=== PATIENT | female | born 1950 | race Caucasian/White ===

== ENCOUNTER 2018-11-27 09:02 | Outpatient (CLI) | payer MEDICARE, MEDICAID, SELFPAY ==
[2018-11-27 11:49] LABS: ALT 22 U/L (12-78); AST 21 U/L (15-37); Albumin 3.6 g/dL (3.4-5.0); Alkaline Phosphatase 80 U/L (46-116); Anion Gap 2.7 mmol/L (3-11); BUN 22 mg/dL (7-18); Bilirubin, Total 0.3 mg/dL (0.2-1.0); CO2 33.3 mmol/L (21.0-32.0); CREATININE 0.65 mg/dL (0.55-1.02); Calcium 8.8 mg/dL (8.5-10.1); Chloride 104 mmol/L (98-107); Cholesterol 211 mg/dL (50-200); Glucose 80 mg/dL (70-100); HDL Cholesterol 56 mg/dL (40-60); LDL CHOLESTEROL 129 mg/dL (<100); Potassium 4.4 mmol/L (3.5-5.1); Sodium 140 mmol/L (136-145); TROPONIN-I 5.3 ug/mL (4.0-12.0); Total Protein 6.9 g/dL (6.4-8.2); Triglyceride 115 mg/dL (30-150)
== END 2018-11-27 09:22 ==
DX: E66.3 Overweight (principal); I10 Essential (primary) hypertension; R56.9 Unspecified convulsions; F32.9 Major depressive disorder, single episode, unspecified; M25.511 Pain in right shoulder; M79.7 Fibromyalgia; Z51.81 Encounter for therapeutic drug level monitoring
CPT/HCPCS: 36415; 80053; 80061; 83721; 80156

== ENCOUNTER 2018-11-30 19:50 | Outpatient (REF) | payer MEDICARE, MEDICAID, SELFPAY ==
[2018-11-30 20:13] LABS: Bilirubin Negative (Negative); Blood Negative (Negative); Clarity Clear; Glucose Negative (Negative); Ketones Negative (Negative); Leukocyte Esterase Negative (Negative); Nitrite Negative (Negative); Specific Gravity 1.015 (1.005-1.025); Urobilinogen 0.2 EU/dL (Up TO 0.2); pH 7.5 (5-8)
== END 2018-11-30 20:10 ==
LOC: LBN 19:50
DX: R31.9 Hematuria, unspecified (principal)
CPT/HCPCS: 81003

== ENCOUNTER 2019-03-31 14:25 | Outpatient (CLI) | payer MEDICARE, MEDICAID, SELFPAY ==
[2019-03-31 15:44] LABS: Iron 93 ug/dL (50-175); Total Iron Binding Capacity 270 ug/dL (250-450); Transferrin Sat 34 % (15-50)
[2019-03-31 15:57] LABS: Ferritin 38 ng/mL (8-388)
== END 2019-03-31 14:45 ==
DX: D64.9 Anemia, unspecified (principal)
CPT/HCPCS: 82728; 83540; 83550

== ENCOUNTER → 2019-05-19 13:47 | Outpatient (BNVA) | payer MEDICARE, SELFPAY | PROVIDERS: Visit Provider Orthopaedic Surgery | DX: M25.512 Pain in left shoulder (principal); I10 Essential (primary) hypertension | CPT/HCPCS: 20610; 99211; 99213; J1040 ==

== ENCOUNTER 2019-07-27 14:19 | Outpatient (CLI) | payer MEDICARE, MEDICAID, SELFPAY ==
[2019-07-27 15:55] LABS: TSH (W/Ref FT4) 2.14 uIU/mL (0.36-3.74)
== END 2019-07-27 14:39 ==
DX: F32.9 Major depressive disorder, single episode, unspecified (principal); G47.00 Insomnia, unspecified; I10 Essential (primary) hypertension; M79.7 Fibromyalgia; R60.9 Edema, unspecified
CPT/HCPCS: 36415; 84443

== ENCOUNTER 2019-09-01 13:54 | Outpatient (CLI) | payer MEDICARE, SELFPAY ==
--- NOTE | 2019-09-01 12:30 | DI.RAD_ITS ---
EXAM: XR SHOULDER LT COMPLETE 2+V INDICATION: shoulder pain, left - decreased ROM, M25.512. COMPARISON: RIGHT SHOULDER COMPLETE from 10/23/2016 RIGHT SHOULDER COMPLETE from 02/02/2018 LEFT SHOULDER COMPLETE from 02/02/2018 TECHNIQUE: 2D digital imaging was performed. FINDINGS: There is mild spurring at the AC joint and tip of the acromion. There is an old healed fracture of the proximal humerus. There is spurring at the glenoid. There is prominent spurring at the anterior aspect of the humeral head. IMPRESSION: Old healed humeral head fracture and degenerative changes.
== END 2019-09-01 14:14 ==
DX: M25.512 Pain in left shoulder (principal); M19.012 Primary osteoarthritis, left shoulder; Z87.81 Personal history of (healed) traumatic fracture
CPT/HCPCS: 73030

== ENCOUNTER 2019-10-25 11:37 | Outpatient (CLI) | payer MEDICARE, SELFPAY ==
[2019-10-25 13:08] LABS: CREATININE 0.54 mg/dL (0.55-1.02); Potassium 4.1 mmol/L (3.5-5.1)
== END 2019-10-25 11:57 ==
PROVIDERS: PCP Nurse Practitioner; Visit Provider Nurse Practitioner
DX: I10 Essential (primary) hypertension (principal)
CPT/HCPCS: 36415; 82565; 84132

== ENCOUNTER 2020-03-08 12:51 | Emergency (ER) | payer MEDICARE, SELFPAY | END 2020-03-08 13:00 | disposition other institution (70) | LOC: ER 12:58 | PROVIDERS: PCP Nurse Practitioner | DX: Z53.21 Procedure and treatment not carried out due to patient leaving prior to being seen by health care provider (principal) ==

== ENCOUNTER 2020-05-21 07:43 | Outpatient (CLI) | payer MEDICARE, SELFPAY ==
--- NOTE | 2020-05-21 09:15 | DI.MAMMO_ITS ---
EXAM: MG MAMMO SCREENING CLINICAL HISTORY: screening, Z12.39 TECHNIQUE: Bilateral full field digital CC and MLO mammographic images were obtained with 3D tomosyn thesis and utilizing computer aided detection (CAD). COMPARISON: None. FINDINGS: Masses/Architectural Distortion: None seen. Microcalcifications: No suspicious pleomorphic-type are seen. Skin Thickening/Nipple Retraction: None. IMPRESSION: 1. No significant interval change with no specific features of malignancy noted. 2. Unless there is more urgent need, screening mammography is recommended, as per [employer] [place] [employer] guidelines. BI-RADS Category 1 - Negative Breast Density - Category B - Scattered areas of fibroglandular density A negative radiographic report should not delay biopsy if a dominant or clinically suspicious mass is present. Up to ten percent of cancers are not identified on mammography. A negative report may reinforce clinical impression. Adenosis and dense breasts may obscure an underlying neoplasm. False positive reports average 6 to 10%. Patient will receive a letter notifying them of these results.
== END 2020-05-21 08:03 ==
PROVIDERS: PCP Nurse Practitioner; Visit Provider Nurse Practitioner
DX: Z12.31 Encounter for screening mammogram for malignant neoplasm of breast (principal)
CPT/HCPCS: 77063; 77067

== ENCOUNTER 2021-05-02 10:43 | Outpatient (CLI) | payer MEDICARE, SELFPAY ==
--- NOTE | 2021-05-02 09:30 | DI.RAD_ITS ---
Exam(s) XR KNEE LT 3V AP,LAT,LEANDRO EXAM: XR KNEE LT 3V AP,LAT,LEANDRO CLINICAL HISTORY: LEFT KNEE PAIN. TECHNIQUE: 2D digital imaging was performed. COMPARISON: CR RIGHT KNEE 3 VIEWS from 01/16/2012 MR MRI R LOWER JOINT WO CONT from 06/27/2014 MR MRI R LOWER JOINT WO CONT from 06/27/2014 CR RIGHT KNEE LIMITED 1 OR 2 VIEW from 11/21/2015 CR RIGHT KNEE LIMITED 1 OR 2 VIEW from 11/21/2015 CR RIGHT KNEE 3 VIEWS from 02/02/2018 CR RIGHT KNEE 3 VIEWS from 02/02/2018 FINDINGS: There is no evidence of left knee fracture. Slight increased amount of joint fluid noted. Mild dege nerative changes. Chondrocalcinosis noted in the lateral compartment. Small marginal osteophytes of f the medial compartment. Incidentally noted is a sclerotic bone lesion measuring 1.9 by 1.1 cm located posteriorly-laterally i n the diaphysis-metaphysis junction of the femur. Possibly an enchondroma. IMPRESSION: Mild degenerative changes as described above. Sclerotic intramedullary bone lesion in the distal femur as described above. Comparison to any prior outside images would be helpful, if they exist. All the other knee images in our are of the opposit e-right knee. If clinically indicated can perform MRI DATA REPOSITORY: RADIATION DOSE DELIVERED:
== END 2021-05-02 10:44 | disposition home or self-care (01) ==
LOC: DIORS 10:43
PROVIDERS: PCP Nurse Practitioner; Referring Provider Nurse Practitioner; Visit Provider Student in an Organized Health Care Education/Training Program
DX: M25.562 Pain in left knee (principal); M17.12 Unilateral primary osteoarthritis, left knee; M89.9 Disorder of bone, unspecified
CPT/HCPCS: 20610; 73562; J1040

== ENCOUNTER → 2021-05-20 01:54 | Outpatient (CLI) | payer MEDICARE, SELFPAY ==
--- NOTE | 2021-05-20 15:00 | DI.MRI_ITS ---
Exam(s) MR LOWER JOINT LT WO EXAM: MR LOWER JOINT LT WO CLINICAL HISTORY: LT KNEE PAIN, M25.562 TECHNIQUE: Multiplanar multisequence MRI of the knee was performed. COMPARISON: MR MRI R LOWER JOINT WO CONT from 06/27/2014 Knee x-ray 05/02/2021 was reviewed FINDINGS: EFFUSION: There is a small amount of increased joint fluid. There is a Valdez's cyst in the medial po pliteal fossa which measures 4 cm craniocaudal length by 0.7 cm AP by 0.6 cm wide. MARROW:There is no evidence of fracture. There is some bone edema evident in medial tibial plateau a nd subarticular outer aspect of the medial femoral condyle. In addition, there is an eccentric intramedullary bone lesion in the distal posterior lateral aspect of the femoral diaphysis which is associated with some endosteal scalloping. Thin hyperintense rim k nows prominent surrounding bone edema. Probably an enchondroma. PATELLOFEMORAL COMPARTMENT: The quadriceps tendon is intact. The patellar ligament is intact. There is significant thinning of the retropatellar cartilage over the medial facet above the equator. Also focal cartilage thinning over the lateral facet. No intraosseous signal to suggest recent pat ellar dislocation. There is no evidence of patellar retinacular tear. CRUCIATE LIGAMENTS: Some increased signal is seen the ACL but no high-grade tear this structure.The p osterior cruciate ligament is intact. MEDIAL COMPARTMENT/MEDIAL MENISCUS: There is an undersurface tear in the posterior horn of the medial meniscus. The meniscal root is intact. No obvious tears of the anterior horn.. There is significant thinning of the hyaline cartilage over the medial femoral condyle. There is mild subarticular edema. No osteochondral defects. Subjacent medial tibial plateau exhibits some subartic ular edema posteriorly. MEDIAL COLLATERAL LIGAMENT: Intact LATERAL COMPARTMENT/LATERAL MENISCUS: Posterior horn of the lateral meniscus is intact. Myxoid degene ration signal noted in the anterior horn.Mild degenerative changes in the cartilage over the condyle. No osteochondral defects. There are tiny marginal osteophytes. ILIOTIBIAL BAND: Intact LATERAL COLLATERAL LIGAMENT COMPLEX: The fibular collateral ligament is intact. The biceps femoris t endon is intact.Popliteus muscle and tendon are intact. Numerous varicose veins are noted lateral aspect of knee. IMPRESSION: 1. There is a joint effusion there is Valdez cyst as described above 2. Under surface tear noted in the posterior horn of the medial meniscus. 3. Mild increased signal in the anterior cruciate ligament but no high-grade tear of this structure e vident. The PCL is intact. No tears of the MCL nor of the LCL complex 4. There is an eccentric well-defined bone lesion in the distal lateral diaphysis of the femur which measures approximately 1.5 by 1.0 cm associated with some endosteal scalloping. There is minimal if a ny surrounding marrow edema. First consideration is for an enchondroma. Recommend follow-up MRI in 6 months. DATA REPOSITORY:
== END ==
PROVIDERS: PCP Nurse Practitioner; Visit Provider Student in an Organized Health Care Education/Training Program
DX: M71.22 Synovial cyst of popliteal space [Baker], left knee (principal); S83.242A Other tear of medial meniscus, current injury, left knee, initial encounter; M89.9 Disorder of bone, unspecified; X58.XXXA Exposure to other specified factors, initial encounter
CPT/HCPCS: 73721

== ENCOUNTER 2021-05-29 02:42 | Outpatient (CLI) | payer MEDICARE, SELFPAY ==
--- NOTE | 2021-05-29 11:14 | DI.MAMMO_ITS ---
Exam(s) MAMMO SCREENING EXAM: MAMMO SCREENING CLINICAL HISTORY: screening,Z12.39. TECHNIQUE: Bilateral full field digital CC and MLO mammographic images were obtained with 3D tomosyn thesis and utilizing computer aided detection (CAD). COMPARISON: Prior mammogram performed May 2020. There are no other mammograms for comparison.. FINDINGS: There are no new spiculated masses nor malignant appearing microcalcification groups. There is no significant architectural distortion nor skin thickening-retraction. IMPRESSION: No radiographic evidence of malignancy. BI-RADS Category 1 - Negative Breast Density - Category B - Scattered areas of fibroglandular density Breast density Category C or D implies that the patient has dense breast tissue. Dense breast tissue can make it harder to find cancer on a mammogram. Dense breast tissue is also associated with an incr eased risk of breast cancer. This information about the result of the mammogram report was provided to the patient to raise their awareness. Use this report when you speak with the patient about their risks for breast cancer, which includes their family history. At that time, you may recommend additional screening tests (Ultrasoun d or MRI) as these tests may add significant information. A negative radiographic report should not delay biopsy if a dominant or clinically suspicious mass is present. Up to ten percent of cancers are not identified on mammography. A negative report may reinforce clinical impression. Adenosis and dense breasts may obscure an underlying neoplasm. False positive reports average 6 to 10%. Patient will receive a letter notifying them of these results.
== END 2021-05-29 03:02 ==
PROVIDERS: PCP Nurse Practitioner; Visit Provider Nurse Practitioner
DX: Z12.31 Encounter for screening mammogram for malignant neoplasm of breast; I10 Essential (primary) hypertension; R92.8 Other abnormal and inconclusive findings on diagnostic imaging of breast
CPT/HCPCS: 77063; 77067

== ENCOUNTER 2021-06-21 10:42 | Outpatient (CLI) | payer MEDICARE, SELFPAY ==
--- NOTE | 2021-06-21 10:15 | DI.RAD_ITS ---
Exam(s) XR KNEE RT 4V AP,LAT,LEANDRO,PAT EXAM: XR KNEE RT 4V AP,LAT,LEANDRO,PAT CLINICAL HISTORY: right knee pain after fall. TECHNIQUE: 2D digital imaging was performed. COMPARISON: CR RIGHT KNEE 3 VIEWS from 02/02/2018 FINDINGS: BONES: No acute fracture is present. No bony destructive lesion is seen. JOINTS: There are stable postsurgical changes of a right total knee replacement. No joint effusion i s seen. SOFT TISSUE: Normal. IMPRESSION: No acute abnormality. DATA REPOSITORY: RADIATION DOSE DELIVERED:
== END 2021-06-21 10:43 | disposition home or self-care (01) ==
LOC: DIORS 10:42
PROVIDERS: PCP Nurse Practitioner; Referring Provider Nurse Practitioner; Visit Provider Student in an Organized Health Care Education/Training Program
DX: M25.561 Pain in right knee (principal); M70.51 Other bursitis of knee, right knee; W19.XXXA Unspecified fall, initial encounter; Z96.651 Presence of right artificial knee joint
CPT/HCPCS: 99213; 73564

== ENCOUNTER 2021-06-28 16:52 | Outpatient (REF) | payer MEDICARE, SELFPAY ==
[2021-06-30 12:54] LABS: COVID-19 RT-PCR UVMMC Result Negative (Negative)
== END 2021-06-28 16:53 | disposition home or self-care (01) ==
LOC: LBN 16:52
PROVIDERS: PCP Nurse Practitioner; Visit Provider Nurse Practitioner
DX: Z20.822 Contact with and (suspected) exposure to COVID-19 (principal); J06.9 Acute upper respiratory infection, unspecified
CPT/HCPCS: U0003

== ENCOUNTER → 2021-07-23 00:20 | Outpatient (CLI) | payer MEDICARE, SELFPAY ==
--- NOTE | 2021-07-23 10:50 | DI.MRI_ITS ---
Exam(s) MR BRAIN WO EXAM: MR BRAIN WO CLINICAL HISTORY: r/o CVA/ TIA,slurring, walking toward 1 side,G45.9 TECHNIQUE: Multiplanar multisequence MRI of the brain was performed. COMPARISON: No exams were available for comparison FINDINGS: The examination is limited due to patient motion artifact. VENTRICLES AND EXTRA AXIAL SPACES: Normal in size and morphology for the patient's age. MIDLINE SHIFT: None. CEREBRAL PARENCHYMA: No focus of restricted diffusion to suggest acute infarct. No space-occupying le willow identified. There are areas of hyperintense signal in the white matter on the FLAIR and T2 weigh glenis images most consistent with chronic microvascular ischemic change. HEMORRHAGE: None. BRAINSTEM/CEREBELLUM: Normal. CALVARIUM: Normal. VISUALIZED PARANASAL SINUSES/MASTOIDS:Clear. [place] OF [place]: Normal flow void. PITUITARY GLAND: Unremarkable. OTHER FINDINGS: None. IMPRESSION: 1. No evidence of an acute infarct. 2. Cerebral atrophy and small vessel ischemic disease consistent with the patient's age. DATA REPOSITORY:
== END ==
PROVIDERS: PCP Nurse Practitioner; Visit Provider Nurse Practitioner
DX: G45.9 Transient cerebral ischemic attack, unspecified (principal); G31.9 Degenerative disease of nervous system, unspecified
CPT/HCPCS: 70551

== ENCOUNTER 2021-10-21 14:22 | Outpatient (REF) | payer MEDICARE, SELFPAY ==
[2021-10-23 11:38] LABS: COVID-19 RT-PCR UVMMC Result Negative (Negative)
== END 2021-10-21 14:23 | disposition home or self-care (01) ==
LOC: LBN 14:22
PROVIDERS: PCP Nurse Practitioner; Visit Provider Family Medicine
DX: Z20.822 Contact with and (suspected) exposure to COVID-19 (principal); J06.9 Acute upper respiratory infection, unspecified
CPT/HCPCS: U0003; U0005

== ENCOUNTER 2021-10-29 15:41 | Outpatient (REF) | payer MEDICARE, SELFPAY ==
[2021-10-31 10:34] LABS: COVID-19 RT-PCR UVMMC Result Negative (Negative)
== END 2021-10-29 15:42 | disposition home or self-care (01) ==
LOC: LBN 15:41
PROVIDERS: PCP Nurse Practitioner; Visit Provider Nurse Practitioner
DX: Z20.822 Contact with and (suspected) exposure to COVID-19 (principal); J06.9 Acute upper respiratory infection, unspecified
CPT/HCPCS: U0003; U0005

== ENCOUNTER 2021-11-21 11:53 | Outpatient (CLI) | payer MEDICARE, SELFPAY ==
--- NOTE | 2021-11-21 11:30 | DI.RAD_ITS ---
Exam(s) XR KNEE LT 2V AP,LAT EXAM: XR KNEE LT 2V AP,LAT CLINICAL HISTORY: f/u L distal femur enchondroma. TECHNIQUE: 2D digital imaging was performed. COMPARISON: CR RIGHT KNEE 3 VIEWS from 01/16/2012 MR MRI R LOWER JOINT WO CONT from 06/27/2014 CR RIGHT KNEE LIMITED 1 OR 2 VIEW from 11/21/2015 MR MR LOWER JOINT LT WO from 05/20/2021 CR XR KNEE RT 4V AP,LAT,LEANDRO,PAT from 06/21/2021 FINDINGS: No evidence of fracture but there does appear to be a joint effusion, seen on the lateral. Moderate degenerative changes noted in the medial compartment. Mild joint space narrowing seen at this level on the standing view. There is no narrowing of the lateral compartment but there is chondrocalcinosi s evident in the lateral compartment. There is an eccentric intramedullary sclerotic bone lesion seen in the distal femur which corresponds to the finding seen on MRI examination of 05/20/2021. Exhibits some endosteal scalloping, as previo usly present on the MRI. This is probably an enchondroma. IMPRESSION: Degenerative changes. Probable enchondroma in the distal femur diaphysis evident, as seen on the MRI scan of 05/20/2021 DATA REPOSITORY: RADIATION DOSE DELIVERED:
== END 2021-11-21 11:54 | disposition home or self-care (01) ==
LOC: DIORS 11:53
PROVIDERS: PCP Nurse Practitioner; Referring Provider Nurse Practitioner; Visit Provider Student in an Organized Health Care Education/Training Program
DX: D16.22 Benign neoplasm of long bones of left lower limb (principal); I83.892 Varicose veins of left lower extremity with other complications
CPT/HCPCS: 99213; 73560

== ENCOUNTER 2022-01-06 04:33 | Outpatient (CLI) | payer MEDICARE, SELFPAY ==
[2022-01-06 14:28] LABS: Abs Immature Grans 0.01 10^3/uL (0.0-0.06); Absolute Basophil Count 0.05 10^3/uL (0.0-0.2); Absolute Lymphocyte Count 1.44 10^3/uL (1.2-3.4); Absolute Monocyte Count 0.33 10^3/uL (0.1-0.8); Absolute Neutrophil Count 2.72 10^3/uL (1.2-6.7); Eosinophils % 6.2; HCT 31.1 % (36.0-46.0); HGB 10.2 g/dL (11.2-15.7); Immature Grans % 0.2; Lymphocytes % 29.7; MCHC 32.8 % (32.0-36.0); MCV 94.5 fL (80-95); Monocytes % 6.8; Neutrophils % 56.1; Nucleated RBC 0 %; RBC 3.29 10^6/uL (3.93-5.22); RDW 12.7 % (11.7-14.6); RDW-SD 44.2 fL; WBC 4.85 10^3/uL (4.4-10.8)
[2022-01-06 15:51] LABS: ALT 13 U/L (14-59); AST 17 U/L (15-37); Albumin 3.8 g/dL (3.4-5.0); Alkaline Phosphatase 86 U/L (46-116); Anion Gap 8.6 mmol/L (3-11); BUN 15 mg/dL (7-18); Bilirubin, Total 0.2 mg/dL (0.2-1.0); CO2 30.4 mmol/L (21.0-32.0); Calcium 9.1 mg/dL (8.5-10.1); Chloride 100 mmol/L (98-107); Glucose 89 mg/dL (74-106); Potassium 3.8 mmol/L (3.5-5.1); Sodium 139 mmol/L (136-145); Total Protein 7.4 g/dL (6.4-8.2)
[2022-01-06 19:25] LABS: TSH (W/Ref FT4) 3.05 uIU/mL (0.36-3.74)
== END 2022-01-06 04:34 | disposition home or self-care (01) ==
LOC: LBO 04:33
PROVIDERS: PCP Nurse Practitioner; Visit Provider Dermatology
DX: I10 Essential (primary) hypertension (principal); N18.9 Chronic kidney disease, unspecified
CPT/HCPCS: 36415; 80053; 84443; 85025

== ENCOUNTER 2022-03-25 12:06 | Emergency (ER) | payer MEDICARE, SELFPAY ==
[2022-03-25 12:08] VITALS: BP 129/58; PULSE 74; RESP 16; TEMP 37.3; O2SAT 98
--- NOTE | 2022-03-25 12:15 | RT.EKG_ITS ---
APPROVED REPORT Exam: Resting ECG Reason for Exam: near syncope Patient Location: E HR:66 bpm ECG Measurements Heart Rate 66 AXIS IA 72 P 0 QRSd 93 QRS 33 QT 400 T 13 QTc 420 Conclusion Sinus rhythm...normal P axis, V-rate 60- 99
--- NOTE | 2022-03-25 12:18 | W.ED.GENAD ---
Discharge Plan Disposition Patient Disposition: HOME Condition: Stable Discharge Details Clinical Impression: Near syncope, Effusion of knee joint right, Acute hypokalemia Primary Care Provider: Rachel Horne ED Provider: Daisy Knowles Home Meds and New Rx's Prescriptions: New potassium chloride 20 mEq tablet extended release 20 meq PO BID Qty: 7 0RF Continued docusate sodium 100 mg tablet 100 - 200 mg PO DAILY PRN (Reason: constipation) Qty: 60 12RF loratadine 10 mg tablet 10 mg PO daily prn Qty: 90 4RF calcium carbonate-vitamin D3 [Os-Miguel 500 + D3] 500mg (1,250mg) -600 unit tablet 1 tab PO BID Qty: 200 2RF Rx Instructions: 1 tab at 0800 and 1 tab at HS lisinopril 10 mg tablet 10 mg PO DAILY Qty: 90 4RF benzonatate 100 mg capsule 100 mg PO TID PRN (Reason: cough) Qty: 20 1RF duloxetine [Cymbalta] 20 mg capsule,delayed release(DR/EC) 20 mg PO DAILY Qty: 90 4RF Rx Instructions: Take 1 tab at 0800 fluticasone propionate 50 mcg/actuation spray,suspension 1 spray NS BID Qty: 1 11RF gabapentin 300 mg capsule 300 mg PO TID Qty: 450 3RF hydrochlorothiazide 25 mg tablet 25 mg PO DAILY Qty: 90 3RF olopatadine 0.7 % drops 1 drp OP DAILY Qty: 2.5 1RF oxybutynin chloride 5 mg tablet 10 mg PO DAILY Qty: 180 4RF Rx Instructions: 2 tab daily at 0800 albuterol sulfate 90 mcg/actuation HFA aerosol inhaler 2 puff inhalation Q6H PRN (Reason: shortness of breath or wheezing) Qty: 8.5 0RF erythromycin 5 mg/gram (0.5 %) ointment 0.5 inch ophthalmic (eye) QID Qty: 3.5 0RF Lac-Hydrin Five 5 % lotion 1 applic topical DAILY Qty: 226 4RF fluoxetine 20 mg capsule 20 mg PO DAILY Qty: 30 0RF iqgqktrgcsy-dtkoyihbs-iev C-Mn [Glucosamine 1500 Complex] 1 EACH capsule 1 ea PO DAILY Multiple Vitamin, Womens 1 EACH tablet 1 ea PO DAILY ibuprofen 400 mg tablet 400 mg PO TID PRN (Reason: pain) Qty: 90 4RF carbamazepine [Tegretol] 200 mg tablet 200 mg PO TID Qty: 270 4RF Rx Instructions: 1 TAB 0800, PM, and HS, NAME BRAND MEDICALLY NECESSARY Discharge Instructions Instructions: Hypokalemia (ED), Near Syncope (ED) Additional Instructions: For potassium as instructed Follow-up with your PCP for Holter monitor Have regular meals and fluids Do not drive for the rest of the evening Follow-up with orthopedics regarding your effusion and return earlier should you have new or worsening complaints Use your walker with ambulation Use your knee brace Referrals: Odilon Velazquez MD [ [facility] STAFF PHYSICIAN] - Discharge Data Discharge Date/Time-TO BE ENTERED AT DEPARTURE: 03/25/22 16:50 Medical Decision Making <QUIQUE Lopez - Last Filed: 03/25/22 15:38> 71-year-old female reports sitting in the hot sun at a bank waiting for her turn, felt thirsty, upon getting up she felt near syncopal. Fell to the ground but denies LOC. Her only complaint now is that of right knee and ankle pain. She denies headache, chest pain, shortness of breath visual changes, abdominal pain, nausea, vomiting, numbness, tingling, weakness. Clinically she appears well, nontoxic. There is diffuse skin lesions secondary to skin picking and constant scratching. Given her near syncopal episode, while it sounds as though this is secondary to sitting in the hot sun, getting up from her chair quickly, will initiate a cardiac work-up and will obtain x-ray of her right knee and ankle. No indication that patient had a seizure today. Initial laboratory values are unremarkable for any obvious emergent process. No leukocytosis. Anemia appears to be near baseline. She denies any black tarry stools or bright red blood in her stools. Coags unremarkable. Potassium 3.3 electrolytes otherwise unremarkable, creatinine 0.8 with a GFR greater than 60. Glucose 99, magnesium 1.9, LFTs unremarkable, troponin less than 50, TSH 2.84. Urinalysis trace blood, small leuk esterase, 0-2 red cells 3-5 white cells, rare bacteria, culture is indicated. Flu, COVID, RSV negative X-ray of chest unremarkable. X-ray of ankle unremarkable. X-ray of the right knee reveals a large joint effusion, fat fluid level noted, cannot rule out occult intra-articular fracture X-ray of the knee was discussed with Dr. Velazquez, orthopedics. He reports the patient can be weightbearing as tolerated, recommends a walker, plus or minus brace, and trial ambulation. He will be happy to follow the patient as an outpatient Patient tolerated p.o. intake without difficulty Ceasar wrap applied, patient was able to ambulate slowly, took 2 steps, then reported the pain was too great and began to vomit. Patient given 4 mg IV Zofran. Awaiting a delta troponin. With Dr. Velazquez called back, recommends knee immobilizer, and he will see the patient in the office in 1-2 weeks. The patient would like to trial ambulate again. She states that she would like to go home and does not want to be admitted or go to a rehab facility. She is currently being p.o. trialed, will plan ambulate once again, and awaiting delta troponin Medical Records Medical records reviewed: Yes I reviewed the patient's medical records. Imaging Data Radiologic Study: Attestation: I personally reviewed and interpreted this imaging study as follows: Imaging: X-Ray Radiologist's impression: Exam(s) XR CHEST 2V PA LATERAL EXAM: XR CHEST 2V PA LATERAL CLINICAL HISTORY: near syncope TECHNIQUE: 2D digital imaging was performed. COMPARISON: CR RIGHT SHOULDER COMPLETE from 02/02/2018 FINDINGS: The heart is not enlarged. The lungs are clear and well expanded. No pleural effusion seen. Mediastinal contours appear intact. Right-sided reverse shoulder prosthesis noted. IMPRESSION: No evidence of acute process. Radiologic Study #2: Attestation: I personally reviewed and interpreted this imaging study as follows: Imaging: X-Ray Radiologist's impression: Exam(s) XR ANKLE RT COMPLETE EXAM: XR ANKLE RT COMPLETE CLINICAL HISTORY: fall TECHNIQUE: COMPARISON: CR LEFT ANKLE COMPLETE from 01/16/2012 FINDINGS: Three views were obtained. There is a fixation screw in the medial malleolus. The ankle mortise appears well maintained. There is no evidence of acute fracture or dislocation. ECG Data Attestation: I personally reviewed and interpreted this ECG (s) as follows: Interpretation: Please see official report by Dr. Bethea. Sinus rhythm, ventricular rate of 66, no STEMI. <Daisy Benson, PA - Last Filed: 03/25/22 19:31> 71-year-old female reports sitting in the hot sun at a bank waiting for her turn, felt thirsty, upon getting up she felt near syncopal. Fell to the ground but denies LOC. Her only complaint now is that of right knee and ankle pain. She denies headache, chest pain, shortness of breath visual changes, abdominal pain, nausea, vomiting, numbness, tingling, weakness. Clinically she appears well, nontoxic. There is diffuse skin lesions secondary to skin picking and constant scratching. Given her near syncopal episode, while it sounds as though this is secondary to sitting in the hot sun, getting up from her chair quickly, will initiate a cardiac work-up and will obtain x-ray of her right knee and ankle. No indication that patient had a seizure today. Initial laboratory values are unremarkable for any obvious emergent process. No leukocytosis. Anemia appears to be near baseline. She denies any black tarry stools or bright red blood in her stools. Coags unremarkable. Potassium 3.3 electrolytes otherwise unremarkable, creatinine 0.8 with a GFR greater than 60. Glucose 99, magnesium 1.9, LFTs unremarkable, troponin less than 50, TSH 2.84. Urinalysis trace blood, small leuk esterase, 0-2 red cells 3-5 white cells, rare bacteria, culture is indicated. Flu, COVID, RSV negative X-ray of chest unremarkable. X-ray of ankle unremarkable. X-ray of the right knee reveals a large joint effusion, fat fluid level noted, cannot rule out occult intra-articular fracture X-ray of the knee was discussed with Dr. Velazquez, orthopedics. He reports the patient can be weightbearing as tolerated, recommends a walker, plus or minus brace, and trial ambulation. He will be happy to follow the patient as an outpatient Patient tolerated p.o. intake without difficulty Ceasar wrap applied, patient was able to ambulate slowly, took 2 steps, then reported the pain was too great and began to vomit. Patient given 4 mg IV Zofran. Awaiting a delta troponin. With Dr. Velazquez called back, recommends knee immobilizer, and he will see the patient in the office in 1-2 weeks. The patient would like to trial ambulate again. She states that she would like to go home and does not want to be admitted or go to a rehab facility. She is currently being p.o. trialed, will plan ambulate once again, and awaiting delta troponin LB: Care is accepted in transition from Tr Walker physician enrichment assistant pending delta troponin and ambulatory trial Patient was placed in a hinged knee brace for her knee effusion and was able to ambulate well and request discharge home Her troponin is negative x2 and she is feeling symptomatically improved, and she is not experiencing any orthostatic signs She is referred for outpatient Holter monitor Return precautions discussed and patient expressed understanding, at time of discharge home she has stable vitals and assessment Mildly hypokalemic, 3.3, placed on potassium for home Instructed to follow-up with PCP HPI <QUIQUE Lopez - Last Filed: 03/25/22 15:38> General Mode of arrival: EMS. Date/Time Provider Initiated Documentation: 03/25/22 12:16. Limitations to Documentation: no limitations. Information obtained by: patient and EMS. HPI Narrative: This is a 71-year-old female, past medical history of bilateral lower leg edema, seizures, hypertension, fibromyalgia, depression, presenting to the ER via EMS for evaluation of near syncope. Patient states that she felt well throughout the morning, went to the bank and was sitting in the hot sun, was feeling thirsty and wanted a glass of water. Got up from the hot sun and she was called to the next data coordinator and upon standing felt as though she could pass out, everything went fuzzy, and she attempted to lower herself to the ground falling injuring her right knee and ankle. She denies LOC or striking her head. She denies headache, visual change, neck pain, chest pain, shortness of breath, abdominal pain, nausea, vomiting. Patient reports mild right ankle and knee pain. Patient states this is not like typical seizure feels like. She actually states that she feels well now. Triage note reported that she felt dizzy but patient denies a dizzy feeling to me, reports that she felt like she was going to fall, lightheaded. Related Data Home Medications Medication Instructions Recorded Confirmed mhhgviczwdy-[id number] C-Mn 500 1 ea PO DAILY 03/26/13 03/18/22 mg-400 mg capsule (Glucosamine 1) houmqktimhkn-Dd-vqoj-minerals 1 ea PO DAILY 04/13/14 03/18/22 (Multiple Vitamin, Womens tablet) duloxetine 20 mg capsule,delayed 20 mg PO DAILY Blister Pack #90 03/08/21 03/18/22 release (Cymbalta) caps fluticasone propionate 50 1 spray NS BID ##1 03/08/21 03/18/22 mcg/actuation nasal spray,suspension gabapentin 300 mg capsule 300 mg PO TID Blister Pack #450 03/08/21 03/18/22 caps hydrochlorothiazide 25 mg tablet 25 mg PO DAILY #90 tabs 03/08/21 03/18/22 olopatadine 0.7 % eye drops 1 drp ophthalmic (eye) DAILY #2.5 03/08/21 03/18/22 mL oxybutynin chloride 5 mg tablet 10 mg PO DAILY blister pack #180 03/08/21 03/18/22 tabs albuterol sulfate 90 mcg/actuation 2 puff inhalation Q6H PRN 06/28/21 03/18/22 aerosol inhaler shortness of breath or wheezing #8.5 grams calcium carbonate 500 mg-vitamin 1 tab PO BID Blister Pack #200 07/11/21 03/18/22 D3 15 mcg (600 unit) tablet tab-caps (Os-Miguel 500 + D3) docusate sodium 100 mg tablet 100 - 200 mg PO DAILY PRN 07/11/21 03/18/22 constipation #60 tabs loratadine 10 mg tablet 10 mg PO daily prn #90 tab-caps 07/11/21 03/18/22 lisinopril 10 mg tablet 10 mg PO DAILY #90 tabs 08/09/21 03/18/22 benzonatate 100 mg capsule 100 mg PO TID PRN cough #20 caps 10/21/21 03/18/22 ibuprofen 400 mg tablet 400 mg PO TID PRN pain #90 tabs 12/12/21 03/18/22 Tegretol 200 mg tablet 200 mg PO TID Blister Pack #270 01/02/22 03/18/22 (carbamazepine) tab-caps ammonium lactate 5 % lotion 1 applic topical DAILY #226 grams 03/06/22 03/18/22 (Lac-Hydrin Five) erythromycin 5 mg/gram (0.5 %) eye 0.5 inch ophthalmic (eye) QID #3.5 03/06/22 03/18/22 ointment grams fluoxetine 20 mg capsule 20 mg PO DAILY #30 caps 03/18/22 03/18/22 potassium chloride 20 mEq 20 meq PO BID #7 tabs 03/25/22 tablet,extended release Previous Rx's Medication Instructions Recorded duloxetine 20 mg capsule,delayed 20 mg PO DAILY Blister Pack #90 03/08/21 release (Cymbalta) caps fluticasone propionate 50 1 spray NS BID ##1 03/08/21 mcg/actuation nasal spray,suspension gabapentin 300 mg capsule 300 mg PO TID Blister Pack #450 03/08/21 caps hydrochlorothiazide 25 mg tablet 25 mg PO DAILY #90 tabs 03/08/21 olopatadine 0.7 % eye drops 1 drp ophthalmic (eye) DAILY #2.5 03/08/21 mL oxybutynin chloride 5 mg tablet 10 mg PO DAILY blister pack #180 03/08/21 tabs albuterol sulfate 90 mcg/actuation 2 puff inhalation Q6H PRN 06/28/21 aerosol inhaler shortness of breath or wheezing #8.5 grams calcium carbonate 500 mg-vitamin 1 tab PO BID Blister Pack #200 07/11/21 D3 15 mcg (600 unit) tablet tab-caps (Os-Miguel 500 + D3) docusate sodium 100 mg tablet 100 - 200 mg PO DAILY PRN 07/11/21 constipation #60 tabs loratadine 10 mg tablet 10 mg PO daily prn #90 tab-caps 07/11/21 lisinopril 10 mg tablet 10 mg PO DAILY #90 tabs 08/09/21 benzonatate 100 mg capsule 100 mg PO TID PRN cough #20 caps 10/21/21 ibuprofen 400 mg tablet 400 mg PO TID PRN pain #90 tabs 12/12/21 Tegretol 200 mg tablet 200 mg PO TID Blister Pack #270 01/02/22 (carbamazepine) tab-caps ammonium lactate 5 % lotion 1 applic topical DAILY #226 grams 03/06/22 (Lac-Hydrin Five) erythromycin 5 mg/gram (0.5 %) eye 0.5 inch ophthalmic (eye) QID #3.5 03/06/22 ointment grams fluoxetine 20 mg capsule 20 mg PO DAILY #30 caps 03/18/22 potassium chloride 20 mEq 20 meq PO BID #7 tabs 03/25/22 tablet,extended release Allergies Allergy/AdvReac Type Severity Reaction Status Date / Time ciprofloxacin [From Cipro] Allergy Verified 03/25/22 12:16 codeine Allergy Verified 03/25/22 12:16 levetiracetam [From Keppra] Allergy Verified 03/25/22 12:16 Sulfa (Sulfonamide Allergy Verified 03/25/22 12:16 Antibiotics) amoxicillin [From Augmentin] AdvReac Severe Nausea, Verified 03/25/22 12:16 vomiting and diarrhea clavulanic acid AdvReac Severe Nausea, Verified 03/25/22 12:16 [From Augmentin] vomiting and diarrhea simvastatin AdvReac Unknown FEEL ILL Verified 03/25/22 12:16 meperidine AdvReac DOESNT Verified 03/25/22 12:16 WANT TO EVER TAKE IT, FAMILY HISTORY General Stated Complaint: Dizzy/Sync HOSSEIN: 3 Review of Systems <QUIQUE Lopez - Last Filed: 03/25/22 15:38> Constitutional Constitutional: Denies fatigue, Denies fever(s), Denies headache(s) and Denies weakness Eyes Eyes: Denies change in vision ENT Ears, Nose, Mouth, and Throat: Denies headache(s) and Denies neck pain Cardiovascular Cardiovascular: Denies chest pain and Denies dyspnea Respiratory Respiratory: Denies cough and Denies dyspnea Gastrointestinal Gastrointestinal: Denies abdominal pain, Denies nausea and Denies vomiting Genitourinary Genitourinary: Denies dysuria Musculoskeletal Musculoskeletal: Denies back pain, Denies neck pain, Denies numbness, Reports stiffness and Denies tingling Integumentary/Breasts Skin/Breast: Denies rash Neurologic Neurologic: Denies headache(s), Denies numbness, Denies tingling and Denies weakness Endocrine Endocrine: Denies fatigue Hematologic/Lymphatic Hematologic/Lymphatic: Denies easy bleeding and Denies easy bruising PFSH <QUIQUE Lopez - Last Filed: 03/25/22 15:38> All Active Problems (Updated 03/25/22 @ 16:44 by QUIQUE Gonzalez) Near syncope (Acute) Effusion of knee joint right (Acute) Acute hypokalemia (Acute) Edema (Acute) Varicose veins of left leg with edema (Acute) Enchondroma of left femur (Acute) Dry skin dermatitis (Acute) Urinary incontinence, urge (Acute) Seizure (Acute) followed at [facility] Overweight (Chronic 05/22/15) Osteoarthritis of knee (Chronic 02/21/14) left- has received injections right knee replaced Fibromyalgia (Chronic) Essential hypertension (Chronic 01/16/14) Depressive disorder (Chronic) anxiety Medical History Carpal tunnel syndrome [place] right [place]02/15/16[place] [facility] [place] Dermatosis of perineum Herpes zoster History of reduction of closed fracture Low back pain radiating to right leg (05/22/15) 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 Pes anserinus bursitis of right knee Recurrent UTI (11/24/17) Shoulder pain, left Thrombophlebitis of superficial veins of lower extremity varicose veins TIA (transient ischemic attack) 07/2021- MRI with no acute infarct Surgical History Fracture, Closed Treatment ANKLE,FOOT,THUMB History of cataract removal with insertion of prosthetic lens History of section 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 MURRY Family History Mother , 89 Essential hypertension Depression Neoplasm FACE/SKIN Stroke Dementia Diabetes Father , 61 Essential hypertension Heart disease Hyperlipidemia Sister Essential hypertension Dementia Neoplasm FACE/SKIN Brother No problems noted. Brother Diabetes Essential hypertension TBI (traumatic brain injury) Depression Myocardial infarction Stroke Brother Essential hypertension Depression Hyperlipidemia Maternal Grandfather , 60 Lung cancer Maternal Grandmother , 94 Diabetes Neoplasm SKIN Paternal Grandmother Diabetes Depression Seizures Stroke Son Dementia Depression Daughter Dementia Depression Essential hypertension Brother TBI (traumatic brain injury) Depression Essential hypertension Alcohol abuse Previous Brother Depression Brother No problems noted. 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 Pets and animals: No Sexually active: No Do you think of yourself as: straight/heterosexual Current gender identity: female What is your relationship status?: How often do you talk on the phone with friends or family?: three or more times per week How often do you get together with friends or relatives?: three or more times per week How often do you attend evangelical or lutheran services?: 1-3 times per year Do you belong to any clubs or organized social groups?: no Panel score (0-1 are the most socially isolated patients): 1 What type of physical activity do you participate in: walking Duration: 30-45 minutes/day Frequency: 3-4 times per week Jacquie/Anabaptist: Baptist Special jacquie needs: No Seatbelt use: always Helmet use: No Drive intox or ride w/intox pile driver engineer: No Do you feel safe at home: Yes Do you feel safe in your relationship?: Yes Exam <QUIQUE Lopez - Last Filed: 03/25/22 15:38> Const General: cooperative, healthy appearing, comfortable and no acute distress Orientation: alert, awake and oriented x3 HENMT Head: normal to inspection, normocephalic and atraumatic Face and sinus: normal facial exam Mouth: moist mucous membranes Eyes General: appearance normal, both eyes and all related structures Conjunctivae: conjunctivae normal Neck Neck: normal visual inspection, full ROM, trachea midline, supple and nontender Resp Effort & Inspection: normal respiratory effort and able to speak in complete sentences Auscultation: clear to auscultation bilaterally Cardio Rate: regular rate Rhythm: regular rhythm GI Inspection: normal to inspection Palpation: not firm, no guarding, no pulsatile masses and nontender Auscultation: normal bowel sounds Back/Spine/Pelvis Back: No back tenderness Skin Other: Diffuse scabbing lesions throughout, patient reports to skin picking and always itchy Neuro General: patient alert, patient awake, patient oriented x3, moves all extremities and no focal motor deficits Cognition: normal cognition Speech: speech normal Motor: muscle tone normal throughout and strength 5/5 throughout Sensory Exam: no sensory deficits noted Extrem General: full ROM and capillary refill normal Other: Right knee and ankle full range of motion, neuro, vascular, tendon intact. There is diffuse anterior knee swelling and tenderness as well as mild right ankle lateral discomfort as Psych Appearance: grossly normal Mental Status: mental status grossly normal Course <QUIQUE Lopez - Last Filed: 03/25/22 15:38> Vital Signs Vital signs: Vital Signs Temperature 37.3 C 03/25/22 12:08 Pulse 74 03/25/22 12:08 Respiratory Rate 16 03/25/22 12:08 Blood Pressure 129/58 L 03/25/22 12:08 Pulse Oximetry 98 03/25/22 12:08 Temperature 37.3 C 03/25/22 12:08 Pulse 74 03/25/22 12:08 Respiratory Rate 16 03/25/22 12:08 Blood Pressure 129/58 L 03/25/22 12:08 Pulse Oximetry 98 03/25/22 12:08 Sign Out <QUIQUE Lopez - Last Filed: 03/25/22 15:38> Sign Out Data: Sign Out Comment: Near syncope, negative cardiac work-up thus far. Awaiting delta troponin. Patient with a right knee effusion, knee immobilizer, walker, will need to trial ambulate. Dr. Velazquez will follow in the office in 1-2 weeks. Last updated by Tr Walker PA at 03/25/22 15:39
[2022-03-25 12:37] LABS: Abs Immature Grans 0.01 10^3/uL (0.0-0.06); Absolute Basophil Count 0.04 10^3/uL (0.0-0.2); Absolute Eosinophil Count 0.42 10^3/uL (0.0-0.7); Absolute Lymphocyte Count 1.16 10^3/uL (1.2-3.4); Absolute Monocyte Count 0.48 10^3/uL (0.1-0.8); Absolute Neutrophil Count 3.49 10^3/uL (1.2-6.7); Basophils % 0.7; Eosinophils % 7.5; HCT 27.7 % (36.0-46.0); HGB 9.2 g/dL (11.2-15.7); Immature Grans % 0.2; Lymphocytes % 20.7; MCH 30.4 pg (27.0-33.0); MCHC 33.2 % (32.0-36.0); MCV 91 fL (80-95); MPV 9.4 fL (8.0-11.0); Monocytes % 8.6; Neutrophils % 62.3; Platelet Count 218 10^3/uL (130-400); RBC 3.03 10^6/uL (3.93-5.22); RDW 12.1 % (11.7-14.6); RDW-SD 40.7 fL
[2022-03-25 12:57] LABS: PTT Activated 22.3 sec (21.0-27.5); Prothrombin Time 10.3 sec (9.3-11.0)
[2022-03-25 12:59] LABS: ALT 18 U/L (14-59); AST 19 U/L (15-37); Albumin 3.4 g/dL (3.4-5.0); Alkaline Phosphatase 93 U/L (46-116); Anion Gap 6.3 mmol/L (3-11); BUN 13 mg/dL (7-18); Bilirubin, Total 0.2 mg/dL (0.2-1.0); CO2 31.7 mmol/L (21.0-32.0); CREATININE 0.8 mg/dL (0.55-1.02); Calcium 8.7 mg/dL (8.5-10.1); Chloride 101 mmol/L (98-107); Glucose 99 mg/dL (74-106); Magnesium 1.9 mg/dL (1.8-2.4); Potassium 3.3 mmol/L (3.5-5.1); Sodium 139 mmol/L (136-145); TSH 2.84 uIU/mL (0.36-3.74); Total Protein 7.2 g/dL (6.4-8.2); Troponin I < 50 ng/L (<or=60)
[2022-03-25 13:39] LABS: COVID-19 PCR Negative (Negative); Influenza A PCR Negative (Negative); Influenza B PCR Negative (Negative); RSV PCR Negative (Negative)
[2022-03-25 13:45] LABS: Source Nasopharynx
--- NOTE | 2022-03-25 14:29 | DI.RAD_ITS ---
Exam(s) XR ANKLE RT COMPLETE EXAM: XR ANKLE RT COMPLETE CLINICAL HISTORY: fall TECHNIQUE: COMPARISON: CR LEFT ANKLE COMPLETE from 01/16/2012 FINDINGS: Three views were obtained. There is a fixation screw in the medial malleolus. The ankle mortise enid ears well maintained. There is no evidence of acute fracture or dislocation. IMPRESSION: RADIATION DOSE DELIVERED: Total DLP
--- NOTE | 2022-03-25 14:29 | DI.RAD_ITS ---
Exam(s) XR KNEE RT 4V+ EXAM: XR KNEE RT 4V+ CLINICAL HISTORY: fall TECHNIQUE: COMPARISON: CR XR KNEE LT 2V AP,LAT from 11/21/2021 FINDINGS: Four views were obtained. There is a total knee joint replacement in position. The components appea r well seated. There is a large joint effusion. There is fat fluid level noted within the joint on the Merchant view raising the possibility of occult intra-articular fracture. However no fracture is identified on the images obtained. IMPRESSION: RADIATION DOSE DELIVERED: Total DLP
--- NOTE | 2022-03-25 14:29 | DI.RAD_ITS ---
Exam(s) XR CHEST 2V PA LATERAL EXAM: XR CHEST 2V PA LATERAL CLINICAL HISTORY: near syncope TECHNIQUE: 2D digital imaging was performed. COMPARISON: CR RIGHT SHOULDER COMPLETE from 02/02/2018 FINDINGS: The heart is not enlarged. The lungs are clear and well expanded. No pleural effusion seen. Mediastin al contours appear intact. Right-sided reverse shoulder prosthesis noted. IMPRESSION: No evidence of acute process. RADIATION DOSE DELIVERED: Total DLP
[2022-03-25 14:33] LABS: Bilirubin Negative (Negative); Blood Trace-intact (Negative); Clarity Sl Cloudy (Clear); Glucose Negative (Negative); Ketones Negative (Negative); Leukocyte Esterase Small (Negative); Nitrite Negative (Negative); Urobilinogen 0.2 EU/dL (Up TO 0.2); pH 7.5 (5-8)
[2022-03-25 14:44] LABS: RBC 0-2 HPF (0-2)
[2022-03-25 14:45] LABS: Bacteria Rare HPF (Negative); C & S Indicated? Yes; Casts Negative LPF (Negative); Crystals Negative HPF (Negative); Epithelial Cells Few HPF (Negative); Mucus Negative (Negative)
[2022-03-25] MEDS: Ondansetron 4 MG/2 ML VIAL IVP (15:23)
--- NOTE | 2022-03-25 15:23 | NUR.NOTE ---
pt was unable to ambulate with walker, took two steps thengot nauseas and began to throw up. pt states she didnt eat enough today. pt was given zofran and will try to eat and drink in 20 minutes then try ambulating with walker again.
[2022-03-25 15:56] LABS: Troponin I < 50 ng/L (<or=60)
--- NOTE | 2022-03-25 16:11 | NUR.NOTE ---
pt ambulated with minimal difficulty, no complaints of pain. nausea has subsided JM
[2022-03-25 16:12] VITALS: BP 126/62; PULSE 77; RESP 16; O2SAT 98
[2022-03-25 16:50] VITALS: PULSE 72; RESP 16; O2SAT 97
--- NOTE | 2022-03-26 12:23 | NUR.NOTE ---
Nursing Note: Patient had friend Joanne Salvador call us to say that she could not find her pocketbook. I looked in the dept. and did not find it. I called the patient back and told her that we did not have it. Laney Olmedo
== END 2022-03-25 16:50 | disposition home or self-care (01) ==
PROVIDERS: Physician Assistant; Emergency Provider Physician Assistant; PCP Nurse Practitioner
DX: R55 Syncope and collapse (principal); M25.461 Effusion, right knee; E87.6 Hypokalemia
CPT/HCPCS: 29505; 36415; 80053; 87637; 93005; 96374; 99284; 71046; 73564; 73610; 81003; 81015; 83735; 84443; 84484; 85025; 85610; 85730; 87086; 93010; J2405

== ENCOUNTER 2022-04-14 09:22 | Outpatient (CLI) | payer MEDICARE, SELFPAY ==
--- NOTE | 2022-04-14 09:15 | DI.RAD_ITS ---
Exam(s) XR KNEE RT 2V AP,LAT EXAM: XR KNEE RT 2V AP,LAT INDICATION: falls. COMPARISON: CR XR KNEE RT 4V+ from 03/25/2022 TECHNIQUE: 2D digital imaging was performed. Two views. FINDINGS: There has been no change in the total knee prosthesis or appearance of the surrounding bone. DATA REPOSITORY: RADIATION DOSE DELIVERED:
== END 2022-04-14 09:23 | disposition home or self-care (01) ==
LOC: DIORS 09:22
PROVIDERS: PCP Nurse Practitioner; Referring Provider Nurse Practitioner; Visit Provider Physician Assistant Surgical
DX: S89.91XA Unspecified injury of right lower leg, initial encounter (principal); R29.6 Repeated falls; W19.XXXA Unspecified fall, initial encounter; Z96.651 Presence of right artificial knee joint
CPT/HCPCS: 99214; 73560

== ENCOUNTER 2022-04-15 02:38 | Outpatient (CLI) | payer MEDICARE, MEDICAID, SELFPAY ==
[2022-04-15 15:30] LABS: HCT 29.3 % (36.0-46.0); HGB 9.9 g/dL (11.2-15.7); MCH 30.4 pg (27.0-33.0); MCHC 33.8 % (32.0-36.0); MCV 90 fL (80-95); MPV 9.2 fL (8.0-11.0); Platelet Count 300 10^3/uL (130-400); RBC 3.26 10^6/uL (3.93-5.22); RDW 12.2 % (11.7-14.6); RDW-SD 39.9 fL; WBC 5.77 10^3/uL (4.4-10.8)
[2022-04-15 16:19] LABS: Albumin 3.6 g/dL (3.4-5.0); BUN 24 mg/dL (7-18); Calcium 8.9 mg/dL (8.5-10.1); Glucose 105 mg/dL (74-106)
[2022-04-15 16:27] LABS: ALT 10 U/L (14-59); AST 9 U/L (15-37); Alkaline Phosphatase 112 U/L (46-116); Anion Gap 6.8 mmol/L (3-11); Bilirubin, Total 0.2 mg/dL (0.2-1.0); CO2 29.2 mmol/L (21.0-32.0); CREATININE 0.9 mg/dL (0.55-1.02); Chloride 92 mmol/L (98-107); Potassium 4.1 mmol/L (3.5-5.1); Sodium 128 mmol/L (136-145); Total Protein 7.9 g/dL (6.4-8.2)
[2022-04-15 17:26] LABS: TROPONIN-I 9.6 ug/mL (4.0-12.0)
== END 2022-04-15 02:39 | disposition home or self-care (01) ==
LOC: LBO 02:38
PROVIDERS: PCP Nurse Practitioner; Visit Provider Nurse Practitioner
DX: R56.9 Unspecified convulsions (principal); I10 Essential (primary) hypertension; M79.7 Fibromyalgia; Z51.81 Encounter for therapeutic drug level monitoring
CPT/HCPCS: 36415; 80053; 85027; 80156

== ENCOUNTER → 2022-05-08 12:50 | Outpatient (BNVA) | payer MEDICARE, SELFPAY | PROVIDERS: PCP Nurse Practitioner; Referring Provider Nurse Practitioner; Visit Provider Psychiatry & Neurology Neurology | DX: G40.909 Epilepsy, unspecified, not intractable, without status epilepticus (principal); I95.1 Orthostatic hypotension; R41.3 Other amnesia; F41.9 Anxiety disorder, unspecified | CPT/HCPCS: 99215 ==

== ENCOUNTER 2022-05-16 02:05 | Outpatient (CLI) | payer MEDICARE, MEDICAID, SELFPAY ==
--- OUTSIDE RECORDS SUMMARY | 2022-05-16 02:13 | XMS_ITS | Encounter Summary ---
:1950 Author Organization [facility] Address One [facility] [place] [address] Care Team Providers Name Role Phone eMg Fischer APRN Primary Care Provider Encounter Details Date Type Department Care Team Description 09/30/2018 Hospital Encounter XRay at [facility] Audrey Mayo, Status post total [address] [facility] [address] GILBERT replacement of right [place], [place] [facility] [phone] [place] [phone] [place] [address] Social History Tobacco Use Types Packs/Day Years Used Date Never Smoker Smokeless Tobacco: Never Used Alcohol Use Standard Drinks/Week Comments No 0 (1 standard drink = 0.6 oz pure alcoho l) Sex Assigned at Date Recorded Not on file documented as of this encounter Medications at Time of Discharge Medication Sig Dispensed Refills Start Date End Date oxybutynin (DITROPAN) 5 mg 2 times daily. 0 02/16 Tablet gabapentin (NEURONTIN) 300 Take 600 mg by 1 04/18 mg Capsule mouth 3 times daily. 1 in the morning, 2 afternoon, 2 in the evening DULoxetine (CYMBALTA) 20 mg Take 1 capsule by 0 0 03/23/2018 Capsule, Delayed mouth daily. Release(E.C.) DOC-Q-LACE 100 mg Capsule daily. 1 04/29/2018 citalopram (CELEXA) 20 mg Take 20 mg by 0 Tablet mouth daily. seasonal calcium-vitamin D 500 mg-5 Take 1 tablet by 0 mcg (200 unit) Tablet mouth 2 times daily (with meals). MULTI-VITAMIN ORAL Take by mouth. 0 fluticasone (FLONASE) 50 1 [place](s), Nasal, 0 mcg/Actuation nasal spray Once daily PRN prochlorperazine Take 1 tablet by 15 tablet 0 07/01/2018 (COMPAZINE) 10 mg Tablet mouth every 6 hours as needed for Nausea. acetaminophen (TYLENOL) 500 Take 2 tablets by 0 0 06/30/2018 03/11/2022 mg Tablet mouth every 8 hours. Continue the Tylenol around the clock for 10 days after surgery, (07/09/2018). Then may take if needed per package insert. Do not take more than 3,000 mg of Tylenol in 24 hours. FLAXSEED ORAL by Misc.(Non-Drug; 0 08/2022 Combo Route) route. documented as of this encounter Plan of Treatment Not on filedocumented as of this encounter Procedures Procedure Name Priority Date/Time Associated Diagnosis Comme nts XR SHOULDER RIGHT Routine 09/30/2018 2:10 PM Status post total Results for this EST replacement of right procedu re are in shoulder the results section. 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 The needle hardware is in position with no c omplications. No acute fracture, no dislocation. Soft tissue structures are unremarkable. Visualized aspects of the right thorax a re unremarkable. Narrative 09/30/2018 3:28 PM EST EXAMINATION: XR SHOULDER RIGHT (GENERIC) CLINICAL HISTORY: s/p right reverse TSA, checking implant alignment TECHNIQUE: AP internal and external rotational and transscapular Y and axillary radiographs of the right shoulder. COMPARISON: 08/19/2018 Procedure Note Marcie Cohn MD - 09/30/2018 EXAMINATION: XR SHOULDER RIGHT (GENERIC) CLINICAL HISTORY: s/p right reverse TSA, checking implant alignment TECHNIQUE: AP internal and external rotational and transscapular Y and axillary radiographs of the right shoulder. 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 The needle hardware is in position with no c omplications. No acute fracture, no dislocation. Soft tissue structures are unremarkable. Visualized aspects of the right thorax a re unremarkable. Audrey Mayo MD IMG DX ORDERABLES documented in this encounter Visit Diagnoses Diagnosis Status post total replacement of right s anna documented in this encounter Care Teams Induction Brazer Relationship Specialty Start Date End Date Meg Fischer, MINE PROMOTOR PCP - General Family Medicine 06/17/18 02/20/[address] [place] [address] documented as of this encounter
--- OUTSIDE RECORDS SUMMARY | 2022-05-16 02:13 | XMS_ITS | Encounter Summary ---
:1950 Author Organization [facility] [place] [address] Care Team Providers Name Role Phone Meg Fischer APRN Primary Care Provider Encounter Details Date Type Department Care Team Description 01/11/2019 Telephone Orthopaedics at [facility] Pedro Artis, [place] [address] Social History Tobacco Use Types Packs/Day Years Used Date Never Smoker Smokeless Tobacco: Never Used Alcohol Use Standard Drinks/Week Comments No 0 (1 standard drink = 0.6 oz pure alcoho l) Sex Assigned at Date Recorded Not on file documented as of this encounter Miscellaneous Notes Telephone Encounter - Pedor Artis RN - 01/11/2019 11:59 AM EDT Images from the original note were not included. Telephone call from patient. She is at her dentist and needs to know if she requires any antibioticsfor her dental cleaning. Reveiwed AAOS guidelines with patient on phone. At this time patient does not require any antibiotics prior to dental procedures and she is over 6 months out from her surgery so she is ok to proceed with dental work. She was made aware that she should call with any health changes or new medical diagnoses to determine if the recommendations have changed for her. She agrees. documented in this encounter Plan of Treatment Not on filedocumented as of this encounter Visit Diagnoses Not on filedocumented in this encounter Care Teams General Farmer Relationship Specialty Start Date End Date Meg Fischer APRN PCP - General Family Medicine 8/16/18 4/21/[address] [place] [address] documented as of this encounter
--- OUTSIDE RECORDS SUMMARY | 2022-05-16 02:13 | XMS_ITS | Encounter Summary ---
:1950 Author Organization [facility] [place] [address] Care Team Providers Name Role Phone Meg Fischer APRN Primary Care Provider Encounter Details Date Type Department Care Team Description 08/05/2018 Telephone Orthopaedics at [facility] Pedro Artis, [place] [address] Social History Tobacco Use Types Packs/Day Years Used Date Never Smoker Smokeless Tobacco: Never Used Alcohol Use Standard Drinks/Week Comments No 0 (1 standard drink = 0.6 oz pure alcoho l) Sex Assigned at Date Recorded Not on file documented as of this encounter Miscellaneous Notes Telephone Encounter - Pedro Artis RN - 08/05/2018 2:36 PM EDT Subjective: Telephone call from Patricia occupational therapist at [facility]. She calls toreport patient is doing well and is independent with her exercises. She has met all goals.. They will be discharging [facility] from [facility] and patient will follow up with us as scheduled and for furtherphysical therapy treatment. Plan: Patient should call with any concerns between now and her appointment. Patient/Responsible democrat voices an understanding of advice? Yes Patient/Responsible democrat intends to comply with action/disposition: Yes documented in this encounter Plan of Treatment Not on filedocumented as of this encounter Visit Diagnoses Not on filedocumented in this encounter Care Teams Mellowing Machine Operator Relationship Specialty Start Date End Date Meg Fischer APRN PCP - General Family Medicine 8/16/18 4/21/[address] [place] [address] documented as of this encounter
--- OUTSIDE RECORDS SUMMARY | 2022-05-16 02:13 | XMS_ITS | Encounter Summary ---
:1950 Author Organization [facility] [place] [address] Care Team Providers Name Role Phone Meg Fischer APRN Primary Care Provider Encounter Details Date Type Department Care Team Description 07/22/2019 Hospital Encounter XRay at [facility] MayoJohnik, Status post reverse [address] [facility] [address] GILBERT total shoulder [place], [place] [facility] replacement, [facility] [phone] [place] [phone] [place] [address] Social History Tobacco Use Types Packs/Day Years Used Date Never Smoker Smokeless Tobacco: Never Used Alcohol Use Standard Drinks/Week Comments No 0 (1 standard drink = 0.6 oz pure alcoho l) Sex Assigned at Date Recorded Not on file documented as of this encounter Medications at Time of Discharge Medication Sig Dispensed Refills Start Date End Date carBAMazepine (TEGRETOL) Take 200 mg by mouth 0 200 mg Tablet 3 times daily. oxybutynin (DITROPAN) 5 2 times daily. 0 02/17/20 18 mg Tablet gabapentin (NEURONTIN) Take 600 mg by mouth 1 300 mg Capsule 3 times daily. 1 in the morning, 2 afternoon, 2 in the evening DULoxetine (CYMBALTA) 20 Take 1 capsule by 0 03/03 mg Capsule, Delayed mouth daily. Release(E.C.) DOC-Q-LACE 100 mg Capsule daily. 1 04/29/2018 citalopram (CELEXA) 20 mg Take 20 mg by mouth 0 Tablet daily. seasonal calcium-vitamin D 500 Take 1 tablet by 0 mg-5 mcg (200 unit) mouth 2 times daily Tablet (with meals). MULTI-VITAMIN ORAL Take by mouth. 0 fluticasone (FLONASE) 50 1 [place](s), Nasal, 0 mcg/Actuation nasal spray Once daily PRN acetaminophen (TYLENOL) Take 2 tablets by 0 06/3003/11/2022 500 mg Tablet mouth every 8 hours. Continue [...] Diagnosis Comme nts XR SHOULDER RIGHT Routine 07/22/2019 12:56 PM Status post reve rse Results for this EDT total shoulder procedure are in replacement, right the resul ts section. documented in this encounter Results XR Shoulder Right (Generic) (07/22/2019 12:56 PM EDT) Anatomical Region Laterality Modality Shoulder Right Digital Radiography Specimen (Source) Anatomical Location Collection Method / Collectio n Time Received Time / Laterality Volume Narrative 07/22/2019 2:28 PM EDT EXAMINATION: XR SHOULDER RIGHT (GENERIC) CLINICAL HISTORY: right reverse total sh oulder revision TECHNIQUE: 4 views RIGHT shoulder COMPARISON: Multiple examinations, 2017 FINDINGS: A reverse right shoulder arthroplasty is present. Alignment: The prosthesis is unchanged i n alignment. Complication: There is no loosening or f racture. Soft tissues: Unchanged. Impression Unchanged and Uncomplicated reverse righ t shoulder arthroplasty Thank you for letting us participate in the care of this patient. For questions regarding this report, please contact e number below. ? Electronically signed by: Maggie Farrell, [facility] ([phone]), at 07/22/2019 2:28 PM Procedure Note Maggie Farrell MD - 07/22/2019Formatt ing of this note might be different from the original. EXAMINATION: XR SHOULDER RIGHT (GENERIC) CLINICAL HISTORY: right reverse total sh oulder revision TECHNIQUE: 4 views RIGHT shoulder COMPARISON: Multiple examinations, 2018 FINDINGS: A reverse right shoulder arthroplasty is present. Alignment: The prosthesis is unchanged i n alignment. Complication: There is no loosening or f racture. Soft tissues: Unchanged. Impression Unchanged and Uncomplicated reverse righ t shoulder arthroplasty Thank you for letting us participate in the care of this patient. For questions regarding this report, please contact e number below. Audrey Mayo MD IMG DX ORDERABLES documented in this encounter Visit Diagnoses Diagnosis Status post reverse total shoulder repla cement, right documented in this encounter Care Teams Laundry Helper Relationship Specialty Start Date End Date Meg Fischer APRN PCP - General Family Medicine 06/17/18 02/20/[address] [place] [address] documented as of this encounter
--- OUTSIDE RECORDS SUMMARY | 2022-05-16 02:13 | XMS_ITS | Encounter Summary ---
:1950 Author Organization [facility] [place] [address] Care Team Providers Name Role Phone Meg Fischer APRN Primary Care Provider Encounter Details Date Type Department Care Team Description 11/26/2021 Office Visit Dermatology at [facility], Self-ex coriation Gabbi GILBERT disorder [address] Frederic B DERMATOLOGY [place], [place] [id number] [phone] Social History Tobacco Use Types Packs/Day Years Used Date Never Smoker Smokeless Tobacco: Never Used Alcohol Use Standard Drinks/Week Comments No 0 (1 standard drink = 0.6 oz pure alcoho l) Sex Assigned at Date Recorded Not on file documented as of this encounter Progress Notes Jean Mcqueen MD - 11/26/2021 1:45 PM EST Problems: 1. Generalized pruritus 2. Family history of skin cancer in mother and sister Holly follows up and is now 72. For about the last year she is having problem with itching of her skin. She digs and scratches mostly at night she states on her legs anteriorly on the thighs and shins but also in the upper back and on her arms. He denies being under any significant stress at home. Shewas at home with her son [id number] and their 21-year-old son. She enjoys knitting during the day. She denies any as change in her medications. She states that her health has been fairly stable. They have a dog at home which is not itching or scratching. No one at home has any itching or rash. The rash has gotten worse into the winter months now. Physical examination reveals a pleasant 71-year-old woman who has self excoriation disorder with numerous excoriations present on the upper back on the anterior thighs and shins and patchy areas on thearms laterally as well. There is no evidence of any scabietic lesions. She has no areas of active dermatitis. She has no primary dermatologic findings. Assessment and plan: Self excoriation disorder 1. Recommend that the patient use CeraVe cream on a twice daily basis to emollient her skin. 2. Use Dove soap and bar form rather than in the liquid and do not scrub with washcloth or sponge. 3. Recommend that the patient walks with her hands and shower only every other day not on a daily basis. 4. Use fragrance free detergent and dryer sheet continue the arm and Hammer that she is currently using. 5. Keep Fingernails cut short. There is a bit longer. If she gets cracks and fissuring at the distalfingertips you superglue as a liquid bandage for these wintertime distal finger fissures. 6. Begin Benadryl 25 mg take 1-2 p.o. at bedtime. Do not take during the day. Warned about somnolence. Obtain [id number] 7. Return to clinic in another month for repeat check of her progress. CC: Rachel Horne APRN documented in this encounter Plan of Treatment Not on filedocumented as of this encounter Visit Diagnoses Diagnosis Self-excoriation disorder documented in this encounter Care Teams Resident Physician Relationship Specialty Start Date End Date Meg Fischer APRN PCP - General Family Medicine 06/17/18 02/20/[address] [place] [address] documented as of this encounter
--- OUTSIDE RECORDS SUMMARY | 2022-05-16 02:13 | XMS_ITS | Encounter Summary ---
:1950 Author Organization [facility] Address [address] [place] [address] Care Team Providers Name Role Phone Meg Fischer APRN Primary Care Provider Encounter Details Date Type Department Care Team Description 08/19/2018 Hospital Encounter XRay at [facility] Audrey Mayo, Status post total [address] GILBERT replacement of right [place], [place] [facility] [place] [phone] [place] [phone] [place] [address] Social History Tobacco Use Types Packs/Day Years [...] by mouth. 0 fluticasone (FLONASE) 50 1 [place](s), Nasal, 0 mcg/Actuation nasal spray Once daily [...] Diagnosis Comme nts XR SHOULDER RIGHT Routine 08/19/2018 2:06 PM Status post total Results for this EDT replacement of right procedu re are in shoulder the results section. documented in this encounter Results XR Shoulder Right (Generic) (08/19/2018 2:06 PM EDT) Anatomical Region Laterality Modality Shoulder Right Digital Radiography Specimen (Source) Anatomical Location Collection Method / Collectio n Time Received Time / Laterality Volume Narrative 08/19/2018 3:41 PM EDT EXAMINATION: XR SHOULDER RIGHT (GENERIC) CLINICAL HISTORY: s/p right reverse TSA, checking implant alignment TECHNIQUE: 4 views COMPARISON: June 2018 FINDINGS: A reversed shoulder arthroplasty is pres ent. Alignment: The prosthesis is unchanged i n alignment. Complication: There is no loosening or f racture. Soft tissues: Unchanged. Impression Unchanged and Uncomplicated right revers e shoulder arthroplasty Procedure Note Maggie Farrell MD - 08/19/2018Formatt ing of this note might be different from the original. EXAMINATION: XR SHOULDER RIGHT (GENERIC) CLINICAL HISTORY: s/p right reverse TSA, checking implant alignment TECHNIQUE: 4 views COMPARISON: June 2018 FINDINGS: A reversed shoulder arthroplasty is pres ent. Alignment: The prosthesis is unchanged i n alignment. Complication: There is no loosening or f racture. Soft tissues: Unchanged. Impression Unchanged and Uncomplicated right revers e shoulder arthroplasty Audrey Mayo MD IMG DX ORDERABLES documented in this encounter Visit Diagnoses Diagnosis Status post total replacement of right s anna documented in this encounter Care Teams Career Center Advisor Relationship Specialty Start Date End Date Meg Fischer, SPLITTING MACHINE OPERATOR HELPER PCP - General Family Medicine 06/17/18 02/20/[address] [place] [address] documented as of this encounter
--- OUTSIDE RECORDS SUMMARY | 2022-05-16 02:13 | XMS_ITS | Encounter Summary ---
:1950 Author Organization [facility] [place] [place] [address] Care Team Providers Name Role Phone Meg Fischer APRN Primary Care Provider Encounter Details Date Type Department Care Team Description 08/19/2018 Office [place] [facility] Audrey Mayo, Status post total [facility] MD replacement of right [place] [address] [place] [address] ORTHOPAEDIC SURGERY [place], [place] [address] Social History Tobacco Use Types Packs/Day Years Used Date Never Smoker Smokeless Tobacco: Never Used Alcohol Use Standard Drinks/Week Comments No 0 (1 standard drink = 0.6 oz pure alcoho l) Sex Assigned at Date Recorded Not on file documented as of this encounter Last Filed Vital Signs Vital Sign Reading Time Taken Comments Blood Pressure - - Pulse - - Temperature - - Respiratory Rate - - Oxygen Saturation - - Inhaled Oxygen Concentration - - Weight 74.8 kg (165 lb) 08/19/2018 3:17 PM EDT staed Height 153.7 cm (5' 0.5) 08/19/2018 3:17 PM EDT stated Body Mass Index 31.69 08/19/2018 3:17 PM EDT documented in this encounter Progress Notes Chanel Kapadia PA - 08/19/2018 3:25 PM EDT PATIENT NAME: Holly Sanders AGE: 68 y.o. MR#: [id number] DATE OF VISIT: 08/19/2018 DATE OF SURGERY: 06/29/2018 ?? SURGERY DESCRIPTION: REVISION TOTAL SHOULDER ARTHROPLASTY, HUMERAL AND GLENOID COMPONENT (WRVU 27.21) (Right) MODIFIER KAILEE TM REVERSE (N/A) MODIFIER BEACH CHAIR MARISSAN (N/A) ?? SURGEON: Dr. Mayo CHIEF COMPLAINT: 7 weeks S/P above procedure HISTORY OF PRESENT ILLNESS: Ms. Sanders is a 68 y.o. female who presents 7 weeks s/p the above procedures for office follow up. She has been doing well since her last visit. She is not having much painin her shoulder. She has been using her sling as recommended. Ms. Sanders denies any fever/chills orother constitutional signs of infection. PHYSICAL EXAMINATION: Ms. Sanders is a 68 y.o. female who is alert and oriented. She is in no acute discomfort and is resting comfortably in the exam room. Inspection: Well-healed surgical incision. No evidence of infection. ROM/Strength: Her passive forward flexion is to about 90 degrees and passive external rotation is 10degrees shy of neutral. She can perform active forward flexion to about 170 degrees on exam today. Elbow, wrist, and finger range of motion remain grossly intact. Neurovascular: Intact motor function of the radial, median, ulnar, axillary and musculocutaneous nerves. Intact sensation along radial, median, ulnar, axillary, and lateral antebrachial cutaneous nervedistributions. Good hand perfusion. DIAGNOSTIC STUDIES: X-rays of the right shoulder were personally reviewed. There is no evidence of complication following her reverse shoulder replacement. SURVEY RESPONSES: [facility] Surgical Postop Visit 06/16/2018 PROMIS-10 General Health Good PROMIS-10 Quality of Life Good PROMIS-10 Physical Health Fair PROMIS-10 Mental Health Fair PROMIS-10 Social Activity Good PROMIS-10 Everyday Activities Moderately PROMIS-10 Pain 8 PROMIS-10 Fatigue Moderate PROMIS-10 Social Roles Good PROMIS-10 Anxious or Depressed Often PROMIS PHYSICAL HEALTH SCORE 34.9 PROMIS MENTAL HEALTH SCORE 38.8 Orthopeadics [facility] Response 06/16/2018 ASES VAS-RIGHT 8 ASES VAS-LEFT - ASES ADL-RIGHT ARM 5 ASES ADL-LEFT ARM - ASES RIGHT ARM 18.33 ASES LEFT ARM - ASSESSMENT: 7 weeks s/p above procedure PLAN: Dr. Mayo also evaluated and spoke with the patient at today's visit. She is doing very well atthis point. She can discontinue her sling. She was shown how to perform supine active assisted forward flexion exercises. She should start with a home exercise program, but if she is having any difficulty regaining her range of motion she could consider formal therapy. Once she feels comfortable performing her exercises in a supine position she can then advance to performing her exercises seated. Shestill needs to avoid full weightbearing with her right arm and should avoid forceful stretches and internal and external rotation. The patient understands to contact us if she has any other questions or concerns. The patient will follow up in 6 weeks with x-rays. The above documentation was completed using [employer] ( [employer] ) voice recognition software. documented in this encounter Plan of Treatment Not on filedocumented as of this encounter Results XR Shoulder Right (Generic) [...] Status post total replacement of right s houlder Status post total replacement of right s houlder documented in this encounter Care Teams Passenger Locomotive Engineer Relationship Specialty Start Date End Date Meg Fischer APRN PCP - General Family Medicine 06/17/18 02/20/[address] [place] [address] documented as of this encounter
--- OUTSIDE RECORDS SUMMARY | 2022-05-16 02:13 | XMS_ITS | Encounter Summary ---
:1950 Author Organization [place] [address] Care Team Providers Name Role Phone Meg Fischer APRN Primary Care Provider Reason for Visit Reason Comments Follow-up Encounter Details Date Type Department Care Team Description 01/01/2022 Office Visit Dermatology at Jean Mcqueen, Self-ex coriation disorder; Gabbi GILBERT Eczema, unspecified type [address] [facility] Frederic B DERMATOLOGY [place], [place] [id number] [phone] Social History Tobacco Use Types Packs/Day Years Used Date Never Smoker Smokeless Tobacco: Never Used Alcohol Use Standard Drinks/Week Comments No 0 (1 standard drink = 0.6 oz pure alcoho l) Sex Assigned at Date Recorded Not on file documented as of this encounter Progress Notes Jean Mcqueen MD - 01/01/2022 10:30 AM EST Problem: 1. Follow-up generalized pruritus 2. Family history of skin cancer in mother and sister Holly follows up and chose not to take Benadryl. She did fill my other directions but did not find any improvement. In addition to her numerous excoriated area she also has some eczematous patches present widely on the arms and legs. Physical examination reveals excoriations and areas of patchy nummular dermatitis present on the arms and legs and torso. Where she can reach her skin she has excoriated lesions on the upper back dorsal arms forearms and on her anterior legs. Assessment plan: Self excoriation disorder, with eczematous changes as well 1. We will check today complete metabolic profile CBC and TSH to rule out underlying disorders 2. If lab testing is negative, I would then recommend a trial of Dupixent. Patient would be willing to do self home injections. We will show her here first to administer these. 3. Continue use of CeraVe cream twice a day to emollient skin and use fragrance free Dove soap. Continue avoiding fragranced products. CC: Rachel Novoa APRN documented in this encounter Plan of Treatment Not on filedocumented as of this encounter Visit Diagnoses Diagnosis Self-excoriation disorder Eczema, unspecified type documented in this encounter Care Teams Billet Checker Relationship Specialty Start Date End Date Meg Fischer APRN PCP - General Family Medicine 06/17/18 02/20/[address] [place] [address] documented as of this encounter
--- OUTSIDE RECORDS SUMMARY | 2022-05-16 02:13 | XMS_ITS | Clinical Summary ---
:1950 Author Organization [facility] [place] [address] Care Team Providers Name Role Phone Rachel Horne APRN Primary Care Provider [phone] Allergies Active Allergy Reactions Severity Noted Date Comments Amoxicillin Diarrhea, Nausea Only High 03/11/2022 Other reaction(s): Vomiting Ciprofloxacin 06/19/2016 Clavulanic Acid Diarrhea, Nausea Only High 03/11/2022 Oth er reaction(s): Vomiting Codeine 10/07/2012 Meperidine 10/07/2012 Levetiracetam Anaphylaxis High 06/19/2016 Meperidine Hcl CIS - Nausea/Vomiting Simvastatin Nausea Only 06/19/2016 Sulfa (Sulfonamide Antibiotics) Medications Medication Sig Dispensed Refills Start Date End Date Status fluticasone (FLONASE) 50 1 Jolley(s), 0 11/26/2006 Active mcg/Actuation nasal spray Nasal, Once daily PRN calcium-vitamin D 500 mg-5 Take 1 tablet 0 Active mcg (200 unit) Tablet by mouth 2 times daily (with meals). MULTI-VITAMIN ORAL Take by mouth. 0 Active citalopram (CELEXA) 20 mg Take 20 mg by 0 Active Tablet mouth daily. seasonal oxybutynin (DITROPAN) 5 mg 2 times daily. 0 02/17/20 18 Active Tablet gabapentin (NEURONTIN) 300 Take 600 mg by 1 04/18/20 18 Active mg Capsule mouth 3 times daily. 1 in the morning, 2 afternoon, 2 in the evening DULoxetine (CYMBALTA) 20 Take 1 capsule 0 03/23/2018 Active mg Capsule, Delayed by mouth Release(E.C.) daily. DOC-Q-LACE 100 mg Capsule daily. 1 04/29/2018 Active carBAMazepine (TEGRETOL) Take 200 mg by 0 Active 200 mg Tablet mouth 3 times daily. albuterol sulfate (Proair Every 4 hours. 0 Active Digihaler) 90 mcg/actuation aero powdr breath act w/sensor benzonatate (Tessalon) 100 Take 100 mg by 0 10/25/20 21 Active mg Capsule mouth 3 times daily as needed. furosemide (Lasix) 20 mg Take 20 mg by 0 02/27/2022 Active Tablet mouth daily. hydroCHLOROthiazide Take 25 mg by 0 01/20/2022 Active (Hydrodiuril) 25 mg Tablet mouth daily. ibuprofen (Motrin) 400 mg 0 03/06/2022 Active Tablet lisinopriL (Zestril) 10 mg Take 10 mg by 0 2 Active Tablet mouth daily. loratadine (Claritin) 10 0 01/23/2022 Active mg Tablet Active Problems Problem Noted Date Postoperative anemia due to acute blood loss 8 Overview: Hemoglobin drop associated with anemia f rom a combination of acute blood loss from surgery and hemodilution as expected. S/P right revision shoulder arthroplasty to reverse Dr. Mayo 06/08/2018 Actinic keratosis 10/07/2012 Seborrheic keratosis 10/07/2012 Encounters Date Type Specialty Care Team Description 04/24/2022 Telephone Dermatology Anel Gruber LPN 03/13/2022 Specialty Pharmacy Pharmacy Rowan Sevilla Prior Authorization M (Dupixent 300mg /2ml sosy) 03/11/2022 Office Visit Dermatology Jean Mcqueen Self-excoria tion disorder; MD Jerry Eczema, unspeci fied type 02/21/2022 Tech Visit Vascular Surgery Jesenia, Venous insu fficiency Rosa Maria L of left lower extremity from Last 3 Months Immunizations Name Administration Dates Next Due Influenza Vaccine, Whole 08/29/2005 Pneumococcal Polyvalent 23 02/27/2006 Td, adult 12/31/1997 Zoster Vaccine, Live 02/26/2016 Family History Medical History Relation Comments Cancer Maternal Grandfather Diabetes Maternal Grandmother Relation Status Comments Maternal Grandfather Maternal Grandmother Social History Tobacco Use Types Packs/Day Years Used Date Never Smoker Smokeless Tobacco: Never Used Alcohol Use Standard Drinks/Week Comments No 0 (1 standard drink = 0.6 oz pure alcoho l) Sex Assigned at Date Recorded Not on file Last Filed Vital Signs Vital Sign Reading Time Taken Comments Blood Pressure 151/77 07/22/2019 1:41 PM EDT Pulse 82 07/22/2019 1:41 PM EDT Temperature 37 ??C (98.6 ??F) 06/30/2018 11:47 AM EDT Respiratory Rate 14 06/30/2018 11:47 AM EDT Oxygen Saturation 96% 06/30/2018 11:47 AM EDT Inhaled Oxygen Concentration - - Weight 79.9 kg (176 lb 3.2 oz) 07/22/2019 1:41 PM EDT Height 153.7 cm (5' 0.51) 07/22/2019 1:41 PM EDT Body Mass Index 33.83 07/22/2019 1:41 PM EDT Plan of Treatment Health Maintenance Due Date Last Done Comments Covid-19 Vaccine (#1) 1954 Hepatitis C Screening 1967 Lipid Screening 1967 Tdap adult 1968 Breast Cancer Share Decision Needed 1989 Colonoscopy 1994 Breast Cancer screening 1999 Advance Directive 2004 Tetanus vaccine 01/01/2008 12/31/1997 Bone Density Scan 2014 Pneumoccocal Vaccine: 65+ (1 - PCV) 2014 02/27/2006 Zoster vaccine (2 of 3) 04/22/2016 02/26/2016 Influenza (Flu) vaccine (1 of 1 - Influenza standard 07/03/2022 08/29/2005 series) Medical Devices Implanted Type Area Medical Sales Representative Device Shelf Model / Identifier Expiration Serial / Date Lot Liner,Tm,Rev,Poly,7d,+3,36mm ([id number]) (Autoreq) - [id number] PLANTS Right: KAILEE BIOMET - 06/01/2026 [id number] / Implanted: Qty: 1 on 06/29/2018 by Aud[facility] MD at [facility] Shoulder KAILEE BIO / [id number] Procedures Procedure Name Priority Date/Time Associated Diagnosis Comme nts UNLATERAL VALVULAR Routine 02/21/2022 1:43 PM Venous insuffici ency Results for this INCOMP EDT of left lower procedure are in extremity the results section. from Last 3 Months Results LE Unilateral Valvular Incomp Study (02/21/2022 1:43 PM EDT) Component Value Ref Test Analysis Performed At [facility] Range Method Time Signature VB Text Department: Vascular Surgery Lab VASCUBASE Report Patient: [id number] (HOLLY SANDERS) CPT: 96468 Referring Physician: JAAML RAMOS ?? Phone: Indications: venous insuffic iency, left lateral thigh varicose veins, ? reflux, ? valvular incompetence Patient Positioning: ??Reverse Trendelenburg Findings: Left ? Reflux?Diameter (mm) ??De pth (mm) ?? Common Femoral Vein ??Competent ? Femoral Vein ? Competent ? Popliteal ?Competent ? GSV, Near SFJ ?Reflux ? 9.5 ?10.0 ?? GSV, Proximal Thigh ??Competent ?3.4 ?17.8 ?? GSV, Mid Thigh ? Competent ?1.8 ?21.4 ?? GSV, Distal Thigh ?Competent ?2.4 ?20.3 ?? GSV, ??Knee ? Competent ? 2.1 ?21.4 ?? GSV Prox Calf ?Competent ?1.4 ? 4.1 ?? GSV, Mid Calf ?Reflux ? 2.2 ? 6.8 ?? GSV, Distal Calf ? Competent ?2.5 ?11.1 ?? SSV ?Competent ?2.1 ? 2.6 ?? Prox ASV ? Reflux ? 5.9 ? 5.0 ?? Mid ASV ?Reflux ? 6.6 ? 3.0 ?? Interpretation: LEFT: There is reflux in the great saphenous vein at the sap henofemoral junction and the mid calf (reflux time 0.9- 2.5 seconds) con sistent with superficial venous valvular incompetence. There are patent great saphenous vein varicosities with reflux in the proximal and distal calf (reflux time 1.4 -4.2 seconds). Patent mid calf pe rforator vein, 4 mm diameter, with reflux identified (reflux time 0.8 seconds). Tortuous anterior accessory great saphenous vein with reflux noted in the proximal and mid thigh (reflux time 1.0 -2.0 seconds). The re is an anterior accessory great saphenous vein varicosity coursing along t he anterior, mid/ distal thigh to the lateral aspect of the knee and proxima l calf. Reflux is identified throughout this varicosity (r eflux time 0.7 -2.2 seconds). There is acute, occlusive thrombus in the varicosity at the lateral a spect of the proximal calf. No significant reflux noted in the common femoral vein, fe moral vein in the thigh, popliteal or the small saphenous vein. No evide nce of common femoral, femoral, or popliteal DVT. Comparison: No previous study in our vascular lab database for compariso n. Electronically Signed by: WARREN CONTRERAS III, MD on 07:11:34 PM VB Text End of Report VASCUBASE Report Specimen (Source) Anatomical Collection Method Collection Time Re ceived Time Location / / Volume Laterality 02/21/2022 1:43 PM EDT Jamal Ramos DO VASCULAR ORDERABLES Performing Organization Address City/State/ZIP Code Phon e Number VASCUBASE from Last 3 Months Insurance Payer Benefit Plan / Subscriber ID Effective Dates Phone Addre ss Type Group MEDICARE MEDICARE PART A [id number] 2014-Present [phone] [employer] [place] [id number] ([place]) [place] [address] Advance Directives Latest Code Status on File Code Status Date Activated Date Inactivated Comments Full Code 06/29/2018 3:40 PM 06/30/2018 5:52 PM Does patient have capacity to make decision: Yes Care Teams Communications Station Manager Relationship Specialty Start Date End Date Rachel Horne APRN PCP - General Family Medicine 02/21/[address] [place], [place] [address]
--- OUTSIDE RECORDS SUMMARY | 2022-05-16 02:13 | XMS_ITS | Encounter Summary ---
:1950 Author Organization [facility] [place] [address] Care Team Providers Name Role Phone Meg Fischer APRN Primary Care Provider Reason for Visit Reason Onset Date Comments Physical Therapy 07/06/2018 Encounter Details Date Type Department Care Team Description 07/06/2018 Telephone Orthopaedics at [facility] Audrey Mayo MD Physical Therapy [facility] [place] [address] ORTHOPAEDIC SURGERY [phone] [place], [place] [address] (Wo rk) Social History Tobacco Use Types Packs/Day Years Used Date Never Smoker Smokeless Tobacco: Never Used Alcohol Use Standard Drinks/Week Comments No 0 (1 standard drink = 0.6 oz pure alcoho l) Sex Assigned at Date Recorded Not on file documented as of this encounter Miscellaneous Notes Telephone Encounter - Satya Mcgee - 07/06/2018 4:18 PM EDT Zahida called and left a message stating that they will be discharging patient from home physical therapy today. She will continue with the occupational therapy. Any questions can be directed to her at [phone]. documented in this encounter Plan of Treatment Not on filedocumented as of this encounter Visit Diagnoses Not on filedocumented in this encounter Care Teams Stockholder Relationship Specialty Start Date End Date Meg Fischer APRN PCP - General Family Medicine 06/17/18 02/20/[address] [place] [address] documented as of this encounter
--- OUTSIDE RECORDS SUMMARY | 2022-05-16 02:13 | XMS_ITS | Encounter Summary ---
:1950 Author Organization [place] [address] Care Team Providers Name Role Phone Rachel Horne APRN Primary Care Provider [phone] Reason for Visit Reason Comments Skin Check Encounter Details Date Type Department Care Team Description 03/11/2022 Office Visit Dermatology at Jean Mcqueen, Self-ex coriation disorder; Gabbi GILBERT Eczema, unspecified type [address] [facility] Frederic B DERMATOLOGY [place], [place] [id number] [phone] Social History Tobacco Use Types Packs/Day Years Used Date Never Smoker Smokeless Tobacco: Never Used Alcohol Use Standard Drinks/Week Comments No 0 (1 standard drink = 0.6 oz pure alcoho l) Sex Assigned at Date Recorded Not on file documented as of this encounter Progress Notes Jean Mcqueen MD - 03/11/2022 11:30 AM EDT Problem: 1. Follow-up generalized pruritus 2. Family history of skin cancer in mother and sister Holly follows up after last being seen in December. She is here today with her son Khris. Labs from December showed hemoglobin hematocrit of 10.2 and 31.1 which is approximately where she has been in the recent past. TSH was 3.05. Her complete metabolic profile was unremarkable. She returns today to discussother treatment options. Physical examination again reveals numerous excoriations present widely on her arms her legs now also on the dorsum of her feet and on her lower back and on the upper shoulders. This has been a problemshe has been dealing with for at least 10 years. Most of these have been freshly excoriated. Assessment and plan: Prurigo nodularis, self excoriation disorder 1. Laboratory testing unremarkable 2. In the past patient has utilized antihistamines such as Benadryl emollient such as CeraVe cream, Sarna lotion and corticosteroid creams as well but his triamcinolone cream, all without benefit. 3. Would recommend that we begin Dupixent 600 mg prefilled syringe syringe inject x1 then 300 mg every 2 weeks thereafter. We will obtain prior authorization. Patient has [employer] insurance for prescriptions from [facility] and she will call us back with her prescription authorization number. We discussed the probable need to fill out patient assistance program paperwork to assist her with the expense of this medication. 4. Patient knows to contact us if she has not heard anything back within 1 week. CC: Rachel Novoa APRN documented in this encounter Plan of Treatment Not on filedocumented as of this encounter Visit Diagnoses Diagnosis Self-excoriation disorder Eczema, unspecified type documented in this encounter Care Teams Roofing Layer Relationship Specialty Start Date End Date Rachel Horne APRN PCP - General Family Medicine 02/21/[address] [place] [address] [address] [facility] [address] [place] [address] documented as of this encounter
--- OUTSIDE RECORDS SUMMARY | 2022-05-16 02:13 | XMS_ITS | Encounter Summary ---
:1950 Author Organization [facility] [place] [address] Care Team Providers Name Role Phone Rachel Horne APRN Primary Care Provider [phone] Reason for Visit Reason Comments Prior Authorization Dupixent 300mg/2ml sosy Encounter Details Date Type Department Care Team Description 03/13/2022 Specialty Pharmacy Pharmacy at [facility] Rowan Sevilla Prior Authorization [facility] (Dupixent 300mg/2ml Drive sosy) [place] [id number] Social History Tobacco Use Types Packs/Day Years Used Date Never Smoker Smokeless Tobacco: Never Used Alcohol Use Standard Drinks/Week Comments No 0 (1 standard drink = 0.6 oz pure alcoho l) Sex Assigned at Date Recorded Not on file documented as of this encounter Progress Notes Rowan Sevilla M - 03/13/2022 10:35 AM EDT [facility], Medication Prior Authorization Submission Patient: Holly Sanders Patient : 1950 Patient Address: [address] [place] [phone] (home) Medication Name: DUPIXENT 300 MG/2 ML SUBCUTANEOUS SYRINGE Medication ID: Subscriber Insurance: [id number] (MEDDADV) Subscriber Insurance Comment: Phone: Fax: Physician: ASHLEY GARCIA Physician Comment: Sent Via: [facility] Mcdonald: [id number] Ref/Case/PA#: Medication Strength Frequency Requested: INJECT THE CONTENTS OF TWO SYRINGES (600MG) SUBCUTANEOUSLY ON DAY 0. THEN INJECT THE CONTENTS OF ONE SYRINGE (300MG) SUBCUTANEOUSLY EVERY TWO WEEKS Qty/Day Supply: 02/13 New Start: New to Therapy Diagnosis & ICD-10 Code: Eczema, unspecified type L30.9 Patient Notified: Left Voicemessage Submission Notes: None Rowan Sevilla 03/13/22 10:38 AM Rowan Sevilla - 03/13/2022 10:35 AM EDT [facility], Prior Authorization Approval Medication Name: DUPIXENT 300 MG/2 ML SUBCUTANEOUS SYRINGE Medication ID: Approval Dates: 11/02/2021 to 03/13/2023 Insurance requirements/notes: None Other Notes: None Case/Reference #: Approval notification Received via: Fax Copay: $[phone] Copay assistance: Copay Notes: Patient can apply for Roll Contour Grinder's Assistance. Insurance mandated Pharmacy: [facility] Fillable at [facility]: Yes Pharmacy staff will be reaching out to the patient to inform them of their medication's approval by their insurance. If applicable, a pharmacist will speak with the patient to offer our specialty pharmacy services and to arrange delivery of their medication. Rowan Sevilla 03/13/22 3:20 PM documented in this encounter Plan of Treatment Not on filedocumented as of this encounter Visit Diagnoses Not on filedocumented in this encounter Care Teams Cream Dumper Relationship Specialty Start Date End Date Rachel Horne APRN PCP - General Family Medicine 02/21/[address] [place] [address] [address] [place] [address] documented as of this encounter
--- OUTSIDE RECORDS SUMMARY | 2022-05-16 02:13 | XMS_ITS | Encounter Summary ---
:1950 Author Organization [facility] [place] [address] Care Team Providers Name Role Phone Rachel Horne APRN Primary Care Provider [phone] Reason for Visit Diagnostic Test (Routine) - Closed Specialty Diagnoses / Procedures Referred By Contact Refer red To Contact Diagnoses Venous insufficiency of left lower extremity Satinder Ramos, [facility] Vascular Lab 3v Procedures LE Unilateral Valvular Incomp Study [address] [phone] [place] [address] Referral ID Status Reason Start Date Expiration Date Visits V isits Requested Authorized [id number] Closed Specialty 02/10/2022 02/10/2023 1 1 Service Requested Encounter Details Date Type Department Care Team Description 02/21/2022 Tech Visit Vascular Lab at [facility] V enous insufficiency of [facility] [place] [phone] Social History Tobacco Use Types Packs/Day Years Used Date Never Smoker Smokeless Tobacco: Never Used Alcohol Use Standard Drinks/Week Comments No 0 (1 standard drink = 0.6 oz pure alcoho l) Sex Assigned at Date Recorded Not on file documented as of this encounter Plan of Treatment Not on filedocumented as of this encounter Procedures Procedure Name Priority Date/Time Associated Diagnosis Comme nts UNLATERAL VALVULAR Routine 02/21/2022 1:43 PM Venous insuffici ency Results for this INCOMP EDT of left lower procedure are in extremity the results section. documented in this encounter Results LE Unilateral Valvular Incomp Study (02/21/2022 1:43 PM EDT) Component Value Ref Test Analysis Performed At [facility] Range Method Time Signature VB Text Department: Vascular Surgery Lab VASCUBASE Report Patient: [id number] (HOLLY SANDERS) CPT: 95830 Referring Physician: SATINDER RAMOS ?? Phone: Indications: venous insuffic iency, [...] / Volume Laterality 02/21/2022 1:43 PM EDT Satinder Ramos DO VASCULAR ORDERABLES Performing Organization Address City/State/ZIP Code Phon e Number VASCUBASE documented in this encounter Visit Diagnoses Diagnosis Venous insufficiency of left lower extre mity documented in this encounter Care Teams Medicaid Analyst Relationship Specialty Start Date End Date Rachel Horne APRN PCP - General Family Medicine 02/21/[address] [place] [address] documented as of this encounter
--- OUTSIDE RECORDS SUMMARY | 2022-05-16 02:13 | XMS_ITS | Encounter Summary ---
:1950 Author Organization [facility] [address] Care Team Providers Name Role Phone Meg Fischer APRN Primary Care Provider Encounter Details Date Type Department Care Team Description 07/01/2018 Telephone Orthopaedics at [facility] Pedro Artis, [place] [address] Social History Tobacco Use Types Packs/Day Years Used Date Never Smoker Smokeless Tobacco: Never Used Alcohol Use Standard Drinks/Week Comments No 0 (1 standard drink = 0.6 oz pure alcoho l) Sex Assigned at Date Recorded Not on file documented as of this encounter Miscellaneous Notes Telephone Encounter - Pedro Artis RN - 07/08/2018 11:13 AM EDT Due to interactions between Zofran and patients Citalopram prescription changed to Compazine. Clarified with Pharmacist that there are no interactions between Compazine and Citalopram. Dr. Mayo aware and agrees with plan. Telephone Encounter - Pedro Artis RN - 07/01/2018 12:39 PM EDT Subjective: Telephone call from Alisa MISHRA from [facility]. She is with patient today. She reports that Holly had 4 episodes of vomiting last night and one this am. She denies any fever, increased pain, increased swelling, redness, warmth or drainage from or around her incision. Alisa MISHRA has checked patients vital signs and they are normal. Patient denies any dizziness. Patient reportsshe is urinating in normal amounts. Plan: Reviewed with Wojciech Barnard nurse who advised Zofran per Dr. Barnard protocol in one note. Zofran will be sent in to patients pharmacy. Patient aware and advised to call if she is not any better or with any new or worsening symptoms. Patient verbalized understanding and agrees with plan. Patient/Responsible democrat voices an understanding of advice? Yes Patient/Responsible democrat intends to comply with action/disposition: documented in this encounter Plan of Treatment Not on filedocumented as of this encounter Visit Diagnoses Not on filedocumented in this encounter Care Teams Litigation Docket Manager Relationship Specialty Start Date End Date Meg Fischer, EDUARDA PCP - General Family Medicine 06/17/18 02/20/[address] [place] [address] documented as of this encounter
--- OUTSIDE RECORDS SUMMARY | 2022-05-16 02:13 | XMS_ITS | Encounter Summary ---
:1950 Author Organization [facility] [place] [address] Care Team Providers Name Role Phone Meg Fischer APRN Primary Care Provider Reason for Referral Diagnostic Test (Routine) - Closed Specialty Diagnoses / Procedures Referred By Contact Refer red To Contact Diagnoses Venous insufficiency of left lower extremity Satinder Ramos, [facility] Vascular Lab 3v Procedures LE Unilateral Valvular Incomp Study DO [facility] [address] [place] [address] [place] [address] Referral ID Status Reason Start Date Expiration Date Visits V isits Requested Authorized [id number] Closed Specialty 02/10/2022 02/10/2023 1 1 Service Requested Encounter Details Date Type Department Care Team Description 02/10/2022 Transcribe Orders Vascular Surgery Christa Venous insufficiency at [facility] Satinder Moulton DO of left lower [facility] [address] [facility] [place] [phone] Social History Tobacco Use Types Packs/Day Years Used Date Never Smoker Smokeless Tobacco: Never Used Alcohol Use Standard Drinks/Week Comments No 0 (1 standard drink = 0.6 oz pure alcoho l) Sex Assigned at Date Recorded Not on file documented as of this encounter Plan of Treatment Not on filedocumented as of this encounter Results LE Unilateral Valvular Incomp Study (02/21/2022 1:43 PM EDT) Component Value Ref Test Analysis Performed At [facility] Range Method Time Signature VB Text Department: Vascular Surgery Lab VASCUBASE Report Patient: [id number] (HOLLY SANDERS) CPT: 68998 Referring Physician: SATINDER RAMOS ?? Phone: Indications: [...] mity documented in this encounter Care Teams General Accounting Clerk Relationship Specialty Start Date End Date Meg Fischer APRN PCP - General Family Medicine 06/17/18 02/20/[address] [place] [address] documented as of this encounter
--- OUTSIDE RECORDS SUMMARY | 2022-05-16 02:13 | XMS_ITS | Encounter Summary ---
:1950 Author Organization [facility] Address [address] [facility] [address] [address] [place] [address] Care Team Providers Name Role Phone Meg Fischer APRN Primary Care Provider Reason for Visit Reason Comments Follow Up Surgery R TSAREVision dos 06/29/18 Encounter Details Date Type Department Care Team Description 09/30/2018 Office Visit [place]ed[place] [facility] [place]rey Mayo, Status post total One [facility] shoulder replacement, [place] [address] sevilla [phone] ORTHOPAEDIC SURGERY [place], [place] [address] Social History Tobacco Use Types [...] - - Weight 74.8 kg (165 lb) 09/30/2018 3:21 PM EST staed Height 154.9 cm (5' 1) 09/30/2018 3:21 PM EST staed Body Mass Index 31.18 09/30/2018 3:21 PM EST documented in this encounter Progress Notes Jeffry Blake PA - 09/30/2018 3:25 PM EST PATIENT NAME: Holly Sanders AGE: 68 y.o. MR#: [id number] DATE OF VISIT: 09/30/2018 DATE OF SURGERY: 06/29/2018 SURGERY DESCRIPTION: REVISION TOTAL SHOULDER ARTHROPLASTY, HUMERAL AND GLENOID COMPONENT (WRVU 27.21) (Right) MODIFIER KAILEE TM REVERSE (N/A) MODIFIER [facility] MADDY (N/A) SURGEON: Dr. Mayo CHIEF COMPLAINT: 3 months S/P above procedure HISTORY OF PRESENT ILLNESS: Ms. Sanders is a 68 y.o. female who presents 3 months s/p the above procedures for office follow up. She states to have pain with reaching to the side of her body and overhead. This is controlled with Tylenol to 500 mg tablets both once in the morning and at night. She states that this is not necessarily just for her shoulder as she has other arthritis aches and pains. Overall she feels much better following his procedure as this is a revision surgery from a hemiarthroplasty to reverse total shoulder arthroplasty. Ms. Sanders denies numbness and tingling as well as fevers, chills, or other signs of infection. PHYSICAL EXAM: Ms. Sanders is a 68 y.o. female who is alert, appears stated age and cooperative. Inspection: Surgical incision is well-healed without evidence of infection ROM/Strength: Forward flexion-150 Abduction-110 Internal rotation-PSIS External rotation-70 Strength: Forward flexion-5/5 Abduction-4/5 Internal rotation-5/5 External rotation-4/5 Neurovascular: Sensation and motor function are intact along the axillary, muscular cutaneous, ulnar, median, and radial nerve roots. Her hand is well- perfused, distal radial pulse 2+. DIAGNOSTIC STUDIES: X-rays from today were personally reviewed the patient and demonstrate proper anatomic alignment of the reverse prosthetic without evidence of loosening or fracture. ASSESSMENT: Ms. Sanders presents 3 months out from a revision surgery from a hemiarthroplasty to reverse TSA. She reports minimal pain with reaching behind her back and overhead movements which is wellcontrolled with Tylenol. She is not having any numbness or tingling and demonstrates good range of motion on exam. PLAN: The patient understands to contact us if she has any other questions or concerns. The patient will follow up in 9 months with repeat x-rays of the right shoulder for reevaluation. I saw Ms. Sanders of Dr. Mayo who agrees with this plan. The above documentation was completed using [employer] voice recognition software. Attending addendum: The preceeding portion of this note was written by Jeffry Blake PA-C. I personally saw and evaluated the patient as well and I agree with the assessment and plan documented above. Audrey Mayo M.D., M.S. Distribution Sales Representative of Orthopaedic Surgery Shoulder, Elbow, and Sports Medicine Department of Orthopaedic Surgery [place], [place] [address] documented in this encounter Plan of Treatment Not on filedocumented as of this encounter Visit Diagnoses Diagnosis Status post total shoulder replacement, unspecified laterality documented in this encounter Care Teams Rubber Ball Finisher Relationship Specialty Start Date End Date Meg Fischer, EDUARDA PCP - General Family Medicine 06/17/18 02/20/[address] [place] [address] documented as of this encounter
--- OUTSIDE RECORDS SUMMARY | 2022-05-16 02:13 | XMS_ITS | Encounter Summary ---
:1950 Author Organization [facility] Address [address] [place] [address] Care Team Providers Name Role Phone Meg Fischer APRN Primary Care Provider Reason for Visit Reason Comments Aftercare Of [employer] TSA REVISION DOS 06/29/2018 Encounter Details Date Type Department Care Team Description 07/14/2018 Office Visit Orth[place]edics [place] [facility] Chanel Kapadia Status post total One [facility] QUIQUE Bowles replacement of right [place] [address] [address] [phone] ORTHOPAEDIC SURGERY [place], [place] [address] Social History Tobacco Use Types Packs/Day Years Used Date Never Smoker Smokeless Tobacco: Never Used Alcohol Use Standard Drinks/Week Comments No 0 (1 standard drink = 0.6 oz pure alcoho l) Sex Assigned at Date Recorded Not on file documented as of this encounter Last Filed Vital Signs Vital Sign Reading Time Taken Comments Blood Pressure 128/67 07/14/2018 1:07 PM EDT Pulse 87 07/14/2018 1:07 PM EDT Temperature - - Respiratory Rate - - Oxygen Saturation - - Inhaled Oxygen Concentration - - Weight 74.8 kg (165 lb) 07/14/2018 1:07 PM EDT STATED Height 153 cm (5' 0.25) 07/14/2018 1:07 PM EDT STATED Body Mass Index 31.96 07/14/2018 1:07 PM EDT documented in this encounter Progress Notes Chanel Kapadia PA - 07/14/2018 1:00 PM EDT PATIENT NAME: Holly Sanders AGE: 68 y.o. MR#: [id number] DATE OF VISIT: 07/14/2018 DATE OF SURGERY: 06/29/2018 SURGERY DESCRIPTION: REVISION TOTAL SHOULDER ARTHROPLASTY, HUMERAL AND GLENOID COMPONENT (WRVU 27.21) (Right) MODIFIER KAILEE TM REVERSE (N/A) MODIFIER [facility] MADDY (N/A) SURGEON: Dr. Mayo CHIEF COMPLAINT: 2 weeks S/P above procedure HISTORY OF PRESENT ILLNESS: Ms. Sanders is a 68 y.o. female who presents 2 weeks s/p the above procedures for office follow up. She has been doing well since surgery. She is not having much pain at this point. She has been taking Tylenol on a regular basis and is only using her oxycodone for more severe pain. She is using her sling as recommended, but she would like to have this adjusted if possible.She has been working on elbow, wrist, and finger range of motion. Ms. Sanders denies any fever/chills or other constitutional signs of infection. PHYSICAL EXAMINATION: Ms. Sanders is a 68 y.o. female who is alert and oriented. She is in no acute discomfort and is resting comfortably in the exam room. Inspection: Healing surgical incisions with no evidence of infection. ROM/Strength: Shoulder ROM and strength was not assessed. Wrist and finger ROM remains intact. Neurovascular: Intact motor function of the radial, median, ulnar, axillary and musculocutaneous nerves. Intact sensation along radial, median, ulnar, axillary, and lateral antebrachial cutaneous nervedistributions. Good hand perfusion. DIAGNOSTIC STUDIES: No new studies SURVEY RESPONSES: [facility] Surgical Postop Visit 06/16/2018 PROMIS-10 General Health Good PROMIS-10 Quality of Life Good PROMIS-10 Physical Health Fair PROMIS-10 Mental Health Fair PROMIS-10 Social Activity Good PROMIS-10 Everyday Activities Moderately PROMIS-10 Pain 8 PROMIS-10 Fatigue Moderate PROMIS-10 Social Roles Good PROMIS-10 Anxious or Depressed Often PROMIS PHYSICAL HEALTH SCORE 34.9 PROMIS MENTAL HEALTH SCORE 38.8 [facility] [place] Response 06/16/2018 ASES VAS-RIGHT 8 ASES VAS-LEFT - ASES ADL-RIGHT ARM 5 ASES ADL-LEFT ARM - ASES RIGHT ARM 18.33 ASES LEFT ARM - ASSESSMENT: 2 weeks s/p above procedure PLAN: Her suture tails were trimmed today. She can get her incision wet in the shower. She will continue with sling immobilization until she is 6 weeks postop. Her sling was adjusted today. Her abduction pillow was removed and she states that her sling felt much more comfortable afterwards. She can continue with elbow, wrist, and finger range of motion, but should not perform any formal shoulder physical therapy. We will show her her therapy exercises for her shoulder at her next visit. The patient understands to contact us if she has any other questions or concerns. The patient will follow up in 4weeks with x-rays. The above documentation was completed using [employer] voice recognition software. documented in this encounter [...] houlder documented in this encounter Care Teams Linen Worker Relationship Specialty Start Date End Date Meg Fischer APRN PCP - General Family Medicine 06/17/18 02/20/[address] [place] [address] documented as of this encounter
--- OUTSIDE RECORDS SUMMARY | 2022-05-16 02:13 | XMS_ITS | Encounter Summary ---
:1950 Author Organization [facility] [place] [address] Care Team Providers Name Role Phone Rachel Horne APRN Primary Care Provider [phone] Encounter Details Date Type Department Care Team Description 04/24/2022 Telephone Dermatology at [facility] Anel Gruber LPN [address] [place] [address] Social History Tobacco Use Types Packs/Day Years Used Date Never Smoker Smokeless Tobacco: Never Used Alcohol Use Standard Drinks/Week Comments No 0 (1 standard drink = 0.6 oz pure alcoho l) Sex Assigned at Date Recorded Not on file documented as of this encounter Miscellaneous Notes Telephone Encounter - Anel Gruber LPN - 04/24/2022 12:54 PM EDT Khris called inquiring about the approval for [employer] for the patient. [employer] labor service representative called our office today requesting a different diagnosis code for the patient. Paperwork has been faxed to labor service representative with new diagnosis code. Currently waiting to hear from labor service representative. He states Holly arms have no change since the f/u appointment on 03/11/22. Her right ankle has new blisters. Pt has been itching. Applying moisture therapy lotion. She had a PCP office visit today. Anemia has got worse. Started iron pills. Updated Khris and Holly on statis of application for Dupixent. Advised them [employer] labor service representative will be contacting them as soon as they make a final decision for approval. Encouraged her not to scratch the blisters. Dr. Mcqueen will be updated. Nurse will call [employer] labor service representative tomorrow to get update. Both Khris and Holly voiced understanding. documented in this encounter Plan of Treatment Not on filedocumented as of this encounter Visit Diagnoses Not on filedocumented in this encounter Care Teams Apartment Rental Clerk Relationship Specialty Start Date End Date Rachel Horne APRN PCP - General Family Medicine 02/21/[address] [place] [address] [address] [place] [address] documented as of this encounter
--- OUTSIDE RECORDS SUMMARY | 2022-05-16 02:14 | XMS_ITS | Encounter Summary ---
:1950 Author Organization [facility] [place] [address] Care Team Providers Name Role Phone Meg Fischer APRN Primary Care Provider Encounter Details Date Type Department Care Team Description 06/17/2018 Notes Only Care Management Alexa, [facility] [place] [address] Social History Tobacco Use Types Packs/Day Years Used Date Never Smoker Smokeless Tobacco: Never Used Alcohol Use Standard Drinks/Week Comments No 0 (1 standard drink = 0.6 oz pure alcoho l) Sex Assigned at Date Recorded Not on file documented as of this encounter Progress Notes Jodie Liu - 06/17/2018 3:14 PM EDT Office of Care Management Initial Assessment Jodie Liu reviewed record and discussed patient with Care Team. Source of Information: Holly Sanders Introduced self/reviewed role; services accepted. Reason for Hospitalization: Failed right TSA. Right TSA revision on 06/29/[address] Audrey Mayo. No past medical history on file. Hospitalizations Within the Past 30 Days: Anticipated Length Of Stay (If known): 1 Current Decision-Making Capacity: She is capable of making her own medical decisions. Advance Care Planning: We discussed what an ADV DIR is and its purpose thereof. She has the paperwork and intends on completing one prior to surgery. Current Coping/Education/Information Needs: She states she understands the hospital course and discharge plans for a TSA revision at [facility] as outlined by the outpatient ortho clinic team. She had the original right shoulder replaced in 2015 in [place], [place]. Current Functional Ability: Functional Status Prior to Admission: At her pre-op baseline, she ambulates independently without anassistive device. Able to do her ADL without assistance. Able to do her household tasks without assistance. Able to drive but prefers for someone to drive her because it bothers her shoulder. Retired. Home Environment: Lives in a house with 3 levels. Ramp into the house. Everything is on 1 level. Has a walk-in shower. Has a shower chair. Has a shower wand. Has grab bar in the shower. Grab bars by the toilet. Does not have a recliner. Has a love seat that is perfect for her post-op. Social & Family Supports/Community Resources: She takes care of her 46 y/o daughter who is special needs. Her brother, who has a TBI, is staying with her for a period of time after surgery. She hasindividuals that rent the downstairs that will help her. Behavioral Health History: None Substance Use/Abuse: Smoking: Never Smoker Smokeless Tobacco: Never Used Alcohol: No Other Pertinent/Service Specific Information: I discussed with the patient the potential avenues of discharge postoperatively. We discussed qualifications to go to a correction facility. We discussed potential out of pocket costs associated with non-emergent wheelchair van and ambulance transportation.We discussed the purpose and services provided by [facility]. If patient opts to go to outpatient physical therapy post-op, they are responsible for scheduling their initial and subsequent appointments. I communicated that we will not know until after surgery what will be the best course of discharge for the patient based on medical necessity and that this is why we plan for different courses of dischar ge. I informed the patient that they will be working with a medicare nurse after surgery to facilitatethe discharge plan. I encouraged the patient to call with any questions or concerns prior to the surgery as well as when they discharge home. Health/Prescription Coverage: Primary Insurance: MEDICARE Secondary Insurance: MEDICAID [place] Prescription Coverage: Yes Preferred Pharmacy: [facility]-[phone] [place], [place] - [address] [facility] ? [address] [facility] [phone] ? Not a 24 hour pharmacy; exact hours not known Other: None Primary Care Provider: West Ayala MD [phone] Patient/Caregiver Goals of Treatment: She wants to drive and work in her garden. Potential Needs for Transition of Care: Rehab/SNF: No selection Home Health: No preference OP PT: James Friend in [facility] DME: None needed Dialysis: No Community Resources: None Transportation: We discussed that since we cannot determine the exact day or time of discharge, transportation must be readily available at time of discharge. Transportation will be provided by Flor Brandon, her neighbor downstairs. Other: None Anticipated Barriers to Discharge/Special Considerations: Assessment: Plan: She prefers to d/c home without services. A member of the Care Management team will continue to monitor progress, follow for continuity of care and assist with transition of care planning. Jodie Liu Pager: [phone] documented in this encounter Plan of Treatment Not on filedocumented as of this encounter Visit Diagnoses Not on filedocumented in this encounter Care Teams Product Mgmt Dev Manager Relationship Specialty Start Date End Date Meg Fischer APRN PCP - General Family Medicine 06/17/18 02/20/[address] [place] [address] documented as of this encounter
--- OUTSIDE RECORDS SUMMARY | 2022-05-16 02:14 | XMS_ITS | Encounter Summary ---
:1950 Author Organization [facility] [place] [address] Care Team Providers Name Role Phone Vicenta Wild APRN Primary Care Provider Reason for Visit Reason Onset Date Comments Medication Refill 07/22/2016 Encounter Details Date Type Department Care Team Description 07/22/2016 Refill Rheumatology at [facility] Ira Hampton RN Chronic right shoulder [facility] [place] [address] Social History Tobacco Use Types Packs/Day Years Used Date Never Smoker Smokeless Tobacco: Never Used Sex Assigned at Date Recorded Not on file documented as of this encounter Miscellaneous Notes Telephone Encounter - Ira Hampton RN - 07/22/2016 11:14 AM EDT Holly calls to request a new Medrol Rx to complete recommended taper below . Hi Holly, The tests are not normal. Perhaps the Medrol will work better. Either way I need a biopsy of your inflamed tissue in your shoulder. Please make an appointment with your orthopedics surgeon to plan for a biopsy. I sent them my notes. In 2 weeks time, you can start tapering your medrol by 4 mg [address] Franks Last read by Holly Sanders at 4:50 PM on 07/16/2016 documented in this encounter Plan of Treatment Not on filedocumented as of this encounter Visit Diagnoses Diagnosis Chronic right shoulder pain Pain in joint, shoulder region documented in this encounter Care Teams Pressure Steamer Tender Relationship Specialty Start Date End Date Vicenta Wild APRN PCP - General Family Medicine 06/19/16 03/21/18 documented as of this encounter
--- OUTSIDE RECORDS SUMMARY | 2022-05-16 02:14 | XMS_ITS | Encounter Summary ---
:1950 Author Organization [place] [id number] Care Team Providers Name Role Phone Meg Fischer APRN Primary Care Provider Reason for Visit Auth/Cert Specialty Diagnoses / Procedures Referred By Contact Refer red To Contact Diagnoses Status post total shoulder arthroplasty FAILED SHOULDER ARTHROPLASTY UNK Procedures PRO REVISE SHOULDER ARTHROPLASTY HUMERAL AND GLENOID COMPONENT @REVISION TOTAL SHOULDER ARTHROPLASTY, HUMERAL AND GLENOID COMPONENT (WRVU 27.21) Referral ID Status Reason Start Date Expiration Date Visits Requ ested Visits Authorized [id number] 1 1 Encounter Details Date Type Department Care Team Description 06/29/2018 Surgery Main Operating Room Laura Mayo MD @REVISION TOTAL [facility] SHOULDER ARTHROPLASTY, [facility] HUMERAL AND GLEJANAE [facility] ORTHOPAEDIC S URGERY COMPONENT (WRVU 27.21) [place] [address] [place] [address] [phone] Social History Tobacco Use Types Packs/Day Years Used Date Never Smoker Smokeless Tobacco: Never Used Alcohol Use Standard Drinks/Week Comments No 0 (1 standard drink = 0.6 oz pure alcoho l) Sex Assigned at Date Recorded Not on file documented as of this encounter Last Filed Vital Signs Vital Sign Reading Time Taken Comments Blood Pressure 124/73 06/29/2018 4:15 PM EDT Pulse 81 06/29/2018 4:15 PM EDT Temperature 36.9 ??C (98.4 ??F) 06/29/2018 4:03 PM EDT Respiratory Rate 13 06/29/2018 4:15 PM EDT Oxygen Saturation 95% 06/29/2018 4:15 PM EDT Inhaled Oxygen Concentration - - Weight - - Height - - Body Mass Index - - documented in this encounter Discharge Summaries Laney Griffith, VIOLIN RESTORER - 06/30/2018 3:14 PM EDT Discharge Summary Patient Name: Holly Sanders Patient Age: 68 y.o. Language: Montenegrin Race: White Ethnicity: Not nor Admit date: 06/29/2018 Discharge date and time: 06/30/2018 Attending Physician: Pao Mayo MD Discharge Physician: Pao Mayo MD Follow-up Recommendations for Providers: See discharge instructions for additional details. Future Appointments Date Time Provider Department Center 07/14/2018 1:00 PM Chanel Kapadia PA [address] Inpatient Provider Contact Information: Pao Mayo MD Orthopedics: [phone] After hours and weekends, call [facility] Retirement Officer, , and have the Orthopedic resident paged. Discharge Diagnoses (Hospital Problems) and Secondary Diagnoses (Chronic Problems): Active Hospital Problems Diagnosis ??? 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 Mayo ??? Postoperative anemia due to acute blood loss Resolved Hospital Problems Diagnosis Date Resolved No resolved problems to display. Active Non-Hospital Problems Diagnosis ??? Actinic keratosis ??? Seborrheic keratosis Operations/Major Procedures: 06/29/2018 Surgeon(s) and Role: * Pao Mayo MD - Primary * Frannie Giordano MD - Resident-Surgeon Chief * Deangelo Russ MD - Resident-Surgeon [place] Procedure(s): RIGHT REVISION TOTAL SHOULDER ARTHROPLASTY, HUMERAL AND GLENOID COMPONENT MODIFIER KAILEE TM REVERSE MODIFIER BUENA PARK CHAIR CASTAÑEDA History of Presentation: Holly Sanders is a 68 y.o. 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 Preoperative workup revealed no evidence of infection by the torn rotator cuff. Afterdiscussion of options, she elected to proceed with revision reverse total shoulder replacement. She understood the risks of surgery. She signed her informed consent. Hospital Course: The patient was admitted through the same day surgery program for reverse total shoulder arthroplasty. The operative course was uneventful. Holly Sanders was admitted for pain control, physical therapy and observation. On the morning of POD#1, she was transitioned to oral pain medications with goodeffect. She was seen by Physical and Occupational therapy for exercises and mobilization. Drain was removed POD#1. She was voiding spontaneously in good amounts without difficulty. Ms. Sanders did not have a bowel movement prior to discharge but was passing flatus and taking po without difficulty. On POD#1 the patient was deemed stable for discharge to home. Of Note: The patient was discharged with a prescription for Augmentin bid for 14 days. Vital Signs at Discharge: Weight: Wt Readings from Last 1 Encounters: //18 75.3 kg (166 lb) Height: Ht Readings from Last 1 Encounters: 06/17/18 154.3 cm (5' 0.75) HC: HC Readings from Last 1 Encounters: No data found for HC BMI: There is no height or weight on file to calculate BMI. Last value Range last 24 hrs Temperature Temp: 37 ??C (98.6 ??F) Temp: [36.4 ??C (97.5 ??F)-37 ??C (98.6 ??F)] Heart Rate Heart Rate: 91 Heart Rate: [71-91] Blood Pressure BP: 103/62 BP: (90-135)/(46-74) Respiratory Rate Resp: 14 Resp: [12-21] SpO2 SpO2: 96 % SpO2: [91 %-99 %] Art BP BP (Arterial Line): -- Functional and Cognitive Status: Patient mobilizing with right arm in an immobilizer sling, cognitively intact at baseline mental status at time of discharge. Important Lab Data: Last 3 wbc, hgb, hct plt Recent Labs 06/30/18 0321 05/13/18 1424 WBC 5.3 4.3 HGB 9.6* 11.4* HCT 30.2* 33.9* PLATELET 152 208 Last 3 Lytes Recent Labs 06/30/18 0321 NA 141 K 4.3 CL 105 CO2 25 BUN 13 CREATININE 0.67* Studies: Xray Shoulder Right (generic) Result Date: 06/29/2018 EXAMINATION: XR SHOULDER RIGHT (GENERIC) CLINICAL HISTORY: Status post conversion of right humeral head resurfacing hemiarthroplasty to a reverse total shoulder arthroplasty. TECHNIQUE: Internally rotated, externally rotated, transscapular Y-view, and axillary radiographs of the right shoulder were obt ained. COMPARISON: Right shoulder imaging studies ranging from 01/17/2014 through 05/20/2018 FINDINGS:There has been interval conversion of the patient's right humeral head resurfacing hemiarthroplasty to a reverse total shoulder arthroplasty. A surgical drain is seen with its tip projecting at the right shoulder. No periprosthetic fracture. No dislocation. No evidence of immediate complication. Expected postop appearance after interval conversion of the patient's right humeral head resurfacinghemiarthroplasty to a reverse total shoulder arthroplasty. Pending Studies and Lab Data at Discharge: None Transfusions: No Discharge Conditions/Prognosis: Stable, awake, and alert. Mobilizing as noted above, pain controlledon oral medications. Discharge to: Home with VNA. Updated Allergies/ADRs: Allergies Allergen Reactions ??? Keppra [Levetiracetam] Anaphylaxis ??? Ciprofloxacin ??? Codeine ??? Demerol [Meperidine] ??? Meperidine Hcl CIS - Nausea/Vomiting ??? Simvastatin Nausea Only ??? Sulfa (Sulfonamide Antibiotics) Immunizations Given this Hospitalization: Immunization History Administered Date(s) Administered ??? Influenza Vaccine, Whole 08/29/2005 ??? Pneumococcal Polyvalent 23 02/27/2006 ??? Td, adult 12/31/1997 ??? Zoster Vaccine, Live 02/26/2016 Discharge Medications: Your Medications New Medications Dose Details acetaminophen 500 mg Tab Commonly known as: TYLENOL Take 2 tablets by mouth every 8 hours. Continue the Tylenol around the clock for 10 days after surgery, (07/09/2018). Then may take if needed per package insert. Do not take more than 3,000 mg of Tylenolin 24 hours. 1000 mg Refills: 0 amoxicillin-clavulanate 875-125 mg Tab Commonly known as: AUGMENTIN Take 1 tablet by mouth 2 times daily for 14 days. 1 tablet Quantity: 28 tablet Refills: 0 aspirin 81 mg Tbec Take 1 tablet by mouth 2 times daily. Take with food for 30 days after surgery. Last day = 07/29/2018. 81 mg Refills: 0 lactobacillus with pectin 75 million cell -100 mg Cap Take 1 capsule by mouth daily. Take while taking Augmentin. 1 capsule Quantity: 14 capsule Refills: 0 oxyCODONE 5 mg Tab Commonly known as: ROXICODONE Take 1-3 tablets by mouth every 4 hours as needed for Pain. 5-15 mg Quantity: 50 tablet Refills: 0 polyethylene glycol 17 gram Pwpk Commonly known as: MIRALAX Take 17 g by mouth 2 times daily. 17 g Refills: 0 senna-docusate 8.6-50 mg Tab Commonly known as: PERICOLACE Take 2 tablets by mouth 2 times daily. 2 tablet Refills: 0 Continued medications with new dosing Dose Details TEGretol 200 mg Tab 200MG, PO, Twice daily Generic drug: carBAMazepine What changed: See the new instructions. Refills: 0 Continued medications, unchanged Dose Details calcium-vitamin D 500 mg(1,250mg) -200 unit Tab Take 1 tablet by mouth 2 times daily (with meals). Generic drug: calcium-vitamin D 1 tablet Refills: 0 citalopram 20 mg Tab Commonly known as: CeleXA Take 20 mg by mouth daily. seasonal 20 mg Refills: 0 DOC-Q-LACE 100 mg Cap daily. Generic drug: docusate sodium Refills: 1 DULoxetine 20 mg Cpdr Commonly known as: CYMBALTA Take 1 capsule by mouth daily. 1 capsule Refills: 0 FLAXSEED ORAL by Misc.(Non-Drug; Combo Route) route. Refills: 0 FLONASE 50 mcg/actuation Spsn 1 [place](s), Nasal, Once daily PRN Generic drug: fluticasone Refills: 0 folic acid 1 mg Tab Commonly known as: FOLVITE Refills: 1 gabapentin 300 mg Cap Commonly known as: NEURONTIN Take 1 capsule by mouth 3 times daily. 1 in the morning, 2 afternoon, 2 in the evening 1 capsule Refills: 1 loratadine 10 mg Tab Commonly known as: CLARITIN Take 10 mg by mouth daily. 10 mg Refills: 0 MAGNESIUM ORAL Take 250 mg by mouth daily. 250 mg Refills: 0 miconazole 2 % Crea Commonly known as: MICOTIN Apply topically 2 times daily. Refills: 0 MULTI-VITAMIN ORAL Take by mouth. Refills: 0 oxybutynin 5 mg Tab Commonly known as: DITROPAN 2 times daily. Refills: 0 tiZANidine 4 mg Tab Commonly known as: ZANAFLEX Take 4 mg by mouth every 8 hours as needed. 4 mg Refills: 0 triamcinolone 0.1 % Crea Commonly known as: KENALOG 1 Appl(s), Top, Twice daily PRN Refills: 0 STOPPED Medications GLUCOSAM PAULA [id number] ORAL ibuprofen 800 mg Tab Commonly known as: ADVIL;MOTRIN mupirocin 2 % Oint Commonly known as: BACTROBAN nystatin 100,000 unit/mL Susp Commonly known as: MYCOSTATIN Smoking Status at Discharge: History Smoking Status ??? Never Smoker Smokeless Tobacco ??? Never Used Instructions Given to Patient at Discharge: Patient Instructions Activity: 1. Wear your sling at all times for 6 weeks after surgery. 2. You may move your elbow and wrist in front of your body to maintain range of motion. 3. Non-weight bearing RIGHT upper extremity. 4. No formal shoulder therapy, range of motion, or activity should be done for the first 6 weeks. Anticoagulation: You have been discharged on Enteric-coated Aspirin 81 mg twice a day for 30 days. This medication will help decrease your chance of developing a blood clot. Take this medication with food to help protect your stomach. After your dose on 07/29/2018 stop the Aspirin. Diet: Resume your usual home diet but increase your intake of fluids and fiber while you are on narcotic pain medications to prevent constipation Driving: No, not until you are cleared to do so by your Orthopedic clinic. You should not drive while you are on narcotic pain medications as these can affect judgment and reaction time. Call your Surgeon with any questions. Medications: 1. The pain medication you are on can cause constipation so increase your intake of fluids and fiberwhile you are on them. You can also take an vlya-clc-hfjroay stool softener, Colace or senna, to facilitate a bowel movement. 2. If you need a renewal on your narcotic pain medication, you need to give the Orthopedic clinic enough time to process your request. This can take up to three days, so plan accordingly. 3. Continue the Tylenol around the clock for the next 10 days, (07/09/2018). This can be effective in controlling pain along with your other medications. Do not take more than 3,000 mg of Tylenol in 24 hours. 4. You have been discharged on a short acting narcotic, oxycodone. You will be on this medication for a limited period of time only. Take only enough pain medication to control your pain. As your pain lessens, taper down and off this medication as tolerated. 5. Do not take any non-steroidal anti-inflammatory medication such as ibuprofen, Advil, Aleve (NSAIDS). This medication may interfere with bone healing. Shower: Sponge bathe only. DO NOT submerge the dressing/incision. DO NOT get the area wet. Wound (Mepilex): 1. You do NOT have any external johnny or sutures in place. Your sutures are internal and will be absorbed over time. 2. You have a Mepilex dressing in place. Do not lift the edge of the Mepilex dressing to inspect theincision, it will not re-adhere. Remove your operative dressing 7 days after your surgery (07/06/2018). When it is removed you can leave the incision open to air or cover it with a light dressing. 3. If you have lots of drainage when you get home (and it is before 07/06/2018), remove the operative dressing and replace it with dry sterile gauze. Continue with daily dressing changes (and as needed) until the drainage stops, then remove the dressing and leave the incision open to air or lightly covered. Call your doctor at [phone] if: 1. You have a fever > 101.5 or experience chills ??? Increased discharge from the incision ??? Any redness or swelling around the incision ??? Increased pain or change in the pain that is not controlled by your pain medications Misc: Remember that ICE and elevation are very important to decrease swelling and control pain. You should use the ICE for 20-30 minutes at a time. FOLLOW UP APPOINTMENTS: 1. You will have follow up appointments at [facility] as indicated in Future Appointments and Orders. Future Appointments Date Time Provider Department Center 07/14/2018 1:00 PM Chanel Kapadia PA [facility] [place] [facility] For questions/concerns weekdays, 8 am - 5 pm, call Dr. Mayo's office: [phone]. For evenings, weekends, holidays, call [phone] and request to speak with the Orthopaedic Resident personnel associate. General Instructions None Future Appointments and Orders Future Appointments Provider Department Dept Phone 07/14/2018 1:00 PM Chanel Kapadia PA [facility] [place] [phone] Future Orders Complete By Expires Referral to Home Health - at DISCHARGE [[id number] CPT(R)] As directed Process Instructions: Scheduling Instructions: Comments: DOCUMENTATION FOR VNA SERVICES (INCLUDING THOSE PATIENTS WITH MEDICARE COVERAGE REQUIRING HOME VNA SERVICES AND/OR HOSPICE SERVICES) PATIENT'S LOCATION: Holly Sanders [address] [place] [phone] (home) Cell: Telephone Information: Director Of User Experience's Name: herself with family assist In discussion with the attending physician, it is certified that this patient is under their care and that they, or a Nurse Practitioner,Clinical Nurse specialist or Physician Ecommerce Analyst who is working directly with them, had a face to face encounter that meets the physician face to face encounter requirements with this patient on 06/30/18 The encounter with the patient was in whole, or in part, for the following medical condition, which is the primary reason for home health care services: R Reverse TSA In discussion with the provider, it is certified that, based on their findings, the following services are medically necessary for home health services. To provide the following care/treatments with the clinical findings supporting the need for servicesas follows: HOME CARE ORDERS: for PT/OT/RAG CUTTING MACHINE FEEDER (RN if needed) PT for ORDERS:Assess wound or incision, pain control,vital signs, cardiopulmonary status, nutrition,hydration, elimination, meds effectiveness and management; reinforce education re health issues PT ORDERS: Continue rehab for endurance, gait stability and strength with mobility and transfers. Home safety evaluation.DALE protocol for Revision DALE's OT: assess and continue rehab for managing ADL's. RAG CUTTING MACHINE FEEDER for personal care Per Dr. Mayo OP NOTE: Post-op plan will be for sling immobilization of the shoulder for the next 6 weeks, coming out only for gentle elbow, wrist, and hand range of motion. No formal shoulder therapy,range of motion, or activity should be done for the first 6 weeks. HOME HEALTH CARE AGENCY: [facility] PHONE: [phone] FAX: [phone] Start of care: 07/01/18 FOR MEDICARE ONLY: (please delete this section if not Medicare) In discussion with the attending physician, it is certified that the clinical findings support that this patient is homebound because absences from home require considerable and taxing effort due to: decreased strength and mobility R UE requiring sling and swath and homebound status. Please note that any additional orders needs or changes will need to be obtained from this patient'sPCP: Meg Fischer APRN [address] / [facility] [address] All A agencies which cover the area of patient's residence have been reviewed, either verbally or in writing, and patient/family have chosen the home health care agency noted Questions: Agency name and contact information: [facility] Patient location post discharge: home What services are requested: Physical Therapy Occupational Therapy Home Health Aide Start date: 07/01/2018 Responsible MD post discharge contact info: Primary Care Provider: Meg Fischer APRN [phone] Discharge References/Attachments None documented in this encounter Discharge Instructions Patient InstructionsLaney Griffith APRN - 06/30/2018 3:11 PM EDT Activity: 1. Wear your sling at all times for 6 weeks after surgery. 2. You may move your elbow and wrist in front of your body to maintain range of motion. 3. Non-weight bearing RIGHT upper extremity. 4. No formal shoulder therapy, range of motion, or activity should be done for the first 6 weeks. Anticoagulation: You have been discharged on Enteric-coated Aspirin 81 mg twice a day for 30 days. This medication will help decrease your chance of developing a blood clot. Take this medication with food to help protect your stomach. After your dose on 07/29/2018 stop the Aspirin. Diet: Resume your usual home diet but increase your intake of fluids and fiber while you are on narcotic pain medications to prevent constipation Driving: No, not until you are cleared to do so by your Orthopedic clinic. You should not drive while you are on narcotic pain medications as these can affect judgment and reaction time. Call your Surgeon with any questions. Medications: 1. The pain medication you are on can cause constipation so increase your intake of fluids and fiberwhile you are on them. You can also take an qggh-xrq-vslbnnf stool softener, Colace or senna, to facilitate a bowel movement. 2. If you need a renewal on your narcotic pain medication, you need to give the Orthopedic clinic enough time to process your request. This can take up to three days, so plan accordingly. 3. Continue the Tylenol around the clock for the next 10 days, (07/09/2018). This can be effective in controlling pain along with your other medications. Do not take more than 3,000 mg of Tylenol in 24 hours. 4. You have been discharged on a short acting narcotic, oxycodone. You will be on this medication for a limited period of time only. Take only enough pain medication to control your pain. As your pain lessens, taper down and off this medication as tolerated. 5. Do not take any non-steroidal anti-inflammatory medication such as ibuprofen, Advil, Aleve (NSAIDS). This medication may interfere with bone healing. Shower: Sponge bathe only. DO NOT submerge the dressing/incision. DO NOT get the area wet. Wound (Mepilex): 1. You do NOT have any external johnny or sutures in place. Your sutures are internal and will be absorbed over time. 2. You have a Mepilex dressing in place. Do not lift the edge of the Mepilex dressing to inspect theincision, it will not re-adhere. Remove your operative dressing 7 days after your surgery (07/06/2018). When it is removed you can leave the incision open to air or cover it with a light dressing. 3. If you have lots of drainage when you get home (and it is before 07/06/2018), remove the operative dressing and replace it with dry sterile gauze. Continue with daily dressing changes (and as needed) until the drainage stops, then remove the dressing and leave the incision open to air or lightly covered. Call your doctor at [phone] if: 1. You have a fever > 101.5 or experience chills ??? Increased discharge from the incision ??? Any redness or swelling around the incision ??? Increased pain or change in the pain that is not controlled by your pain medications Misc: Remember that ICE and elevation are very important to decrease swelling and control pain. You should use the ICE for 20-30 minutes at a time. FOLLOW UP APPOINTMENTS: 1. You will have follow up appointments at [facility] as indicated in Future Appointments and Orders. Future Appointments Date Time Provider Department Center 07/14/2018 1:00 PM Chanel Kapadia PA [facility] [address] [place] [address] CLIN For questions/concerns weekdays, 8 am - 5 pm, call Dr. Mayo's office: [phone]. For evenings, weekends, holidays, call [phone] and request to speak with the Orthopaedic Resident personnel associate. documented in this encounter Medications at Time of Discharge Medication Sig Dispensed Refills Start Date End Date oxybutynin (DITROPAN) 5 2 times daily. 0 02/17/20 18 mg Tablet gabapentin (NEURONTIN) Take 600 mg by mouth 1 300 mg Capsule 3 times daily. 1 in the morning, 2 afternoon, 2 in the evening DULoxetine (CYMBALTA) Take 1 capsule by 0 018 20 mg Capsule, Delayed mouth daily. Release(E.C.) DOC-Q-LACE 100 mg daily. 1 04/29/2018 Capsule citalopram (CELEXA) 20 Take 20 mg by mouth 0 mg Tablet daily. seasonal calcium-vitamin D 500 Take 1 tablet by 0 mg-5 mcg (200 unit) mouth 2 times daily Tablet (with meals). MULTI-VITAMIN ORAL Take by mouth. 0 fluticasone (FLONASE) 1 [place](s), Nasal, 0 01/25/ 2007 50 mcg/Actuation nasal Once daily PRN spray NYSTOP Powder APPLY TOPICALLY UNDER 0 06/23/2018 08/19/2018 THE BREASTS TWICE A DAY BETWEEN APPLICATION OF CREAM amoxicillin-clavulanate Take 1 tablet by 28 tablet 0 201707/14/2018 (AUGMENTIN) 875-125 mg mouth 2 times daily Tablet for 14 days. oxyCODONE (ROXICODONE) Take 1-3 tablets by 50 tablet 0 06/0308/19/2018 5 mg Tablet mouth every 4 hours as needed for Pain. acetaminophen (TYLENOL) Take 2 tablets by 0 06/3003/11/2022 500 mg Tablet mouth every 8 hours. Continue the Tylenol around the clock for 10 days after surgery, (07/09/2018). Then may take if needed per package insert. Do not take more than 3,000 mg of Tylenol in 24 hours. aspirin 81 mg Tablet, Take 1 tablet by 0 06/30/20 18 08/19/2018 Delayed Release (E.C.) mouth 2 times daily. Take with food for 30 days after surgery. Last day = 07/29/2018. polyethylene glycol Take 17 g by mouth 2 0 201708/19/2018 (MIRALAX) 17 gram times daily. Powder in Packet senna-docusate Take 2 tablets by 0 06/30/201810/2018 (PERICOLACE) 8.6-50 mg mouth 2 times daily. Tablet lactobacillus with Take 1 capsule by 14 capsule 0 06/30/2018 07/14/2018 pectin 75 million cell mouth daily. Take -100 mg Capsule while taking Augmentin. miconazole (MICOTIN) 2 Apply topically 2 0 07/14/2018 % Cream times daily. folic acid (FOLVITE) 1 1 02/24/2018 mg Tablet loratadine (CLARITIN) Take 10 mg by mouth 0 07/14/2018 10 mg Tablet daily. tiZANidine (ZANAFLEX) 4 Take 4 mg by mouth 0 07/14/2018 mg Tablet every 8 hours as needed. MAGNESIUM ORAL Take 250 mg by mouth 0 07/14/2018 daily. FLAXSEED ORAL by Misc.(Non-Drug; 0 08/2022 Combo Route) route. carBAMazepine 200MG, PO, Twice 0 11/26/200608/19 (TEGRETOL) 200 mg daily tablet triamcinolone (KENALOG) 1 Appl(s), Top, Twice 0 0 11/26/2006 07/14/2018 0.1 % cream daily PRN documented as of this encounter Progress Notes Ana Alicea RN - 06/30/2018 3:43 PM EDT Patient discharged to home with VNA services. IV removed, site benign. My assessment remains unchanged from my previous assessment. Patient denies chest pain and shortness of breath. Discussed pain management with patient, pain tolerable. Patient medicated prior to discharge. Patient has all belongings. Patient received discharge summary. All questions answered. Patient encouraged to call with questions or concerns. Patient discharged to home with family. Discharge Summary was faxed to [facility]. Laney Griffith APRN - 06/30/2018 3:42 PM EDT 06/30/2018 1500 Davol drain right shoulder removed. Ten holes present at end of the tubing. Small amount of serous in bulb. Band-aid applied. Tolerated well. Laney Griffith APRN Inpatient Orthopedics Pager [phone] Ben Partida MD - 06/30/2018 11:46 AM EDT [facility] Progress Note Date of Encounter: 06/30/2018 Responsible Attending: Helga Cornejo Staff / Associate Provider: Ben Partida MD ID: Patient is POD# 1 s/p shoulder arthroplasty for which the patient received a right interscalene nerve block for post-operative pain control. Subjective: Today the patient has excellent pain control and at present states pain is 1 out of 10. Patient has been able to tolerate PO analgesics and an oral diet without nausea or vomiting. Patient is without any complaints this morning. Objective: Temp: [36.4 ??C (97.5 ??F)-37 ??C (98.6 ??F)] Heart Rate: [91] Resp: [14-16] BP: (90-112)/(46-63) SpO2: [91 %-96 %] Heart Rate from SPO2: [75 bpm-99 bpm] Gen: Patient resting comfortably. Sitting in chair. NAD. No bruising, erythema, swelling or discharge at insertion site. Sensory: Sensation is diminished to cold over thumb. Motor: Patient is able to flex and extend all fingers No evidence of local anesthetic toxicity Coags: No results found for: INR, PT, PTT Meds: Medication list reviewed Assessment: Peripheral nerve block for post-operative pain control, currently with excellent pain control. Block appears to be appropriately still working with use of liposomal bupivacaine. Plan: ?? Continue current management per primary service. ?? Patient was instructed to contact Regional Anesthesia Team ([id number]) for any unresolved sensory or motor deficits. ?? Thank you for the opportunity to have participated in the care of this patient. Ben Partida MD Regional Team pager [phone] Pao Mayo MD - 06/30/2018 5:57 AM EDT ORTHOPAEDIC SURGERY INPATIENT PROGRESS NOTE Patient Name: Holly Sanders Age: 68 y.o. Surgery/Issue: revision shoulder arthroplasty to reverse shoulder arthoplasty Attending: Dr. Mayo Date of surgery: 06/29/2018 SUBJECTIVE / INTERVAL HISTORY: No issues overnight. Patient offers no complaints. Pain well controlled, denies N/V. Had chicken noodle soup last night and was up to the bathroom. Drain output 170cc. FOCUSED REVIEW OF SYSTEMS: as above. Active Hospital Problems Diagnosis ??? 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 Mayo Resolved Hospital Problems Diagnosis Date Resolved No resolved problems to display. Active Non-Hospital Problems Diagnosis ??? Actinic keratosis ??? Seborrheic keratosis MEDICATIONS: ??? carBAMazepine (TEGretol Brand Name) tablet 200 mg ??? DULoxetine (CYMBALTA) capsule 20 mg ??? fluticasone (FLONASE) 50 mcg/actuation nasal spray 1 spray ??? gabapentin (NEURONTIN) capsule 300 mg ??? bacitracin injection ??? sodium chloride 0.9 % flush 5 mL ??? sodium chloride 0.9 % flush 5-20 mL ??? lidocaine (XYLOCAINE) 10 mg/mL (1 %) injection 3 mg ??? polyethylene glycol (MIRALAX) packet 17 g ??? senna-docusate (PERICOLACE) 8.6-50 mg per tablet 2 tablet ??? sodium chloride 0.9% infusion ??? ceFAZolin (ANCEF) 1g in dextrose 5% 50mL ??? oxyCODONE (ROXICODONE) immediate release tablet 5 mg OR oxyCODONE (ROXICODONE) immediate release tablet 10 mg OR oxyCODONE (ROXICODONE) immediate release tablet 15 mg ??? acetaminophen (TYLENOL) tablet 1,000 mg ??? aspirin EC tablet 81 mg ??? ondansetron (ZOFRAN) injection 4 mg ??? prochlorperazine (COMPAZINE) injection 10 mg ??? metoclopramide (REGLAN) injection 10 mg ??? amoxicillin-clavulanate (AUGMENTIN) 875-125 mg per tablet 1 tablet ??? sodium chloride 0.9% 1,000 mL (06/29/18 181) OBJECTIVE: Temp: [36.4 ??C (97.5 ??F)-37.3 ??C (99.1 ??F)] Heart Rate: [71-91] Resp: [12-21] BP: (100-157)/(60-96) Intake/Output Summary (Last 24 hours) at 06/30/18 0557 Last data filed at 06/30/18 0500 Gross per 24 hour Intake 2330 ml Output 1470 ml Net 860 ml There is no height or weight on file to calculate BMI. PE: General: awake/alert, responds to questions CV: RRR assessed peripherally Resp: Breathing comfortably on RA RUE: Sling in place. Dressing c/d/i Sensation intact to light touch in ax/r/m/u distributions Motor intact to wrist flexion/extension, digit flexion/extension Brisk capillary refill distally, fingers warm/well-perfused. Lab Results Component Value Date NA 141 06/30/2018 K 4.3 06/30/2018 CL 105 06/30/2018 CO2 25 06/30/2018 BUN 13 06/30/2018 CREATININE 0.67 (L) 06/30/2018 GLUCOSE 125 06/30/2018 CALCIUM 8.4 (L) 06/30/2018 Lab Results Component Value Date WBC 5.3 06/30/2018 HGB 9.6 (L) 06/30/2018 HCT 30.2 (L) 06/30/2018 MCV 98.4 (H) 06/30/2018 PLATELET 152 06/30/2018 IMAGING: Post-op XR demonstrate no evidence of fracture or dislocation. ASSESSMENT / PLAN: Holly Sanders is a 68 y.o. female 1 Day Post-Op s/p right revision shoulder arthroplasty to reverse shoulder arthoplasty. Drain output 170cc overnight. Hemoglobin 11.4 from 9.6 consistent with acute blood loss anemia. Anticipate discharge today. Activity: NWB RUE, no ROM, OK for ROM of elbow, wrist, fingers Closure: Resorbable sutures Dressing: Mepilex x7 days Drain: D/c when output <30cc per shift Anticoagulation: ASA 81mg BID for 30 days Antibiotics: Ancef x24 hours nyasia-op Consults: N/A Dispo: Home when clears PT FRANNIE GIORDANO MD 06/30/2018 Future Appointments Date Time Provider Department Center 07/14/2018 1:00 PM Chanel Kapadia PA [facility] Attending addendum: The preceeding portion of this note was written by Dr. Giordano. I personally saw and evaluated the patient at the bedside and I agree with the assessment and plan documented above. Pao Mayo M.D., M.S. Group Managing Director of Orthopaedic Surgery Shoulder, Elbow, and Sports Medicine Department of Orthopaedic Surgery [place] [phone] Divine Presley RN - 06/29/2018 9:00 PM EDT Pt. Received into Room 310B from PACU. Alert and oriented. See flowsheet for assessment. Call maria esther in reach. Bed alarm on. Yandel Yip MD - 06/29/2018 6:59 PM EDT ORTHOPAEDIC SURGERY INPATIENT PROGRESS NOTE Patient Name: Holly Sanders Age: 68 y.o. Surgery/Issue: Right reverse total shoulder arthoplasty Attending: PAO MAYO Date of surgery: 06/29/2018 SUBJECTIVE / INTERVAL HISTORY: Denies chest pain, shortness of breath, nausea, numbness/weakness. Pain well-controlled. FOCUSED REVIEW OF SYSTEMS: as above. Active Hospital Problems Diagnosis ??? 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 Mayo Resolved Hospital Problems Diagnosis Date Resolved No resolved problems to display. Active Non-Hospital Problems Diagnosis ??? Actinic keratosis ??? Seborrheic keratosis MEDICATIONS: ??? sodium chloride 0.9 % flush 5-20 mL ??? lidocaine (XYLOCAINE) 10 mg/mL (1 %) injection 3 mg ??? lactated Ringers infusion 1,000 mL ??? gabapentin (NEURONTIN) capsule 300 mg ??? HYDROmorphone (DILAUDID) injection 0.2-0.4 mg ??? nalOXone (NARCAN) injection 0.04 mg ??? ondansetron (ZOFRAN) injection 4 mg ??? bacitracin injection ??? sodium chloride 0.9% infusion ??? ceFAZolin (ANCEF) 1g in dextrose 5% 50mL ??? oxyCODONE (ROXICODONE) immediate release tablet 5 mg OR oxyCODONE (ROXICODONE) immediate release tablet 10 mg OR oxyCODONE (ROXICODONE) immediate release tablet 15 mg ??? acetaminophen (TYLENOL) tablet 1,000 mg ??? prochlorperazine (COMPAZINE) injection 10 mg ??? lactated Ringers Stopped (06/29/18 5137) ??? sodium chloride 0.9% 1,000 mL (06/29/181815) OBJECTIVE: Temp: [36.9 ??C (98.4 ??F)-37.3 ??C (99.1 ??F)] Heart Rate: [71-91] Resp: [12-21] BP: (100-157)/(60-96) Intake/Output Summary (Last 24 hours) at 06/29/18 1859 Last data filed at 06/29/18 1800 Gross per 24 hour Intake 950 ml Output 50 ml Net 900 ml There is no height or weight on file to calculate BMI. PE: General: NAD, alert, arousable, responsive to questions. CV: RRR assessed peripherally Resp: breathing comfortably on RA Right Upper Extremity: In shoulder sling. Dressing c/d/i. SASHA drain with serosanguinous output. Sensation intact in ax/m/r/u distributions. Motor intact to wrist/finger flexion and extension. Brisk capillary refill distally and fingertips warm/well-perfused. 2+ Radial pulse Lab Results Component Value Date WBC 4.3 05/13/2018 HGB 11.4 (L) 05/13/2018 HCT 33.9 (L) 05/13/2018 MCV 95.8 (H) 05/13/2018 PLATELET 208 05/13/2018 IMAGING: XR right shoulder (06/29/2018) No evidence of intra-op fractures. The humerus is reduced. ASSESSMENT / PLAN: 68 y.o. female Day of Surgery s/p right reverse total shoulder arthoplasty. Stable. Vitals within normal limits. Activity: NWB RUE, no ROM, OK for ROM of elbow, wrist, fingers Closure: Resorbable sutures Dressing: Mepilex x7 days Drain: D/c when output <30cc per shift Anticoagulation: ASA 81mg BID for 30 days Antibiotics: Ancef x24 hours nyasia-op; discharge on augmentin Consults: N/A Dispo: Home when clears PT Follow-up: 07/14 1PM ANANT Kapadia MD 06/29/2018 Future Appointments Date Time Provider Department Center 07/14/2018 1:00 PM Chanel Kapadia PA [facility] [address] [place] [address] CLIN Carmencita Gross RN - 06/29/2018 4:50 PM EDT Pt to PACU via bed from OR; monitors applied, alarms set and audible. 1630: xrays done. Medicated for discomfort back of neck, warm wrap also applied. documented in this encounter H&P Notes Frannie Giordano MD - 06/29/2018 12:30 PM EDT 24-Hour Pre-Operative H&P Update Holly Sanders 1950 [id number] Patient seen in pre-op holding area today. There are no clinically significant changes to the patient's alyssa since the original H&P. Patient denies any recent fevers or chills. The patient is ready to proceed with the planned surgical procedure today. Surgical consent form reviewed. Operative extremity marked. All questions sought and answered. FRANNIE GIORDANO MD Orthopaedic Surgery documented in this encounter Miscellaneous Notes Care Management - Sahil Diaz RN - 06/30/2018 1:12 PM EDT Images from the original note were not included. Progress Notes Encounter Date: 06/17/2018 Jodie Liu []Hide copied text Office of Care Management Initial Assessment ?? Jodie Liu reviewed record and discussed patient with Care Team. ?? Source of Information: Holly Sanders Introduced self/reviewed role; services accepted. ?? Reason for Hospitalization: Failed right TSA. Right TSA revision on 06/29/[address] Pao Mayo. ?? No past medical history on file. ?? Hospitalizations Within the Past 30 Days: ? Anticipated Length Of Stay (If known): 1 ?? Current Decision-Making Capacity: She is capable of making her own medical decisions. ?? Advance Care Planning: We discussed what an ADV DIR is and its purpose thereof. She has the paperwork and intends on completing one prior to surgery. ?? Current Coping/Education/Information Needs: She states she understands the hospital course and discharge plans for a TSA revision at [facility] as outlined by the outpatient ortho clinic team. She had the original right shoulder replaced in 2016 in [place], [place]. ?? Current Functional Ability: ?? Functional Status Prior to Admission: At her pre-op baseline, she ambulates independently without anassistive device. Able to do her ADL without assistance. Able to do her household tasks without assistance. Able to drive but prefers for someone to drive her because it bothers her shoulder. Retired. ?? Home Environment: Lives in a house with 3 levels. Ramp into the house. Everything is on 1 level. Has a walk-in shower. Has a shower chair. Has a shower wand. Has grab bar in the shower. Grab bars by the toilet. Does not have a recliner. Has a love seat that is perfect for her post-op. ?? Social & Family Supports/Community Resources: She takes care of her 46 y/o daughter who is special needs. Her brother, who has a TBI, is staying with her for a period of time after surgery. She hasindividuals that rent the downstairs that will help her. ?? Behavioral Health History: None ?? Substance Use/Abuse: Smoking: Never Smoker Smokeless Tobacco: Never Used Alcohol: No ? Other Pertinent/Service Specific Information: I discussed with the patient the potential avenues of discharge postoperatively. We discussed qualifications to go to a fdc facility. We discussed potential out of pocket costs associated with non-emergent wheelchair van and ambulance transportation.We discussed the purpose and services provided by [facility]. If patient opts to [...] that they will be working with a resident care aid after surgery to facilitatethe discharge plan. I encouraged the patient to call with any questions or concerns prior to the surgery as well as when they discharge home. ?? Health/Prescription Coverage: Primary Insurance: MEDICARE Secondary Insurance: MEDICAID [place] Prescription Coverage: Yes Preferred Pharmacy: [id number], [place] - [address] ? [address] [facility] [place] [address] ? Not a 24 hour pharmacy; exact hours not known ? Other: None ?? Primary Care Provider: West Ayala MD [phone] ?? Patient/Caregiver Goals of Treatment: She wants to drive and work in her garden. ?? Potential Needs for Transition of Care: Rehab/SNF: No selection Home Health: No preference OP PT: James Friend in [facility] DME: None needed Dialysis: No Community Resources: None Transportation: We discussed that since we cannot determine the exact day or time of discharge, transportation must be readily available at time of discharge. Transportation will be provided by Flor Brandon, her neighbor downstairs. Other: None ?? Anticipated Barriers to Discharge/Special Considerations: ?? Assessment: ?? Plan: She prefers to d/c home without services. ? A member of the Care Management team will continue to monitor progress, follow for continuity of care and assist with transition of care planning. ?? Jodie Liu Pager: [phone] ?3:15 PM Chart reviewed and met with pt who is sitting up in cardiac chair in [facility] with R UE in sling and swath. Pt had R Reverse TSA by Dr Mayo yesterday and plans on going home today. Pt is and lives with her dtr who has CP. 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 Plan of Care - Chan Boyer OT - 06/30/2018 10:50 AM EDT Occupational Therapy Evaluation Pertinent History of Current Problem: Pt is a 68 y/o female s/p R revision shoulder Precautions/Restrictions: weight bearing Precautions Comments: NWB RUE; no sh ROM; ok for elbow/wrist/hand Assessment: Pt has been seen for occupational therapy evaluation, please refer to associated flowsheet data listed below for details. Holly Sanders presents with the following performance skill deficits and client factors: pain, NWB/No ROM of R shoulder in orthosis, standing balance, and functional activity tolerance. These performance deficits have led to activity limitations and participation restrictions in the following areas of occupation: dressing, bathing, grooming, toileting, self-feeding,mobility, transferring, rest/sleep, home management, roles/routines, leisure, driving, community mobility, and social participation. However, despite the deficits listed above pt demonstrates the ability to perform LB/UB dressing (w/ Kylee, daughter v neighbor will provide), sit<>stand, and functional mobility. Pt educated on LB/UB dressing, bathing, and safety. Anticipate that pt will return home with assistance from her daughter and neighbors once medically ready. Do not anticipate further OT needs while hospitalized. Staff Recommendations: ?? Stand by assist ?? Encourage OOB activity and participation in all self care tasks Anticipated Discharge Disposition: home with assist, home with home health Pager: [phone] Chan Boyer OT 06/30/2018 Occupational Therapy Rehabilitation Department 2017 OT Evaluation Code Rationale: ?? Diagnosis & Pertinent Co-Morbidities affecting Plan of Care: see PMHx ?? Occupational Profile & Client History: Brief Expanded Extensive x ?? Assessment of Occupational Performance: 1-3 performance deficits 3-5 performance deficits x 5 + performance deficits ?? Clinical Decision Making: Low Moderate High x Clinical decision making of moderate complexity using standardized patient assessment instrument andmeasurable assessment of functional outcome. G-Code: Self-Care Status Modifier CURRENT CJ - At least 20 percent but less than 40 percent impaired, limited or restricted PROJECTED CJ - At least 20 percent but less than 40 percent impaired, limited or restricted DISCHARGE CJ - At least 20 percent but less than 40 percent impaired, limited or restricted G Code Rationale: This G-Code and these disability modifiers were selected as the primary therapy goal based upon the patient's evaluation including the following functional test(s) AM-PAC - Activity Measure for Post-Acute Care. Current ability measures, co-morbidities and clinical judgement were alsoused to select the disability modifier. This Patient's current G-Code functional level is 38.32% impaired based upon functional assessment within the hospital setting and clinical judgment. 06/30/18 1050 Rehab Evaluation Document Type evaluation Total Evaluation Minutes, Occupational Therapy 44 (eval + sc) Patient Effort excellent Symptoms Noted During/After Treatment fatigue;increased pain General Information Patient Profile Review yes Patient/Family/Caregiver Comments/Observations My daughter can help with somethings, my neighbor downstairs will help with the sling (adjustment). General Observations of Patient Pt sitting in chair, orthosis in good position w/ pillows providing additional support. Pertinent History of Current Problem Pt is a 68 y/o female s/p R revision shoulder Hearing Precautions/Limitations WFL Precautions/Restrictions weight bearing Precautions Comments NWB RUE; no sh ROM; ok for elbow/wrist/hand Treatment Number OT 1 Right Upper Extremity (Weight Bearing Status) nonweight bearing Living Environment Patient population Adult Living Environment Living Environment Comment Pt lives in [facility] with her daughter (special needs). The house has a ramp to enter. No stairs in the house. She will sleep in a recliner. Has someone who rents from her who can assist as well as a friend. There are grab bars on either side of the toilet. Functional Level Prior Prior Functional Level Comment Previously independent but having difficulty with R arm Self-Care Dominant Hand left Vision Assessment/Intervention Additional Documentation (WFL w/ glasses) Cognitive Assessment/Intervention Additional Documentation Cognitive Assessment Interventions (Group) Cognitive Assessment Interventions Behavior/Mood Observations (Cognitive) alert;cooperative Orientation Status (Cognitive) oriented x 4 Attention (Cognitive) WNL/WFL Follows Commands/Answers Questions (Cognitive) 100% of the time Pain Scale/Rating Pain Assessment Scale Word (verbal rating pain scale) Pain Level (tolerable) Pain Assessment Numbers/Faces/Word Pain Body Location - Side Right Pain Body Location shoulder ROM (Range of Motion) Additional Documentation (LUE WFL for ADL, R elbow, wrist, fingers WFL) Weight-Bearing Status Extremity Weight Bearing Status right upper extremity Transfer Assessment/Treatment [place] (Sit-Stand Transfers) independent [place] (Stand-Sit Transfers) independent Comment (Transfers) Pt performed multiple sit<>stand safely no overt LOB. Gait Assessment/Treatment [place] (Gait) independent Distance in Feet (Gait) 300 Comment (Gait) No overt LOB, slow and steady. AM-PAC Daily Activity AM-PAC Activity Completed? Yes How much help from another person does the patient currently need putting on and taking off regular lower body clothing? 3 - A Little How much help from another person does the patient currently need with bathing (including washing, rinsing, drying)? 3 - A Little How much help from another person does the patient currently need with toileting, which includes using toilet, bedpan or urinal? 3 - A Little How much help from another person does the patient currently need putting on and taking off regular upper body clothing? 3 - A Little How much help from another person does the patient currently need taking care of personal grooming such as brushing teeth? 4 - None How much help from another person does the patient currently need eathing meals? 4 - None AM-PAC Daily Activity Raw Score 20 Daily Activity T-Scale Score 42.03 Daily Activity CMS 0-100% Score 38.32 AM-PAC Daily Activity CMS Modifier CJ ADL Assessment/Intervention Additional Documentation Lower Body Dressing Assessment/Training (Group);Upper Body Dressing Assessment/Training (Group);Toileting Assessment/Training (Group);Bathing Assessment/Training (Group) Upper Body Dressing Assessment/Training Position (UB Dressing) sitting;standing [place] Level (UB Dressing) minimum assist (75% patient effort) Impairments (UB Dressing) ROM (range of motion) decreased;pain Comment (UB Dressing) Pt educated on UB dressing options and technique. Pt assisted donning shirt, pt verbalized understanding and performed majority of donning. Pt plans to have daugther/neighbor assist as needed for strap adjustment. Lower Body Dressing Assessment/Training Assistive Devices (LB Dressing) aviation manager;sock-aid Position (LB Dressing) sitting;standing [place] Level (LB Dressing) minimum assist (75% patient effort);verbal cues required Impairments (LB Dressing) ROM (range of motion) decreased;balance impaired Comment (LB Dressing) Pt issued and educated on use of sock aid/aviation manager. Pt donned underpantspants w/ use of reahcer, Kylee to zip up pants and pull up posterior R side. Pt educated on use of sock aid and demonstrated ability to don sock w/ use. Pt doffed socks and donned slip on shoes independently. Orthotics/Prosthetics Additional Documentation Orthosis Location/Type (Group) Orthosis Location/Type Location/Type (Orthosis) upper extremity Upper Extremity (Orthosis) Right:;shoulder orthosis Orthosis Management/Training Indications (Orthosis) immobilize, protect/position healing structures;rest, reduce inflammation;rest, reduce pain;restrict motion Skills Training (Orthosis) activity limitations;doffing orthosis;donning orthosis;orthosis cleaning;clothing management related to orthosis;purpose/goals of orthosis;recognizing skin issues related to o rthosis;restrictions/precautions;sleeping with orthosis Wear Schedule (Orthosis) wear time study technologist Adjustment (Orthosis) orthosis adjustment needed Adjustment Comment (Orthosis) pt adjusted orthosis w/ assist for neck strap. Anterio/medial adjustment Plan of Care Review Plan Of Care Reviewed With patient Clinical Impression Criteria for Skilled Therapeutic Interventions Met treatment indicated Rehab Potential good, to achieve stated therapy goals Therapy Frequency evaluation only Anticipated Equipment Needs at Discharge (Pt has equipment needed) Anticipated Discharge Disposition home with assist;home with home health Plan of Care - Evert Segura PT - 06/30/2018 10:17 AM EDT Physical Therapy Evaluation Pertinent History of Current Problem: Pt is a 68 y/o female s/p R revision shoulder Precautions/Restrictions: weight bearing, fall, shoulder Precautions Comments: NWB RUE; no sh ROM; ok for elbow/wrist/hand Weight-Bearing Status Extremity Weight Bearing Status: right upper extremity Right Upper Extremity (Weight Bearing Status): nonweight bearing Assessment: Patient seen for initial evaluation. Presents with increased pain, impaired skin integrity, decreased UE strength/ROM, impaired endurance which leads to functional deficits in gait and functional mobility. Pt educated on importance of cryocuff, exercise and sling usage. Extensive time spent re- positioning sling for optimum comfort. Patient has met all inpatient therapy goals and would benefit from continued services at home upon discharg. Please see associated flow sheet data below for objective information regarding today's session Staff Mobility Recommendations: Standby assist; no device needed Anticipated Discharge Disposition: home with assist, home with home health Evert Segura PT Pager: [phone] Inpatient Physical Therapy 2017 PT Evaluation Code Rationale: ?? Diagnosis & Pertinent Co-Morbidities, personal factors, and present illness affecting Plan ofCare: Patient Active Problem List Diagnosis Code ??? Actinic keratosis L57.0 ??? Seborrheic keratosis L82.1 ??? 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 Mayo Z96.619 ??? Postoperative anemia due to acute blood loss D62 Additional personal factors or co-morbidities that impact plan: ?? Total # of Factors: 0 1-2 3+ x ?? Examination of body system impairments, functional limitations and behaviors, and/or participation restrictions. Addressing 1-2 elements Addressing 3 + elements Addressing 4 + elements x ?? Clinical presentation: See assessment above. Stable/Uncomplicated Evolving/Fluctuating Symptoms Unstable/Unpredictable x ?? Clinical decision making of moderate complexity based on pt's functional performance as outlined in this evaluation. 06/30/18 1017 Rehab Evaluation Document Type evaluation Total Evaluation Minutes, Physical Therapy 43 (eval, SUE, OP) Patient Effort good Symptoms Noted During/After Treatment increased pain;dizziness;fatigue General Information Patient Profile Review yes Onset of Illness/Injury or Date of Surgery 06/29/18 Referring Physician Maria Esther Patient/Family/Caregiver Comments/Observations that feels so much better: re adjustment of sling Pertinent History of Current Problem Pt is a 68 y/o female s/p R revision shoulder Precautions/Restrictions weight bearing;fall;shoulder Precautions Comments NWB RUE; no sh ROM; ok for elbow/wrist/hand Treatment Number PT 1 Right Upper Extremity (Weight Bearing Status) nonweight bearing Living Environment Patient population Adult Living Environment Living Environment Comment Pt lives in [facility] with her daughter (special needs). The house has a ramp to enter. No stairs in the house. She will sleep in a recliner. Has someone who rents from her who can assist as well as a friend Functional Level Prior Prior Functional Level Comment Previously independent but having difficulty with R arm Vital Signs Heart Rate 91 Heart Rate Source Monitor BP 106/63 BP Method Automatic SpO2 94 % O2 Flow Rate (L/min) 0 L/min O2 Device RA Pain Scale/Rating Pain Assessment Scale Word (verbal rating pain scale) Pain Level (tolerable during session) ROM (Range of Motion) Additional Documentation General Assessment (Group) General Range of Motion Detail LE WFL MMT (Manual Muscle Testing) Additional Documentation General Assessment (Group) General Manual Muscle Testing Assessment Detail LE WFL Mobility Assessment/Training Additional Documentation Bed Mobility Assessment/Treatment (Group);Transfer Assessment/Treatment (Group);Gait Assessment/Treatment (Group);Weight-Bearing Status (Group) Weight-Bearing Status Extremity Weight Bearing Status right upper extremity Bed Mobility Assessment/Treatment Scoot/Bridge [place] (Bed Mobility) independent Eaorhm-hs-Ynw [place] (Bed Mobility) independent Dbn-kg-[id number] [place] (Bed Mobility) independent Comment (Bed Mobility) HOB elevated; will sleep in recliner at home Transfer Assessment/Treatment Bed-Chair [place] (Transfers) supervision required Chair-Bed [place] (Transfers) supervision required [place] (Sit-Stand Transfers) supervision required [place] (Stand-Sit Transfers) supervision required Comment (Transfers) Supervision for safety and IV pole Gait Assessment/Treatment [place] (Gait) supervision required Distance in Feet (Gait) 150' Gait Pattern Analysis swing-through gait Comment (Gait) Supervision for IV pole AM-PAC Basic Mobility AM-PAC Mobility Completed? Yes How much difficulty does the patient currently have turning over in bed (including adjusting bedclothes, sheets and blankets)? 4 - None How much difficulty does the patient currently have sitting down on and standing up from a chair without arms (e.g. wheelchair, bedside commode etc. )? 4 - None How much difficulty does the patient currently have moving from lying to back to sitting on the sideof the bed? 3 - A Little How much help from another person does the patient currently need moving to and from a bed to a chair (including a wheelchair)? 4 - None How much help from another person does the patient currently need to walk in the hospital room? 4 - None How much help from another person does the patient currently need clmibing 3-5 steps with a railing?4 - None AM-PAC Basic Mobility Raw Score 23 Basic Mobility Standardized T-Scale Score 56.93 Basic Mobility CMS 0-100% 11.2 AM-PAC Basic Mobility CMS Modifier CI Motor Skills/Interventions Additional Documentation Therapeutic Exercise (Group) Therapeutic Exercise Upper Extremity (Therapeutic Exercise) bicep curl, right;tricep extension, right Upper Extremity Range of Motion (Therapeutic Exercise) elbow flexion/extension, right;forearm supination/pronation, right;wrist flexion/extension, right Hand (Therapeutic Exercise) hand trim operator, right;finger flexion/extension, right;thumb finger opposition, right Exercise Type (Therapeutic Exercise) AAROM (active assistive range of motion) Position (Therapeutic Exercise) supine Sets/Reps (Therapeutic Exercise) x12 Comment (Therapeutic Exercise) given exercise program Orthotics/Prosthetics Additional Documentation Orthosis Management/Training (Group) Orthosis Location/Type Location/Type (Orthosis) upper extremity Upper Extremity (Orthosis) Right:;shoulder orthosis Orthosis Management/Training Indications (Orthosis) immobilize, protect/position healing structures;rest, reduce pain;rest, reduce inflammation;restrict motion Skills Training (Orthosis) activity limitations;clothing management related to orthosis;doffing orthosis;donning orthosis;orthosis cleaning;orthosis maintenance;purpose/goals of orthosis;recognizing skin issues related to orthosis;restrictions/precautions Wear Schedule (Orthosis) wear time study technologist Adjustment (Orthosis) orthosis adjustment needed Adjustment Comment (Orthosis) extensive time spent adjusting orthosis for optimum comfort Plan of Care Review Plan Of Care Reviewed With patient Clinical Impression Therapy Frequency evaluation only Anticipated Discharge Disposition home with assist;home with home health G-Code: Mobility Status Modifier CURRENT CI - At least 1 percent but less than 20 percent impaired, limited or restricted PROJECTED CI - At least 1 percent but less than 20 percent impaired, limited or restricted DISCHARGE CI - At least 1 percent but less than 20 percent impaired, limited or restricted G Code Rationale: This G-Code and these disability modifiers were selected as the primary therapy goal based upon the patient's evaluation including the following functional test(s) AM-PAC - Activity Measure for Post-Acute Care. Current ability measures, co-morbidities and clinical judgement were alsoused to select the disability modifier. Ms. Sanders's current G-Code functional level is 11.2% impaired based upon functional assessment. Plan of Care - Divine Presley RN - 06/30/2018 6:56 AM EDT Problem: Patient Care Overview Goal: Plan of Care Review Outcome: Ongoing (Interventions Implemented as Appropriate) OUTCOME EVALUATION NOTE: OUTCOME SUMMARY: Pt. Post-op shoulder surgery, doing well. Receiving multimodal pain regimen with adequate results. Ambulating to bathroom, voiding well. Dressing to right shoulder d/i. SASHA drain intact. Gunslinger on. +CSM, +pulses. No distress noted. PLAN MOVING FORWARD:D/C planning, PT/OT INDIVIDUALIZED FALL PREVENTION INTERVENTIONS: Patient-specific fall risk factors per assessment: [current deficits]: Recent surgery, Narcotics Assistance [level of assistance required for transfers and ambulation]: 1-person assist Supervision [direct monitoring required during toileting and ADLs]: Hands on Surveillance [continuous indirect monitoring]: Yin Ayoub Patient-specific fall prevention interventions for sensory deficits provided, if applicable: [X] N/A CPG GOAL OUTCOME EVALUATION: Goal: Fall Prevention-Safe Patient Handling Outcome: Ongoing (Interventions Implemented as Appropriate) 06/29/18 1900 06/29/18 2201 Webber Fall Risk History of Falling -- 0 Secondary Diagnosis -- 15 Ambulatory Aids -- 0 Intravenous Therapy/Heparin/Saline Lock -- 20 Gait/Transferring -- 10 Mental Status -- 0 Score -- 45 OTHER Webber Fall Risk -- High Positioning Body Position supine, head elevated -- Op Note - Pao Mayo MD - 06/29/2018 3:46 PM EDT [facility] [place] Patient Name: Holly Sanders : [id number] MR#: [id number] Case Date: 06/29/2018 Surgeon: Surgeon(s) and Role: * Pao Mayo MD - Primary * Frannie Giordano MD - Resident-Surgeon Chief * Deangelo Russ MD - Resident-Surgeon [place] Preoperative diagnosis: FAILED SHOULDER ARTHROPLASTY Postoperative diagnosis: FAILED SHOULDER ARTHROPLASTY Procedure(s) (LRB): @REVISION TOTAL SHOULDER ARTHROPLASTY, HUMERAL AND GLENOID COMPONENT (WRVU 27.21) (Right) MODIFIER KAILEE TM REVERSE (N/A) MODIFIER [facility] SCHVELN (N/A) Anesthesia: General Estimated Blood Loss: * No values recorded between 06/29/2018 2:16 PM and 06/29/2018 3:46 PM * Specimens removed during surgery: * No orders in the log * Drains: Surgical Closure: Primary Closure - skin incision is completely closed without any wires, natalia, drains or other devices Disposition: awakened from anesthesia, extubated and taken to the recovery room in a stable condition, having suffered no apparent untoward event. Condition: doing well without problems (Please see the Surgical Encounter Summary for any Implant and Specimen details pertinent to this patient.) HPI/Surgical Indications: 68-year-old female. 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 Preoperative workup revealed no evidence of infection by the torn rotator cuff. After discussion of options, she elected to proceed with revision reverse total shoulder replacem ent. She understood the risks of surgery. She signed her informed consent. Procedure Description: Anesthesia: Gen. and regional Complications: None apparent Implants Used: Kailee TM Reverse Stem: 49b026 mm, press-fit Poly: 36+3 mm Glenosphere: 36 mm Standard baseplate Variable angle locking screws: 36 superior, 42 inferior Pre-operative Evaluation: The patient was identified in the preoperative holding area. After confirming that the right shoulder was the correct site of surgery with both the patient and the informed consent, a green cantwell was placed on the operative shoulder. The plan was reviewed with the patient and all questions were answered. The patient was then taken to the operating room. After anesthesia was induced, the patient was placed in the beach chair position taking care to pad all pressure points and support the head and neck in a neutral and comfortable position. A time-out was called and all present agreed on the correctpatient, correct site of surgery, and correct procedure. Antibiotics were administered prior to incis ion. Examination under anesthesia: The shoulder was examined under anesthesia. Range of motion was 80?? passive forward elevation, 0?? passive external rotation at the side. Instability examination revealed fixed anterior subluxation, irreducible, humeral head directly palpated underneath the coracoid. Description of Operation: The entire procedure was done with ventilated sterile helmets to decrease the risk of infection. The shoulder was prepped and draped in a standard sterile fashion, utilizing copious chlorhexidine scrub, alcohol, and Chloraprep. The shoulder was then prepped and draped in a standard sterile fashion, including sealing off of the skin and axilla with Ioban drapes. Previous incision was utilized in its entirety, extending down along the deltopectoral interval. Itwas carried sharply through skin and needle-tip electrocautery was used to dissect through the subcutaneous fat. Full thicknesss skin flaps were raised anteriorly and posteriorly just over the deltopectoral fascia. We were unable to identify a patent cephalic vein, but were able to identify the interval between the deltoid and the pectoralis major. The triangular expansion of the deltopectoral interval was dissect proximally all the way to the clavicle. The pectoralis major tendon was then identified distally at its insertion into the humerus. The clavipectoral fascia was incised just lateral to the conjoint tendon and the conjoint tendon was retracted medially, taking care not to stretch the musculocutaneous nerve. The musculocutaneous nerve was palpated to avoid excessive retraction on it. The subacromial and subdeltoid bursal spaces were entered and bluntly developed, taking care to avoid damage to the overlying deltoid or the underlying rotator cuff. The deltoid was retracted laterally with a Link self-retaining retractor. The subscapularis was incompetent, although there was still some capsular tissue present. The long head of the biceps was absent. At this point, it was readily apparent that the humeral head was not reduced against the glenoid, but rather was severely subluxated and nearly dislocated anteriorly. It was in a fixed position and could not be reduced. It was almost stuck underneath the coracoid. Inferior capsular fibers were released off the neck of the humerus and the shoulder was brought anteriorly by externallyrotating in adduction and extension with a Darrach around the surgical neck. The rotator cuff was inspected. Supraspinatus was deficient, infraspinous and teres minor were intact. The hemiarthroplasty was removed by using a microsagittal saw to cut it off of the ingrown bone and it was disimpacted with a bone tamp. This was sent to the lab for analysis. Multiple cultures weretaken of periprosthetic tissue and joint fluid, but there was no outward appearance of infection. The canal was identified through a starting point just posterior to the bicipital groove. This was entered and sequentially reamed. We reamed easily up to 10 mm before meeting resistance. The head was cutoff using a cutting block just at the level of the rotator cuff insertion in 20 degrees of retroversion. The metaphyseal reamer was also utilized in an identical amount of retroversion. Following canalpreparation, the trial equal to the last reamer size was impacted. This was found to fit appropriately, snugly and was fully seated. The humerus was then retracted posteriorly with a Fukuda leaving the trial stem in place. This allowed exposure of the glenoid. An anterior inferior capsulectomy was performed. The axillary nerve was protected throughout the case. The glenoid was completely covered by fibrous tissue since the humeralhead had not been in contact with it for some time. This also required excision. The center of the glenoid was identified and the natural version was identified by palpating the anterior neck. The glenoid base plate drill guide was placed such that the inferior aspect of the baseplate was flush with the inferior aspect of the glenoid and care was taken to ensure there was no inferior angulation of the center guide wire. The long head of the triceps was reflected off of the scapular pillar in order to facilitate visualization of the inferior glenoid and exposure. Once the guidewire was placed centrally and inferiorly, it was reamed and overdrilled. The guidewire was then removed and the baseplate was impacted into position and oriented such that the superior and inferior locking screw holes were oriented towards the coracoid base and scapular pillar respectively. It was found to have excellent press-fit purchase. Drill holes were then created and measured and the screws were inserted with appropriate purchase. The 36 mm glenosphere was then secured to the baseplate and confirmed to be appropriately positioned by palpation. The Fukuda was carefully removed and the humerus was again externally rotated, taking care not to damage the glenosphere. Trial polyethylene sizes were then utilized to confirm the appropriateness of the humeral head cut for stability. The trial stem was removed and the implant was then impacted into position and confirmed to have good press-fit. Various polyethylene sizes were trialed, and we settled on a polyethylene of size 36+3. This was found to be stable through a full range of motion and could only be dislocatedwith significant traction and manual leverage of the humeral head. I found this to be ideal. The polyethylene implant was then impacted into position. The anterior capsular tissue was then repaired directly to the implant and humerus using #2 Fiberwire. The wounds were thoroughly irrigated. A medium Hemovac drain was placed under the deltopectoral layer, exiting posteriorly and superiorly. The deltopectoral interval was closed with 0 Ethibond nonabsorbable green suture and the subcutaneous tissue with 2-0 Vicryl and the skin with 3-0 Monocryl suture. Sterile dressing was applied, followed by a Cryocuff and a sling in neutral rotation. Postoperative Plan: Post-op plan will be for sling immobilization of the shoulder for the next 6 weeks, coming out onlyfor gentle elbow, wrist, and hand range of motion. No formal shoulder therapy, range of motion, or activity should be done for the first 6 weeks. Infection Bundle used? N/A Attestation: Case Date: 06/29/2018 I was present and I participated during the entire procedure (does not need to include opening and closing). PAO MAYO MD 06/29/2018 documented in this encounter Plan of Treatment Not on filedocumented as of this encounter Procedures Procedure Name Priority Date/Time Associated Diagnosis Comme nts IMPLANTABLE DEVICES 07/01/2018 12:00 Resu lts for this SCAN AM EDT procedure are i n the results section. EMBEDDED ENGINEER SCAN 07/01/2018 12:00 Res ults for this AM EDT procedure are i n the results section. HEMOGRAM Routine 06/30/2018 3:21 AM Results f or this EDT procedure are i n the results section. DIFFERENTIAL, Routine 06/30/2018 3:21 AM Results for this AUTOMATED EDT procedure are i n the results section. CBC (WITH DIFF) Routine 06/30/2018 3:21 AM EDT BASIC METABOLIC Routine 06/30/2018 3:21 AM Result s for this PANEL (NON-FASTING) EDT procedur e are in the results section. XR SHOULDER RIGHT STAT 06/29/2018 4:37 PM Resu lts for this EDT procedure are i n the results section. ANAEROBIC CULTURE Routine 06/29/2018 3:04 PM Resu lts for this EDT procedure are i n the results section. BONE CULTURE, Routine 06/29/2018 3:04 PM AEROBIC & ANAEROBIC EDT BONE CULTURE Routine 06/29/2018 3:04 PM Results f or this EDT procedure are i n the results section. ANAEROBIC CULTURE Routine 06/29/2018 3:03 PM Resu lts for this EDT procedure are i n the results section. ANAEROBIC CULTURE Routine 06/29/2018 3:03 PM Resu lts for this EDT procedure are i n the results section. BONE CULTURE, Routine 06/29/2018 3:03 PM AEROBIC & ANAEROBIC EDT BODY FLUID CULTURE, Routine 06/29/2018 3:03 PM AEROBIC & ANAEROBIC EDT BONE CULTURE Routine 06/29/2018 3:03 PM Results f or this EDT procedure are i n the results section. BODY FLUID CULTURE, Routine 06/29/2018 3:03 PM Re sults for this AEROBIC EDT procedure are i n the results section. MODIFIER BEACH CHAIR 06/29/2018 1:45 PM FAILED SHOULDE R SCHLEIN EDT ARTHROPLASTY MODIFIER KAILEE TM 06/29/2018 1:45 PM FAILED SHOULDER REVERSE EDT ARTHROPLASTY @REVISION TOTAL 06/29/2018 1:45 PM FAILED SHOULDER SHOULDER EDT ARTHROPLASTY ARTHROPLASTY, HUMERAL AND GLENOID COMPONENT (WRVU 27.21) @REVISION TOTAL Routine 06/29/2018 8:35 AM SHOULDER EDT ARTHROPLASTY, HUMERAL AND GLENOID COMPONENT documented in this encounter Results SCAN DOC: EMBEDDED ENGINEER (07/01/2018 12:00 AM EDT) Narrative 07/01/2018 12:00 AM EDT This result has an attachment that is no t available. Ordered by an unspecified provider. Scanning Provider MEDIA MGR SCAN EXT ORDR/RSLT SCAN DOC: IMPLANTABLE DEVICES (07/01/2018 12:00 AM EDT) Narrative 07/01/2018 12:00 AM EDT This result has an attachment that is no t available. Ordered by an unspecified provider. Scanning Provider MEDIA MGR SCAN EXT ORDR/RSLT (ABNORMAL) Differential, Automated (06/30/2018 3:21 AM EDT) [facility] Method Time Signature Neutrophils % 74.7 % [facility] Neutr Abs (ANC) 3.99 1.70 - [facility] 6.10 [facility] x10(3)/[facility] LABORATORY Lymphocytes % 15.9 % [facility] Lymphocytes Abs 0.8 (L) 0.9 - 3.2 [facility] x10(3)/[facility] LABORATORY Monocytes % 8.2 % [facility] Monocyte Abs 0.4 0.3 - 0.9 [facility] x10(3)/[facility] LABORATORY Eosinophils % 0.6 % [facility] Eosinophils Abs 0.0 0.0 - 0.4 [facility] x10(3)/[facility] LABORATORY Basophils % 0.4 % [facility] Basophils Abs 0.0 0.0 - 0.1 [facility] x10(3)/[facility] LABORATORY Immature Gran % 0.20 % [facility] Comment: Immature granulocytes(IG's)percentage an d absolute count will include metamyelocytes, myelocytes, and promyelo cytes. Blood smears from CBCs yielding IG's will be scanned manually for concor dance. If this scan disagrees with the automated IG or if promyelocytes are not ed, a manual differential will be performed. Cammy Gran Abs 0.01 0.00 - 0.04 x10(3)/[facility] MAR Y [facility] Specimen Anatomical Collection Method Collection Time Receive d Time (Source) Location / / Volume Laterality Blood specimen 06/30/2018 3:21 AM 018 3:26 (specimen) EDT AM EDT Resulting Agency Comment Spec In Lab Frannie Giordano MD HEMATOLOGY ORDERABLES Performing Organization Address City/State/[place] [address] (ABNORMAL) Hemogram (06/30/2018 3:21 AM EDT) Analysis Performed At Patho logist Time Signature WBC 5.3 4.0 - 9.5 [facility] x10(3)/[facility] LABORATORY RBC 3.07 (L) 4.00 - [facility] JASPER 5.21 [facility] x10(6)/[facility] LABORATORY Hemoglobin 9.6 (L) 11.7 - [facility] 15.5 gm/dL [facility] Hematocrit 30.2 (L) 35.7 - [facility] JASPER 45.8 % [facility] MCV 98.4 (H) 82.6 - [facility] 94.4 fL [facility] MCH 31.3 27.1 - [facility] 32.0 pg [facility] MCHC 31.8 31.7 - [facility] 35.0 gm/dL [facility] Platelets 152 145 - [facility] LABORATORY RDWSD 43.2 37.0 - [facility] 46.0 [facility] LABORATORY RDWCV 11.9 11.5 - [facility] 14.1 % [facility] MPV 9.3 7.6 - 12.9 [facility] LABORATORY nRBC % Auto 0.0 % [facility] nRBC Abs Auto 0.000 0.000 - [facility] 0.000 [facility] x10(3)/[facility] LABORATORY Specimen Anatomical Collection Method Collection Time Receive d Time (Source) Location / / Volume Laterality Blood specimen 06/30/2018 3:21 AM 018 3:26 (specimen) EDT AM EDT Resulting Agency Comment Spec In Lab Frannie Giordano MD HEMATOLOGY ORDERABLES Performing Organization Address City/State/[place] [address] (ABNORMAL) Basic Metabolic Panel (non-fasting) (06/30/2018 3:21 AM EDT) P athologist Signature Glucose Lvl 125 65 - 199 [facility] mg/dL [facility] Comment: Diabetes: >=200 mg/dL plus symp toms BUN 13 8 - 18 mg/dL [facility] Creatinine 0.67 (L) 0.70 - 1.20 mg/dL [facility] Sodium 141 135 - 145 mmol/L [facility] Potassium 4.3 3.5 - 5.0 mmol/L [facility] Comment: Please note: ??Patients with WBC >100,00 0 may have falsely elevated Potassium levels. ??For accurate Potassium quantif ication in these patients send serum separator tube (gold top) for subsequent determinations. ??Contact the Clinical Chemistry Laboratory if there are any qu estions. Chloride 105 98 - 107 mmol/L [facility] CO2 25 22 - 31 mmol/L [facility] Anion Gap 11 5 - 15 mmol/L [facility] Calcium 8.4 (L) 8.5 - 10.5 mg/dL [facility] Estimated GFR 90 >=60 mL/min/1.73 m?? [facility] Comment: The eGFR was calculated using the CKD-EP I equation. As with all creatinine based estimates of kidney function, eGFR values calculated with the CKD-EPI equation are not accurate in patients wi th acute kidney failure, extremes of body mass or the acutely ill. [email or web address] eGFR 104 >=60 mL/min/1.73 m?? [facility] Comment: The eGFR was calculated using the CKD-EP I equation. As with all creatinine based estimates of kidney function, eGFR values calculated with the CKD-EPI equation are not accurate in patients wi th acute kidney failure, extremes of body mass or the acutely ill. [email or web address] Specimen Anatomical Collection Method Collection Time Receive d Time (Source) Location / / Volume Laterality Blood specimen 06/30/2018 3:21 AM 018 3:26 (specimen) EDT AM EDT Resulting Agency Comment Spec In Lab Pao Mayo MD CHEMISTRY ORDERABLES Performing Organization Address City/State/[place] [address] XR Shoulder Right (Generic) (06/29/2018 4:37 PM EDT) Anatomical Region Laterality Modality Shoulder Right Digital Radiography Specimen (Source) Anatomical Location Collection Method / Collectio n Time Received Time / Laterality Volume Impressions 06/29/2018 4:42 PM EDT Expected postop appearance after interval conversion of the patient's right humeral head resurfacing hemiarthroplast y to a reverse total shoulder arthroplasty. 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 TECHNIQUE: Internally rotated, externally rotated, transscapular Y-view, and axillary radiographs of the right shoulder were o btained. COMPARISON: Right shoulder imaging studies ranging f rom 01/17/2014 through 05/20/2018 FINDINGS: There has been interval conversion of th e patient's right humeral head resurfacing hemiarthroplasty to a revers e total shoulder arthroplasty. A surgical drain is seen with its tip proj ecting at the right shoulder. No periprosthetic fracture. No dislocation. No evidence of immediate complication. Procedure Note Eva Tran MD - 06/29/2018Formatting o f this note might be different from the original. 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 TECHNIQUE: Internally rotated, externally rotated, transscapular Y-view, and axillary radiographs of the right shoulder were o btained. COMPARISON: Right shoulder imaging studies ranging f rom 01/17/2014 through 05/20/2018 FINDINGS: There has been interval conversion of th e patient's right humeral head resurfacing hemiarthroplasty to a revers e total shoulder arthroplasty. A surgical drain is seen with its tip proj ecting at the right shoulder. No periprosthetic fracture. No dislocation. No evidence of immediate complication. IMPRESSION Expected postop appearance after interva l conversion of the patient's right humeral head resurfacing hemiarthroplast y to a reverse total shoulder arthroplasty. Pao Mayo MD IMG DX ORDERABLES Anaerobic Culture (06/29/2018 3:04 PM EDT) [facility] Discovery Method Time Signature Anaerobic No anaerobic [facility] Culture organisms [facility] Specimen Anatomical Collection Method Collection Time Receive d Time (Source) Location / / Volume Laterality Specimen from SHOULDER REGION 06/29/2018 3:04 PM 06/29 3:21 bone (specimen) STRUCTURE / EDT PM EDT Unknown Comment: PERIPROSTHETIC #2, RIGHT SHOULD ER. PLEASE PERFORM 14 DAY EXTENDED ORTHO CULTURE. Resulting Agency Comment Spec In Lab Pao Mayo MD MICROBIOLOGY - GENERAL ORDER MALATHI Performing Organization Address City/State/[place] [address] Bone Culture (06/29/2018 3:04 PM EDT) Component Value Ref Test Analysis Performed At [facility] Range Method Time Signature Bone Culture No growth [facility] Gram Stain Few Neutrophils seen [facility] No microorganisms seen. [facility] Specimen Anatomical Collection Method Collection Time Receive d Time (Source) Location / / Volume Laterality Specimen from SHOULDER REGION 06/29/2018 3:04 PM 06/29 3:21 bone (specimen) STRUCTURE / EDT PM EDT Unknown Comment: PERIPROSTHETIC #2, RIGHT SHOULD ER. PLEASE PERFORM 14 DAY EXTENDED ORTHO CULTURE. Resulting Agency Comment Spec In Lab Pao Mayo MD MICROBIOLOGY - GENERAL ORDER MALATHI Performing Organization Address City/State/ZIP Code Phon e Number [address] Anaerobic Culture (06/29/2018 3:03 PM EDT) Patholo gist Method Time Signature Anaerobic No anaerobic [facility] organisms [facility] Specimen Anatomical Collection Method Collection Time Receive d Time (Source) Location / / Volume Laterality Specimen from SHOULDER REGION 06/29/2018 3:03 PM 06/29 3:22 bone (specimen) STRUCTURE / EDT PM EDT Unknown Comment: PERIPROSTHETIC #1, RIGHT SHOULD ER. PLEASE PERFORM 14 DAY EXTENDED ORTHO CULTURE. Resulting Agency Comment Spec In Lab Pao Mayo MD MICROBIOLOGY - GENERAL ORDER MALATHI Performing Organization Address City/[facility]/[place] [address] Bone Culture (06/29/2018 3:03 PM EDT) Component Value Ref Test Analysis Performed At Patholo gist Range Method Time Signature Bone Culture No growth [facility] Gram Stain Few Neutrophils seen [facility] No microorganisms seen. [facility] Specimen Anatomical Collection Method Collection Time Receive d Time (Source) Location / / Volume Laterality Specimen from SHOULDER REGION 06/29/2018 3:03 PM 06/29 3:22 bone (specimen) STRUCTURE / EDT PM EDT Unknown Comment: PERIPROSTHETIC #1, RIGHT SHOULD ER. PLEASE PERFORM 14 DAY EXTENDED ORTHO CULTURE. Resulting Agency Comment Spec In Lab Pao Mayo MD MICROBIOLOGY - GENERAL ORDER MALATHI Performing Organization Address City/[facility]/ZIP [place] [address] Anaerobic Culture (06/29/2018 3:03 PM EDT) Patholo gist Method Time Signature Anaerobic No anaerobic [facility] Culture organisms [facility] Specimen Anatomical Collection Method Collection Time Receive d Time (Source) Location / / Volume Laterality Shoulder joint 06/29/2018 3:03 PM 018 3:20 synovial fluid EDT PM EDT (specimen) Comment: RIGHT SHOULDER JOINT FLUID. PLE ASE PERFORM ORTHO 14 DAY EXTENDED CULTURE. THANKS. Resulting Agency Comment Spec In Lab Pao Mayo MD MICROBIOLOGY - GENERAL ORDER MALATHI Performing Organization Address City/[facility]/ZIP Code Phon e Number [address] Body Fluid Culture, Aerobic (06/29/2018 3:03 PM EDT) Component Value Ref Test Analysis Performed At [facility] Range Method Time Signature Body Fluid No growth [facility] Culture [facility] Gram Stain Cytocentrifuge Gram Stain performed [facility] Neutrophils seen [place] No microorganisms seen. [facility] Specimen Anatomical Collection Method Collection Time Receive d Time (Source) Location / / Volume Laterality Shoulder joint 06/29/2018 3:03 PM 018 3:20 synovial fluid EDT PM EDT (specimen) Comment: RIGHT SHOULDER JOINT FLUID. PLE ASE PERFORM ORTHO 14 DAY EXTENDED CULTURE. THANKS. Resulting Agency Comment Spec In Lab Pao Mayo MD MICROBIOLOGY - GENERAL ORDER MALATHI Performing Organization Address City/[facility]/ZIP Code Phon e Number [address] documented in this encounter Visit Diagnoses Not on filedocumented in this encounter Admitting Diagnoses Diagnosis Status post total shoulder arthroplasty documented in this encounter Administered Medications Inactive Administered Medications - up to 3 most recent administrations Medication Order MAR Action Action Date Dose Rate Site acetaminophen (TYLENOL) tablet Given 06/30/2018 1:16 PM EDT 1,00 0 mg 1,000 mg 1,000 mg, Oral, EVERY 8 HOURS SCHEDULED, First dose on Thu06/29/18 at 1615, Until Discontinued, Maximum dose of acetaminophen is 4000 mg from all sources in 24 hours., Routine Given 06/30/2018 5:51 AM EDT 1,000 mg Given 06/29/2018 10:01 PM EDT 1,000 mg aspirin EC tablet 81 mg Given 06/30/2018 8:40 AM EDT 81 mg 81 mg, Oral, 2 TIMES DAILY, First dose on Thu06/30/18 at 0900, Until Discontinued, Routine bacitracin injection Given 06/29/2018 2:27 PM 50,000 Units 19- Surgi veronika Site ONCE PRN, Starting on Thu EDT 06/29/18 at 1427, Until Thu06/30/18 at 1746, Intra-Operative (Intra-Procedure), Routine carBAMazepine (TEGretol Brand Name) tablet Given 06/30/2018 2:40 PM EDT 200 mg 200 mg 200 mg, Oral, 3 TIMES DAILY, First dose (after last reorder) on Thu06/30/18 at 0900, Until Discontinued, Routine Given 06/30/2018 8:41 AM EDT 200 mg DULoxetine (CYMBALTA) capsule 20 mg Given 06/30/2018 8:40 AM EDT 20 mg 20 mg, Oral, DAILY, First dose on Thu06/30/18 at 0900, Until Discontinued, Routine gabapentin (NEURONTIN) capsule 300 mg Given 06/30/2018 2:40 PM EDT 300 mg 300 mg, Oral, 3 TIMES DAILY, First dose on Thu06/29/18 at 1615, Until Discontinued, Routine Given 06/30/2018 8:40 AM EDT 300 mg Given 06/29/2018 10:01 PM EDT 300 mg lactobacillus with pectin 1 capsule 1 capsule, Oral, DAILY, First dose on Thu06/30/18 at 1 530, Until Discontinued, Routine ondansetron (ZOFRAN) injection 4 mg Given 06/29/2018 11:13 PM EDT 4 mg 4 mg, Intravenous, EVERY 8 HOURS PRN, Starting on Thu06/29/18 at 2100, Until Thu06/30/18 at 1746, Nausea, Vomiting, May repeat 4 mg IV once in 30 minutes for unrelieved nausea or vomiting. If multiple antiemetics are ordered, use ondansetron first, prochlorperazine second, metaclopromide third., Routine oxyCODONE (ROXICODONE) immediate release Given 06/30/2018 1:16 P M EDT 10 mg tablet 10 mg 10 mg, Oral, EVERY 4 HOURS PRN, Starting on Thu06/29/18 at 1549, Until Thu06/30/18 at 1746, Pain, moderate pain (4-6), For moderate pain (4-6). Do not exceed 15 mg in 4 hours. If pain not relieved, call provider., Routine Given 06/30/2018 8:40 AM EDT 10 mg Given 06/30/2018 3:26 AM EDT 10 mg oxyCODONE (ROXICODONE) immediate release tablet 15 mg 15 mg, Oral, EVERY 4 HOURS PRN, Starting on Thu06/29/18 at 1549, Until Thu06/30/18 at 1746, Pain, severe pain (7-10), For s evere pain (7-10). Do not exceed 15 mg in 4 hours. If pain not relieved, call provider., Routine oxyCODONE (ROXICODONE) immediate release tablet 5 mg 5 mg, Oral, EVERY 4 HOURS PRN, Starting on Thu06/29/18 at 1549, Until Thu06/30/18 at 1746, Pain, mild pain (1-3), For mild pain (1-3). D o not exceed 15 mg in 4 hours. If pain not relieved, call provider, Routine senna-docusate (PERICOLACE) 8.6-50 mg per Given 2017 8:40 AM EDT 2 tablets tablet 2 tablet 2 tablet, Oral, 2 TIMES DAILY, First dose on Thu06/29/18 at 2130, Until Discontinued, Routine sodium chloride 0.9 % flush 5 mL Given 06/30/2018 8:40 AM EDT 5 mLs 5 mL, Intravenous, 2 TIMES DAILY, First dose on Thu06/29/18 at 2130, Until Discontinued, Recovery (Recovery-Hospital Unit), Routine Given 06/29/2018 10:02 PM EDT 5 mLs sodium chloride 0.9% infusion New Bag 06/29/2018 6:16 PM EDT 1,000 mLs 100 mL/hr 1,000 mL, at 100 mL/hr, Intravenous, CONTINUOUS, Starting on Thu06/29/18 at 1615, Until Thu06/30/18 at 1746, Recovery (Recovery-Hospital Unit) documented in this encounter Active and Recently Administered Medications Times are shown in EDT. Scheduled Medication Order 06/28/2018 06/29/2018 06/30/2018 acetaminophen (TYLENOL) tablet 1,000 mg 1634 (Given - Provider: Carmencita Gross RN)2201 (Given - Provider: Divine Presley RN) 0551 (Given - Provider: Divine Presley RN)1316 (Given - Provider: Ana Alicea RN) 1,000 mg, Oral, EVERY 8 HOURS SCHEDULED, First dose on Thu06/29/18 at 1615, Until Discontinued, Maximum dose of acetaminophen is 4000 mg from all sources in 24 hours., Routine amoxicillin-clavulanate (AUGMENTIN) 875-125 mg per tablet 1 tabl et 1 tablet, Oral, 2 TIMES DAILY, First dos e on Thu06/30/18 at 1700, Until Discontinued, Routine aspirin EC tablet 81 mg 0840 (Gi jayant - Provider: Ana Alicea RN) 81 mg, Oral, 2 TIMES DAILY, First dose o n Thu06/30/18 at 0900, Until Discontinued, Routine carBAMazepine (TEGretol Brand Name) tablet 200 mg 0841 (Given - Provider: Ana Alicea RN)1440 (Given - Provider: Ana Alicea RN) 200 mg, Oral, 3 TIMES DAILY, First dose on Thu06/30/18 at 0900, Until Discontinued, Routine carBAMazepine (TEGretol) tablet 200 mg (CANCELED) 2230 (Given - Provider: Divine Presley RN) 200 mg, Oral, 3 TIMES DAILY, First dose on Thu06/29/18 at 2230, Until Discontinued, Routine ceFAZolin (ANCEF) 1g in dextrose 5% 50mL (COMPLETED) 1908 (New Bag - Provider: Carmencita Gross, TAURUS)2100 (Stopped - Provider: Divine Presley RN) 0015 (Not Given - Provider: Divine Presley RN - Reason: See comment - Comment: Not due now)0330 (New Bag - Provider: Divine Presley RN)0400 (Stopped - Provider: Divine Presley RN)0840 (New Bag - Provider: Ana Alicea RN) 1 g, Intravenous, EVERY 8 HOURS, 3 doses , First dose on Thu06/29/18 at 1615, Last dose on Thu06/30/18 at 0815, Administer over 30 Minutes, Adjust to 4 hours from intraoperative dose. * Beta-lactam based 909 (Stopped - Provider: Ana Alicea RN) antibiotics (eg. Ampicillin, Cefazolin, Aztreonam) should be administered within 4 hours of the preceding intraoperative dose. * Vancomycin, Flouroquinolones, Clindamycin, Gentamicin, and Metronidazole should be administered within 8 hours o f the preceding intraoperative dose., Recovery (Recovery-Hospital Unit), Indication for (Active or Suspected): Prophylaxis ceFAZolin (ANCEF) 3g in dextrose 5% 100 mL (COMPLETED) 1400 (Given - Provider: Ethan Hannon CRNA) 3 g, Intravenous, EVERY 3 HOURS, 1 dose, First dose on Thu06/29/18 at 1215, Administer over 30 Minutes, Redose after 3 hours., Intra-Operative (Intra- Procedure), Indication for (Active or Suspected): Prophylaxis DULoxetine (CYMBALTA) capsule 20 mg 0840 (Given - Provider: Ana Alicea RN) 20 mg, Oral, DAILY, First dose on Thu at 0900, Until Discontinued, Routine gabapentin (NEURONTIN) capsule 300 mg 16 34 (Given - Provider: Carmencita Gross RN)2201 (Given - Provider: Divine Presley RN) 0840 (Given - Provider: Ana Alicea RN)1440 (Given - Provider: Ana Alicea RN) 300 mg, Oral, 3 TIMES DAILY, First dose on Thu06/29/18 at 1615, Until Discontinued, Routine lactobacillus with pectin 1 capsule 1529 (Due) 1 capsule, Oral, DAILY, First dose on 06/30/18 at 1530, Until Discontinued, Routine polyethylene glycol (MIRALAX) packet 17 g 2129 (Not Given - Provider: Divine Presley RN - Reason: Patient/family refused - Comment: Will start in AM) 0900 (Not Given - Provider: Ana Alicea RN - Reason: Patient/family refused) 17 g, Oral, 2 TIMES DAILY, First dose on Thu06/29/18 at 2130, Until Discontinued, Routine senna-docusate (PERICOLACE) 8.6-50 mg per tablet 2 tablet 2129 (Not Given - Provider: Divine Presley RN - Reason: See comment - Comment: Will start in AM) 0840 (Given - Provider: Ana Alicea, TAURUS) 2 tablet, Oral, 2 TIMES DAILY, First dos e on Thu06/29/18 at 2130, Until Discontinued, Routine sodium chloride 0.9 % flush 5 mL 2202 (Given - P rovider: Divine Presley RN) 0840 (Given - Provider: Ana Alicea, TAURUS) 5 mL, Intravenous, 2 TIMES DAILY, First dose on Thu06/29/18 at 2130, Until Discontinued, Recovery (Recovery-Hospital Unit), Routine Continuous Medication Order 06/28/2018 06/29/2018 06/30/2018 lactated Ringers infusion 1,000 mL (CANCELED) 1215 (New Bag - Provider: Tammy Stover RN)1609 (Stopped - Provider: Ethan Hannon CRNA) 1,000 mL, at 100 mL/hr, Intravenous, CON TINUOUS, Starting Thu06/29/18 at 1215, Until Thu06/29/18 at 1933, Day of Surgery (Day of Procedure) sodium chloride 0.9% infusion 1816 (New Bag - Pr ovider: Carmencita Gross RN) 1,000 mL, at 100 mL/hr, Intravenous, CON TINUOUS, Starting Thu06/29/18 at 1615, Until Thu06/30/18 at 1746, Recovery (Recovery-Hospital Unit) PRN Medication Order 06/28/2018 06/29/2018 06/30/2018 bacitracin injection (CANCELED) 1427 (Gi jayant - Provider: Pao Mayo MD - Comment: Mixed into 3L normal saline irrigation.) ONCE PRN, Starting Thu06/29/18 at 1427, Until Thu06/30/18 at 1746, Intra- Operative (Intra-Procedure), Routine fentaNYL (PF) 50mcg/mL injection (CANCELED) 1241 (Given - Provider: Tammy Stover RN) 50 mcg, Intravenous, EVERY 5 MIN PRN, St arting Thu06/29/18 at 1150, Until Thu06/29/18 at 1305, Pain, or prior to injection of local anesthetic., Hold for respiratory rate less than 8 breaths per minute. (maximum dose 200 mcg), Day of Surgery (Day of Procedure), Rout ine fluticasone (FLONASE) 50 mcg/actuation nasal spray 1 spray 1 spray, Each Nare, DAILY PRN, Starting Thu06/29/18 at 2100, Until Thu06/30/18 at 1746, Allergies, Routine HYDROmorphone (DILAUDID) injection 0.2-0.4 mg (CANCELED) 172 (Given - Provider: Carmencita Gross RN)1806 (Given - Provider: Carmencita Gross RN) 0.2-0.4 mg, Intravenous, EVERY 5 MIN PRN , Starting Thu06/29/18 at 1548, Until Thu06/29/18 at 1933, Pain, Give 0.2 mg every 5 minutes PRN for mild to moderate pain (1-5) Give 0.4 mg every 5 minutes PRN f or moderate to severe pain (6-10). Hold for respiratory rate less than 10 per minute. Maximum dose 4 mg over one hour. If multiple pain medications are ordered, start with hydromorphone or morphine and use fentanyl for breakthrough pain., PACU Recovery, Routine lidocaine (XYLOCAINE) 10 mg/mL (1 %) injection 3 mg 3 mg (0.3 mL), Subcutaneous, ONCE PRN, 1 dose, Starting Thu06/29/18 at 2100, Until Thu06/30/18 at 1746, for discomfort with PIV insertion, Recovery (Recovery-Hospital Unit), Routine metoclopramide (REGLAN) injection 10 mg 10 mg, Intravenous, EVERY 8 HOURS PRN, S tarting Thu06/29/18 at 2100, Until Thu06/30/18 at 1746, Nausea, Vomiting, If multiple antiemetics are ordered, use ondansetron first, prochlorperazine second, metaclopromide third., Routine midazolam (PF) (VERSED) 1 mg/mL injection 1 mg (CANCELED) 1241 (Given - Provider: Tammy Stover RN) 1 mg, Intravenous, EVERY 5 MIN PRN, Star ting Thu06/29/18 at 1150, Until Thu06/29/18 at 1305, Sleep, or prior to injection of local anesthetic, Hold for delirium/agitation. (Maximum dose 5 mg)., Day of Surgery (Day of Procedure), Routine ondansetron (ZOFRAN) injection 4 mg 2313 (Given - Provider: Divine Presley RN) 4 mg, Intravenous, EVERY 8 HOURS PRN, St arting Thu06/29/18 at 2100, Until Thu06/30/18 at 1746, Nausea, Vomiting, May repeat 4 mg IV once in 30 minutes for unrelieved nausea or vomiting. If multiple a ntiemetics are ordered, use ondansetron first, prochlorperazine second, metaclopromide third., Routine oxyCODONE (ROXICODONE) immediate release tablet 10 mg(Linked Group 1) 163 (Given - Provider: Carmencita Gross RN)2200 (Given - Provider: Divine Presley RN) 0326 (Given - Provider: Mariama Pizarro)0840 (Given - Provider: Ana Alicea RN)1316 (Given - Provider: Ana Alicea RN) 10 mg, Oral, EVERY 4 HOURS PRN, Starting Thu06/29/18 at 1549, Until Thu06/30/18 at 1746, Pain, moderate pain (4-6), For moderate pain (4-6). Do not exceed 15 mg in 4 hours. If pain not relieved, call provider., Routine oxyCODONE (ROXICODONE) immediate release tablet 15 mg(Linked Group 1) 163 (See Alternative - Provider: Carmencita Gross RN)2200 (See Alternative - Provider: Divine Presley RN) 032 (See Alternative - Provider: Divine Presley RN)0840 (See Alternative - Provider: Ana Alicea RN)1316 (See Alternative - Provider: Ana Alicea RN) 15 mg, Oral, EVERY 4 HOURS PRN, Starting Thu06/29/18 at 1549, Until Thu06/30/18 at 1746, Pain, severe pain (7-10), For severe pain (7-10). Do not exceed 15 mg in 4 hours. If pain not relieved, call provider., Routine oxyCODONE (ROXICODONE) immediate release tablet 5 mg(Linked Group 1) 1639 (See Alternative - Provider: Carmencita Gross, RN)2201 (See Alternative - Provider: Divine Presley, RN) 0326 (See Alternative - Provider: Divine Presley RN)0840 (See Alternative - Provider: Ana Alicea, RN)1316 (See Alternative - Provider: Ana Alicea, TAURUS) 5 mg, Oral, EVERY 4 HOURS PRN, Starting Thu06/29/18 at 1549, Until Thu06/30/18 at 1746, Pain, mild pain (1-3), For mild pain (1-3). Do not exceed 15 mg in 4 hours. If pain not relieved, call provider, Routine prochlorperazine (COMPAZINE) injection 10 mg 10 mg, Intravenous, EVERY 6 HOURS PRN, S tarting Thu06/29/18 at 1549, Until Thu06/30/18 at 1746, Nausea, If multiple antiemetics are ordered, use ondansetron first, prochlorperazine second, metaclopromide third., Routine sodium chloride 0.9 % flush 5-20 mL 5-20 mL, Intravenous, EVERY 1 MIN PRN, S tarting Thu06/29/18 at 2100, Until Thu06/30/18 at 1746, flush, Flush pertains to all indwelling lines. Flush per protocol found in the job aid using the link prov ided on this medication record., Recovery (Recovery-Hospital Uni t), Routine Linked Groups Order Group 1: oxyCODONE (ROXICODONE) immediate release tablet 5 mgJump to med 5 mg, Oral, EVERY 4 HOURS PRN, Starting Thu06/29/18 at 1549, Until Thu06/30/18 at 1746, Pain, mild pain (1-3)
For mild pain (1-3). Do not exceed 15 mg in 4 hours. If pain not relieved, call provider
Routine Or oxyCODONE (ROXICODONE) immediate release tablet 10 mgJump to med 10 mg, Oral, EVERY 4 HOURS PRN, Starting Thu06/29/18 at 1549, Until Thu06/30/18 at 1746, Pain, moderate pain (4-6)
For moderate pain (4-6). Do not exceed 15 mg in 4 hours. If pain not relieved, call provider.
Routine Or oxyCODONE (ROXICODONE) immediate release tablet 15 mgJump to med 15 mg, Oral, EVERY 4 HOURS PRN, Starting Thu06/29/18 at 1549, Until Thu06/30/18 at 1746, Pain, severe pain (7-10)
For severe pain (7-10). Do not exceed 15 mg in 4 hours. If pain not relieved, call provider.
Routine documented in this encounter Care Teams Aut[employer] Technician Relationship Specialty Start Date End Date Meg Fischer, VIOLIN RESTORER PCP - General Family Medicine 06/17/18 02/20/[address] [place] [address] [address] [place] [address] documented as of this encounter
--- OUTSIDE RECORDS SUMMARY | 2022-05-16 02:14 | XMS_ITS | Encounter Summary ---
:1950 Author Organization [facility] [place] [address] Care Team Providers Name Role Phone Vicenta Wild APRN Primary Care Provider Encounter Details Date Type Department Care Team Description 02/02/2018 Hospital Encounter Radiology Library at [facility] [place] [address] [place] [address] [phone] (Wo rk) Social History Tobacco Use Types Packs/Day Years Used Date Never Smoker Smokeless Tobacco: Never Used Sex Assigned at Date Recorded Not on file documented as of this encounter Medications at Time of Discharge Medication Sig Dispensed Refills Start Date End Date citalopram (CELEXA) 20 mg Take 20 mg by 0 Tablet mouth daily. seasonal calcium-vitamin D 500 mg-5 Take 1 tablet by 0 mcg (200 unit) Tablet mouth 2 times daily (with meals). MULTI-VITAMIN ORAL Take by mouth. 0 fluticasone (FLONASE) 50 1 [place](s), 0 11/26/2006 mcg/Actuation nasal spray Nasal, Once daily PRN methylPREDNISolone (MEDROL) Take 4 tablets 140 tablet 0 07/0405/13/2018 4 mg TabletIndications: by mouth daily Chronic right shoulder pain for 2 weeks then decrease by 1 tablet every 2 weeks loratadine (CLARITIN) 10 mg Take 10 mg by 0 07/14/2018 Tablet mouth daily. tolterodine (DETROL) 2 mg Take 2 mg by 0 05/13/2018 Tablet mouth 2 times daily. tiZANidine (ZANAFLEX) 4 mg Take 4 mg by 0 07/14/2018 Tablet mouth every 8 hours as needed. MAGNESIUM ORAL Take 250 mg by 0 2017 mouth daily. amitriptyline (ELAVIL) 10 mg Take 10 mg by 0 05/13/2018 tablet mouth nightly. FLAXSEED ORAL by 0 03/11/2022 Misc.(Non-Drug; Combo Route) route. GLUC PAULA DIPO CH/TOM Take by mouth. 0 06/30/2018 PAULA/C/DEMETRA (GLUCOSAM PAULA [id number] ORAL) CIS Free Text Med - 25MG, [place], Q12H, 0 11/26/2006 06/17/2018 Compazine PRN carBAMazepine (TEGRETOL) 200 200MG, PO, Twice 0 0 11/26/2006 08/19/2018 mg tablet daily ibuprofen (ADVIL;MOTRIN) 800 800mg, PO, PRN 0 06/30/2018 mg tablet hydrochlorothiazide 25mg, PO, Once 0 11/26/2006 0 05/13/2018 (HYDRODIURIL) 25 mg tablet daily triamcinolone (KENALOG) 0.1 1 Appl(s), Top, 0 07/14/2018 % cream Twice daily PRN documented as of this encounter Plan of Treatment Not on filedocumented as of this encounter Procedures Procedure Name Priority Date/Time Associated Diagnosis Comme nts FILM LIBRARY Routine 02/02/2018 12:00 AM Results for this STORAGE ONLY DX EDT procedure ar e in SHOULDER the results section. documented in this encounter Results Film Library- Storage Only DX Shoulder (02/02/2018 12:00 AM EDT) Specimen (Source) Anatomical Location Collection Method / Collectio n Time Received Time / Laterality Volume Narrative ANAYELI - 03/17/2018 12:38 PM EDT This exam is for storage only and is aut o-finalizing. Audrey Mayo MD [facility] FILM LIBRARY ORDERABLES Performing Organization Address City/State/ZIP Code Phon e Number ANAYELI ANAYELI [place], [place] documented in this encounter Visit Diagnoses Not on filedocumented in this encounter Care Teams Extractor And Wringer Operator Relationship Specialty Start Date End Date Vicenta Wild, HOTEL VALET ATTENDANT PCP - General Family Medicine 06/19/16 03/21/18 documented as of this encounter
--- OUTSIDE RECORDS SUMMARY | 2022-05-16 02:14 | XMS_ITS | Encounter Summary ---
:1950 Author Organization [facility] [place] [address] Care Team Providers Name Role Phone West Ayala MD Primary Care Provider Encounter Details Date Type Department Care Team Description 05/20/2018 Hospital Encounter XRay at [facility] Audrey Mayo, Acute pain of right [address] [facility] [address] [place] shoulder [facility] [address] [place] [phone] [place] [address] Social History Tobacco Use Types Packs/Day Years [...] by mouth. 0 fluticasone (FLONASE) 50 1 [place](s), Nasal, 0 mcg/Actuation nasal spray Once daily PRN mupirocin (BACTROBAN) 2 % 2 times daily. 0 201706/30/2018 Ointment folic acid (FOLVITE) 1 mg 1 02/24/2018 07/14/2018 Tablet loratadine (CLARITIN) 10 Take 10 mg by mouth 0 07/14/2018 mg Tablet daily. tiZANidine (ZANAFLEX) 4 Take 4 mg by mouth 0 07/14/2018 mg Tablet every 8 hours as needed. MAGNESIUM ORAL Take 250 mg by mouth 0 07/14/2018 daily. FLAXSEED ORAL by Misc.(Non-Drug; 0 08/2022 Combo Route) route. GLUC PAULA DIPO CH/TOM Take by mouth. 0 06/30/2018 PAULA/C/DEMETRA (GLUCOSAM PAULA [id number] ORAL) CIS Free Text Med - 25MG, [place], Q12H, PRN 0 007 06/17/2018 Compazine carBAMazepine (TEGRETOL) 200MG, PO, Twice 0 11/2608/19/2018 200 mg tablet daily ibuprofen (ADVIL;MOTRIN) 800mg, PO, PRN 0 007 06/30/2018 800 mg tablet triamcinolone (KENALOG) 1 Appl(s), Top, 0 007 07/14/2018 0.1 % cream Twice daily PRN documented as of this encounter Plan of Treatment Not on filedocumented as of this encounter Procedures Procedure Name Priority Date/Time Associated Comments Diagnosis XR JOINT ASPIRATION Routine 05/20/2018 2:10 PM Acute pain of r ight Results for this - LARGE JOINT RIGHT EDT shoulder procedur e are in the results section. XR FLUORO ARTHROGRAM Routine 05/20/2018 2:10 PM Acute pain of right Results for this INJECTION SHOULDER EDT shoulder procedure are in RIGHT the results section. PROSTHETIC JOINT Routine 05/20/2018 1:40 PM Acute pain of righ t CULTURE, EXTENDED EDT shoulder HOLD, AEROBIC & ANAEROBIC JOINT CULTURE Routine 05/20/2018 1:40 PM Acute pain of right R esults for this EDT shoulder procedure are i n the results section. ANAEROBIC CULTURE Routine 05/20/2018 1:40 PM Acute pain of rig ht Results for this EDT shoulder procedure are i n the results section. CELL COUNT BODY Routine 05/20/2018 1:40 PM Acute pain of right Results for this FLUID EDT shoulder procedure are i n the results section. documented in this encounter Results XR Fluoro Guided Joint Aspiration Large Right (05/20/2018 2:10 PM EDT) Anatomical Region Laterality Modality Right Radio Fluoroscopy Specimen (Source) Anatomical Location Collection Method / Collectio n Time Received Time / Laterality Volume Impressions 05/20/2018 2:57 PM EDT Uneventful right glenohumeral joint aspiration, followed by uneventful right glenohumeral joint arth rogram for CT. Resident/Fellow: None Attending: Eva Reyes I performed this procedure. 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 A pre-procedural time-out was performed as per [facility] protocol. The patient's [facility] medical record including allergies was reviewed prior to the proc edure. The patient was placed supine on the flu oroscopic table. ??The skin overlying the anterior aspect of the right shoulder wa s prepped and draped in the usual aseptic manner. 1% Lidocaine was used to achieve local anesthesia. Under fluoroscopic guidance, an 18-gauge 3.5 spinal needle was advanced into the joint space. A small amount of air was i njected to document intraarticular needle placement. This injected air coul d be seen tracking into the subacromial bursa. Initially, only a few drops of bl oody fluid returned, and therefore a second 18-gauge 3.5 needle was advanced in tandem into the joint space, and again a small amount of air was injected to document intra-articular needle placement. This time less than 1 mL of b loody fluid returned. Next, one of the two needles was removed, and then a tota l of 8 mL of Omnipaque 300 was injected into the glenohumeral joint via the brittaney ining needle. All needles were removed at the end of the procedure. FINDINGS: 1. ??After aspiration, a small amount of injected air in the right glenohumeral joint space, extending into the subacrom ial bursa. After arthrogram, contrast in the right glenohumeral joint, extending into the subacromial bursa. 2. ??Less than 1 ml of bloody fluid aspi rated and sent for culture, sensitivity, gram stain, and cell count. 3. Additional postcontrast injection eliud ges were obtained in internally rotated, externally rotated, transscapular Y view projections. MEDICATIONS: Lidocaine 1% - <5 ml, for subcutaneous a nesthesia Omnipaque-300 8 ml, injected into the ri ght glenohumeral joint Fluoroscopy time: 0.32 minutes COMPLICATIONS: None immediate. POST-PROCEDURE CARE: Instructions on mon itoring for infection and management of postprocedure pain were reviewed with fabio calvin. Procedure Note Eva Tran MD - 05/20/2018Formatting o f this note might be different from the original. HISTORY: Painful right total shoulder ar throplasty with clinical concern for infection RIGHT GLENOHUMERAL JOINT ASPIRATION UNDE R FLUOROSCOPY, FOLLOWED BY RIGHT GLENOHUMERAL JOINT ARTHROGRAM FOR INJECT ION OF CONTRAST FOR CT TECHNIQUE: After an extensive conversation with the patient regarding risks and benefits, oral and written consent were obtained. A pre-procedural time-out was performed as per [facility] protocol. [facility] allergies was reviewed prior to the proc edure. The patient was placed supine on the flu oroscopic table. The skin overlying the anterior aspect of the right shoulder wa s prepped and draped in the usual aseptic manner. 1% Lidocaine was used to achieve local anesthesia. Under fluoroscopic guidance, an 18-gauge 3.5 spinal needle was advanced into the joint space. A small amount of air was i njected to document intraarticular needle placement. This injected air coul d be seen tracking into the subacromial bursa. Initially, only a few drops of bl oody fluid returned, and therefore a second 18-gauge 3.5 needle was advanced in tandem into the joint space, and again a small amount of air was injected to document intra-articular needle placement. This time less than 1 mL of b loody fluid returned. Next, one of the two needles was removed, and then a tota l of 8 mL of Omnipaque 300 was injected into the glenohumeral joint via the brittaney ining needle. All needles were removed at the end of the procedure. FINDINGS: 1. After aspiration, a small amount of i njected air in the right glenohumeral joint space, extending into the subacrom ial bursa. After arthrogram, contrast in the right glenohumeral joint, extending into the subacromial bursa. 2. Less than 1 ml of bloody fluid aspira glenis and sent for culture, sensitivity, gram stain, and cell count. 3. Additional postcontrast injection eliud ges were obtained in internally rotated, externally rotated, transscapular Y view projections. MEDICATIONS: Lidocaine 1% - <5 ml, for subcutaneous a nesthesia Omnipaque-300 8 ml, injected into the ri ght glenohumeral joint Fluoroscopy time: 0.32 minutes COMPLICATIONS: None immediate. POST-PROCEDURE CARE: Instructions on mon itoring for infection and management of postprocedure pain were reviewed with fabio calvin. IMPRESSION Uneventful right glenohumeral joint aspi ration, followed by uneventful right glenohumeral joint arth rogram for CT. Resident/Fellow: None Attending: Eva Reyes I performed this procedure. Audrey Mayo MD IMG FLUORO ORDERABLES XR Fluoro Arthrogram Injection Shoulder Right (05/20/2018 2:10 PM EDT) Anatomical Region Laterality Modality Shoulder Right Radio Fluoroscopy Specimen (Source) Anatomical Location Collection Method / Collectio n Time Received Time / Laterality Volume Impressions 05/20/2018 2:57 PM EDT Uneventful right glenohumeral joint aspiration, followed by uneventful right glenohumeral joint arth rogram for CT. Resident/Fellow: None Attending: Eva Reyes I performed this procedure. 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 A pre-procedural time-out was performed as per [facility] protocol. The patient's [facility] medical record including allergies was reviewed prior to the proc edure. The patient was placed supine on the flu oroscopic table. ??The skin overlying the anterior aspect of the right shoulder wa s prepped and draped in the usual aseptic manner. 1% Lidocaine was used to achieve local anesthesia. Under fluoroscopic guidance, an 18-gauge 3.5 spinal needle was advanced into the joint space. A small amount of air was i njected to document intraarticular needle placement. This injected air coul d be seen tracking into the subacromial bursa. Initially, only a few drops of bl oody fluid returned, and therefore a second 18-gauge 3.5 needle was advanced in tandem into the joint space, and again a small amount of air was injected to document intra-articular needle placement. This time less than 1 mL of b loody fluid returned. Next, one of the two needles was removed, and then a tota l of 8 mL of Omnipaque 300 was injected into the glenohumeral joint via the brittaney ining needle. All needles were removed at the end of the procedure. FINDINGS: 1. ??After aspiration, a small amount of injected air in the right glenohumeral joint space, extending into the subacrom ial bursa. After arthrogram, contrast in the right glenohumeral joint, extending into the subacromial bursa. 2. ??Less than 1 ml of bloody fluid aspi rated and sent for culture, sensitivity, gram stain, and cell count. 3. Additional postcontrast injection eliud ges were obtained in internally rotated, externally rotated, transscapular Y view projections. MEDICATIONS: Lidocaine 1% - <5 ml, for subcutaneous a nesthesia Omnipaque-300 8 ml, injected into the ri t glenohumeral joint Fluoroscopy time: 0.32 minutes COMPLICATIONS: None immediate. POST-PROCEDURE CARE: Instructions on mon itoring for infection and management of postprocedure pain were reviewed with fabio calvin. Procedure Note Le Eva N, MD - 05/20/2018Formatting o f this note might be different from the original. HISTORY: Painful right total shoulder ar throplasty with clinical concern for infection RIGHT GLENOHUMERAL JOINT ASPIRATION UNDE R FLUOROSCOPY, FOLLOWED BY RIGHT GLENOHUMERAL JOINT ARTHROGRAM FOR INJECT ION OF CONTRAST FOR CT TECHNIQUE: After an extensive conversation with the patient regarding risks and benefits, oral and written consent were obtained. A pre-procedural time-out was performed as per [facility] protocol. The patient's [facility] medical record including allergies was reviewed prior to the proc edure. The patient was placed supine on the flu oroscopic table. The skin overlying the anterior aspect of the right shoulder wa s prepped and draped in the usual aseptic manner. 1% Lidocaine was used to achieve local anesthesia. Under fluoroscopic guidance, an 18-gauge 3.5 spinal needle was advanced into the joint space. A small amount of air was i njected to document intraarticular needle placement. This injected air coul d be seen tracking into the subacromial bursa. Initially, only a few drops of bl oody fluid returned, and therefore a second 18-gauge 3.5 needle was advanced in tandem into the joint space, and again a small amount of air was injected to document intra-articular needle placement. This time less than 1 mL of b loody fluid returned. Next, one of the two needles was removed, and then a tota l of 8 mL of Omnipaque 300 was injected into the glenohumeral joint via the brittaney ining needle. All needles were removed at the end of the procedure. FINDINGS: 1. After aspiration, a small amount of i njected air in the right glenohumeral joint space, extending into the subacrom ial bursa. After arthrogram, contrast in the right glenohumeral joint, extending into the subacromial bursa. 2. Less than 1 ml of bloody fluid aspira glenis and sent for culture, sensitivity, gram stain, and cell count. 3. Additional postcontrast injection eliud ges were obtained in internally rotated, externally rotated, transscapular Y view projections. MEDICATIONS: Lidocaine 1% - <5 ml, for subcutaneous a nesthesia Omnipaque-300 8 ml, injected into the ri ght glenohumeral joint Fluoroscopy time: 0.32 minutes COMPLICATIONS: None immediate. POST-PROCEDURE CARE: Instructions on mon itoring for infection and management of postprocedure pain were reviewed with fabio calvin. IMPRESSION Uneventful right glenohumeral joint aspi ration, followed by uneventful right glenohumeral joint arth rogram for CT. Resident/Fellow: None Attending: Eva Reyes I performed this procedure. Audrey Mayo MD IMG FLUORO ORDERABLES Anaerobic Culture (05/20/2018 1:40 PM EDT) [facility] Signature Anaerobic No anaerobic [facility] Culture organisms [facility] LABORATORY Specimen Anatomical Collection Method Collection Time Receive d Time (Source) Location / / Volume Laterality Joint fluid SHOULDER REGION 05/20/2018 1:40 PM 2017 2:42 specimen STRUCTURE / EDT PM EDT (specimen) Unknown Comment: PLEASE DO GRAM STAIN AND CULTUR E. HOLD SPECIMEN FOR 14 DAYS. Resulting Agency Comment Spec In Lab Audrey Mayo MD MICROBIOLOGY - GENERAL ORDER MALATHI Performing Organization Address City/[facility]/[place] [address] Joint Culture (05/20/2018 1:40 PM EDT) Component Value Ref Test Analysis Performed At [facility] [employer] Range Method Time Signature Joint Culture No growth at 14 JULIET days. [facility] LABORATORY Gram Stain Cytocentrifuge Gram Stain performed JULIET White Blood Cells seen [facility] No microorganisms seen. [facility] LABORATORY Specimen Anatomical Collection Method Collection Time Receive d Time (Source) Location / / Volume Laterality Joint fluid SHOULDER REGION 05/20/2018 1:40 PM 2017 2:42 specimen STRUCTURE / EDT PM EDT (specimen) Unknown Comment: PLEASE DO GRAM STAIN AND CULTUR E. HOLD SPECIMEN FOR 14 DAYS. Resulting Agency Comment Spec In Lab Audrey Mayo MD MICROBIOLOGY - GENERAL ORDER MALATHI Performing Organization Address City/[facility]/ZIP Code Phon e Number [address] Cell Count Body Fluid (05/20/2018 1:40 PM EDT) [facility] gist Method Time Signature Spec Type BF Shoulder [facility] LABORATORY Color BF [place] [facility] LABORATORY Appearance BF Clotted [facility] LABORATORY WBC BF Ct Disregard [facility] LABORATORY Comment: Called by:leesa _, Read back by: Lynne Maynard _, Date-Time:05-20-2018 at 15:20_. Guideline listed below apply to all body fluids. Differentials on BAL specimens are perfo rmed by the Cytology lab section. When Body Fluid WBC count is greater william n Zero, a smear is made and scanned. All scan information is correlated with numeric results prior to being released to patients chart. Polymorph % Disregard % [facility] LABORATORY Comment: Polymorphonuclear cell percent and absol [place] values may contain Neutrophils, Eosinophils, and Basophils. Body fluid s mear will be scanned manually for concordance. Mononuc % Disregard % [facility] LABORATORY Comment: Mononuclear cell percent and absolute va lues may contain Lymphocytes and Monocytes. Body fluid smear will be scan marcus manually for concordance. Polymorph BF ABS Disregard /mcl [facility] LABORATORY Comment: Polymorphonuclear cell percent and absol [place] values may contain Neutrophils, Eosinophils, and Basophils. Body fluid s mear will be scanned manually for concordance. Mononuc ABS Disregard /[facility] LABORATORY Comment: Mononuclear cell percent and absolute va lues may contain Lymphocytes and Monocytes. Body fluid smear will be scan marcus manually for concordance. Specimen Anatomical Collection Method Collection Time Receive d Time (Source) Location / / Volume Laterality Shoulder joint 05/20/2018 1:40 PM 018 2:39 synovial fluid EDT PM EDT (specimen) Resulting Agency Comment Spec In Lab Audrey Mayo MD BODY FLUIDS AND STOOLS ORDER MALATHI Performing Organization Address City/State/[place] [address] documented in this encounter Visit Diagnoses Diagnosis Acute pain of right shoulder documented in this encounter Administered Medications Inactive Administered Medications - up to 3 most recent administrations Medication Order MAR Action Action Date Dose Rate Site iohexol (OMNIPAQUE) 300 mg/mL Given 05/20/2018 2:15 PM EDT 10 mL s solution 10 mL 10 mL, Intra-articular, ONCE, 1 dose, On Kaelyn 05/20/18 at 1415, Warning Vesicant/Irritant Medication , Routine lidocaine (XYLOCAINE) 10 mg/mL (1 %) Given 05/20/2018 2:15 PM ED T 200 mg injection 200 mg 200 mg (20 mL), Intra-articular, ONCE, 1 dose, On Kaelyn 05/20/18 at 1415, Routine documented in this encounter Care Teams Assistant Signal Maintainer Relationship Specialty Start Date End Date West Ayala MD PCP - General General Internal Medicine 03/22/18 [address] [place] [address] documented as of this encounter
--- OUTSIDE RECORDS SUMMARY | 2022-05-16 02:14 | XMS_ITS | Encounter Summary ---
:1950 Author Organization [facility] [place] [address] Care Team Providers Name Role Phone West Ayala MD Primary Care Provider Reason for Visit Reason Onset Date Comments Questions 05/25/2018 Encounter Details Date Type Department Care Team Description 05/25/2018 Telephone Orthopaedics at [facility] Rachel Patterson, RN Questions [facility] [place] [address] Social History Tobacco Use Types Packs/Day Years Used Date Never Smoker Smokeless Tobacco: Never Used Alcohol Use Standard Drinks/Week Comments No 0 (1 standard drink = 0.6 oz pure alcoho l) Sex Assigned at Date Recorded Not on file documented as of this encounter Miscellaneous Notes Telephone Encounter - Rowdy Hercules - 05/28/2018 1:48 PM EDT Holly is calling back because someone called her about her results. Telephone Encounter - Rachel Patterson RN - 05/25/2018 3:22 PM EDT Patient wondering about results of tests. Informed her that not all the results have come back and that someone will call her when they come in (around 06/03). also informed her to call us if she has notheard anything by 06/05. documented in this encounter Plan of Treatment Not on filedocumented as of this encounter Visit Diagnoses Not on filedocumented in this encounter Care Teams Local Az Truck Driver Relationship Specialty Start Date End Date West Ayala MD PCP - General General Internal Medicine 03/22/18 [address] [facility] [address] [place] [address] documented as of this encounter
--- OUTSIDE RECORDS SUMMARY | 2022-05-16 02:14 | XMS_ITS | Encounter Summary ---
:1950 Author Organization [facility] [place] [address] Care Team Providers Name Role Phone Vicenta Wild APRN Primary Care Provider Encounter Details Date Type Department Care Team Description 06/19/2016 Hospital Encounter XRay at [facility] Shi Hanks Hand joint pain, [address] [facility] [address] [place], unspecified [place], [place] [facility] [place] [id number] RHEUMATOLOGY DEP [place], [place] [address] Social History Tobacco Use Types Packs/Day Years Used Date Never Smoker Sex Assigned at Date Recorded Not on [...] by mouth. 0 fluticasone (FLONASE) 50 1 [place](s), Nasal, 0 mcg/Actuation nasal spray Once daily PRN loratadine (CLARITIN) 10 mg Take 10 mg by 0 07/14/2018 Tablet mouth daily. tolterodine (DETROL) 2 mg Take 2 mg by mouth 0 05/13/2018 Tablet 2 times daily. fluorometholone (FML) 0.1 % 0 05/28/20 16 07/09/2016 Drops, Suspension tiZANidine (ZANAFLEX) 4 mg Take 4 mg by mouth 0 07/14/2018 Tablet every 8 hours as needed. clotrimazole-betamethasone Apply topically as 0 07/09/2016 (LOTRISONE) 1-0.05 % Cream needed. MAGNESIUM ORAL Take 250 mg by 0 2017 mouth daily. predniSONE (DELTASONE) 5 mg Start with 45 tablet 0 06/19/20 16 06/25/2016 TabletIndications: Chronic Prednisone 15 mg x right shoulder pain 2 week, then prednisone 10 mg x daily amitriptyline (ELAVIL) 10 Take 10 mg by 0 05/13/2018 mg tablet mouth nightly. leveTIRAcetam (KEPPRA) 500 Take 500 mg by 0 07/09/2016 mg tablet mouth 2 times daily. FLAXSEED ORAL by Misc.(Non-Drug; 0 08/2022 Combo Route) route. GLUC PAULA DIPO CH/TOM Take by mouth. 0 06/30/2018 PAULA/C/DEMETRA (GLUCOSAM PAULA [id number] ORAL) CIS Free Text Med - 25MG, [place], Q12H, 0 11/26/2006 06/17/2018 Compazine PRN carBAMazepine (TEGRETOL) 200MG, PO, Twice 0 11/2608/19/2018 200 mg tablet daily ibuprofen (ADVIL;MOTRIN) 800mg, PO, PRN 0 007 06/30/2018 800 mg tablet hydrochlorothiazide 25mg, PO, Once 0 11/26/2006 0 05/13/2018 (HYDRODIURIL) 25 mg tablet daily triamcinolone (KENALOG) 0.1 1 Appl(s), Top, 0 07/14/2018 % cream Twice daily PRN cyclobenzaprine (FLEXERIL) 5MG, PO, Three 0 11/2607/09/2016 5 mg tablet times daily PRN documented as of this encounter Plan of Treatment Not on filedocumented as of this encounter Procedures Procedure Name Priority Date/Time Associated Diagnosis Comme nts XR HANDS MIN 3 Routine 06/19/2016 5:10 PM Hand joint pain, Res ults for this VIEWS BILAT EDT unspecified procedure are i n laterality the results section. documented in this encounter Results XR Bilateral Hands Minimum 3 Views (06/19/2016 5:10 PM EDT) Anatomical Region Laterality Modality Hand Bilateral Digital Radiography Specimen (Source) Anatomical Location Collection Method / Collectio n Time Received Time / Laterality Volume Impressions 06/19/2016 6:28 PM EDT Radiographic findings are most consistent with osteoarthritis. Small osseous defects at the margins of the DIP joint suggests an inflammatory or erosive form of osteoarthritis. Narrative 06/19/2016 6:28 PM EDT EXAMINATION: XR BILATERAL HANDS MINIMUM 3 VIEWS/BILAT CLINICAL HISTORY: synovitis in shoulder ?RA. , look for erosions TECHNIQUE: 4 views the hands and wrists were acquired bilaterally COMPARISON: None FINDINGS: Mineralization is normal. There appears to be swelling at the DIP joints No acro osteolysis or periostitis. At multiple DIP joints but most pronounc ed at the index fingers bilaterally there is joint space narrowing and osteo phyte formation. There is also a focal area of bone destruction at the margins of the joint. 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 At the metacarpal phalangeal joints no j oint space narrowing erosion or malalignment is identified. At the wrist bilaterally there is joint space narrowing sclerosis and osteophyte formation characteristic of osteoarthrit is involving the first carpal metacarpal joints and the triscaphe joints bilatera lly. Procedure Note Mitchell Kelsey MD - 06/19/2016Forma tting of this note might be different from the original. EXAMINATION: XR BILATERAL HANDS MINIMUM 3 VIEWS/BILAT CLINICAL HISTORY: synovitis in shoulder ?RA. , look for erosions TECHNIQUE: 4 views the hands and wrists were acquired bilaterally COMPARISON: None FINDINGS: Mineralization is normal. There appears to be swelling at the DIP joints No acro osteolysis or periostitis. At multiple DIP joints but most pronounc ed at the index fingers bilaterally there is joint space narrowing and osteo phyte formation. There is also a focal area of bone destruction at the margins of the joint. 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 At the metacarpal phalangeal joints no j oint space narrowing erosion or malalignment is identified. At the wrist bilaterally there is joint space narrowing sclerosis and osteophyte formation characteristic of osteoarthrit is involving the first carpal metacarpal joints and the triscaphe joints bilatera lly. IMPRESSION Radiographic findings are most consisten t with osteoarthritis. Small osseous defects at the margins of the DIP joint suggests an inflammatory or erosive form of osteoarthritis. Shi Hanks DO IMG DX ORDERABLES documented in this encounter Visit Diagnoses Diagnosis Hand joint pain, unspecified laterality documented in this encounter Care Teams Seo Marketing Specialist Relationship Specialty Start Date End Date Vcienta Wild APRN PCP - General Family Medicine 06/19/16 03/21/18 documented as of this encounter
--- OUTSIDE RECORDS SUMMARY | 2022-05-16 02:14 | XMS_ITS | Encounter Summary ---
:1950 Author Organization [facility] [place] [address] Care Team Providers Name Role Phone West Ayala MD Primary Care Provider Encounter Details Date Type Department Care Team Description 05/20/2018 Telephone Orthopaedics at [facility] Katina Maynard, [place] [address] Social History Tobacco Use Types Packs/Day Years Used Date Never Smoker Smokeless Tobacco: Never Used Alcohol Use Standard Drinks/Week Comments No 0 (1 standard drink = 0.6 oz pure alcoho l) Sex Assigned at Date Recorded Not on file documented as of this encounter Miscellaneous Notes Telephone Encounter - Katina Maynard, RN - 05/20/2018 3:18 PM EDT Laney from the lab called stating patient's specimen from her aspiration is clotted and they are unable to do a cell count. Notified her I would forward this to Dr. Mayo. documented in this encounter Plan of Treatment Not on filedocumented as of this encounter Visit Diagnoses Not on filedocumented in this encounter Care Teams Messenger Copy Relationship Specialty Start Date End Date West Ayala MD PCP - General General Internal Medicine 03/22/18 [address] [place] [address] documented as of this encounter
--- OUTSIDE RECORDS SUMMARY | 2022-05-16 02:14 | XMS_ITS | Encounter Summary ---
:1950 Author Organization [facility] [place] [address] Care Team Providers Name Role Phone West Ayala MD Primary Care Provider Encounter Details Date Type Department Care Team Description 04/02/2018 Orders Only Radiology [place] [address] Social History Tobacco Use Types Packs/Day Years Used Date Never Smoker Smokeless Tobacco: Never Used Sex Assigned at Date Recorded Not on file documented as of this encounter Plan of Treatment Not on filedocumented as of this encounter Visit Diagnoses Not on filedocumented in this encounter Care Teams Icd 9 Coder Relationship Specialty Start Date End Date West Ayala MD PCP - General General Internal Medicine 03/22/18 [address] [place] [address] documented as of this encounter
--- OUTSIDE RECORDS SUMMARY | 2022-05-16 02:14 | XMS_ITS | Encounter Summary ---
:1950 Author Organization [facility] [place] [address] Care Team Providers Name Role Phone Vicenta Wild APRN Primary Care Provider Encounter Details Date Type Department Care Team Description 02/02/2018 [facility] [place] [facility] [place] [address] [place] [address] [phone] (Wo rk) Social History Tobacco Use Types [...] by mouth. 0 fluticasone (FLONASE) 50 1 [place](s), 0 11/26/2006 mcg/Actuation nasal spray Nasal, Once [...] by mouth. 0 06/30/2018 PAULA/C/DEMETRA (GLUCOSAM PAULA [id number] ORAL) CIS Free Text Med - 25MG, [place], Q12H, 0 11/26/2006 06/17/2018 Compazine PRN carBAMazepine [...] Diagnosis Comme nts FILM LIBRARY Routine 02/02/2018 12:05 AM Results for this STORAGE ONLY DX EDT procedure ar e in SHOULDER the results section. documented in this encounter Results Film Library- Storage Only DX Shoulder (02/02/2018 12:05 AM EDT) Specimen (Source) Anatomical Location Collection Method / Collectio n Time Received Time / Laterality Volume Narrative ANAYELI - 03/17/2018 12:39 PM EDT This exam is for storage only and is aut o-finalizing. Audrey Mayo MD [facility] FILM LIBRARY ORDERABLES Performing Organization Address City/State/ZIP Code Phon e Number ANAYELI ANAYELI [place], [place] documented in this encounter Visit Diagnoses Not on filedocumented in this encounter Care Teams Professional Sports Scout Relationship Specialty Start Date End Date Vicenta Wild, MILK TANKER DRIVER PCP - General Family Medicine 06/19/16 03/21/18 documented as of this encounter
--- OUTSIDE RECORDS SUMMARY | 2022-05-16 02:14 | XMS_ITS | Encounter Summary ---
:1950 Author Organization [facility] [place] [address] Care Team Providers Name Role Phone Holly Brandt MD Primary Care Provider Encounter Details Date Type Department Care Team Description 01/17/2014 [facility] [place] [facility] [place] [address] [place] [address] [phone] (Wo rk) Social History Tobacco Use Types Packs/Day Years Used Date Never Smoker Sex Assigned at Date Recorded Not on file documented as of this encounter Medications at Time of Discharge Medication Sig Dispensed Refills Start Date End Date calcium-vitamin D 500 mg-5 Take 1 tablet by 0 mcg (200 unit) Tablet mouth 2 times daily (with meals). MULTI-VITAMIN ORAL Take by mouth. 0 fluticasone (FLONASE) 50 1 [place](s), 0 11/26/2006 mcg/Actuation nasal spray Nasal, Once daily PRN amitriptyline (ELAVIL) 10 mg Take 10 mg by 0 05/13/2018 tablet mouth nightly. leveTIRAcetam (KEPPRA) 500 mg Take 500 mg by 0 07/09/2016 tablet mouth 2 times daily. POTASSIUM (POTASSIMIN ORAL) Take by mouth. 0 06/19/2016 FLAXSEED ORAL by 0 03/11/2022 Misc.(Non-Drug; Combo Route) route. Cranberry Extract (CRANBERRY) Take by mouth. 0 06/19/2016 450 mg Tab GLUC PAULA DIPO CH/TOM Take by mouth. 0 06/30/2018 PAULA/C/DEMETRA (GLUCOSAM PAULA [id number] ORAL) citalopram (CELEXA) 10 mg 0 12/04/2006 06/19/2016 tablet CIS Free Text Med - Compazine 25MG, [place], Q12H, 0 0 11/26/2006 06/17/2018 PRN carBAMazepine (TEGRETOL) 200 200MG, PO, Twice 0 0 11/26/2006 08/19/2018 mg tablet daily ibuprofen (ADVIL;MOTRIN) 800 800mg, PO, PRN 0 06/30/2018 mg tablet hydrochlorothiazide 25mg, PO, Once 0 11/26/2006 0 05/13/2018 (HYDRODIURIL) 25 mg tablet daily fexofenadine-pseudoephedrine 1 Tablet(s), PO, 0 0 11/26/2006 06/19/2016 (BERHANE-D 12 HOUR) 60-120 mg Twice daily prn per tablet tolterodine (DETROL LA) 4 mg 4mg, PO, Once 0 11/0306/19/2016 24 hr capsule daily triamcinolone (KENALOG) 0.1 % 1 Appl(s), Top, 0 0 11/26/2006 07/14/2018 cream Twice daily PRN cyclobenzaprine (FLEXERIL) 5 5MG, PO, Three 0 07/09/2016 mg tablet times daily PRN atenolol (TENORMIN) 50 mg 0 11/26/2006 06/19/2016 tablet documented as of this encounter Plan of Treatment Not on filedocumented as of this encounter Procedures Procedure Name Priority Date/Time Associated Diagnosis Comme [facility] FILM LIBRARY Routine 01/17/2014 12:00 AM Results for this STORAGE ONLY DX EDT procedure ar e in SHOULDER the results section. documented in this encounter Results Film Library- Storage Only DX Shoulder (01/17/2014 12:00 AM EDT) Specimen (Source) Anatomical Location Collection Method / Collectio n Time Received Time / Laterality Volume Narrative [facility] - 03/17/2018 12:34 PM EDT This exam is for storage only and is aut o-finalizing. Audrey Mayo MD [facility] FILM LIBRARY ORDERABLES Performing Organization Address City/State/ZIP Code Phon e Number [facility] [place], [place] documented in this encounter Visit Diagnoses Not on filedocumented in this encounter Care Teams Straddle Bug Relationship Specialty Start Date End Date Holly Brandt MD PCP - General 10/22/11 06/18/16 [address] [place] [address] documented as of this encounter
--- OUTSIDE RECORDS SUMMARY | 2022-05-16 02:14 | XMS_ITS | Encounter Summary ---
:1950 Author Organization [facility] [place] [address] Care Team Providers Name Role Phone West Ayala MD Primary Care Provider Reason for Referral Diagnostic Test (Routine) - Closed Specialty Diagnoses / Procedures Referred By Contact Refer red To Contact Radiology Diagnoses Acute pain of right shoulder Deangelo Russ MD [facility] Rad Ct Scan Procedures CT Arthrogram Shoulder [facility] [place] [address] [place] [address] Referral ID Status Reason Start Date Expiration Date Visits V isits Requested Authorized [id number] Closed Specialty 05/13/2018 05/13/2019 1 1 Service Requested Reason for Visit Diagnostic Test (Routine) - Closed Specialty Diagnoses / Procedures Referred By Contact Refer red To Contact Radiology Diagnoses Acute pain of right shoulder Deangelo Russ MD [facility] Rad Ct Scan Procedures CT Arthrogram Shoulder [facility] [place] [address] [place] [address] Referral ID Status Reason Start Date Expiration Date Visits V isits Requested Authorized [id number] Closed Specialty 05/13/2018 05/13/2019 1 1 Service Requested Encounter Details Date Type Department Care Team Description 05/20/[address] Scan at [facility] Audrey Mayo, Acute pain of right [facility] shoulder [place] [address] ORTHOPAEDIC [phone] [place] [address] Social History Tobacco Use Types Packs/Day Years [...] (CYMBALTA) 20 Take 1 capsule by 0 /12/2017 mg Capsule, Delayed mouth daily. Release(E.C.) DOC-Q-LACE 100 mg Capsule daily. 1 04/29/2018 citalopram (CELEXA) 20 mg Take 20 mg by mouth 0 Tablet daily. seasonal calcium-vitamin D 500 Take 1 tablet by 0 mg-5 mcg (200 unit) mouth 2 times daily Tablet (with meals). MULTI-VITAMIN ORAL Take by mouth. 0 fluticasone (FLONASE) 50 1 [place](s), Nasal, 0 mcg/Actuation nasal spray Once daily [...] by mouth. 0 06/30/2018 PAULA/C/DEMETRA (GLUCOSAM PAULA [id number] ORAL) CIS Free Text Med - 25MG, [place], Q12H, PRN 0 007 06/17/2018 Compazine carBAMazepine [...] Procedure Name Priority Date/Time Associated Comments Diagnosis CT ARTHROGRAM Routine 05/20/2018 3:28 PM Acute pain of right R esults for this SHOULDER RIGHT EDT shoulder procedure are in the results section. documented in this encounter Results CT Arthrogram Shoulder Right (05/20/2018 3:28 PM EDT) Anatomical Region Laterality Modality Shoulder Right Computed Tomography Specimen (Source) Anatomical Location Collection Method / Collectio n Time Received Time / Laterality Volume Impressions 05/20/2018 4:15 PM EDT 1. ??Status post humeral head resurfacing arthroplasty without evidence of loosening. 2. ??Full-thickness rotator cuff tear. I t is somewhat difficult to assess the exact extent of this tear given the degr ee of streak artifact and other artifacts, but it can be seen on series 601 images 93 and 109 and is therefore thought to measure at least 1.5 cm in an teroposterior dimension and approximately 1 cm in transverse dimensi on. It is thought to involve the supraspinatus tendon fibers and possibly also infraspinatus tendon fibers. Mild fatty infiltration of the rotator cuff m uscles without appreciable loss of muscle bulk. Narrative 05/20/2018 4:15 PM EDT EXAMINATION: CT ARTHROGRAM SHOULDER RIGHT CLINICAL HISTORY: Painful humeral head h emiarthroplasty. TECHNIQUE: CT arthrogram of the right shoulder was performed after the intra-articular administration of 8 mL of Omnipaque 350 right glenohumeral joint via an anterior approach at the level of the inferomedia l humeral head component. COMPARISON: None FINDINGS: There was prior humeral head resurfacing hemiarthroplasty. There is no periprosthetic lucency nor is there cont rast at the bone-metal interface to suggest hardware loosening. Extensive gas is seen in the soft tissue s about the right shoulder, an expected finding in this patient who had a glenoh umeral joint aspiration earlier the same afternoon. There is also extravasation o f intra-articular contrast into the soft tissues of the right axilla and the late ral right breast, also an expected finding given that the patient just had a glenohumeral joint aspiration. As was seen on the fluoroscopic images, there is a full-thickness rotator cuff tear, allowing free communication betwee n the glenohumeral joint and the subacromial bursa. It is somewhat diffic ult to assess the exact extent of this tear given the degree of streak artifact and other artifacts, but it can be seen on series 601 images 93 and 109 and is t herefore thought to measure at least 1.5 cm in anteroposterior dimension and appr oximately 1 cm in transverse dimension. The tear is thought to involve the supra spinatus tendon fibers and possibly also infraspinatus tendon fibers. There is mild fatty infiltration of the rotator cuff muscles without appreciable loss of muscle bulk. Procedure Note Eva Tran MD - 05/20/2018Formatting o f this note might be different from the original. EXAMINATION: CT ARTHROGRAM SHOULDER RIGH T CLINICAL HISTORY: Painful humeral head h emiarthroplasty. TECHNIQUE: CT arthrogram of the right shoulder was performed after the intra-articular administration of 8 mL of Omnipaque 350 right glenohumeral joint via an anterior approach at the level of the inferomedia l humeral head component. COMPARISON: None FINDINGS: There was prior humeral head resurfacing hemiarthroplasty. There is no periprosthetic lucency nor is there cont rast at the bone-metal interface to suggest hardware loosening. Extensive gas is seen in the soft tissue s about the right shoulder, an expected finding in this patient who had a glenoh umeral joint aspiration earlier the same afternoon. There is also extravasation o f intra-articular contrast into the soft tissues of the right axilla and the late ral right breast, also an expected finding given that the patient just had a glenohumeral joint aspiration. As was seen on the fluoroscopic images, there is a full-thickness rotator cuff tear, allowing free communication betwee n the glenohumeral joint and the subacromial bursa. It is somewhat diffic ult to assess the exact extent of this tear given the degree of streak artifact and other artifacts, but it can be seen on series 601 images 93 and 109 and is t herefore thought to measure at least 1.5 cm in anteroposterior dimension and appr oximately 1 cm in transverse dimension. The tear is thought to involve the supra spinatus tendon fibers and possibly also infraspinatus tendon fibers. There is mild fatty infiltration of the rotator cuff muscles without appreciable loss of muscle bulk. IMPRESSION 1. 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 2. Full-thickness rotator cuff tear. It is somewhat difficult to assess the exact extent of this tear given the degr ee of streak artifact and other artifacts, but it can be seen on series 601 images 93 and 109 and is therefore thought to measure at least 1.5 cm in an teroposterior dimension and approximately 1 cm in transverse dimensi on. It is thought to involve the supraspinatus tendon fibers and possibly also infraspinatus tendon fibers. Mild fatty infiltration of the rotator cuff m uscles without appreciable loss of muscle bulk. Audrey Mayo MD IMG CT ORDERABLES documented in this encounter Visit Diagnoses Diagnosis Acute pain of right shoulder documented in this encounter Care Teams Product Safety Consultant Relationship Specialty Start Date End Date West Ayala MD PCP - General General Internal Medicine 03/22/18 [address] [place] [address] documented as of this encounter
--- OUTSIDE RECORDS SUMMARY | 2022-05-16 02:14 | XMS_ITS | Encounter Summary ---
:1950 Author Organization [facility] [place] [address] Care Team Providers Name Role Phone West Ayala MD Primary Care Provider Encounter Details Date Type Department Care Team Description 06/05/2018 Telephone Orthopaedics at [facility] Audrey Mayo MD [facility] [place] [address] ORTHOPAEDIC SURGERY [phone] [place] [id number] (Wo rk) Social History Tobacco Use Types Packs/Day Years Used Date Never Smoker Smokeless Tobacco: Never Used Alcohol Use Standard Drinks/Week Comments No 0 (1 standard drink = 0.6 oz pure alcoho l) Sex Assigned at Date Recorded Not on file documented as of this encounter Miscellaneous Notes Telephone Encounter - Audrey Mayo MD - 06/05/2018 9:50 AM EDT I called Holly Sanders to discuss the results of her labs. See prior telephone note for summary offindings. After a discussion of options, she elected to proceed with revision to reverse TSA. We will call her Thursday to schedule. documented in this encounter Plan of Treatment Not on filedocumented as of this encounter Visit Diagnoses Not on filedocumented in this encounter Care Teams Registered Diet Technician Relationship Specialty Start Date End Date West Ayala MD PCP - General General Internal Medicine 03/22/18 [address] [place] [address] documented as of this encounter
--- OUTSIDE RECORDS SUMMARY | 2022-05-16 02:14 | XMS_ITS | Encounter Summary ---
:1950 Author Organization [facility] [address] Care Team Providers Name Role Phone Vicenta Wild APRN Primary Care Provider Encounter Details Date Type Department Care Team Description 09/11/2016 Telephone [place]ology at [facility] Jaycee Franks MD [facility] [place] [address] RHEUMATOLOGY DEPT [phone] [place], [place] [address] (Wo rk) Social History Tobacco Use Types Packs/Day Years Used Date Never Smoker Smokeless Tobacco: Never Used Sex Assigned at Date Recorded Not on file documented as of this encounter Miscellaneous Notes Telephone Encounter - Jaycee Franks - 09/11/2016 2:05 PM EST Spoke with Luz Marina from Dr. Gilmore's office. Holly is planned for rotator cuff repair 09/17/16. I requested for synovial biopsy during procedure to be sent for bacterial and mycobacterial culture Jaycee Franks MD Rheumatology Fellow documented in this encounter Plan of Treatment Not on filedocumented as of this encounter Visit Diagnoses Not on filedocumented in this encounter Care Teams Wire Weaver Cloth Relationship Specialty Start Date End Date Vicenta Wild APRN PCP - General Family Medicine 06/19/16 03/21/18 documented as of this encounter
--- OUTSIDE RECORDS SUMMARY | 2022-05-16 02:14 | XMS_ITS | Encounter Summary ---
:1950 Author Organization [facility] [place] [address] Care Team Providers Name Role Phone Holly Brandt MD Primary Care Provider Encounter Details Date Type Department Care Team Description 11/22/2014 Orders Only Radiology at [facility] [place] Juancho Ho, [facility] [place] [address] [facility] [phone] RADIOLOGY DEPT [place], [place] [address] (Wo rk) Social History Tobacco Use Types Packs/Day Years Used Date Never Smoker Sex Assigned at Date Recorded Not on file documented as of this encounter Progress Notes Juancho Ho - 11/22/2014 2:52 PM EST Acute Event Documentation: Response to Precious Rod Call Holly Sanders [id number] 1950 CC: Patient found down in bathroom outside IR recovery room, precious rod called 14:07pm Source of information: Interview with patient in IR recovery room after she was moved there by stretcher HPI: Holly Sanders is a 64 y.o. female, history of seizures (last one being 10+ years ago), who was in the IR recovery room in order to drive a friend home after a procedure. She saw her friends's back (clean surgical dressing/drain in place) and felt immediately nauseated. She also recalls feeling hot, sweaty, and dizzy. She ambulated to the bathroom with the intent of washing her face. The next thing she remembers is coming too with a number of MD and full time staff interpreter surrounding her as she sat slumped on the bathroom floor. She believes she fainted and struck her head on the bathroom wall. She did not loose bowel or bladder control. She denied being on blood thinners (aspirin, coumadin). She denies a history of prior falls. She was in her usual state of health this morning, ate/drank as normal, and hada snack in the IR procedure room prior to her fall. During my interview she complained of having a mild pain in her left posterior occipital scalp which resolved to no pain within 5 minutes of observation. She denied any residual symptoms and declined an offer to be evaluated in the ED. The code marnie arrived (Clementina Buitrago) to care for the patient and complete standard code white paperwork . My purpose of documenting my experience with the patient is to provide an electronic record in the event she is re-evaluated by a provider in the EDH system in the near future. ROS Gen: No fevers, chills, sweats. Cards: No history of known cardiac disease, no chest pain, no SOB, no palpitations Pulm: No SOB, no new cough GI: No change in bowel habits, no diarrhea : No dysuria, no change in urinary habits Heme: Denied taking aspirin or coumadin or other blood thinners. Neuro: No pain, no paresthesias, no difficulty moving extremities, no blurry vision, no residual headache, no changes in vision. Medications: Tegretol HCTZ Citalopram Amitryptaline Physical Exam: BP lying down 114/61, HR 86, RR 18, 95% on room air BP sitting on bed 127/60 Gen: 64 year old female, awake, alert, oriented x 4, in no apparent physical or emotional distress. Initially appeared pale but her skin tone returned to pink within 5 minutes. HEENT: PERRLA, EOMI, no scleral icterus or injection, oral pharynx has no lesions, mallampati score 2. No ecchymoses, lacerations or abrasions noted on the scalp. Cards: Regular rate, normal rhythm, no murmurs Lungs: Clear to auscultation. Back: Log roll performed, no lumbar, thoracic or cervical spinal tenderness, no tenderness to palpation over the cervical spine or scalp. Abdomen: Normal bowel sounds, soft, non-distended, no tenderness to palpation Extremities: Warm and well perfused, no pre-tibial edema. Neuro: CN II-XII normal to testing, 5/5 strength in upper and lower extremities, normal sensation tolight touch in upper and lower extremities. Gait normal, station normal, patient observed ot ambulate without assistance. Labs: Glucose: 112 Imaging: None Assessment: Holly Sanders is a 64 y.o. female, history of seizures (well controlled on medication per the patient), who appears to have had an episode of vasovagal syncope. She recovered back to baseline quicklyand had no residual symptoms after 5 minutes. Her blood sugar was normal and she was not orthostatic. Her physical exam is normal and she has no focal neurological deficits. She had full range of her neck without pain. She is not on anticoagulation or aspirin. The patient was offered to be evaluated in the ED but she declined. Plan: - Patient care was [place] [facility] [place]. - Patient declined to be evaluated in the ED. Her wish was documented [place] [facility] [place]. (hard copy). - I counseled patient that if she experiences new symptoms including headache, nausea, vomiting, loss of motor of sensory function, dizziness, then she should seek medical care immediately. She acknowledged understanding of this. Juancho Ho MD PhD PGY-1 Hospital Medicine Interventional Radiology documented in this encounter Plan of Treatment Not on filedocumented as of this encounter Visit Diagnoses Not on filedocumented in this encounter Care Teams Sustainability Project Manager Relationship Specialty Start Date End Date Holly Brandt MD PCP - General 10/22/11 06/18/16 [address] [place] [address] documented as of this encounter
--- OUTSIDE RECORDS SUMMARY | 2022-05-16 02:14 | XMS_ITS | Encounter Summary ---
:1950 Author Organization [facility] [place] [address] Care Team Providers Name Role Phone iVcenta Wild APRN Primary Care Provider Encounter Details Date Type Department Care Team Description 07/09/2016 Office Visit [place] [facility] [place] Jaycee Franks MD Chronic right [facility] shoulder pain [facility] [place] [phone] RHEUMATOLOGY DEPT [phone] [place] [id number] Social History Tobacco Use Types Packs/Day Years Used Date Never Smoker Smokeless Tobacco: Never Used Sex Assigned at Date Recorded Not on file documented as of this encounter Last Filed Vital Signs Vital Sign Reading Time Taken Comments Blood Pressure 130/73 07/09/2016 1:10 PM EDT Pulse 89 07/09/2016 1:10 PM EDT Temperature 36.6 ??C (97.9 ??F) 07/09/2016 1:10 PM EDT Respiratory Rate 18 07/09/2016 1:10 PM EDT Oxygen Saturation 98% 07/09/2016 1:10 PM EDT Inhaled Oxygen Concentration - - Weight 75.1 kg (165 lb 9.6 oz) 07/09/2016 1:10 PM EDT Height 154.3 cm (5' 0.75) 07/09/2016 1:10 PM EDT Body Mass Index 31.55 07/09/2016 1:10 PM EDT documented in this encounter Progress Notes Jaycee Franks - 07/09/2016 1:30 PM EDT Rheumatology Outpatient Follow up Note Rheumatology history Rt shoulder pain - started 2-3 yrs ago and has worsened since 11/2015. Failed 2-3 cortisone injections in Rt shoulder over the last 2 yrs seen Ortho at [facility] (Dr. Morillo) - no benefit from PT in Rt shoulder since 05/02/16. MRI 05/2016 - a large effusion as well as synovial thickening in Rt shoulder. elevated inflammatory markers Labs: ESR 53 & 41, CRP 33.5, RF<14, CCP <17 X-rays: HANDS - inflammatory OA. FEET - Rt distal tibial fracture and post traumatic OA. proliferative bone at the Achilles insertion Rx: no response Ibuprofen 800 mg BID 06/26/26 - 07/09/26 prednisone 20 mg. No significant change in symptoms and persistent elevated ESR and CRP 07/09/16 start Medrol 16 mg Known OA in cervical spine - only x-rays no prior neck MRI's. History of Present Illness: Holyl Sanders is a 66 y.o. female PMH of seizure disorder, HTN, OA s/p Rt knee TKA 11/2015 presentsfor f/u of Rt shoulder pain. She was started on Prednisone 20 mg and reported no improvement in symptoms so the dose of prednisone was increased to 20 mg daily. Holly is a poor historian and reports - her left shoulder and biceps is tight like circulation has been cut off. however she brings a daily where she tracked her daily symptoms and records that she had daily pain in Rt shoulder on the prednisone dose. Rt shoulder pain associate with numbness and tinging in shoulder and radiates down to Rtelbow. No sudden change in vision No jaw claudication - reports pain locking of TMJ Denies pain in hip. stiffness lasts all day and is limited to Rt shoulder Other joints- base of Lt thumb and toes in Rt foot. 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 Comments are only made for responses that are changed fromprevious, not discussed in HPI, or otherwise require clarification. Systemic Comments 1. Generalized pain X 2. Fatigue/tiredness x 3. Fevers 4. Chills 5. Night sweats 6. Recent weight loss 7. Recent Weight gain x Head and neck 8. Headaches x 9. Neck pain/stiffness x 10. Lymphadenopathy 11. Ocular erythema 12. Xerophthalmia 13. Gritty eyes x 14. Eye pain 15. Photophobia 16. Oral sores 17. Xerostomia x 18. Jaw claudication Cardiopulmonary 19. Chest discomfort 20. Dyspnea 21. Cough 22. Hemoptysis Gastrointestinal 23. Dysphagia 24. Heartburn 25. Nausea 26. Emesis 27. Abdominal pain 28. Hematochezia 29. Diarrhea 30. Constipation Genitourinary 31. Hematuria 32. Dysuria Musculoskeletal 33. Muscle weakness x 34. Myalgia x 35. Shoulder pain x 36. Raynaud's Neuropsychiatric 37. Paresthesia 38. Dysesthesia 39. Dizziness/vertigo 40. Anxiety 41. Depression 42. Cognitive problems 43. Initial insomnia 44. Night awakenings x 45. Nonrestorative sleep x Dermatologic 46. Xerosis cutis 47. Photosensitivity 48. Rash Patient's medications, allergies, past medical, surgical, social and family histories were reviewed and updated as appropriate. Allergies Allergen Reactions ??? Keppra [Levetiracetam] Anaphylaxis ??? Ciprofloxacin ??? Codeine ??? Demerol [Meperidine] ??? Meperidine Hcl CIS - Nausea/Vomiting ??? Simvastatin Nausea Only ??? Sulfa (Sulfonamide Antibiotics) ??? loratadine (CLARITIN) 10 mg Tablet ??? citalopram (CELEXA) 20 mg Tablet ??? tolterodine (DETROL) 2 mg Tablet ??? MAGNESIUM ORAL ??? amitriptyline (ELAVIL) 10 mg tablet ??? calcium-vitamin D (CALCIUM-VITAMIN D) 500 mg(1,250mg) -200 unit per tablet ??? FLAXSEED ORAL ??? GLUC PAULA DIPO CH/TOM PAULA/C/DEMETRA (GLUCOSAM PAULA [id number] ORAL) ??? MULTI-VITAMIN ORAL ??? hydrochlorothiazide (HYDRODIURIL) 25 mg tablet ??? methylPREDNISolone (MEDROL) 4 mg Tablet ??? tiZANidine (ZANAFLEX) 4 mg Tablet ??? CIS Free Text Med - Compazine ??? carBAMazepine (TEGRETOL) 200 mg tablet ??? ibuprofen (ADVIL;MOTRIN) 800 mg tablet ??? fluticasone (FLONASE) 50 mcg/Actuation nasal spray ??? triamcinolone (KENALOG) 0.1 % cream Family Hx: F: at 61 h/o cardiac disease M: at 89 Siblings: 4 healthy (-)RA, (-)lupus, (-)scleroderma, (-)sjogren's, (-)gout, (-)psoriasis Social Hx: . Lives with 44 yo daughter who has mental retardation. Son 41 yrs. (-)Smoking, (-)EtOH, (-)drugs Physical Examination: BP 130/73 Pulse 89 Temp 36.6 ??C (97.9 ??F) Resp 18 Ht 154.3 cm (5' 0.75) Wt 75.1 kg (165 lb 9.6 oz) SpO2 98% BMI 31.55 kg/m2 Gen: Patient is alert and oriented x 3, in no distress Skin: warm and dry, no rheumatologic rashes Nails: no pitting HEENT: Temporal arteries are palpable and non-tender Eyes: normal sclerae Mouth: moist mucous membranes, no oral ulcers Lymph: no cervical or submandibular adenopathy Extremities Shoulders: Right FROM, non-tender to palpation, +cross arm test, +hair and empty can Elbows:FROM, (-)pain, (-)nodules Wrists: FROM, no swelling, non-tender Hands: Right: No synovitis, no MCP compression tenderness, multiple heberden's nodes Left: +swelling over 1st CMC ?synovitis. full claw and fist Hips: FROM Knees: Rt:vertical TKA scar. (-)effusions, non-tender ROM Ankles: FROM, non-tender, no swelling Feet: Right + mild MTP compression tenderness Laboratory Data: 06/10/16 ESR 53 CCP <15 RF <20 PORTER <1:40 Studies: 05/02/16 MRI Rt shoulder Severe degenerative changes in glenohumeral joint and mild spurring at AC jt. There is a large effusion as well as synovial thickening. Findings raise the question of rheumatoid arthritis. Partial tearof supraspinatus tendon. 06/2016 hand xrays Radiographic findings are most consistent with osteoarthritis. Small osseous defects at the margins of the DIP joint suggests an inflammatory or erosive form of osteoarthritis. 06/2016 feet x-rays There is proliferative bone at the Achilles insertion. No plantar spur is identified. No erosions are identified. Impression: Holly Sanders is a 66 y.o. female PMH of seizure disorder, HTN, OA s/p Rt knee TKA 11/2015 presentsfor evaluation of Rt shoulder pain with synovitis and effusion on MRI. Rheumatological work up was negative except for significantly elevated inflammatory markers. Symptoms and inflammatory markers checked today are elevated and have not responded to prednisone. I will switch her steroid to Medrol andsee if she has a response. If she fails trail of medrol, infectious etiology would need to be ruled out and I would refer her back to Orthopedics for synovial biopsy. # Rt shoulder synovitis ?etiology # erosive/inflammatory OA of hand Recommendations: - check ESR, CRP today - results reviewed - discontinue Prednisone - start equivalent dose of Medrol 16 mg daily x 2 week, then if no response will need to discuss with Orthopedics a synovial biopsy. F/u in after orthopedics evaluation. Patient seen and discussed with attending. Recent Results (from the past 72 hour(s)) Sedimentation rate Result Value Ref Range Sed Rate 24 (H) 0 - 20 mm/hr High Sensitivity CRP Result Value Ref Range CRP High Sens 28.0 mg/L Shi Hanks DO - 07/09/2016 1:30 PM EDT ATTENDING ADDENDUM The patient's history was reviewed, and I interviewed and examined the patient with Dr. Franks. I agree with her summary, findings, and plan. documented in this encounter Plan of Treatment Not on filedocumented as of this encounter Procedures Procedure Name Priority Date/Time Associated Comments Diagnosis SEDIMENTATION RATE Routine 07/09/2016 2:53 PM Chronic right Re sults for this EDT shoulder pain procedure are in the results section. CRP, CARDIAC RISK (HS Routine 07/09/2016 2:53 PM Chronic right Results for this CRP) EDT shoulder pain procedure are in the results section. documented in this encounter Results High Sensitivity CRP (07/09/2016 2:53 PM EDT) athologist Signature CRP High Sens 28.0 mg/L [facility] Comment: rechecked by ga Interpretations: 1) For accurate cardiac risk assessment, the average of 2 values >2 weeks apart should be obtained (ref 1&2). A value >1 0 mg/L indicates an inflammatory condition, concentrations >10 mg/L shoul d not be used for cardiac risk assessment. ?<1.0 mg/L: low risk ?1.0 - 3.0 mg/L: moderate risk ?>3.0 mg/L: high risk groups for fu ture cardiovascular events 2) The general reference range of appare ntly healthy individuals using this test is <5.0 mg/L (derived from the test package insert) References: 1. Cristine BONILLA et. al. ??AHA/CDC Scientif ic Statement: Markers of Inflammation and Cardiovascular Disease. ??Circulatio n 2003; 107:499-511 2. Rubio PM. ??Clinical applications of C-reactive protein for cardiovascular disease detection and prevention. ??Circ ulation 2003; 107:363-369 Specimen Anatomical Collection Method Collection Time Receive d Time (Source) Location / / Volume Laterality Blood specimen 07/09/2016 2:53 PM 016 3:10 (specimen) EDT PM EDT Resulting Agency Comment Spec In Lab Shi Hanks DO CHEMISTRY ORDERABLES Performing Organization Address City/[facility]/[place]IP [place] [address] (ABNORMAL) Sedimentation rate (07/09/2016 2:53 PM EDT) athologist Signature Sed Rate 24 (H) 0 - 20 [facility] mm/hr [facility] Specimen Anatomical Collection Method Collection Time Receive d Time (Source) Location / / Volume Laterality Blood specimen 07/09/2016 2:53 PM 016 3:10 (specimen) EDT PM EDT Resulting Agency Comment Spec In Lab Shi Hanks DO HEMATOLOGY ORDERABLES Performing Organization Address City/[facility]/[place] [address] documented in this encounter Visit Diagnoses Diagnosis Chronic right shoulder pain Pain in joint, shoulder region documented in this encounter Care Teams Mine Car Dispatcher Relationship Specialty Start Date End Date Vicenta Wild APRN PCP - General Family Medicine 06/19/16 03/21/18 documented as of this encounter
--- OUTSIDE RECORDS SUMMARY | 2022-05-16 02:14 | XMS_ITS | Encounter Summary ---
:1950 Author Organization [place] [address] Care Team Providers Name Role Phone Vicenta Wild APRN Primary Care Provider Encounter Details Date Type Department Care Team Description 10/23/2016 [facility] [place] [address] [place] [address] [phone] (Wo rk) Social History Tobacco Use Types [...] by mouth. 0 fluticasone (FLONASE) 50 1 [place](s), 0 11/26/2006 mcg/Actuation nasal spray Nasal, Once [...] by mouth. 0 06/30/2018 PAULA/C/DEMETRA (GLUCOSAM PAULA [id number] ORAL) CIS Free Text Med - 25MG, ID, Q12H, 0 11/26/2006 06/17/2018 Compazine PRN carBAMazepine [...] Associated Diagnosis Comme nts FILM LIBRARY Routine 10/23/2016 12:00 AM Results for this STORAGE ONLY DX EST procedure ar e in SHOULDER the results section. documented in this encounter Results Film Library- Storage Only DX Shoulder (10/23/2016 12:00 AM EST) Specimen (Source) Anatomical Location Collection Method / Collectio n Time Received Time / Laterality Volume Narrative [facility] - 03/17/2018 12:38 PM EDT This exam is for storage only and is aut o-finalizing. Audrey Mayo MD [place] FILM LIBRARY ORDERABLES Performing Organization Address City/State/ZIP Code Phon e Number [place], [place] documented in this encounter Visit Diagnoses Not on filedocumented in this encounter Care Teams College Football Coach Relationship Specialty Start Date End Date Vicenta Wild, LICENSED NURSE PRACTITIONER PCP - General Family Medicine 06/19/16 03/21/18 documented as of this encounter
--- OUTSIDE RECORDS SUMMARY | 2022-05-16 02:14 | XMS_ITS | Encounter Summary ---
:1950 Author Organization [facility] [address] Care Team Providers Name Role Phone West Ayala MD Primary Care Provider Reason for Referral Diagnostic Test (Routine) - Closed Specialty Diagnoses / Procedures Referred By Contact Refer red To Contact Radiology Diagnoses Acute pain of right shoulder Deangelo Russ MD [facility] Rad Ct Scan Procedures CT Arthrogram Shoulder Right [facility] [place] [address] [place] [address] Referral ID Status Reason Start Date Expiration Date Visits V isits Requested Authorized [id number] Closed Specialty 05/13/2018 05/13/2019 1 1 Service Requested Reason for Visit Reason Comments Right Shoulder Pain DOS: 09/16/16 Consultation (Routine) - Closed Specialty Diagnoses / Procedures Referred By Contact Refer red To Contact Orthopaedics Diagnoses continued right shoulder pain, s/p cap hemiarthroplasty 09/16/16 Javier Gilmore Bell, John-Erik, MD MD [address] [place] [id number] Referral ID Status Reason Start Date Expiration Date Visits V isits Requested Authorized [id number] Closed Consult, 03/22/2018 03/22/2019 1 1 [facility] Encounter Details Date Type Department Care Team Description 05/13/2018 Office Visit [place]ed[facility] [place] [facility] [place]rey Mayo, Acute pain of right [facility] shoulder (Primary Dx) [place] [address] [place] [address] ORTHOPAEDIC SURGERY [place], [place] [address] Social History Tobacco Use Types Packs/Day Years Used Date Never Smoker Smokeless Tobacco: Never Used Alcohol Use Standard Drinks/Week Comments No 0 (1 standard drink = 0.6 oz pure alcoho l) Sex Assigned at Date Recorded Not on file documented as of this encounter Last Filed Vital Signs Vital Sign Reading Time Taken Comments Blood Pressure 151/79 05/13/2018 12:55 PM EDT Pulse 67 05/13/2018 12:55 PM EDT Temperature - - Respiratory Rate - - Oxygen Saturation - - Inhaled Oxygen Concentration - - Weight 75.3 kg (166 lb) 05/13/2018 12:55 PM EDT stated Height 154.3 cm (5' 0.75) 05/13/2018 12:55 PM EDT stat ed Body Mass Index 31.62 05/13/2018 12:55 PM EDT documented in this encounter Progress Notes Deangelo Russ MD - 05/13/2018 1:00 PM EDT Chief complaint: Painful right shoulder cap resurfacing History of present illness: Holly Sanders is a 68 y.o. year-old female who underwent right shoulder cap Hemiarthroplasty in 2016 [facility] with initially after the surgery she says she did well., She had improved range of motion and pain. However over the last year or so she has had progressive pain in the right shoulder. She is also had progressive weakness. She also has progressive loss of motion. She is now at the point where she is using her left hand as her dominant arm even though she is to be right-hand dominant. She denies any recent fevers or chills she denies any recent falls or changes in her health. She does have an interesting history regarding her arthritis. Initially there is concerned that she had a rheumatologic disorder. However per the patient and outside reports allof her rheumatologic studies were negative. She also had synovial tissue sampling at the time of hersurgery. Apparently this was also negative for rheumatoid arthritis. She has even been on a trial of methotrexate and prednisone recently. However neither of these helped the pain. Past medical history: Patient Active Problem List Diagnosis Date Noted ??? Actinic keratosis 10/07/2012 ??? Seborrheic keratosis 10/07/2012 She does have a significant she takes history of seizure disorder History of blood clots or bleeding disorders: history of cardiac, lung, kidney, liver diease or diabetes Medications: ??? mupirocin (BACTROBAN) 2 % Ointment ??? oxybutynin (DITROPAN) 5 mg Tablet ??? gabapentin (NEURONTIN) 300 mg Capsule ??? folic acid (FOLVITE) 1 mg Tablet ??? DULoxetine (CYMBALTA) 20 mg Capsule, Delayed Release(E.C.) ??? DOC-Q-LACE 100 mg Capsule ??? loratadine (CLARITIN) 10 mg Tablet ??? citalopram (CELEXA) 20 mg Tablet ??? tiZANidine (ZANAFLEX) 4 mg Tablet ??? MAGNESIUM ORAL ??? calcium-vitamin D (CALCIUM-VITAMIN D) 500 mg(1,250mg) -200 unit per tablet ??? FLAXSEED ORAL ??? GLUC PAULA DIPO CH/TOM PAULA/C/DEMETRA (GLUCOSAM PAULA [id number] ORAL) ??? MULTI-VITAMIN ORAL ??? carBAMazepine (TEGRETOL) 200 mg tablet ??? ibuprofen (ADVIL;MOTRIN) 800 mg tablet ??? fluticasone (FLONASE) 50 mcg/Actuation nasal spray ??? triamcinolone (KENALOG) 0.1 % cream ??? CIS Free Text Med - Compazine Allergies: Allergies Allergen Reactions ??? Keppra [Levetiracetam] Anaphylaxis ??? Ciprofloxacin ??? Codeine ??? Demerol [Meperidine] ??? Meperidine Hcl CIS - Nausea/Vomiting ??? Simvastatin Nausea Only ??? Sulfa (Sulfonamide Antibiotics) Social history: Social History Substance Use Topics ??? Smoking status: Never Smoker ??? Smokeless tobacco: Never Used ??? 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 She is only able to actively forward flex and abduct the shoulder to about 60??. She has significant weakness with both internal and external rotation. She is unable to bring her hand behind her back. She has weakness with empty can test. She has very limited passive range of motion as well. Imaging: Personal review of the patient's imaging reveals: X-rays of the right shoulder show the cap hemiarthroplasty. There does appear to be a slight area oflucency around the stem. Otherwise no fracture or dislocation Assessment: 68 y.o. year-old female with a painful right cap hemiarthroplasty. We discussed that a few things could be going on at this point. We would want to rule out any sort of infection, loosening, or rotator cuff tear. We will first obtain basic labs including CBC, ESR, CRP, we will also have the right shoulder aspirated and we will make sure these cultures are held for at least 14 days. We will also have her undergo a CT arthrogram of the right shoulder at the same time. We will then call hi with the results of these tests. This plan was discussed with the patient and they are in agreement. All of the patient's questions were answered. The above dictation was made with voice recogonition software Audrey Mayo MD - 05/13/2018 1:00 PM EDT Attending Addendum: The preceding portion of this note was written by Dr. Russ. I personally saw and evaluated the patient as well and I agree with the assessment and plan documented above. Audrey Mayo M.D., M.S. [employer] Driver of Orthopaedic Surgery Shoulder, Elbow, and Sports Medicine Department of [place] [address] documented in this encounter Miscellaneous Notes Addendum Note - Ceferino Scruggs - 05/13/2018 3:38 PM EDT Addended by: CEFERINO SCRUGGS on: 05/13/2018 03:38 PM Modules accepted: Orders Addendum Note - Sharron Carter - 05/13/2018 2:44 PM EDT Addended by: SHARRON CARTER on: 05/13/2018 02:44 PM Modules accepted: Orders Addendum Note - Adriane Rodriguez - 05/13/2018 2:39 PM EDT Addended by: ADRIANE RODRIGUEZ on: 05/13/2018 02:39 PM Modules accepted: Orders documented in this encounter Plan of Treatment Not on filedocumented as of this encounter Procedures Procedure Name Priority Date/Time Associated Comments Diagnosis CRP, ACUTE Routine 05/13/2018 2:24 PM Acute pain of right Re sults for this INFLAMMATION EDT shoulder procedure are i n the results section. HEMOGRAM Routine 05/13/2018 2:24 PM Acute pain of right Re sults for this EDT shoulder procedure are i n the results section. DIFFERENTIAL, Routine 05/13/2018 2:24 PM Acute pain of right R esults for this AUTOMATED EDT shoulder procedure are i n the results section. SEDIMENTATION RATE Routine 05/13/2018 2:24 PM Acute pain of ri ght Results for this EDT shoulder procedure are i n the results section. CBC (WITH DIFF) Routine 05/13/2018 2:24 PM Acute pain of right EDT shoulder documented in this encounter Results CT Arthrogram [...] bulk. Audrey Mayo MD IMG CT ORDERABLES XR Fluoro Guided Joint Aspiration Large Right [...] A pre-procedural time-out was performed as per [facility] protocol. The patient's [facility] medical record including allergies was reviewed prior [...] A pre-procedural time-out was performed as per [facility]. [facility] was reviewed prior [...] A pre-procedural time-out was performed as per [facility] protocol. The patient's [facility] medical record including allergies was reviewed prior [...] A pre-procedural time-out was performed as per [facility] protocol. The patient's [facility] medical record including allergies was reviewed prior [...] nesthesia Omnipaque-300 8 ml, injected into the [facility] glenohumeral joint Fluoroscopy time: 0.32 minutes COMPLICATIONS: None immediate. POST-PROCEDURE CARE: Instructions on mon itoring for infection and management of postprocedure pain were reviewed with fabio calvin. IMPRESSION Uneventful right glenohumeral joint aspi ration, followed by uneventful right glenohumeral joint arth rogram for CT. Resident/Fellow: None Attending: Eva Reyes I performed this procedure. Audrey Mayo MD IMG FLUORO ORDERABLES Cell Count Body Fluid (05/20/2018 1:40 PM EDT) [facility] Method Time Signature Spec Type BF Shoulder [facility] Color BF [place] [facility] Appearance BF Clotted [facility] WBC BF Ct Disregard [facility] Comment: Called by:[facility] _, Read back by: Lynne Maynard _, [...] to patients chart. Polymorph % Disregard % [facility] Comment: Polymorphonuclear cell percent and absol [place] values may contain Neutrophils, Eosinophils, and Basophils. Body fluid s mear will be scanned manually for concordance. Mononuc % Disregard % [facility] Comment: Mononuclear cell percent and absolute va lues may contain Lymphocytes and Monocytes. Body fluid smear will be scan marcus manually for concordance. Polymorph BF ABS Disregard /[facility] Comment: Polymorphonuclear cell percent and absol [place] values may contain Neutrophils, Eosinophils, and Basophils. Body fluid s mear will be scanned manually for concordance. Mononuc ABS Disregard /[facility] Comment: Mononuclear cell percent and absolute [...] Organization Address City/State/[place] [address] Differential, Automated (05/13/2018 2:24 PM EDT) athologist Signature Neutrophils % 53.0 % [facility] Neutr Abs (ANC) 2.27 1.70 - [facility] 6.10 [facility] x10(3)/[facility] LABORATORY Lymphocytes % 30.8 % [facility] Lymphocytes Abs 1.3 0.9 - 3.2 [facility] x10(3)/[facility] LABORATORY Monocytes % 8.2 % [facility] Monocyte Abs 0.4 0.3 - 0.9 [facility] x10(3)/[facility] LABORATORY Eosinophils % 6.1 % [facility] Eosinophils Abs 0.3 0.0 - 0.4 [facility] x10(3)/[facility] LABORATORY Basophils % 1.4 % [facility] Basophils Abs 0.1 0.0 - 0.1 [facility] x10(3)/[facility] LABORATORY Immature Gran % 0.50 % [facility] Comment: Immature granulocytes(IG's)percentage an d absolute count will include metamyelocytes, myelocytes, and promyelo cytes. Blood smears from CBCs yielding IG's will be scanned manually for concor dance. If this scan disagrees with the automated IG or if promyelocytes are not ed, a manual differential will be performed. Cammy Gran Abs 0.02 0.00 - 0.04 x10(3)/[facility] LAB[facility]ORY Specimen Anatomical Collection Method Collection Time Receive d Time (Source) Location / / Volume Laterality Blood specimen 05/13/2018 2:24 PM 018 2:52 (specimen) EDT PM EDT Resulting Agency Comment Spec In Lab Deangelo Russ MD HEMATOLOGY ORDERABLES Performing Organization Address City/State/[place] [address] (ABNORMAL) Hemogram (05/13/2018 2:24 PM EDT) Analysis Performed At Patho logist Time Signature WBC 4.3 4.0 - 9.5 [facility] x[facility](3[facility] LABORATORY RBC 3.54 (L) 4.00 - [employer] 5.21 [facility] x10(6)/[facility] LABORATORY Hemoglobin 11.4 (L) 11.7 - [facility] 15.5 gm/dL [facility] Hematocrit 33.9 (L) 35.7 - [facility] 45.8 % [facility] MCV 95.8 (H) 82.6 - [facility] 94.4 [facility] LABORATORY MCH 32.2 (H) 27.1 - [facility] 32.0 pg [facility] MCHC 33.6 31.7 - [facility] 35.0 gm/dL [facility] Platelets 208 145 - 357 [facility] x10(3)/[facility] LABORATORY RDWSD 44.0 37.0 - [facility] 46.0 [facility] LABORATORY RDWCV 12.6 11.5 - [facility] 14.1 % [facility] LAB[facility] MPV 9.7 7.6 - 12.9 [facility] nRBC % Auto 0.0 % [facility] nRBC Abs Auto 0.000 0.000 - [facility] 0.000 [facility] x10(3)/[facility] LABORATORY Specimen Anatomical Collection Method Collection Time Receive d Time (Source) Location / / Volume Laterality Blood specimen 05/13/2018 2:24 PM 018 2:52 (specimen) EDT PM EDT Resulting Agency Comment Spec In Lab Deangelo Russ MD HEMATOLOGY ORDERABLES Performing Organization Address City/State/[place] [address] CRP, acute inflammation (05/13/2018 2:24 PM EDT) P athologist Signature CRP 3.3 <=4.9 mg/L [facility] Specimen Anatomical Collection Method Collection Time Receive d Time (Source) Location / / Volume Laterality Blood specimen 05/13/2018 2:24 PM 018 2:36 (specimen) EDT PM EDT Resulting Agency Comment Spec In Lab Audrey Mayo MD CHEMISTRY ORDERABLES Performing Organization Address City/[facility]/[place] [address] (ABNORMAL) Sedimentation rate (05/13/2018 2:24 PM EDT) P athologist Signature Sed Rate 25 (H) 0 - 20 [facility] mm/hr [facility] Specimen Anatomical Collection Method Collection Time Receive d Time (Source) Location / / Volume Laterality Blood specimen 05/13/2018 2:24 PM 018 2:36 (specimen) EDT PM EDT Resulting Agency Comment Spec In Lab Audrey Mayo MD HEMATOLOGY ORDERABLES Performing Organization Address City/[facility]/[place] [address] documented in this encounter Visit Diagnoses Diagnosis Acute pain of right shoulder - Primary Acute pain of right shoulder Acute pain of right shoulder documented in this encounter Care Teams Hospital Clerk Relationship Specialty Start Date End Date West Ayala MD PCP - General General Internal Medicine 03/22/18 [address] [place] [address] documented as of this encounter
--- OUTSIDE RECORDS SUMMARY | 2022-05-16 02:14 | XMS_ITS | Encounter Summary ---
:1950 Author Organization [facility] [place] [address] Care Team Providers Name Role Phone Vicenta Wild APRN Primary Care Provider Encounter Details Date Type Department Care Team Description 06/19/2016 [address] En[place] [facility] [place] Hanks Foot pain, right [address] [place] [phone] RHEUMATOLOGY [place], [place] [address] Social History Tobacco Use Types [...] by mouth. 0 fluticasone (FLONASE) 50 1 [place](s), Nasal, 0 mcg/Actuation nasal spray Once daily [...] by mouth. 0 06/30/2018 PAULA/C/DEMETRA (GLUCOSAM PAULA [id number] ORAL) CIS Free Text Med - 25MG, [place], Q12H, 0 11/26/2006 06/17/2018 Compazine PRN carBAMazepine [...] Priority Date/Time Associated Diagnosis Comme nts XR FOOT MIN 3 VIEWS Routine 06/19/2016 5:05 PM Foot pain, righ t Results for this BILAT EDT procedure are i n the results section. documented in this encounter Results XR Feet Bilateral Minimum 3 Views (06/19/2016 5:05 PM EDT) Anatomical Region Laterality Modality Foot Bilateral Digital Radiography Specimen (Source) Anatomical Location Collection Method / Collectio n Time Received Time / Laterality Volume Impressions 06/19/2016 6:50 PM EDT No erosions are identified. Narrative 06/19/2016 6:50 PM EDT EXAMINATION: XR FEET BILATERAL MINIMUM 3 VIEWS CLINICAL HISTORY: synovitis in shoulder ?RA. , look for erosions TECHNIQUE: 3 views of the feet were acqu ired bilaterally COMPARISON: None FINDINGS: A single fixation screw is seen at the r ight distal tibia. 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 No effusion is identified. The contour of the Achilles tendon is no rmal bilaterally. No fluid is seen in the retrocalcaneal bursa. There is proli ferative bone at the Achilles insertion. No plantar spur is identified. A minimal degree of midfoot subluxation is seen bilaterally. No joint space narrowing or erosions are identified how ever. In the forefoot no fracture is identifie d. No erosive disease is identified. Procedure Note Mitchell Kelsey MD - 06/19/2016Forma tting of this note might be different from the original. EXAMINATION: XR FEET BILATERAL MINIMUM 3 VIEWS CLINICAL HISTORY: synovitis in shoulder ?RA. , look for erosions TECHNIQUE: 3 views of the feet were acqu ired bilaterally COMPARISON: None FINDINGS: A single fixation screw is seen at the r ight distal tibia. 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 No effusion is identified. The contour of the Achilles tendon is no rmal bilaterally. No fluid is seen in the retrocalcaneal bursa. There is proli ferative bone at the Achilles insertion. No plantar spur is identified. A minimal degree of midfoot subluxation is seen bilaterally. No joint space narrowing or erosions are identified how ever. In the forefoot no fracture is identifie d. No erosive disease is identified. IMPRESSION No erosions are identified. Shi SO DX ORDERABLES documented in this encounter Visit Diagnoses Diagnosis Foot pain, right Pain in limb documented in this encounter Care Teams Linux Consultant Relationship Specialty Start Date End Date Vicenta Wild APRN PCP - General Family Medicine 06/19/16 03/21/18 documented as of this encounter
--- OUTSIDE RECORDS SUMMARY | 2022-05-16 02:14 | XMS_ITS | Encounter Summary ---
:1950 Author Organization [facility] [place] [address] Care Team Providers Name Role Phone Meg Fischer APRN Primary Care Provider Reason for Visit Reason Onset Date Comments Results 05/28/2018 Encounter Details Date Type Department Care Team Description 05/28/2018 Telephone Orthopaedics at [facility] Audrey Mayo MD Results [facility] [address] ORTHOPAEDIC SURGERY [phone] [place], [place] [address] (Wo rk) Social History Tobacco Use Types Packs/Day Years Used Date Never Smoker Smokeless Tobacco: Never Used Alcohol Use Standard Drinks/Week Comments No 0 (1 standard drink = 0.6 oz pure alcoho l) Sex Assigned at Date Recorded Not on file documented as of this encounter Miscellaneous Notes Telephone Encounter - Gerri Gilmore RN - 05/28/2018 2:47 PM EDT Called patient to update that results would be finalized after 14 days and we would call her to review at that time Telephone Encounter - Rowdy Hercules - 05/28/2018 1:51 PM EDT What study is patient calling about? CT SCAN AND LABS She has some results but doesn't understand them in her [facility] account and she is wondering what the next step in the plan is and also if her PCP and Dr. Gilmore Per [facility] the study was done: 7.19.18 Per [facility] the results are final: yes Best number to reach the patient #[phone] I will forward your message to the team and someone will follow up with you. documented in this encounter Plan of Treatment Not on filedocumented as of this encounter Visit Diagnoses Not on filedocumented in this encounter Care Teams Window Shade Cutter And Mounter Relationship Specialty Start Date End Date Meg Fischer APRN PCP - General Family Medicine 06/17/18 02/20/[address] [place] [address] documented as of this encounter
--- OUTSIDE RECORDS SUMMARY | 2022-05-16 02:14 | XMS_ITS | Encounter Summary ---
:1950 Author Organization [facility] Address [address] [id number] Care Team Providers Name Role Phone Meg Fischer APRN Primary Care Provider Reason for Visit Reason Comments Pre-op Exam R TSA REV Encounter Details Date Type Department Care Team Description 06/17/2018 Office Visit Orthopaedics at [facility] Marcus, Preop examination; One [facility] Jesse Leslie MD Chronic right shoulder pain; [facility] History of hemiarthroplasty of right shoulder [facility] [id number] ORTHOPAEDIC [phone] [place] [address] Social History Tobacco Use Types Packs/Day Years Used Date Never Smoker Smokeless Tobacco: Never Used Alcohol Use Standard Drinks/Week Comments No 0 (1 standard drink = 0.6 oz pure alcoho l) Sex Assigned at Date Recorded Not on file documented as of this encounter H&P Notes Jesse Velazquez MD - 06/17/2018 2:00 PM EDT Images from the original note were not included. CC: Holly Sanders is a 68 y.o. female with the following problems and medications that is being seen in the clinic for consultation at the request of her surgeon Dr. Audrey Mayo for preoperative risk stratification and management recommendations in anticipation of right hemiarthroplasty revision to reverse TSA for RTC tear and symptomatic arthritis HPI - Pain - Location - right shoulder, Quality - aching, Onset - gradual, Duration - several months, Intensity - moderate to severe, Aggravating factors - lifting, raising or twisting Alleviating factors - NSAID, gabapentin, rest, topical, PT, Associated - she has a rash and has used mupirocin for that per Meg Fischer APRN her PCP and now has antifungal cream to apply. She has tendency to scratch and has worn gloves to sleep in past. She does note some burning in her inner cheeks and lips, she had been on antibiotic for a UTI recently. She was feeling depressed and that is better now that she feels hopeful regards her surgical plan. She was started on MTX for RA and duloxetine for the fibromyalgia. She had the MTX stopped after a brief period as there was no symptomatic improvement and itching was a side effect. Patient Active Problem List Diagnosis Code ??? Actinic keratosis L57.0 ??? Seborrheic keratosis L82.1 ??? 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 miconazole (MICOTIN) 2 % Cream Apply topically 2 times daily. ??? nystatin (MYCOSTATIN) 100,000 unit/mL Suspension Take 5 mLs by mouth 4 times daily. Swish aroundin your mouth and then swallow. 120 mL 0 ??? mupirocin (BACTROBAN) 2 % Ointment 2 times daily. 0 ??? oxybutynin (DITROPAN) 5 mg Tablet 2 times daily. 0 ??? gabapentin (NEURONTIN) 300 mg Capsule Take 1 capsule by mouth 3 times daily. 1 in the morning, 2afternoon, 2 in the evening 1 ??? folic acid (FOLVITE) 1 mg Tablet 1 ??? DULoxetine (CYMBALTA) 20 mg Capsule, Delayed Release(E.C.) Take 1 capsule by mouth daily. 0 ??? DOC-Q-LACE 100 mg Capsule daily. 1 ??? loratadine (CLARITIN) 10 mg Tablet Take 10 mg by mouth daily. ??? citalopram (CELEXA) 20 mg Tablet Take 20 mg by mouth daily. seasonal ??? tiZANidine (ZANAFLEX) 4 mg Tablet Take 4 mg by mouth every 8 hours as needed. ??? MAGNESIUM ORAL Take 250 mg by mouth daily. ??? calcium-vitamin D (CALCIUM-VITAMIN D) 500 mg(1,250mg) -200 unit per tablet Take 1 tablet by mouth 2 times daily (with meals). ??? FLAXSEED ORAL by Misc.(Non-Drug; Combo Route) route. ??? GLUC PAULA DIPO CH/TOM PAULA/C/DEMETRA (GLUCOSAM PAULA [id number]-[id number]-L-MN ORAL) Take by mouth. ??? MULTI-VITAMIN ORAL Take by mouth. ??? carBAMazepine (TEGRETOL) 200 mg tablet 200MG, PO, Twice daily (Patient taking differently: 200MG, PO, three times daily) ??? ibuprofen (ADVIL;MOTRIN) 800 mg tablet 800mg, PO, PRN ??? fluticasone (FLONASE) 50 mcg/Actuation nasal spray 1 [place](s), Nasal, Once daily PRN ??? triamcinolone (KENALOG) 0.1 % cream 1 Appl(s), Top, Twice daily PRN Current Facility-Administered Medications Medication Dose Route Frequency Provider Last Rate Last Dose ??? mupirocin (BACTROBAN) 2 % ointment Topical (Top) BID Audrey Mayo MD Social History Occupational History ??? Not on file. Social History Main Topics ??? Smoking status: Never Smoker ??? Smokeless tobacco: Never Used ??? Alcohol use No ??? Drug use: No ??? Sexual activity: Not on file History reviewed. No pertinent family history. Review of Systems: Review of Systems Constitutional: Negative for chills, diaphoresis and fever. HENT: Negative for mouth sores, nosebleeds, postnasal drip, sore throat and trouble swallowing. Eyes: Negative for photophobia and visual disturbance. Respiratory: Negative for cough, shortness of breath and wheezing. Cardiovascular: Negative for chest pain, palpitations and leg swelling. Gastrointestinal: Negative for abdominal pain, anal bleeding and blood in stool. Endocrine: Negative for polydipsia and polyphagia. Genitourinary: Negative for dysuria, flank pain and hematuria. Skin: Positive for rash. Allergic/Immunologic: Negative for environmental allergies and immunocompromised state. Neurological: Negative for speech difficulty and light-headedness. Seizure free for several years on current regime she opted to continue Hematological: Negative for adenopathy. Does not bruise/bleed easily. Psychiatric/Behavioral: Negative for confusion and decreased concentration. The patient is not nervous/anxious. Allergies: Allergies Allergen Reactions ??? Keppra [Levetiracetam] Anaphylaxis ??? Ciprofloxacin ??? Codeine ??? Demerol [Meperidine] ??? Meperidine Hcl CIS - Nausea/Vomiting ??? Simvastatin Nausea Only ??? Sulfa (Sulfonamide Antibiotics) Physical Exam: Last Set of Vitals and Range over past 24 hours: Last value Range last 24 hrs Temperature Temp: -- Heart Rate Heart Rate: -- Blood Pressure BP: -- Respiratory Rate Resp: -- SpO2 SpO2: -- Estimated body mass index is 31.62 kg/(m^2) as calculated from the following: Height as of an earlier encounter on 06/17/18: 154.3 cm (5' 0.75). Weight as of an earlier encounter on 06/17/18: 75.3 kg (166 lb). Physical Exam Constitutional: She is oriented to person, place, and time. She appears well- developed. No distress. HENT: Head: Normocephalic and atraumatic. Mouth/Throat: Oropharynx is clear and moist. Erythematous tongue with loss of papillae Eyes: Conjunctivae are normal. Right eye exhibits no discharge. Left eye exhibits no discharge. No scleral icterus. Neck: Neck supple. No JVD present. Cardiovascular: Normal rate, regular rhythm, normal heart sounds and intact distal pulses. Exam reveals no gallop and no friction rub. No murmur heard. Pulmonary/Chest: Effort normal and breath sounds normal. No stridor. No respiratory distress. She has no wheezes. She has no rales. She exhibits no tenderness. Abdominal: Soft. Bowel sounds are normal. There is no tenderness. There is no rebound and no guarding. Musculoskeletal: She exhibits no edema. AFF to 50 with weakness and restriction in IR and ER with drift, distal sensation, strength and cap refill are intact. Neurological: She is alert and oriented to person, place, and time. She displays normal reflexes. She exhibits normal muscle tone. Coordination normal. Skin: Skin is warm and dry. Rash noted. She is not diaphoretic. No pallor. Has scattered excoriated lesions over the outer arm and thigh with hyperemia surrounding small ulcerations. No vesicles or pustules noted. Does have maculopapular lesions in the intermammary area with no discharge, purulence or streaking. Psychiatric: She has a normal mood and affect. Her behavior is normal. Judgment and thought content normal. Lab Results Component Value Date WBC 4.3 05/13/2018 RBC 3.54 (L) 05/13/2018 HGB 11.4 (L) 05/13/2018 HCT 33.9 (L) 05/13/2018 MCV 95.8 (H) 05/13/2018 MCH 32.2 (H) 05/13/2018 MCHC 33.6 05/13/2018 PLATELET 208 05/13/2018 RDWCV 12.6 05/13/2018 Lab Results Component Value Date CRP 3.3 05/13/2018 SEDRATE 25 (H) 05/13/2018 Xray shoulder - Humeral hemiarthroplasty with glenoid and AC OA CT scan - 1. 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 2. Full-thickness rotator cuff tear. It is somewhat difficult to assess the exact extent of this tear given the degree of streak artifact and other artifacts, but it can be seen on series 601 images 93 and 109 and is therefore thought to measure at least 1.5 cm in anteroposterior dimension and approximately 1 cm in transverse dimension. It is thought to involve the supraspinatus tendon fibers and possibly also infraspinatus tendon fibers. Mild fatty infiltration of the rotator cuff muscles without appreciable loss of muscle bulk. ?? A/P 1. Preop examination 2. Chronic right shoulder pain 3. 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 She will continue her topical treatment as per her PCP for this but also add the Nystatin ordered at this visit forher oral thrush symptoms. She finds her shoulder impairing her activities and elects to proceed withrevision to reverse TSA. She has mild anemia with macrocytic indices and she was counseled to followwith her PCP for this. Major Risk Factor per the Revised Cardiac Risk Index (Bold if present) - There is no history of CAD,CHF, CVA or TIA, DM2 on insulin, or a Creatinine >2 Risk diagnosis for MACE (major adverse cardiovascular event = Myocardial infarction, pulmonary edema, ventricular fibrillation, primary cardiac arrest, or complete heart block.) : Low <1% . The patient describes a functional status of equal to 4METs and more (active at home and exercises) and basedon the ACC/AHA 2014 guideline no further cardiovascular testing is indicated. ARISCAT/CANET Score - estimates the risk of postoperative pulmonary complications as being low ~3.5%. Per the ACS NSQIP calculator I estimated the following. The revision from whit to reverse total is NOT part of the database and the below estimate is for a single component revision of a TSA. RECCO: Continue gabapentin, Duloxetine, Carbamazepine Resume oxybutynin when there is no evidence for POUR documented in this encounter Plan of Treatment Not on filedocumented as of this encounter Visit Diagnoses Diagnosis Preop examination Preoperative examination, unspecified Chronic right shoulder pain Pain in joint, shoulder region History of hemiarthroplasty of right kely ulder documented in this encounter Care Teams Flight Technician Relationship Specialty Start Date End Date Meg Fischer APRN PCP - General Family Medicine 06/17/18 02/20/[address] [place] [address] documented as of this encounter
--- OUTSIDE RECORDS SUMMARY | 2022-05-16 02:14 | XMS_ITS | Encounter Summary ---
:1950 Author Organization [facility] [place] [address] Care Team Providers Name Role Phone West Ayala MD Primary Care Provider Encounter Details Date Type Department Care Team Description 06/04/2018 Telephone Orth[place]ed[place] [facility] Kellie Muñoz, [place] [address] Social History Tobacco Use Types Packs/Day Years Used Date Never Smoker Smokeless Tobacco: Never Used Alcohol Use Standard Drinks/Week Comments No 0 (1 standard drink = 0.6 oz pure alcoho l) Sex Assigned at Date Recorded Not on file documented as of this encounter Miscellaneous Notes Telephone Encounter - Kellie Muñoz, RN - 06/04/2018 3:21 PM EDT Holly calling today to inquire about the results of her blood work/ aspiration and further plan of care. She can be reached at [phone] (H) documented in this encounter Plan of Treatment Not on filedocumented as of this encounter Visit Diagnoses Not on filedocumented in this encounter Care Teams Main Entree Cook And Cashier Relationship Specialty Start Date End Date West Ayala MD PCP - General General Internal Medicine 03/22/18 [address] [place] [address] documented as of this encounter
--- OUTSIDE RECORDS SUMMARY | 2022-05-16 02:14 | XMS_ITS | Encounter Summary ---
:1950 Author Organization [place] [address] Care Team Providers Name Role Phone Meg [...] Expiration Date Visits Requ ested Visits Authorized [id number] 1 1 Encounter Details Date Type Department Care Team Description 06/29/2018 Anesthesia Event Main Operating Room Richmond Frost MD [facility] [place] [address] [place] [address] [phone] Anesthesia Record Procedure Summary Procedure Name Responsible Anesthesia Start Anesthesia Stop Time Anesthesiologist Time @REVISION TOTAL Richmond Simeon MD 06/29/18 1346 06/29/18 1609 SHOULDER ARTHROPLASTY, HUMERAL AND GLENOID COMPONENT (WRVU 27.21) (Right Shoulder) Events Date Time Event Comment 06/29/2018 1210 1346 AN Verify 1346 Start 1346 An Start Data 1351 An Induction 1355 An Intubation 1358 Anesthesia Ready 1416 Skin Incision 1436 Break/Relief In Susanne L Mazdisni an, METAL FURNACE OPERATOR 1500 Break/Relief Out 1557 Extubation/LMA Out 1601 an stop data 1609 Recovery or ICU Handoff Patient care was transferred to the destination unit staff after review of the patient's medica l history, current anesthetic/surgi veronika status and plan, according to the Provider Handoff Checklist. 1609 Stop Name Total IV Lidocaine 40 mg Propofol 200 mg Rocuronium 50 mg Ondansetron 4 mg Neostigmine 3 mg Glycopyrrolate 0.4 mg ceFAZolin (ANCEF) 3g in dextrose 5% 100 mL 2 g PHENYLephrine INF 4,440 mcg lactated Ringers infusion 1,000 mL 700 mL Agents Name O2 Air N2O Sevoflurane (et) Blood No blood administrations on file. Lines, Drains, and Airways Type Details Placement Removal Incision 06/29/18; 1416; shoulder; 06/29/18 1416 by vertical Whit Cuba RN PIV 06/29/18; metacarpal vein 06/29/18 0000 by 06/30 1528 by (top of hand), left; 20 Carmencita Gross RN Mur nik, Haley C RN gauge; no longer indicated; 06/30/18; 1528 ETT Mask Ventilation: Adjunct 06/29/18 1355 by 06/29 1557 by (2); ETT Type: Cuffed, Ethan Hannon, Ethan Flores, Oral; ETT Size: 7.5 mm; METAL FURNACE OPERATOR METAL FURNACE OPERATOR Indirect:Video (for teaching purposes); Notes: Asleep, Pre-O2, Stylette; Attempts: 1; Laryngoscopy Grade: 1; ETT Placement Verified By: Auscultation, Capnometry, Visual; Secured at Teeth: 22 cm; Inserted by: IGGY Hannon Supraglottic 06/29/18 1400 by 06/29/18 1557 b y Ethan Hannon, Rex Hannon CRNA METAL FURNACE OPERATOR Lumbar/CSF Drain 06/29/18; 1538; Right; 06/29/18 1538 by 8 1519 by shoulder; collapsible Whit Cuba Murn ik, Haley C, RN closed device; 11/09 round RN silicone drain, cut to 10 holes.; removed by WINDOW CASER; 06/30/18; 1519 documented in this encounter Social History Tobacco Use Types Packs/Day Years Used Date Never Smoker Smokeless Tobacco: Never Used Alcohol Use Standard Drinks/Week Comments No 0 (1 standard drink = 0.6 oz pure alcoho l) Sex Assigned at Date Recorded Not on file documented as of this encounter OR Notes Anesthesia Postprocedure Evaluation - Richmond Simeon MD - 06/29/2018 5:00 PM EDT [facility] [place] [place] Department of Anesthesiology Post-procedure Note Patient: Holly Sanders Procedure Summary Date Anesthesia Start Anesthesia Stop Room / Location 06/29/18 1346 1609 [facility] OR [facility] MA[facility] OR Procedure Diagnosis Surgeon Responsible Provider @REVISION TOTAL SHOULDER ARTHROPLASTY, HUMERAL AND GLENOID COMPONENT (WRVU 27.21) (Right Shoulder);MODIFIER KAILEE TM REVERSE (N/A ); MODIFIER BEACH CHAIR SCHLEIN (N/A Shoulder) (FAILED SHOULDER ARTHROPLASTY) Audrey Mayo MD Nguyen, Tung T, MD All Anesthesia Providers: Anesthesiologist: Richmond Simeon MD METAL FURNACE OPERATOR: Ethan Hannon CRNA Patient Location: PACU/[facility] Level of Consciousness: Awake and Alert Pain Management: Satisfactory Analgesia PONV: None Cardiovascular Status: At Baseline Respiratory Status: At Baseline Postoperative Fluid Status: Intravascular EUvolemia Possible Anesthetic Complications: NONE apparent at time of evaluation Final Primary Anesthesia Type: General (The anesthetic type performed was the same as planned.) Comments: Anesthesia Procedure Notes - Ben Partida MD - 06/29/2018 1:32 PM EDTAssociated Order(s): ANESTHESIA BLOCK Procedure: Anesthesia Block Block: Post-op Pain Control, interscalene nerve block Post-op pain management at the request of surgeon. Start time: 06/29/2018 11:50 AM End time: 06/29/2018 11:56 AM Patient Location: Block Room Indication/Prep Position: supine Prep: patient draped, mask, cap, sterile gloves, hand hygeine, chlorhexidine Laterality: right Skin Medication lidocaine 1% 3 ml Injection Information Ultrasound Guidance: live and in-plane Ultrasound guidance was used to identify the targeted neuronal structure. Ultrasound was also used to identify needle positon and to identify surrounding tissue (bone, muscle, and blood vessels) to prevent inadvertent intraneural or intravascular needle placement and injection. The spread of local anesthetic was confirmed with live ultrasound imaging. Injection technique:single-shot Injection Pressure Monitoring: <15 PSI Needle Length: 5 cm Gauge: 22 Needle Type: D-khupt-turix Medication injection made incrementally with aspirations. Nerve infiltration solution through a needle Bupivicaine 0.5% 10 mL 133 mg Block Events no complications Resident: Second Resident: Fellow: BEN PARTIDA Attending Physician: RICHMOND SIMEON ~~~~~~~~~~~~~~~~~~~~~~~~~~~~~~~~~~~~~~~~~~~~~~~~~~~~~~~~~~~~ Anesthesia Preprocedure Evaluation - Richmond Simeon MD - 06/28/2018 3:14 PM EDT Images from the original note were not included. Pre-Anesthesia Evaluation for: Holly Sanders a 68 y.o. female. Procedure(s): @REVISION TOTAL SHOULDER ARTHROPLASTY, HUMERAL AND GLENOID COMPONENT (WRVU 27.21) MODIFIER KAILEE TM REVERSE MODIFIER [facility] Patient Active Problem List Diagnosis ??? Status post total shoulder arthroplasty ??? Actinic keratosis ??? Seborrheic keratosis Past Medical History: Diagnosis Date ??? Anemia low because of tegretol ??? Chronic pain shoulder problems ??? Seizure hasn't had one in 20 years ??? Transfusion history doesn't think she has had one Past Surgical History: Procedure Laterality Date ??? JOINT REPLACEMENT riight knee , right shoulder Social History Substance Use Topics ??? Smoking status: Never Smoker ??? Smokeless tobacco: Never Used ??? Alcohol use No History Drug Use No Allergies Allergen Reactions ??? Keppra [Levetiracetam] Anaphylaxis ??? Ciprofloxacin ??? Codeine ??? Demerol [Meperidine] ??? Meperidine Hcl CIS - Nausea/Vomiting ??? Simvastatin Nausea Only ??? Sulfa (Sulfonamide Antibiotics) Medications: MAR and/or home medications have been reviewed. Physical Exam: There were no vitals filed for this visit. There is no height or weight on file to calculate BMI. Airway Assessment: Mallampati: II TM distance: >3 FB Neck ROM: full Cardiovascular Assessment: Rhythm: regular Rate: normal Pulmonary Assessment: breath sounds clear to auscultation Dental Assessment: (+) upper dentures Misc Assessment: Patient is wearing No contact(s). Anesthesia Plan: ASA 2 general, with a(n) intravenous induction Region - Other Informed Consent: Anesthetic plan and risks discussed with patient. Use of blood products discussed with patient who consented to blood products. PAT Staff Note Attending NOTE Brief HPI: 68 y.o. with failed RIGHT TSA to OR for reverse RIGHT TSA Diagnosis ??? RA ??? Fibromyalgia ??? Seizure d/o: last seizure 15 years ago METS:>4 Cardiac Symptoms: denies EKG: none ECHO: NONE LABS: Lab Results Component Value Date HGB 11.4 (L) 05/13/2018 PLATELET 208 05/13/2018 Type and Screen: Lab Results Component Value Date ABORH A Pos 06/17/2018 Past anesthetic problems: denies Previous airway notes(on eDH): NONE NPO status: Reviewed and appropriate New abrasions/scabs or numbness in distribution of proposed peripheral nerve block: denies Anesthetic Plan: GETA Monitoring: Standard ASA monitors Post Op Pain management: IS peripheral nerve block documented in this encounter Miscellaneous Notes Addendum Note - Ben Partida MD - 06/30/2018 8:29 PM EDT Addendum created 06/30/182028 by Ben Partida MD Sign clinical note documented in this encounter Plan of Treatment Not on filedocumented as of this encounter Procedures Procedure Name Priority Date/Time Associated Diagnosis Comme nts ANESTHESIA BLOCK Routine 06/29/2018 1:33 PM EDT Procedure Note - Ben Partida MD - 06/29/2018 1:32 PM EDTThis note is in progress. Formatting of this note migh t be different from the original. Procedure: Anesthesia Block Block: Post-op Pain Control, interscalene nerve block Post-op pain management at t he request of surgeon. Start time: 06/29/2018 11:50 AM End time: 06/29/2018 11:56 AM Patient Location: Block Room Indication/Prep Position: supine Prep: patient draped, mask, cap, sterile gloves, hand hygeine, chlorhexidine Laterality: right Skin Medication lidocaine 1% 3 ml Injection Information Ultrasound Guidance: live an d in-plane Ultrasound guidance was use d to identify the targeted neuronal structure. Ultrasound was also used to identify needle positon and to identify surrounding tissue (bone, muscle, and blood vessels) to prevent inadvertent intraneural or i ntravascular needle placement and injection. The spread of local anesthetic was confirmed with live ultrasound imaging. Injection technique:single-s hot Injection Pressure Monitorin g: <15 PSI Needle Length: 5 cm Gauge: 22 Needle Type: S-hftos-pcbvt Medication injection made in crementally with aspirations. Nerve infiltration solution through a needle Bupivicaine 0.5% 10 mL 133 mg Block Events no complications Resident: Second Resident: Fellow: BEN PARTIDA Attending Physician: RICHMOND SIMEON ~~~~~~~~~~~~~~~~~~~~~~~~~~~~ ~~~~~~~~~~~~~~~~~~~~~~~~~~~~~~~~ documented in this encounter Visit Diagnoses Not on filedocumented in this encounter Administered Medications Inactive Administered Medications - up to 3 most recent administrations Medication Order MAR Action Action Date Dose Rate Site ceFAZolin (ANCEF) 3g in dextrose 5% Given 06/29/2018 2:00 PM EDT 2 g 100 mL 3 g, Intravenous, EVERY 3 HOURS, 1 dose, First dose on Thu06/29/18 at 1215, Administer over 30 Minutes, Redose after 3 hours., Intra-Operative (Intra-Procedure), Indication for (Active or Suspected): Prophylaxis glycopyrrolate (ROBINUL) multi-dose inje ction Given 06/29/2018 3:53 PM EDT 0.4 mg PRN, Starting on Thu06/29/18 at 1553, Until Thu06/29/18 at 1611, Anesthesia Intra-op, Routine lidocaine (PF) (XYLOCAINE) 100 mg/5 mL (2 %) Given 8 1:50 PM EDT 40 mg injection PRN, Starting on Thu06/29/18 at 1350, Until Thu06/29/18 at 1611, Anesthesia Intra-op, Routine neostigmine (BLOXIVERZ) injection Given 06/29/2018 3:53 PM EDT 3 mg PRN, Starting on Thu06/29/18 at 1553, Until Thu06/29/18 at 1611, Anesthesia Intra-op, Routine ondansetron (ZOFRAN) injection Given 06/29/2018 3:37 PM EDT 4 mg PRN, Starting on Thu06/29/18 at 1537, Until Thu06/29/18 at 1611, Nausea, Anesthesia Intra-op, Routine PHENYLephrine Rate/Dose Change 06/29/2018 3:54 30 mcg/min 22.5 mL/hr (MAXI-SYNEPHRINE) 20 mg in PM EDT sodium chloride 250 mL (standard ADULT & Pedi greater than 20kg) infusion CONTINUOUS PRN, Starting on Thu06/29/18 at 1400, Until Thu06/29/18 at 1611, Anesthesia Intra-op, Routine Restarted 06/29/2018 2:50 PM EDT 40 mcg/min 30 mL/hr Rate/Dose Change 06/29/2018 2:14 PM EDT 40 mcg/min 30 mL/hr propofol (DIPRIVAN) 10 mg/mL bolus injection Given 1:51 PM EDT 200 mg (Anesthesia) PRN, Starting on Thu06/29/18 at 1351, Until Thu06/29/18 at 1611, Anesthesia Intra-op rocuronium (ZEMURON) multi-dose injectio n Given 06/29/2018 1:52 PM EDT 50 mg PRN, Starting on Thu06/29/18 at 1352, Until Thu06/29/18 at 1611, Anesthesia Intra-op, Routine documented in this encounter Care Teams Senior Graphic Designer Relationship Specialty Start Date End Date Meg Fischer, CHAIRMAN EMERITUS PCP - General Family Medicine 06/17/18 02/20/[address] [place] [address] documented as of this encounter
--- OUTSIDE RECORDS SUMMARY | 2022-05-16 02:14 | XMS_ITS | Encounter Summary ---
:1950 Author Organization [facility] [place] [address] Care Team Providers Name Role Phone Meg Fischer APRN Primary Care Provider Encounter Details Date Type Department Care Team Description 06/17/2018 Laboratory Appointment Lab at [facility] right [facility] [place] [id number] Social History Tobacco Use Types Packs/Day Years Used Date Never Smoker Smokeless Tobacco: Never Used Alcohol Use Standard Drinks/Week Comments No 0 (1 standard drink = 0.6 oz pure alcoho l) Sex Assigned at Date Recorded Not on file documented as of this encounter Plan of Treatment Not on filedocumented as of this encounter Procedures Procedure Name Priority Date/Time Associated Diagnosis Comme nts ABORH RECHECK Routine 06/17/2018 1:01 PM Results for this STATUS EDT procedure are i n the results section. TYPE AND SCREEN, Routine 06/17/2018 1:01 PM Chronic right SDP (FUTURE EDT shoulder pain SURGERY, [facility] SAME DAY PROGRAM ONLY) ABO/RH TYPING Routine 06/17/2018 1:01 PM Chronic right Results for this EDT shoulder pain procedure are in the results section. ANTIBODY SCREEN Routine 06/17/2018 1:01 PM Chronic right Resul ts for this EDT shoulder pain procedure are in the results section. documented in this encounter Results ABORH Recheck Status (06/17/2018 1:01 PM EDT) [facility] Method Time Signature ABORH Recheck Order Placed [facility] LABORATORY ABORH Type Not Performed [facility] LABORATORY Specimen Anatomical Collection Method Collection Time Receive d Time (Source) Location / / Volume Laterality Blood specimen 06/17/2018 1:01 PM 018 1:06 (specimen) EDT PM EDT Resulting Agency Comment Spec In Lab Audrey Mayo MD BLOOD BANK ORDERABLES Performing Organization Address City/State/[place] [address] Antibody screen (06/17/2018 1:01 PM EDT) Patholo gist Method Time Signature Ab Screen Negative [facility] LABORATORY Expires at 07/02/2018 [facility] 2359 on: [facility] LABORATORY Specimen Anatomical Collection Method Collection Time Receive d Time (Source) Location / / Volume Laterality Blood specimen 06/17/2018 1:01 PM 018 1:06 (specimen) EDT PM EDT Resulting Agency Comment Spec In Lab Audrey Mayo MD BLOOD BANK ORDERABLES Performing Organization Address City/[facility]/[place] [address] ABO/Rh Typing (06/17/2018 1:01 PM EDT) P athologist Signature ABORh Type A Pos [facility] LABORATORY Specimen Anatomical Collection Method Collection Time Receive d Time (Source) Location / / Volume Laterality Blood specimen 06/17/2018 1:01 PM 018 1:06 (specimen) EDT PM EDT Resulting Agency Comment Spec In Lab Audrey Mayo MD BLOOD BANK ORDERABLES Performing Organization Address City/[facility]/[place] [address] documented in this encounter Visit Diagnoses Diagnosis Chronic right shoulder pain Pain in joint, shoulder region documented in this encounter Care Teams Leather Coater Relationship Specialty Start Date End Date Meg Fischer APRN PCP - General Family Medicine 06/17/18 02/20/[address] [place] [address] documented as of this encounter
--- OUTSIDE RECORDS SUMMARY | 2022-05-16 02:14 | XMS_ITS | Encounter Summary ---
:1950 Author Organization [facility] [place] [address] Care Team Providers Name Role Phone West Ayala MD Primary Care Provider Encounter Details Date Type Department Care Team Description 06/05/2018 Orders Only Orthopaedics at [facility] Audrey Mayo, Nacho right [facility] [place] [address] [address] [phone] ORTHOPAEDIC SURGERY [place] [id number] Social History Tobacco Use Types Packs/Day Years Used Date Never Smoker Smokeless Tobacco: Never Used Alcohol Use Standard Drinks/Week Comments No 0 (1 standard drink = 0.6 oz pure alcoho l) Sex Assigned at Date Recorded Not on file documented as of this encounter Plan of Treatment Scheduled Orders Name Type Priority Associated Diagnoses Order S chedule @REVISION TOTAL Procedures Routine One Time for 1 SHOULDER Occurrences sta rting ARTHROPLASTY, HUMERAL 2017 until AND GLENOID COMPONENT 2017 documented as of this encounter Visit Diagnoses Diagnosis Chronic right shoulder pain Pain in joint, shoulder region documented in this encounter Care Teams Crystalizer Operator Relationship Specialty Start Date End Date West Ayala MD PCP - General General Internal Medicine 03/22/18 [address] [place] [address] documented as of this encounter
--- OUTSIDE RECORDS SUMMARY | 2022-05-16 02:14 | XMS_ITS | Encounter Summary ---
:1950 Author Organization [facility] [place] [address] Care Team Providers Name Role Phone Meg Fischer APRN Primary Care Provider Encounter Details Date Type Department Care Team Description 06/17/2018 Clinical Support Same Day at [facility] [place] [phone] Social History Tobacco Use Types Packs/Day Years Used Date Never Smoker Smokeless Tobacco: Never Used Alcohol Use Standard Drinks/Week Comments No 0 (1 standard drink = 0.6 oz pure alcoho l) Sex Assigned at Date Recorded Not on file documented as of this encounter Last Filed Vital Signs Vital Sign Reading Time Taken Comments Blood Pressure - - Pulse 81 06/17/2018 11:52 AM EDT Temperature - - Respiratory Rate - - Oxygen Saturation 95% 06/17/2018 11:52 AM EDT Inhaled Oxygen Concentration - - Weight 75.7 kg (166 lb 12.8 oz) 06/17/2018 11:52 AM EDT Height 152.4 cm (5') 06/17/2018 11:52 AM EDT Body Mass Index 32.58 06/17/2018 11:52 AM EDT documented in this encounter Progress Notes Katina Sanderson RN - 06/17/2018 12:20 PM EDT PAT questionnaire reviewed with patient while in Pre Admission testing. She denies any issues with anesthesia in the past. Pre-operative instruction booklet reviewed. Patient verbalizes a good understanding of all information reviewed. PLAN: Testing: T&S only Special medication instructions: Ortho to advise about supplements and Ibuprofen Procedure date: 06/29/18 documented in this encounter Plan of Treatment Not on filedocumented as of this encounter Visit Diagnoses Not on filedocumented in this encounter Care Teams Antique Finisher Relationship Specialty Start Date End Date Meg Fischer APRN PCP - General Family Medicine 06/17/18 02/20/[address] [place] [address] documented as of this encounter
--- OUTSIDE RECORDS SUMMARY | 2022-05-16 02:14 | XMS_ITS | Encounter Summary ---
:1950 Author Organization [facility] [place] [address] Care Team Providers Name Role Phone West Ayala MD Primary Care Provider Encounter Details Date Type Department Care Team Description 05/13/2018 Orders Only Orthopaedics at [facility] [place] [address] Social History Tobacco Use Types Packs/Day [...] on filedocumented in this encounter Care Teams Technical Report Writer Relationship Specialty Start Date End Date West Ayala MD PCP - General General Internal Medicine 03/22/18 [address] [place] [address] documented as of this encounter
--- OUTSIDE RECORDS SUMMARY | 2022-05-16 02:14 | XMS_ITS | Encounter Summary ---
:1950 [place] [address] Care Team Providers Name Role Phone Meg [...] Expiration Date Visits Requ ested Visits Authorized [id number] 1 1 Encounter Details Date Type Department Care Team Description 06/29/2018 - Hospital Encounter 3 [place] Pao Giles Statu s post total [facility] [facility] [facility] [facility] [place] [facility] right shoulder [facility] [address] Adame ORTHOPAEDIC [place], [place] SURGERY [address] [place], [place] [phone] Social History Tobacco Use Types Packs/Day Years Used Date Never Smoker Smokeless Tobacco: Never Used Alcohol Use Standard Drinks/Week Comments No 0 (1 standard drink = 0.6 oz pure alcoho l) Sex Assigned at Date Recorded Not on file documented as of this encounter Last Filed Vital Signs Vital Sign Reading Time Taken Comments Blood Pressure 103/62 06/30/2018 11:47 AM EDT Pulse 91 06/30/2018 10:17 AM EDT Temperature 37 ??C (98.6 ??F) 06/30/2018 11:47 AM EDT Respiratory Rate 14 06/30/2018 11:47 AM EDT Oxygen Saturation 96% 06/30/2018 11:47 AM EDT Inhaled Oxygen Concentration - - Weight - - Height - - Body Mass Index - - documented in this encounter Discharge Summaries GladisLaney dumont Timothy, LIBRARY CIRCULATION ASSISTANT - 06/30/2018 3:14 PM EDT Discharge Summary Patient Name: Holly Sanders Patient Age: 68 y.o. Language: Central African Race: White Ethnicity: Not nor Admit date: 06/29/2018 Discharge date and time: 06/30/2018 Attending Physician: Pao Mayo MD Discharge Physician: Pao Mayo MD Follow-up Recommendations for Providers: See discharge instructions for additional details. Future Appointments Date Time Provider Department Center 07/14/2018 1:00 PM Chanel Kapadia PA [address] Inpatient Provider Contact Information: Pao Mayo MD Orthopedics: [phone] After hours and weekends, call [facility] Bowl Attendant, , and have the Orthopedic resident paged. [...] GLENOID COMPONENT MODIFIER KAILEE TM REVERSE MODIFIER [facility] History of Presentation: Holly Sanders is a [...] Refills: 0 FLONASE 50 mcg/actuation Spsn 1 [place](s), Nasal, Once daily PRN Generic drug: fluticasone [...] PRN Refills: 0 STOPPED Medications GLUCOSAM PAULA [id number] ORAL ibuprofen 800 mg Tab Commonly known [...] on them. You can also take an rfjd-oiv-fuppvex stool softener, Colace or senna, to facilitate [...] or lightly covered. Call your doctor at [phone] if: 1. You have a fever > [...] You will have follow up appointments at [facility] as indicated in Future Appointments and Orders. Future Appointments Date Time Provider Department Center 07/14/2018 1:00 PM Chanel Kapadia PA [facility] [address] [facility] For questions/concerns weekdays, 8 am - 5 pm, call Dr. Mayo's office: [phone]. For evenings, weekends, holidays, call [phone] and request to speak with the Orthopaedic Resident reconciliation machine operator. General Instructions None Future Appointments and Orders Future Appointments Provider Department Dept Phone 07/14/2018 1:00 PM Chanel Kapadia PA Orthopaed[facility] at [place] [phone] Future Orders Complete By Expires Referral to Home Health - at DISCHARGE [[id number] CPT(R)] As directed Process Instructions: Scheduling Instructions: Comments: DOCUMENTATION FOR VNA SERVICES (INCLUDING THOSE PATIENTS WITH MEDICARE COVERAGE REQUIRING HOME VNA SERVICES AND/OR HOSPICE SERVICES) PATIENT'S LOCATION: Holly Sanders [address] [place] [phone] (home) Cell: Telephone Information: Machine Load Clerk's Name: herself with family assist In discussion with the attending physician, it is certified that this patient is under their care and that they, or a Nurse Practitioner,Clinical Nurse specialist or Physician Porcelain Enamel Installer who is working directly with them, had [...] for servicesas follows: HOME CARE ORDERS: for PT/OT/SLOT MANAGER (RN if needed) PT for ORDERS:Assess wound or incision, pain control,vital signs, cardiopulmonary status, nutrition,hydration, elimination, meds effectiveness and management; reinforce education re health issues PT ORDERS: Continue rehab for endurance, gait stability and strength with mobility and transfers. Home safety evaluation.DALE protocol for Revision DALE's OT: assess and continue rehab for managing ADL's. SLOT MANAGER for personal care Per Dr. Mayo OP NOTE: Post-op plan will be for sling immobilization of the shoulder for the next 6 weeks, coming out only for gentle elbow, wrist, and hand range of motion. No formal shoulder therapy,range of motion, or activity should be done for the first 6 weeks. HOME HEALTH CARE AGENCY: [facility] PHONE: [phone] FAX: [phone] Start of care: 07/01/18 FOR MEDICARE ONLY: [...] Fischer APRN [address] / [facility] [address] All A agencies which cover the area of patient's residence have been reviewed, either verbally or in writing, and patient/family have chosen the home health care agency noted Questions: Agency name and contact information: [facility] Patient location post discharge: home What services are requested: Physical Therapy Occupational Therapy Home Health Aide Start date: 07/01/2018 Responsible MD post discharge contact info: Primary Care Provider: Meg Fischer APRN [phone] Discharge References/Attachments None documented in this encounter [...] on them. You can also take an mjui-tii-qotqflf stool softener, Colace or senna, to facilitate [...] or lightly covered. Call your doctor at [phone] if: 1. You have a fever > [...] You will have follow up appointments at [facility] as indicated in Future Appointments and Orders. Future Appointments Date Time Provider Department Center 07/14/2018 1:00 PM Chanel Kapadia PA [facility] [address] [place] [address] CLIN For questions/concerns weekdays, 8 am - 5 pm, call Dr. Mayo's office: [phone]. For evenings, weekends, holidays, call [phone] and request to speak with the Orthopaedic Resident reconciliation machine operator. documented in this encounter Medications at Time [...] Take by mouth. 0 fluticasone (FLONASE) 1 [place](s), Nasal, 0 2006 50 mcg/Actuation nasal Once daily PRN spray [...] mouth 0 07/14/2018 daily. FLAXSEED ORAL by [facility] [place]Non-Drug; 0 08/2022 Combo Route) route. carBAMazepine 200MG, [...] well. Laney Griffith APRN Inpatient Orthopedics Pager [phone] Ben Partida MD - 06/30/2018 11:46 AM [...] was instructed to contact Regional Anesthesia Team ([id number]) for any unresolved sensory or motor deficits. ?? Thank you for the opportunity to have participated in the care of this patient. Ben Partida MD Regional Team pager [phone] Pao Mayo MD - 06/30/2018 5:57 AM [...] ??? sodium chloride 0.9% 1,000 mL (06/29/18 1816) OBJECTIVE: Temp: [36.4 ??C (97.5 ??F)-37.3 ??C [...] Center 07/14/2018 1:00 PM Chanel Kapadia PA [facility] [address] [place] [address] CLIN Attending addendum: The preceeding portion of this note was written by Dr. Giordano. I personally saw and evaluated the patient at the bedside and I agree with the assessment and plan documented above. Pao Mayo M.D., M.S. [facility] of Orthopaedic [facility] Shoulder, Elbow, and Sports Medicine Department of Orthopaedic Surgery [place], [place] [address] Divine Presley RN - 06/29/2018 9:00 PM [...] 10 mg ??? lactated Ringers Stopped (06/29/18 1609) ??? sodium chloride 0.9% 1,000 mL (06/29/18 181) OBJECTIVE: Temp: [36.9 ??C (98.4 ??F)-37.3 ??C (99.1 ??F)] Heart Rate: [71-91] Resp: [12-21] BP: (100-157)/(60-96) Intake/Output Summary (Last 24 hours) at 06/29/18 4929 Last data filed at 06/29/18 1800 Gross [...] 07/14/2018 1:00 PM Chanel Kapadia PA [facility] [address] CLIN Carmencita Son RN - 06/29/2018 4:50 PM EDT Pt to PACU via bed from OR; monitors applied, alarms set and audible. 1630: xrays done. Medicated for discomfort back of neck, warm wrap also applied. documented in this encounter H&P Notes Frannie Giordano MD - 06/29/2018 12:30 PM EDT 24-Hour Pre-Operative H&P Update Holly Sanders 1950 [id number] Patient seen in pre-op holding area today. [...] discharge plans for a TSA revision at [facility] as outlined by the outpatient ortho clinic team. She had the original right shoulder replaced in 2016 in [place], [place]. ?? Current Functional Ability: ?? Functional [...] We discussed qualifications to go to a alf facility. We discussed potential out of pocket costs associated with non-emergent wheelchair van and ambulance transportation.We discussed the purpose and services provided [facility]. If patient opts to go to outpatient [...] that they will be working with a hiv/aids care nurse after surgery to facilitatethe discharge plan. I encouraged the patient to call with any questions or concerns prior to the surgery as well as when they discharge home. ?? Health/Prescription Coverage: Primary Insurance: MEDICARE Secondary Insurance: MEDICAID [place] Prescription Coverage: Yes Preferred Pharmacy: DARLENE [phone] [facility], [place] - [address] [facility] ? [address] [place] [place] [place] [address] ? Not a 24 hour pharmacy; exact hours not known ? Other: None ?? Primary Care Provider: West Ayala MD [phone] ?? Patient/Caregiver Goals of Treatment: She wants to drive and work in her garden. ?? Potential Needs for Transition of Care: Rehab/SNF: No selection Home Health: No preference OP PT: James Friend in [facility] DME: None needed Dialysis: No Community [...] of care planning. ?? Jodie Liu Pager: [phone] ?3:15 PM Chart reviewed and met with pt who is sitting up in cardiac chair in [facility] with R UE in [facility]. Pt had R Reverse TSA by Dr Mayo yesterday and plans on going home today. Pt is and lives with her dtr who has CP. Pt requests PT/OT and SLOT MANAGER for home and would like to use [facility]. Plan of Care - Chan Boyer [...] with assist, home with home health Pager: [phone] Chan Boyer, OT 06/30/2018 Occupational Therapy Rehabilitation Department 2017 [...] Environment Living Environment Comment Pt lives in [facility] with her daughter (special needs). The house [...] Bearing Status right upper extremity Transfer Assessment/Treatment Polk (Sit-Stand Transfers) independent Polk (Stand-Sit Transfers) independent Comment (Transfers) Pt performed multiple sit<>stand safely no overt LOB. Gait Assessment/Treatment Polk (Gait) independent Distance in Feet (Gait) 300 [...] Body Dressing Assessment/Training Position (UB Dressing) sitting;standing Polk Level (UB Dressing) minimum assist (75% patient effort) Impairments (UB Dressing) ROM (range of motion) decreased;pain Comment (UB Dressing) Pt educated on UB dressing options and technique. Pt assisted donning shirt, pt verbalized understanding and performed majority of donning. Pt plans to have daugther/neighbor assist as needed for strap adjustment. Lower Body Dressing Assessment/Training Assistive Devices (LB Dressing) recovery coach;sock-aid Position (LB Dressing) sitting;standing Polk Level (LB Dressing) minimum assist (75% patient effort);verbal cues required Impairments (LB Dressing) ROM (range of motion) decreased;balance impaired Comment (LB Dressing) Pt issued and educated on use of sock aid/recovery coach. Pt donned underpantspants w/ use of reahcer, [...] rthosis;restrictions/precautions;sleeping with orthosis Wear Schedule (Orthosis) wear aircraft time clerk Adjustment (Orthosis) orthosis adjustment needed Adjustment Comment [...] with home health Evert Segura PT Pager: [phone] Inpatient Physical Therapy 2017 PT Evaluation Code [...] Environment Living Environment Comment Pt lives in [facility] with her daughter (special needs). The house [...] right upper extremity Bed Mobility Assessment/Treatment Scoot/Bridge Polk (Bed Mobility) independent Hlubpg-no-Pzp Polk (Bed Mobility) independent Laa-te-Snijaq Polk (Bed Mobility) independent Comment (Bed Mobility) HOB elevated; will sleep in recliner at home Transfer Assessment/Treatment Bed-Chair Polk (Transfers) supervision required Chair-Bed Polk (Transfers) supervision required Polk (Sit-Stand Transfers) supervision required Polk (Stand-Sit Transfers) supervision required Comment (Transfers) Supervision for safety and IV pole Gait Assessment/Treatment Polk (Gait) supervision required Distance in Feet (Gait) 150' Gait Pattern Analysis swing-through gait Comment (Gait) Supervision for IV pole AM-PAC Basic Mobility [facility] Mobility Completed? Yes How much difficulty does [...] 3-5 steps with a railing?4 - None [facility] Basic Mobility Raw Score 23 Basic Mobility Standardized T-Scale Score 56.93 Basic Mobility CMS 0-100% 11.2 [facility] Basic Mobility CMS Modifier CI Motor Skills/Interventions Additional Documentation Therapeutic Exercise (Group) Therapeutic Exercise Upper Extremity (Therapeutic Exercise) bicep curl, right;tricep extension, right Upper Extremity Range of Motion (Therapeutic Exercise) elbow flexion/extension, right;forearm supination/pronation, right;wrist flexion/extension, right Hand (Therapeutic Exercise) hand last greaser, right;finger flexion/extension, right;thumb finger opposition, right Exercise [...] related to orthosis;restrictions/precautions Wear Schedule (Orthosis) wear aircraft time clerk Adjustment (Orthosis) orthosis adjustment needed Adjustment Comment [...] Mayo MD - 06/29/2018 3:46 PM EDT [facility] Operative Note Patient Name: Holly Sanders : [id number] MR#: [id number] Case Date: 06/29/2018 Surgeon: Surgeon(s) and Role: * Pao Mayo MD - Primary * Frannie Giordano MD - Resident-Surgeon Chief * Deangelo Russ MD - Resident-Surgeon [place] Preoperative diagnosis: FAILED SHOULDER ARTHROPLASTY Postoperative diagnosis: FAILED SHOULDER ARTHROPLASTY Procedure(s) (LRB): @REVISION TOTAL SHOULDER ARTHROPLASTY, HUMERAL AND GLENOID COMPONENT (WRVU 27.21) (Right) MODIFIER KAILEE TM REVERSE (N/A) MODIFIER [facility] SCHLEIN (N/A) Anesthesia: General Estimated Blood Loss: * [...] apparent Implants Used: Kailee TM Reverse Stem: 01a994 mm, press-fit Poly: 36+3 mm Glenosphere: 36 mm Standard baseplate Variable angle locking screws: 36 superior, 42 inferior Pre-operative Evaluation: The patient was identified in the preoperative holding area. After confirming that the right shoulder was the correct site of surgery with both the patient and the informed consent, a green [facility] m[facility] ira was placed on the operative shoulder. The [...] procedure are i n the results section. QUALITY CONTROL SUPERVISOR SCAN 07/01/2018 12:00 Res ults for this [...] documented in this encounter Results SCAN DOC: QUALITY CONTROL SUPERVISOR (07/01/2018 12:00 AM EDT) Narrative 07/01/2018 12:00 [...] (ABNORMAL) Differential, Automated (06/30/2018 3:21 AM EDT) [facility] Method Time Signature Neutrophils % 74.7 % [facility] Neutr Abs (ANC) 3.99 1.70 - [facility] 6.10 [facility] x10(3)/[facility] LABORATORY Lymphocytes % 15.9 % [facility] Lymphocytes Abs 0.8 (L) 0.9 - 3.2 [facility] x10(3)/[facility] LABORATORY Monocytes % 8.2 % [facility] Monocyte Abs 0.4 0.3 - 0.9 [facility] x10(3)/[facility] LABORATORY Eosinophils % 0.6 % [facility] Eosinophils Abs 0.0 0.0 - 0.4 [facility] x10(3)/[facility] LABORATORY Basophils % 0.4 % [facility] Basophils Abs 0.0 0.0 - 0.1 [facility] x10(3)/[facility] LABORATORY Immature Gran % 0.20 % [facility] Comment: Immature granulocytes(IG's)percentage an d absolute count will include metamyelocytes, myelocytes, and promyelo cytes. Blood smears from CBCs yielding IG's will be scanned manually for concor dance. If this scan disagrees with the automated IG or if promyelocytes are not ed, a manual differential will be performed. Cammy Gran Abs 0.01 0.00 - 0.04 x10(3)/[facility] MAR Y [facility] Specimen Anatomical Collection Method Collection Time Receive d Time (Source) Location / / Volume Laterality Blood specimen 06/30/2018 3:21 AM 018 3:26 (specimen) EDT AM EDT Resulting Agency Comment Spec In Lab Frannie Giordano MD HEMATOLOGY ORDERABLES Performing Organization Address City/State/ZIP [place] [address] (ABNORMAL) Hemogram (06/30/2018 3:21 AM EDT) Analysis Performed At Patho logist Time Signature WBC 5.3 4.0 - 9.5 [facility] x10(3)/[facility] LABORATORY RBC 3.07 (L) 4.00 - [facility] 5.21 [facility] x10(6)/[facility] LABORATORY Hemoglobin 9.6 (L) 11.7 - [facility] 15.5 gm/dL [facility] Hematocrit 30.2 (L) 35.7 - [facility] 45.8 % [facility] MCV 98.4 (H) 82.6 - [facility] 94.4 fL [facility] MCH 31.3 27.1 - [facility] 32.0 pg [facility] MCHC 31.8 31.7 - [facility] 35.0 gm/dL [facility] Platelets 152 145 - 357 [facility] x10(3)/[facility] LABORATORY RDWSD 43.2 37.0 - [facility] 46.0 [facility] LABORATORY RDWCV 11.9 11.5 - [facility] 14.1 % [facility] MPV 9.3 7.6 - 12.9 [facility] LABORATORY nRBC % Auto 0.0 % [facility] nRBC Abs Auto 0.000 0.000 - [facility] 0.000 [facility] x10(3)/[facility] LABORATORY Specimen Anatomical Collection Method Collection Time Receive d Time (Source) Location / / Volume Laterality Blood specimen 06/30/2018 3:21 AM 018 3:26 (specimen) EDT AM EDT Resulting Agency Comment Spec In Lab Frannie Giordano MD HEMATOLOGY ORDERABLES Performing Organization Address City/State/ZIP Code Phon e Number [place] [phone] (ABNORMAL) Basic Metabolic Panel (non-fasting) (06/30/2018 3:21 AM EDT) P athologist Signature Glucose Lvl 125 65 - 199 [facility] mg/dL [facility] Comment: Diabetes: >=200 mg/dL plus symp toms BUN 13 8 - 18 mg/dL [facility] Creatinine 0.67 (L) 0.70 - 1.20 mg/dL [facility] Sodium 141 135 - 145 mmol/L [facility] Potassium 4.3 3.5 - 5.0 mmol/L [facility] Comment: Please note: ??Patients with WBC >100,00 0 may have falsely elevated Potassium levels. ??For accurate Potassium quantif ication in these patients send serum separator tube (gold top) for subsequent determinations. ??Contact the Clinical Chemistry Laboratory if there are any qu estions. Chloride 105 98 - 107 mmol/L [facility] CO2 25 22 - 31 mmol/L [facility] Anion Gap 11 5 - 15 mmol/L [facility] Calcium 8.4 (L) 8.5 - 10.5 mg/dL [facility] Estimated GFR 90 >=60 mL/min/1.73 m?? [facility] Comment: The eGFR was calculated using the CKD-EP I equation. As with all creatinine based estimates of kidney function, eGFR values calculated with the CKD-EPI equation are not accurate in patients wi th acute kidney failure, extremes of body mass or the acutely ill. http://[employer]/DHnkf eGFR 104 >=60 mL/min/1.73 m?? [facility] Comment: The eGFR was calculated using the CKD-EP I equation. As with all creatinine based estimates of kidney function, eGFR values calculated with the CKD-EPI equation are not accurate in patients wi th acute kidney failure, extremes of body mass or the acutely ill. http://[employer]/DHnkf Specimen Anatomical Collection Method Collection Time Receive d Time (Source) Location / / Volume Laterality Blood specimen 06/30/2018 3:21 AM 018 3:26 (specimen) EDT AM EDT Resulting Agency Comment Spec In Lab Pao Mayo MD CHEMISTRY ORDERABLES Performing Organization Address City/State/[facility] [place] [address] XR Shoulder Right (Generic) [...] ORDERABLES Anaerobic Culture (06/29/2018 3:04 PM EDT) [facility] Method Time Signature Anaerobic No anaerobic [facility] Culture organisms [facility] LABORATORY Specimen Anatomical Collection Method [...] Organization Address City/State/ZIP [place] [address] Bone Culture (06/29/2018 3:04 PM EDT) Component Value Ref Test Analysis Performed At [facility] Range Method Time Signature Bone Culture No growth [facility] Gram Stain Few Neutrophils seen [facility] No microorganisms seen. [facility] Specimen Anatomical Collection Method [...] Organization Address City/State/[place] [address] Anaerobic Culture (06/29/2018 3:03 PM EDT) Patholo gist Method Time Signature Anaerobic No anaerobic [facility] LABORATORY Specimen Anatomical Collection Method Collection [...] - GENERAL ORDER MALATHI Performing Organization Address City/[facility]/[place] [address] Bone Culture (06/29/2018 3:03 PM EDT) Component Value Ref Test Analysis Performed At Patholo gist Range Method Time Signature Bone Culture No growth [facility] Gram Stain Few Neutrophils seen [facility] No microorganisms seen. [facility] Specimen Anatomical Collection Method [...] Organization Address City/State/[place] [address] Anaerobic Culture (06/29/2018 3:03 PM EDT) Patholo gist Method Time Signature Anaerobic No anaerobic [facility] Culture organisms [facility] Specimen Anatomical Collection Method Collection Time Receive d Time (Source) Location / / Volume Laterality Shoulder joint 06/29/2018 3:03 PM 018 3:20 synovial fluid EDT PM EDT (specimen) Comment: RIGHT SHOULDER JOINT FLUID. PLE ASE PERFORM ORTHO 14 DAY EXTENDED CULTURE. THANKS. Resulting Agency Comment Spec In Lab Pao Mayo MD MICROBIOLOGY - GENERAL ORDER MALATHI Performing Organization Address City/[facility]/[place] [address] Body Fluid Culture, Aerobic (06/29/2018 3:03 PM EDT) Component Value Ref Test Analysis Performed At [facility] 99.co Range Method Time Signature Body Fluid No growth [facility] Culture [facility] Gram Stain Cytocentrifuge Gram Stain performed [facility] Neutrophils seen [place] No microorganisms seen. [facility] Specimen Anatomical Collection Method Collection Time Receive d Time (Source) Location / / Volume Laterality Shoulder joint 06/29/2018 3:03 PM 018 3:20 synovial fluid EDT PM EDT (specimen) Comment: RIGHT SHOULDER JOINT FLUID. PLE [facility] PERFORM ORTHO 14 DAY EXTENDED CULTURE. THANKS. Resulting Agency Comment Spec In Lab Pao Mayo MD MICROBIOLOGY - GENERAL ORDER MALATHI Performing Organization Address City/[facility]/[place] [address] documented in this encounter Visit Diagnoses Diagnosis Status post total replacement of right s anna Postoperative anemia due to acute blood loss Acute posthemorrhagic anemia documented in this encounter Admitting Diagnoses Diagnosis Status [...] Discontinued, Routine carBAMazepine (TEGretol Brand Name) tablet Given 06/30/2018 2:40 PM EDT 200 mg 200 mg 200 mg, Oral, 3 TIMES DAILY, First dose (after last reorder) on Thu06/30/18 at 0900, Until Discontinued, Routine Given 06/30/2018 8:41 AM EDT 200 mg carBAMazepine (TEGretol) tablet 200 mg Given 06/29/2018 10:30 PM EDT 200 mg 200 mg, Oral, 3 TIMES DAILY, First dose on Thu06/29/18 at 2230, Until Discontinued, Routine ceFAZolin (ANCEF) 1g in dextrose 5% New Bag 06/30/2018 8:40 AM EDT 1 g 100 mL/hr 50mL 1 g, Intravenous, EVERY 8 HOURS, 3 doses, First dose on Thu06/29/18 at 1615, Last dose on Thu06/30/18 at 0815, Administer over 30 Minutes, Adjust to 4 hours from intraoperative dose. * Beta-lactam based antibiotics (eg. Ampicillin, Cefazolin, Aztreonam) should be administered within 4 hours of the preceding intraoperative dose. * Vancomycin, Flouroquinolones, Clindamycin, Gentamicin, and Metronidazole should be administered within 8 hours of the preceding intraoperative dose., Recovery (Recovery-Hospital Unit), Indication for (Active or Suspected): Prophylaxis New Bag 06/30/2018 3:30 AM EDT 1 g 100 mL/hr New Bag 06/29/2018 7:08 PM EDT 1 g 100 mL/hr DULoxetine (CYMBALTA) capsule 20 mg Given 06/30/2018 8:40 AM EDT 20 mg 20 mg, Oral, DAILY, First dose on Thu06/30/18 at 0900, Until Discontinued, Routine fentaNYL (PF) 50mcg/mL injection Given 06/29/2018 12:41 PM EDT 50 mcg 50 mcg, Intravenous, EVERY 5 MIN PRN, Starting on Thu06/29/18 at 1150, Until Thu06/29/18 at 1305, Pain, or prior to injection of local anesthetic., Hold for respiratory rate less than 8 breaths per minute. (maximum dose 200 mcg), Day of Surgery (Day of Procedure), Routine gabapentin (NEURONTIN) capsule 300 mg Given 06/30/2018 2:40 PM EDT 300 mg 300 mg, Oral, 3 TIMES DAILY, First dose on Thu06/29/18 at 1615, Until Discontinued, Routine Given 06/30/2018 8:40 AM EDT 300 mg Given 06/29/2018 10:01 PM EDT 300 mg HYDROmorphone (DILAUDID) injection 0.2-0 .4 mg Given 06/29/2018 6:06 PM EDT 0.2 mg 0.2-0.4 mg, Intravenous, EVERY 5 MIN PRN, Starting on Thu06/29/18 at 1548, Until Thu06/29/18 at 1933, Pain, Give 0.2 mg every 5 minutes PRN for mild to moderate pain (1-5) Give 0.4 mg every 5 minutes PRN for moderate to severe pain (6-10). Hold for respiratory rate less than 10 per minute. Maximum dose 4 mg over one hour. If multiple pain medications are ordered, start with hydromorphone or morphine and use fentanyl for breakthrough pain., PACU Recovery, Routine Given 06/29/2018 5:22 PM EDT 0.2 mg lactated Ringers infusion 1,000 New Bag 06/29/2018 12:15 PM ED T 1,000 mLs 100 mL/hr mL 1,000 mL, at 100 mL/hr, Intravenous, CONTINUOUS, Starting on Thu06/29/18 at 1215, Until Thu06/29/18 at 1933, Day of Surgery (Day of Procedure) lactobacillus with pectin 1 capsule 1 capsule, Oral, DAILY, First dose on Thu06/30/18 at 1 530, Until Discontinued, Routine midazolam (PF) (VERSED) 1 mg/mL injection 1 Given 06/03 12:41 PM EDT 1.5 mg mg 1 mg, Intravenous, EVERY 5 MIN PRN, Starting on Thu06/29/18 at 1150, Until Thu06/29/18 at 1305, Sleep, or prior to injection of local anesthetic, Hold for delirium/agitation. (Maximum dose 5 mg)., Day of Surgery (Day of Procedure), Routine ondansetron (ZOFRAN) injection 4 mg Given [...] (COMPLETED) 1908 (New Bag - Provider: Carmencita Gross RN)2100 (Stopped - Provider: Divine Presley RN) 0015 [...] hours from intraoperative dose. * Beta-lactam based 0910 (Stopped - Provider: Ana Alicea RN) antibiotics [...] (PERICOLACE) 8.6-50 mg per tablet 2 tablet 0 (Not Given - Provider: Divine Presley RN - Reason: See comment - Comment: Will start in AM) 0840 (Given - Provider: Ana Alicea RN) 2 tablet, Oral, 2 TIMES DAILY, First dos e on Thu06/29/18 at 2130, Until Discontinued, Routine sodium chloride 0.9 % flush 5 mL 2201 (Given - P rovider: Divine Presley RN) 0840 (Given - Provider: Ana Alicea RN) 5 mL, Intravenous, 2 TIMES DAILY, First [...] Routine HYDROmorphone (DILAUDID) injection 0.2-0.4 mg (CANCELED) 1722 (Given - Provider: Carmencita Gross RN)1806 (Given [...] immediate release tablet 10 mg(Linked Group 1) 1639 (Given - Provider: Carmencita Gross RN)2201 (Given - Provider: Divine Presley RN) 0326 (Given - Provider: Mariama Pizarro)0840 (Given - Provider: Ana Alicea, TAURUS)1316 (Given - Provider: Ana Alicea, TAURUS) 10 mg, Oral, EVERY 4 HOURS PRN, Starting Thu06/29/18 at 1549, Until Thu06/30/18 at 1746, Pain, moderate pain (4-6), For moderate pain (4-6). Do not exceed 15 mg in 4 hours. If pain not relieved, call provider., Routine oxyCODONE (ROXICODONE) immediate release tablet 15 mg(Linked Group 1) 1639 (See Alternative - Provider: Carmencita Gross RN)2200 (See Alternative - Provider: Divine Presley RN) 0326 (See Alternative - Provider: Divine Presley RN)0840 (See Alternative - Provider: Ana Alicea RN)1316 (See Alternative - Provider: Ana Alicea, TAURUS) 15 mg, Oral, EVERY 4 HOURS PRN, Starting 06/29/18 at 1549, Until Thu06/30/18 at 1746, Pain, severe pain (7-10), For severe pain (7-10). Do not exceed 15 mg in 4 hours. If pain not relieved, call provider., Routine oxyCODONE (ROXICODONE) immediate release tablet 5 mg(Linked Group 1) 1638 (See Alternative - Provider: Carmencita Gross RN)2200 (See Alternative - Provider: Divine Presley RN) 0326 (See Alternative - Provider: Divine Presley RN)0840 (See Alternative - Provider: Ana Alicea RN)1316 (See Alternative - Provider: Ana Alicea RN) 5 mg, Oral, EVERY 4 HOURS PRN, Starting 06/29/18 at 1549, Until Thu06/30/18 at 1746, Pain, [...]
Routine documented in this encounter Care Teams Garbage Depot Worker Relationship Specialty Start Date End Date Meg Fischer, EDUARDA PCP - General Family Medicine 06/17/18 02/20/[address] [place] [address] documented as of this encounter
--- OUTSIDE RECORDS SUMMARY | 2022-05-16 02:14 | XMS_ITS | Encounter Summary ---
:1950 Author Organization [facility] [place] [address] Care Team Providers Name Role Phone Holly Brandt MD Primary Care Provider Reason for Visit Reason Comments Skin Check Encounter Details Date Type Department Care Team Description 10/07/2012 Office Visit Dermatology Jean Mcqueen, Actinic keratosis (Primary D x); [address] [facility] Seborrheic keratosis [address] [place] [address] DERMATOLOGY [address] [place] [address] [phone] (Wo rk) Social History Tobacco Use Types Packs/Day Years Used Date Never Smoker Sex Assigned at Date Recorded Not on file documented as of this encounter Progress Notes Jean Mcqueen MD - 10/07/2012 11:49 AM EST Problems: 1. Facial lesions of concern. 2. Family history of skin cancer in mother and sister. Holly is a 52-year-old woman who is referred today by Dr. Brandt for evaluation of some lesions on her face. The patient states that she always tends to avoid the sun but has had a number of bad sunburns in the past. She has noted, particularly, lesions on the right cheek and on the mid bridge of the nose that have been somewhat red, roughened, and scaled and then peeled off. 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 She had bad acne as a teenager and tended to pick at her skin, she states. She denies any personal history of skin cancer but is concerned about these lesions because of the family history. I have seen the patient's brother, Wesley Thompson, for multiple hand warts. Also, the patient has tried triamcinolone cream to the right cheek site without benefit. Physical examination reveals a fair-skinned, blue-eyed woman who has a hyperkeratotic papule over the mid bridge of the nose. It is consistent with an actinic keratosis. She has three small, 1 x 1.5-cm, pigmented patches on her right cheek; one in the center over the malar cheek is slightly hyperkeratotic, consistent with a seborrheic keratosis versus actinic keratosis. Otherwise, the sun-exposed skin examination of the face, the ears, the neck, hands, arms, and forearms is benign. Assessment and Plan: Actinic keratoses, two sites. a. LN2 times two applied to sites after carefully discussing with the patient the treatment options, discussing the option of to treat or not to treat, and discussing LN2 benefits, side effects, etc. b. I recommended I see the patient again on a p.r.n. basis for new lesions/concerns. Copy: Holly Brandt M.D. documented in this encounter Plan of Treatment Not on filedocumented as of this encounter Visit Diagnoses Diagnosis Actinic keratosis - Primary Seborrheic keratosis Other seborrheic keratosis documented in this encounter Care Teams S[employer] Architect Relationship Specialty Start Date End Date Holly Brandt MD PCP - General 10/22/11 06/18/[address] [place] [address] documented as of this encounter
--- OUTSIDE RECORDS SUMMARY | 2022-05-16 02:14 | XMS_ITS | Encounter Summary ---
:1950 Author Organization [facility] [place] [place] [address] Care Team Providers Name Role Phone West Ayala MD Primary Care Provider Encounter Details Date Type Department Care Team Description 06/04/2018 Telephone Orthopaedics at [facility] Audrey Mayo MD [facility] [place] [address] ORTHOPAEDIC SURGERY [phone] [place], [place] [address] (Wo rk) Social History Tobacco Use Types Packs/Day Years Used Date Never Smoker Smokeless Tobacco: Never Used Alcohol Use Standard Drinks/Week Comments No 0 (1 standard drink = 0.6 oz pure alcoho l) Sex Assigned at Date Recorded Not on file documented as of this encounter Miscellaneous Notes Telephone Encounter - Audrey Mayo MD - 06/04/2018 4:22 PM EDT I called Holly Sanders to discuss the results of her labs, aspiration, and CT arthrogram. I calledher at the requested number, but she did not answer. I left her a message. Fortunately, there is no evidence of periprosthetic infection, but the CT arthrogram shows a full thickness rotator cuff tear involving at least the supraspinatus, and possibly also the infraspinatus tendons. Xrays also demonstrate significant joint space loss, indicating glenoid arthritis as well. Since her pain is quite severe and not tolerable, I would recommend revision to reverse total shoulder replacement, which would be able to address the pain from both her glenoid arthritis as well as the rotator cuff tear. If she calls back it is OK to let her know the findings and recommendation explained here. I am happy to callher back if she would like, or if she wants to go ahead and schedule the procedure, I will see her back in person prior to surgery to go over the details. documented in this encounter Plan of Treatment Not on filedocumented as of this encounter Visit Diagnoses Not on filedocumented in this encounter Care Teams Hoop Riveting Machine Operator Helper Relationship Specialty Start Date End Date West Ayala MD PCP - General General Internal Medicine 03/22/18 [address] [place] [address] [address] [place] [address] documented as of this encounter
--- OUTSIDE RECORDS SUMMARY | 2022-05-16 02:14 | XMS_ITS | Encounter Summary ---
:1950 Author Organization [facility] [address] Care Team Providers Name Role Phone Meg Fischer APRN Primary Care Provider Encounter Details Date Type Department Care Team Description 06/17/2018 Notes Only Orthopaedics at [facility] [place] [address] Social History Tobacco Use Types Packs/Day Years Used Date Never Smoker Smokeless Tobacco: Never Used Alcohol Use Standard Drinks/Week Comments No 0 (1 standard drink = 0.6 oz pure alcoho l) Sex Assigned at Date Recorded Not on file documented as of this encounter Progress Notes Jodie Liu - 06/17/2018 3:00 PM EDT Office of Care Management Initial [...] discharge plans for a TSA revision at [facility] as outlined by the outpatient ortho clinic team. She had the original right shoulder replaced in 2015 in [place], [place]. Current Functional Ability: Functional Status Prior [...] discussed the purpose and services provided by [facility]. If patient opts to go to outpatient [...] that they will be working with a healthcare administration internship after surgery to facilitatethe discharge plan. I encouraged the patient to call with any questions or concerns prior to the surgery as well as when they discharge home. Health/Prescription Coverage: Primary Insurance: MEDICARE Secondary Insurance: MEDICAID [place] Prescription Coverage: Yes Preferred Pharmacy: [phone] [place], [place] - [address] [facility] ? [address] [facility] [phone] ? Not a 24 hour pharmacy; exact hours not known Other: None Primary Care Provider: West Ayala MD [phone] Patient/Caregiver Goals of Treatment: She wants to drive and work in her garden. Potential Needs for Transition of Care: Rehab/SNF: No selection Home Health: No preference OP PT: James Friend in [facility] DME: None needed Dialysis: No Community [...] transition of care planning. Jodie Liu Pager: [phone] documented in this encounter Plan of Treatment Not on filedocumented as of this encounter Visit Diagnoses Not on filedocumented in this encounter Care Teams Stiff Leg Operator Relationship Specialty Start Date End Date Meg Fischer APRN PCP - General Family Medicine 06/17/18 02/20/[address] [place] [address] documented as of this encounter
--- OUTSIDE RECORDS SUMMARY | 2022-05-16 02:14 | XMS_ITS | Encounter Summary ---
:1950 Author Organization [facility] [place] [address] Care Team Providers Name Role Phone Vicenta Wild APRN Primary Care Provider Reason for Visit Reason Onset Date Comments Other 06/20/2016 Encounter Details Date Type Department Care Team Description 06/20/2016 Telephone Rheumatology at [facility] Ira Hampton, [place] [address] Social History Tobacco Use Types Packs/Day Years Used Date Never Smoker Sex Assigned at Date Recorded Not on file documented as of this encounter Miscellaneous Notes Telephone Encounter - Ira Hampton RN - 06/20/2016 12:50 PM EDT I would like start with this and see her response over the next 1 week. if prednisone works I will write another refill. If not may have to consider alternative therapy like medrol. Jaycee RTC to Holly and was not able to leave a message, there was no answer. Telephone Encounter - Ira Hampton RN - 06/20/2016 9:40 AM EDT Holly calls today to report that she was not prescribed enough Prednisone to complete taper given byDr. Franks. documented in this encounter Plan of Treatment Not on filedocumented as of this encounter Visit Diagnoses Not on filedocumented in this encounter Care Teams Gospel Singer Relationship Specialty Start Date End Date Vicenta Wild APRN PCP - General Family Medicine 06/19/16 03/21/18 documented as of this encounter
--- OUTSIDE RECORDS SUMMARY | 2022-05-16 02:14 | XMS_ITS | Encounter Summary ---
:1950 Author Organization [facility] [place] [address] Care Team Providers Name Role Phone Meg Fischer APRN Primary Care Provider Encounter Details Date Type Department Care Team Description 06/28/2018 Telephone Orthopaedics at [facility] Alexsandra Yeh, [place] [address] Social History Tobacco Use Types Packs/Day Years Used Date Never Smoker Smokeless Tobacco: Never Used Alcohol Use Standard Drinks/Week Comments No 0 (1 standard drink = 0.6 oz pure alcoho l) Sex Assigned at Date Recorded Not on file documented as of this encounter Miscellaneous Notes Telephone Encounter - Alexsandra Yeh RN - 06/28/2018 2:21 PM EDT Patient called to speak to Kanwal Zimmer about VNA services after her surgery. I informed patient that Kanwal has moved on to other endeavors but that I could get her message to the on-call account executive healthcare. Holly states she would like VNA services after her RT TSR procedure scheduled for tomorrow. documented in this encounter Plan of Treatment Not on filedocumented as of this encounter Visit Diagnoses Not on filedocumented in this encounter Care Teams Meteorologist Liaison Relationship Specialty Start Date End Date Meg Fischer APRN PCP - General Family Medicine 06/17/18 02/20/[address] [place] [address] (work) documented as of this encounter
--- OUTSIDE RECORDS SUMMARY | 2022-05-16 02:14 | XMS_ITS | Encounter Summary ---
:1950 Author Organization [facility] [place] [address] Care Team Providers Name Role Phone Vicenta Donohue APRN Primary Care Provider Reason for Visit Reason Comments Referral Consultation (Routine) - Specialty Diagnoses / Procedures Referred By Contact Refer red To Contact Rheumatology Diagnoses joint pain/MRI suggest/abnormal lab work Javier Gilmore MD [facility] [address] [place] [id number] Referral ID Status Reason Start Date Expiration Date Visits V isits Requested Authorized [id number] Evaluate and 06/17/2016 06/17/2017 1 1 Treat Connection [facility] Encounter Details Date Type Department Care Team Description 06/19/2016 Office Visit Rheumatology at [facility] Shi Hanks, [facility] [place] [address] Chronic right shoulder pain; [facility] Jaycee Franks MD [facility] [place] [address] Hand joint pain, unspecified laterality; Drive Foot pain, [place] [address] Social History Tobacco Use Types Packs/Day Years Used Date Never Smoker Sex Assigned at Date Recorded Not on file documented as of this encounter Last Filed Vital Signs Vital Sign Reading Time Taken Comments Blood Pressure 132/73 06/19/2016 2:50 PM EDT Pulse 86 06/19/2016 2:50 PM EDT Temperature 37 ??C (98.6 ??F) 06/19/2016 2:50 PM EDT Respiratory Rate - - Oxygen Saturation 99% 06/19/2016 2:50 PM EDT Inhaled Oxygen Concentration - - Weight 76.2 kg (168 lb) 06/19/2016 2:50 PM EDT Height 154.3 cm (5' 0.75) 06/19/2016 2:50 PM EDT Body Mass Index 32.01 06/19/2016 2:50 PM EDT documented in this encounter Progress Notes Jaycee Franks - 06/19/2016 3:00 PM EDT Rheumatology Outpatient Consultation Note Reason for Consult: The patient is seen for evaluation and treatment of Rt shoulder pain History of Present Illness: Holly Sanders is a 66 y.o. female PMH of seizure disorder, HTN, OA s/p Rt knee TKA 11/2015 presentsfor evaluation of Rt shoulder pain that started 2-3 yrs ago and has worsened since 11/2015. She has seen Ortho at [facility] (Dr. Morillo) and has has 2-3 cortisone injections per year in Rt shoulder over the last 2 yrs. Reports pain has progressively worsened and her last cortisone injection did not help. Now has pain radiating to neck and Lt shoulder. Rt shoulder pain associate with numbness and tinging in shoulder and radiates down to Rt elbow. Known OA in cervical spine - only x-rays no prior neck MRI's. Undergoing PT in Rt shoulder since 05/02/16. Started Ibuprofen 800 mg BID and Tylenol +headaches associated with neck pain and stiffness No sudden change in vision No jaw claudication - pain over TMJ Denies pain in hip. Morning stiffness limited to Rt shoulder Other joints- base of Lt thumb and toes in Rt foot. 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 [...] ??? tolterodine (DETROL) 2 mg Tablet ??? tiZANidine (ZANAFLEX) 4 mg Tablet ??? clotrimazole-betamethasone (LOTRISONE) 1-0.05 % Cream ??? MAGNESIUM ORAL ??? amitriptyline (ELAVIL) 10 mg tablet ??? calcium-vitamin D (CALCIUM-VITAMIN D) 500 mg(1,250mg) -200 unit per tablet ??? FLAXSEED ORAL ??? GLUC PAULA DIPO CH/TOM PAULA/C/DEMETRA (GLUCOSAM PAULA [id number] ORAL) ??? MULTI-VITAMIN ORAL ??? CIS Free Text Med - Compazine ??? carBAMazepine (TEGRETOL) 200 mg tablet ??? ibuprofen (ADVIL;MOTRIN) 800 mg tablet ??? hydrochlorothiazide (HYDRODIURIL) 25 mg tablet ??? fluticasone (FLONASE) 50 mcg/Actuation nasal spray ??? triamcinolone (KENALOG) 0.1 % cream ??? cyclobenzaprine (FLEXERIL) 5 mg tablet ??? fluorometholone (FML) 0.1 % Drops, Suspension ??? leveTIRAcetam (KEPPRA) 500 mg tablet Family Hx: F: at 61 h/o cardiac disease M: at 89 Siblings: 4 healthy (-)RA, (-)lupus, (-)scleroderma, (-)sjogren's, (-)gout, (-)psoriasis Social Hx: . Lives with 44 yo daughter who has mental retardation. Son 41 yrs. (-)Smoking, (-)EtOH, (-)drugs Physical Examination: BP 132/73 Pulse 86 Temp 37 ??C (98.6 ??F) (Oral) Ht 154.3 cm (5' 0.75) Wt 76.2 kg (168 lb) SpO2 99%BMI 32.01 kg/m2 Gen: Patient is alert and oriented x 3, in no distress Skin: warm and dry, no rheumatologic rashes Nails: no pitting HEENT: Temporal arteries are palpable and non-tender Eyes: normal sclerae Mouth: moist mucous membranes, no oral ulcers Lymph: no cervical or submandibular adenopathy Heart: regular rate, no murmurs, rubs or gallops Lungs: clear to auscultation b/l Extremities Shoulders: Right FROM, non-tender to palpation, +cross arm test but negative hair and empty can Elbows:FROM, (-)pain, (-)nodules Wrists: [...] of rheumatoid arthritis. Partial tearof supraspinatus tendon. Impression: Holly Sanders is a 66 y.o. female PMH of seizure disorder, HTN, OA s/p Rt knee TKA 11/2015 presentsfor evaluation of Rt shoulder pain. today she has good ROM in Rt shoulder but is on NSAIDs. She was found to have a large effusion as well as synovial thickening in Rt shoulder on MRI with elevated inflammatory markers. RF and CCP are negative and she could have seronegative RA. I will repeat RF and CCP again today and start oral prednisone. Another differential could be PMR but symptoms will be atypical without hip involvement. If she has rapid repose to prednisone PMR will be a possibility. Seronegative RA vs PMR Recommendations: - check ESR, CRP, CCP and RF - ordered hand and feet x-rays - start Prednisone 15 mg x 2 week, then prednisone 10 mg x daily till next f/u - depending on response will consider RA or PMR and taper accordingly. - if RA will discuss adding DMARD at next visit. F/u in 3 weeks Patient seen and discussed with attending. CC: VICENTA DONOHUE APRN Shi Hanks DO - 06/19/2016 3:00 PM EDT ATTENDING ADDENDUM The patient's history was reviewed, and I interviewed and examined the patient with Dr. Franks. I agree with her summary, findings, and plan. documented in this encounter Plan of Treatment Not on filedocumented as of this encounter Procedures Procedure Name Priority Date/Time Associated Comments Diagnosis ANTI-CYCLIC Routine 06/19/2016 5:26 PM Chronic right Results for this CITRULLINATED PEPTIDE EDT shoulder p ain procedure are in AB Hand joint pain, the results unspecified section. laterality SEDIMENTATION RATE Routine 06/19/2016 5:26 PM Chronic right Re sults for this EDT shoulder pain procedure are in Hand joint pain, the results unspecified section. laterality RHEUMATOID FACTOR, Routine 06/19/2016 5:26 PM Chronic right Re sults for this QUANT EDT shoulder pain procedure are in Hand joint pain, the results unspecified section. laterality CRP, CARDIAC RISK (HS Routine 06/19/2016 5:26 PM Chronic right Results for this CRP) EDT shoulder pain procedure are in Hand joint pain, the results unspecified section. laterality documented in this encounter Results Rheumatoid factor, quant (06/19/2016 5:26 PM EDT) athologist Signature RF <10 <=14 IU/mL [facility] Specimen Anatomical Collection Method Collection Time Receive d Time (Source) Location / / Volume Laterality Blood specimen 06/19/2016 5:26 PM 016 5:32 (specimen) EDT PM EDT Resulting Agency Comment Spec In Lab Shi Hanks DO IMMUNOLOGY ORDERABLES Performing Organization Address City/[facility]/ZIP Code Phon e Number [address] Cyclic Citrullinated Peptide (06/19/2016 5:26 PM EDT) athologist Signature Anti-Cyc Cit <8.0 <=17.0 [facility] Peptide unit/mL [facility] Specimen Anatomical Collection Method Collection Time Receive d Time (Source) Location / / Volume Laterality Blood specimen 06/19/2016 5:26 PM 016 5:32 (specimen) EDT PM EDT Resulting Agency Comment Spec In Lab hSi Hanks DO CHEMISTRY ORDERABLES Performing Organization Address City/[facility]/ZIP Code Phon e Number [address] High Sensitivity CRP (06/19/2016 5:26 PM EDT) athologist Signature CRP High Sens 33.5 mg/L [facility] Comment: rechecked by kb Interpretations: 1) For accurate cardiac risk assessment, [...] from the test package insert) References: 1. Colunga TA et. al. ??AHA/CDC Scientif ic Statement: Markers of Inflammation and Cardiovascular Disease. ??Circulatio n 2003; 107:499-511 2. Ridker PM. ??Clinical applications of C-reactive protein for cardiovascular disease detection and prevention. ??Circ ulation 2003; 107:363-369 Specimen Anatomical Collection Method Collection Time Receive d Time (Source) Location / / Volume Laterality Blood specimen 06/19/2016 5:26 PM 016 5:32 (specimen) EDT PM EDT Resulting Agency Comment Spec In Lab Shi Hanks DO CHEMISTRY ORDERABLES Performing Organization Address City/State/[place] [address] (ABNORMAL) Sedimentation rate (06/19/2016 5:26 PM EDT) P athologist Signature Sed Rate 41 (H) 0 - 20 [facility] mm/hr [facility] Specimen Anatomical Collection Method Collection Time Receive d Time (Source) Location / / Volume Laterality Blood specimen 06/19/2016 5:26 PM 016 5:32 (specimen) EDT PM EDT Resulting Agency Comment Spec In Lab Shi Hanks DO HEMATOLOGY ORDERABLES Performing Organization Address City/State/[place] [address] XR Bilateral Hands Minimum 3 Views (06/19/2016 [...] erosive form of osteoarthritis. Shi Hanks DO IM DX ORDERABLES XR Feet Bilateral Minimum 3 Views (06/19/2016 [...] identified. IMPRESSION No erosions are identified. Shi Hanks DO IMG DX ORDERABLES documented in this encounter Visit Diagnoses Diagnosis Chronic right shoulder pain Pain in joint, shoulder region Hand joint pain, unspecified laterality Foot pain, right Pain in limb Foot pain, right Pain in limb Hand joint pain, unspecified laterality documented in this encounter Care Teams Construction Sales Representative Relationship Specialty Start Date End Date Vicenta Donohue APRN PCP - General Family Medicine 06/19/16 03/21/18 documented as of this encounter
--- OUTSIDE RECORDS SUMMARY | 2022-05-16 02:16 | XMS_ITS | Encounter Summary ---
:1950 Author Organization [facility] Address [address] [place] [address] Care Team Providers Name Role Phone Unknown, Provider Primary Care Provider Encounter Details Date Type Department Care Team Description 10/30/2021 Lab Requisition [facility] Outr Resulting Lab, Pathology & Laboratory Provider [facility] [address], [place] [address] Social History Tobacco Use Types Packs/Day Years Used Date Never Assessed Sex Assigned at Date Recorded Not on file documented as of this encounter Plan of Treatment Not on filedocumented as of this encounter Procedures Procedure Name Priority Date/Time Associated Diagnosis Comme nts COVID-19 TEST [facility] Today 10/29/2021 13:40 LAB PCR EST COVID-19 TESTING Routine 10/29/2021 13:40 Results for this EST procedure are i n the results section. documented in this encounter Results COVID-19 TEST [facility] LAB PCR (10/29/2021 13:40 EST) Specimen Swab Performing Organization Address City/State/ZIP Code Phon e Number [facility] [address] [place] [address] SERVICES COVID-19 TESTING (10/29/2021 13:40 EST) COVID-19 rt-PCR Negative Negative [facility] Result Comment: CENTER LABORATORY This test has not been FDA c leared or approved. This test has been authorized by FDA under an EUA for use by authorized laboratories. This test has been authorized only for detection of nucleic acid fro SERVICES m 2019-nCoV, not for any oth er viruses or pathogens. This test is only authorized for the duration of the declaration that circumstances exist justifying the authorization of emergency use of in vitro d iagnostic tests for detectio n and/or diagnosis of 2019-nCoV under section 564(b)(1) of Act, 21 U.S.C ?? 360bbb-3(b) (1), unless the authorization is terminated or revoked sooner. Negative results do not prec lude 2019-nCoV infection and should not be used as the sole basis for treatment or other patient management decisions. Negative results must be combined with clinical observa tions, patient history, and epidemiological informatio n. Testing was performed using the neptali SARS-CoV-2 assay ([employer] on the Neptali 6800 System Performing Lab Neptali [address] [facility] Lab [facility] SERVICES Specimen Swab Performing Organization Address City/State/ZIP Code Phon e Number [facility] [address] [place] [address] SERVICES documented in this encounter Visit Diagnoses Not on filedocumented in this encounter Care Teams Fashion Consultant Sales Relationship Specialty Start Date End Date Unknown, Provider, PCP - General 09/18/16 documented as of this encounter
--- OUTSIDE RECORDS SUMMARY | 2022-05-16 02:16 | XMS_ITS | Encounter Summary ---
:1950 Author Organization [facility] Address [address] [place] [address] Care Team Providers Name Role Phone Unavailable Primary Care Provider Unavailable Encounter Details Date Type Department Care Team Description 05/22/2009 Orders Only [facility] Sarthak Brandt MD Laboratory Services - [address] [place] [address] [address] [facility] [place] [address] [phone] Social History Tobacco Use Types Packs/Day Years Used Date Never Assessed Sex Assigned at Date Recorded Not on file documented as of this encounter Plan of Treatment Not on filedocumented as of this encounter Procedures Procedure Name Priority Date/Time Associated Comments Diagnosis HPV DETECTION, HIGH Routine 05/22/2009 10:20 Resu lts for this RISK TYPES EDT procedure are i n the results section. CYTOPATHOLOGY Routine 05/22/2009 0:00 Results for this EDT procedure are i n the results section. documented in this encounter Results HUMAN PAPILLOMA VIRUS DNA TEST (05/22/2009 10:20 EDT) Specimen Description Cervix, ThinPrep [facility] vial Result Negative for HPV [facility] types 16, 18, 31, 33, 35, 39, 45, 51, 52, 56, 58, 59, and 68. Report Status Final [facility] 05/31/2009 Specimen Performing Organization Address City/State/ZIP Code Phon e Number [facility] [address] [place] [address] SERVICES [facility] [address] [place] [address] CYTOPATHOLOGY (05/22/2009 0:00 EDT) Pathology Report: CYTOPATHOLOGY REPORT ? [facility] ? LAB Reports generated via electr Plain Vanillaic interface contain original data; ? however they are lacking the format of the original report. ? Caution should be taken when reading/interpreting unformatted reports. ? Name: ? HOLLY SANDERS ? Accession #: ? [id number] ? : ? 1950 (Age: 59) ??F ?Collect Date: ? 05/22/2009 ? Location: ? [facility] ? Receive Date: ? 05/23/2009 ? Provider: ?HOLLY ZUNIGA MAN MD ? Copy to: ? Specimen/Source: ? Pap Test, Cervix/Endocervix, ThinPrep Imaging System ? with manual evaluation ? Last Menstrual Period: ? Menstrual/ Status: ? Post Menopausal ? Other: ? HPVDX - HPV testing requeste d regardless of diagnosis on current ThinPrep Pap ?? test. ? SPECIMEN ADEQUACY ? Satisfactory for Eval uation ? - transformation zone compon ent present ? GENERAL CATEGORIZATION ? Negative for Intraepi thelial Lesion or Malignancy ? Document reviewed and electr onically signed by: ? Ryann [place], [place]( CP) ? Report Date: ??07/23/ 2009 12:55 ? End of Report ? Specimen Performing Organization Address City/State/ZIP Code Phon e Number [facility] [address] [place] [address] SERVICES [facility] [address] [place] [address] documented in this encounter Visit Diagnoses Not on filedocumented in this encounter
--- OUTSIDE RECORDS SUMMARY | 2022-05-16 02:16 | XMS_ITS | Encounter Summary ---
:1950 Author Organization Health system Address [address] [place] [address] Care Team Providers Name Role Phone Unknown, Provider Primary Care Provider Encounter Details Date Type Department Care Team Description 05/15/2017 Historical Results [facility] Zepeda ne Only [facility] [place] MD Odell Results [address] [facility] [address] [facility] [address] [place] [address] [place], [place] [phone] (Wo rk) Social History Tobacco Use Types Packs/Day Years Used Date Never Assessed Sex Assigned at Date Recorded Not on file documented as of this encounter Plan of Treatment Not on filedocumented as of this encounter Procedures Procedure Name Priority Date/Time Associated Diagnosis Comme nts XR LUMBAR SPINE 2-3 05/15/2017 14:41 Resu lts for this VIEWS EDT procedure are i n the results section. documented in this encounter Results XR LUMBAR SPINE 2-3 VIEWS (05/15/2017 14:41 EDT) Specimen Narrative [facility] - 05/15/2017 14:44 EDT ? EXAM: RADIOLOGY/LUMBAR SPINE 2 OR 3 VIEWS EX. D/ (1244) ? CLINICAL INFORMATION: ? M54.41 LUMBAGO W/ SCIATICA RIGHT SIDE, ? KYPHOSIS, ELEVATED ESR, ? ARTHRIT IS, ? SI CHANGE ? LUMBAR SPINE 2 OR 3 VIEWS ? Signs and Symptoms/Comments: M54. 41 LUMBAGO W/ SCIATICA RIGHT SIDE: ? KYPHOSIS, ELEVATED ESR, ? ARTHRIT IS, ? SI CHANGE ? Comparison: None ? FINDINGS: ? Lumbar Spine: Upright AP and late ral views were performed. There are ? 5 lumbar type vertebral bodies. M ild-moderate dextroscoliosis is ? centered at the thoracolumbar ching ction. There is degenerative grade 1 ? anterolisthesis of L4 on L5, as w ell as slight retrolisthesis of L1 ? on L2 and L2 on L3. No acute frac ture is identified. Moderate ? multilevel degenerative disc dise ase and advanced lower lumbar facet ? arthrosis are present. Mild scler otic changes are present along the ? sacroiliac joints. Scattered athe rosclerotic calcifications are ? present. A small rounded calcific ation in the deep pelvis is likely ? phlebolith. ? IMPRESSION: ? 1. ??Moderate multilevel lumbar d egenerative disc disease and advanced ? lower lumbar facet arthrosis. ? 2. ??Mild sclerotic changes along the sacroiliac joints, raising the ? possibility of sacroiliitis. Cons ider SI joint protocol MR pelvis for ? further evaluation. ? 3. ??Mild-moderate thoracolumbar dextroscoliosis. ? 4. ??Multilevel lumbar degenerati ve grade 1 spondylolisthesis. ? REPORT SIGNED IN OTHER VENDOR SYSTEM 05/15/2017 ?Reported B y: Chavo Arellano MD ? CC: Javier Gilmore ? Transcribed Date/Time: 05/15/2017 (1444) ? Tub Operator: ? Printed Date/Time: 04/18/2019 (13 17) ? PAGE 1 ? Camelia d Report ? Procedure Note Chavo Arellano MD - 09/07/2019 EXAM: RADIOLOGY/LUMBAR SPINE 2 OR 3 VIE WS EX. D/ (1244) CLINICAL INFORMATION: M54.41 LUMBAGO W/ SCIATICA RIGHT SIDE, KYPHOSIS, ELEVATED ESR, ? ARTHRITIS, ? SI CHANGE LUMBAR SPINE 2 OR 3 VIEWS Signs and Symptoms/Comments: M54.41 LUM BAGO W/ SCIATICA RIGHT SIDE: KYPHOSIS, ELEVATED ESR, ? ARTHRITIS, ? SI CHANGE Comparison: None FINDINGS: Lumbar Spine: Upright AP and lateral vi ews were performed. There are 5 lumbar type vertebral bodies. Mild-mo derate dextroscoliosis is centered at the thoracolumbar junction. There is degenerative grade 1 anterolisthesis of L4 on L5, as well as slight retrolisthesis of L1 on L2 and L2 on L3. No acute fracture i s identified. Moderate multilevel degenerative disc disease an d advanced lower lumbar facet arthrosis are present. Mild sclerotic c hanges are present along the sacroiliac joints. Scattered atheroscle rotic calcifications are present. A small rounded calcification in the deep pelvis is likely phlebolith. IMPRESSION: 1. Moderate multilevel lumbar degenerat francisco disc disease and advanced lower lumbar facet arthrosis. 2. Mild sclerotic changes along the sac roiliac joints, raising the possibility of sacroiliitis. Consider S I joint protocol MR pelvis for further evaluation. 3. Mild-moderate thoracolumbar dextrosc oliosis. 4. Multilevel lumbar degenerative grade 1 spondylolisthesis. REPORT SIGNED IN OTHER VENDOR SYSTEM 05/15/2017 Reported By: Chavo Arellano MD CC: Javier Gilmore Transcribed Date/Time: 05/15/2017 (3808 ) Tub Operator: Printed Date/Time: 04/18/2019 (4528) PAGE 1 Signed Report Performing Organization Address City/State/ZIP Code Phon e Number [facility] documented in this encounter Visit Diagnoses Not on filedocumented in this encounter Care Teams Legal Assistant Relationship Specialty Start Date End Date Unknown, Provider, PCP - General 09/18/16 documented as of this encounter
--- OUTSIDE RECORDS SUMMARY | 2022-05-16 02:16 | XMS_ITS | Encounter Summary ---
:1950 Author Organization [facility] Address [address] [place] [address] Care Team Providers Name Role Phone Unavailable Primary Care Provider Unavailable Encounter Details Date Type Department Care Team Description 03/04/2007 Results Only [facility] - Holly Loera MD [address] [place] [address] [place], [place] [id number] [phone] Social History Tobacco Use Types Packs/Day Years Used Date Never Assessed Sex Assigned at Date Recorded Not on file documented as of this encounter Plan of Treatment Not on filedocumented as of this encounter Procedures Procedure Name Priority Date/Time Associated Diagnosis Comme nts CYTOPATHOLOGY Routine 03/04/2007 0:00 EDT Results for this procedure are i n the results section . documented in this encounter Results CYTOPATHOLOGY (03/04/2007 0:00 EDT) Pathology Report: CYTOPATHOLOGY REPORT [facility] Reports generated via electronic interface contain marisa ginal data; however they are lacking the format of the original re port. Caution should be taken when reading/interpreting unfo rmatted reports. Name: ? HOLLY SANDERS ? Accession #: ? [id number] : ? 1950 (Age: 56) ??F ?Collect Date: ? 05/0 12/2006 Location: ? [facility] ? Receive Date : ? 03/08/2007 Provider: ?HOLLY GONZALEZ MD Copy to: ? Specimen/Source: ? ThinPrep Pap Test, Cervix/Endocervix, processed on [employer] ThinPrep Imaging System, with manual evaluation Last Menstrual Period: ? Menstrual/ Status: ? Post Menopausal Other: ? HPVA - HPV testing requested if ASC-US on the current ThinPrep Pap test. ? SPECIMEN ADEQUACY ? Satisfactory for Evaluation - transformation zone component present GENERAL CATEGORIZATION ? Negative for Intraepithelial Lesion or Malignan cy ? Document reviewed and electronically signed by: ? Holly Hogan, CHERELLE(ASCP) ? Report Date: ??03/10/2007 10:38 End of Report Specimen Performing Organization Address City/State/ZIP Code Phon e Number [facility] [address] [place] [address] SERVICES [facility] [address] [place] [address] documented in this encounter Visit Diagnoses Not on filedocumented in this encounter
--- OUTSIDE RECORDS SUMMARY | 2022-05-16 02:16 | XMS_ITS | Clinical Summary ---
:1950 Author Organization [facility] Address [address] [place] [address] Care Team Providers Name Role Phone Unknown, Provider Primary Care Provider Social History Tobacco Use Types Packs/Day Years Used Date Never Assessed Sex Assigned at Date Recorded Not on file Plan of Treatment Health Maintenance Due Date Last Done Comments Fall Risk Screening 2014 Care Teams Extrusion Die Repairer Relationship Specialty Start Date End Date Unknown, Provider, PCP - General 09/18/16
--- OUTSIDE RECORDS SUMMARY | 2022-05-16 02:16 | XMS_ITS | Encounter Summary ---
:1950 Author Organization [facility] Address [address] [place] [address] Care Team Providers Name Role Phone Unknown, Provider Primary Care Provider Encounter Details Date Type Department Care Team Description 06/29/2021 Lab Requisition [facility] Outr Resulting Lab, Pathology & Laboratory Provider [facility] [address], [place] [address] Social History Tobacco Use Types Packs/Day Years Used Date Never Assessed Sex Assigned at Date Recorded Not on file documented as of this encounter Plan of Treatment Not on filedocumented as of this encounter Procedures Procedure Name Priority Date/Time Associated Diagnosis Comme nts COVID-19 TEST [facility] Today 06/28/2021 11:20 LAB PCR EDT COVID-19 TESTING Routine 06/28/2021 11:20 Results for this EDT procedure are i n the results section. documented in this encounter Results COVID-19 TEST [facility] LAB PCR (06/28/2021 11:20 EDT) Specimen Swab - Entire nasopharynx (body structur e) Performing Organization Address City/State/ZIP Code Phon e Number [facility] [address] [place] [address] SERVICES COVID-19 TESTING (06/28/2021 11:20 EDT) COVID-19 rt-PCR Negative Negative [facility] MEDICAL Result Comment: CENTER LABORATORY This [...] was performed using the neptali SARS-CoV-2 assay ([employer] on the Neptali 6800 System Performing Lab Neptali [address] [facility] Lab [facility] SERVICES Specimen Swab Performing Organization Address City/State/ZIP Code Phon e Number [facility] [address] [place] [address] SERVICES documented in this encounter Visit Diagnoses Not on filedocumented in this encounter Care Teams Hot Man Relationship Specialty Start Date End Date Unknown, Provider, PCP - General 09/18/16 documented as of this encounter
--- OUTSIDE RECORDS SUMMARY | 2022-05-16 02:16 | XMS_ITS | Encounter Summary ---
:1950 Author Organization [facility] Address [address] [place] [address] Care Team Providers Name Role Phone Unknown, Provider Primary Care Provider Encounter Details Date Type Department Care Team Description 05/15/2017 Hospital Encounter [facility] - Unknown, Adrien del rosario [facility] [phone] [address] [facility] (Work) [place] [address] Social History Tobacco Use Types Packs/Day Years Used Date Never Assessed Sex Assigned at Date Recorded Not on file documented as of this encounter Discharge Disposition Disposition Code Departure Means Destination Home or Self [facility] documented in this encounter Plan of Treatment Not on filedocumented as of this encounter Visit Diagnoses Not on filedocumented in this encounter Care Teams Maintenance Planner Relationship Specialty Start Date End Date Unknown, Provider, PCP - General 09/18/16 documented as of this encounter
--- OUTSIDE RECORDS SUMMARY | 2022-05-16 02:16 | XMS_ITS | Encounter Summary ---
:1950 Author Organization [facility] Address [address] [place] [address] Care Team Providers Name Role Phone Unknown, Provider Primary Care Provider Encounter Details Date Type Department Care Team Description 09/17/2016 Results Only [facility]- Javier Smiley MD [phone] [facility] [place] [address] (Wo rk) Social History Tobacco Use Types Packs/Day Years Used Date Never Assessed Sex Assigned at Date Recorded Not on file documented as of this encounter Plan of Treatment Not on filedocumented as of this encounter Procedures Procedure Name Priority Date/Time Associated Diagnosis Comme [facility] SURGICAL PATHOLOGY Routine 09/17/2016 11:15 Resul ts for this EST procedure are i n the results section. documented in this encounter Results SURGICAL PATHOLOGY (09/17/2016 11:15 EST) Pathology SURGICAL PATHOLOGY REPORT [facility] MEDICAL Report: Reports generated via electronic interface conta in original data; CENTER however they are lacking the format of the original re port. LABORATORY Caution should be taken when reading/interpretin g unformatted reports. SERVICES Name: ? HOLLY SANDERS ? Accession #: ? [id number] ? : ? 1950 (Age: 66 ) ??F ? Collect Date: ? 09/17/2016 ? Location: ? [facility] ? Receive Date: ? 016 ? Provider: JAVIER MURRY MD Copy to: DINESH DONOHUE SOFTWARE PROGRAM MANAGER ? Final Pathologic Diagnosis: SOFT TISSUE, SHOULDER, RIGHT, BIOPSY: - Acute synovitis with fibrinousinflammatory coagulum. - Chronic periarthritis. - No definitive histologic features of rheumatoid arth ritis. - Chondro-osseous tissue with remodeling changes. Document reviewed and electronically signed by: Romain Le MD Report ??Date: 09/23/2016 17:15 By the signature above, the attending physician certif ies that he/she has personally conducted a gross and/or microscopic examin ation of the described specimens and rendered or confirmed the above diagnosi s. Specimen(s) Received: R shoulder Clinical History: Inflammatory arthritis R kely ulder; elevated sed rate and CRP; rheumatoid factor (-); ?rheumatoid arthritis; specimen is synovial cyst full of joint fluid and osteophytes; culture and sensitivity (-) Gross Description: ? Received in formalin labelled with proper patient identification (initials S, S) and synovium right sh oulder are three howell-white fibrous unoriented soft tissues (ranging from 1.3 x 0.9 x 0.5 cm to 4.4 x 2.0 x 0.8 cm). Also received are two ross-white to howell po rtion of trabecular bone fragments (ranging from 0.7 x 0.5 x 0.3 cm to 1.0 x 0.5 x 0.4 cm). No definitive n odules are present. Dot Net Architect sections are submitted as follows: BLOCK BLANCO 1- ??largest tissue 2- ??smaller tissue fragments 3- ??bone fragments submitted following acid decalcifi cation QUIQUE Perez (ASCP) 09/18/2016 4:43 PM End of Report Specimen Performing Organization Address City/State/ZIP Code Phon e Number [facility] [address] [place] [address] SERVICES documented in this encounter Visit Diagnoses Not on filedocumented in this encounter Care Teams Audio Visual Tech Relationship Specialty Start Date End Date Unknown, Provider, PCP - General 09/18/16 documented as of this encounter
[2022-05-16 14:59] LABS: BUN 12 mg/dL (7-18); CREATININE 0.8 mg/dL (0.55-1.02); Calcium 9.4 mg/dL (8.5-10.1); Chloride 102 mmol/L (98-107); Glucose 117 mg/dL (74-106); Potassium 3.7 mmol/L (3.5-5.1); Sodium 139 mmol/L (136-145)
== END 2022-05-16 02:06 | disposition home or self-care (01) ==
LOC: LBO 02:05
PROVIDERS: PCP Nurse Practitioner; Visit Provider Nurse Practitioner
DX: D64.9 Anemia, unspecified (principal); E87.1 Hypo-osmolality and hyponatremia; R42 Dizziness and giddiness
CPT/HCPCS: 36415; 80048

== ENCOUNTER 2022-05-17 15:27 | Emergency (ER) | payer MEDICARE, SELFPAY ==
[2022-05-17 15:34] VITALS: BP 109/67; PULSE 87; RESP 16; TEMP 37.2; O2SAT 100
--- NOTE | 2022-05-17 16:20 | W.ED.GENAD ---
Discharge Plan Disposition Patient Disposition: HOME Condition: Stable Discharge Details Clinical Impression: Chronic dermatitis, Acute vesicular dermatitis Primary Care Provider: Rachel Horne ED Provider: Keron Shields Home Meds and New Rx's Prescriptions: New prednisone 20 mg tablet 20 mg PO DAILY Qty: 4 0RF Continued loratadine 10 mg tablet 10 mg PO daily prn Qty: 90 4RF duloxetine [Cymbalta] 20 mg capsule,delayed release(DR/EC) 20 mg PO DAILY Qty: 90 4RF Rx Instructions: Take 1 tab at 0800 calcium carbonate-vitamin D3 [Os-Miguel 500 + D3] 500 mg-15 mcg (600 unit) tablet 1 tab PO BID Qty: 200 2RF Rx Instructions: 1 tab at 0800 and 1 tab at HS gabapentin 300 mg capsule 300 mg PO TID Qty: 450 3RF carbamazepine [Tegretol] 200 mg tablet 200 mg PO TID Qty: 270 4RF Rx Instructions: 1 TAB 0800, PM, and HS, NAME BRAND MEDICALLY NECESSARY Lac-Hydrin Five 5 % lotion 1 applic topical DAILY Qty: 226 4RF fluoxetine 20 mg capsule 20 mg PO DAILY Qty: 30 0RF jkjkypyemla-njddeoxjs-bsr C-Mn [Glucosamine 1500 Complex] 1 EACH capsule 1 ea PO DAILY Multiple Vitamin, Womens 1 EACH tablet 1 ea PO DAILY ibuprofen 400 mg tablet 400 mg PO TID PRN (Reason: pain) Qty: 90 4RF ferrous sulfate 325 mg (65 mg iron) tablet 325 mg PO BID Qty: 60 2RF Discharge Instructions Instructions: Dermatitis (ED) Additional Instructions: At this time I feel that your rash on your ankle is similar to your chronic dermatitis. It is recommended that you try to take 25 mg of Benadryl this evening to see if that also helps. Please start the prescribed steroid tomorrow morning as you have been given your first dose in the emergency department today. Please follow-up with Dr. Mcqueen for reassessment given the chronic nature of your rash. Referrals: Jean Mcqueen MD [ CONSULTING PHYSICIAN] - (Please call the dermatology office for arrangement of follow-up appointment.) Discharge Data Discharge Date/Time-TO BE ENTERED AT DEPARTURE: 05/17/22 16:42 Medical Decision Making Patient presenting to the emergency department for chief complaint of rash. She reports that she has had periodic rash for greater than 5 months and today noticed some blistering to her right ankle. She does state in the past she has had blisters with her rash but this is acutely painful. She is followed by dermatology and is pending monoclonal antibody injection for moderate to severe dermatitis. Physical exam is unremarkable for any signs of anaphylactoid type reaction or toxic epidermal necrolysis, staphylococcal scalded skin syndrome, disseminated herpes simplex virus infection, disseminated herpes zoster, and purpura fulminans reviewed previous records and patient's presentation does not appear overall new except for the painful blister. Will encourage patient to take Benadryl which I know she has been resistant to in the past along with a short steroid burst to see if this helps. At this time there are no signs of cellulitis I do not feel that antibiotics are needed and do not feel that this is a viral presentation such as herpes zoster.. After discussion of diagnosis and plan of care patient has no further needs, questions, or concerns and states clear understanding to return to the emergency department for any worsening symptoms. This documentation was generated using [employer] dictation system, please disregard any oddities of phrase or misspellings. HPI General Mode of arrival: ambulatory. Date/Time Provider Initiated Documentation: 05/17/22 15:56. Limitations to Documentation: no limitations. Information obtained by: patient, family, RN notes reviewed and old records reviewed. History of Present Illness 72 year old F presents to the emergency department with the chief complaint of blister and rash, described as moderate and similar to prior episodes, and is localized to the right and lower extremity. Patient started experiencing this month(s) and it has been constant. No relieving factors improve symptom(s), No exacerbating factors reported . Patient notes no other symptoms.. Patient did receive the following treatments prior to arrival, none Related Data Home Medications Medication Instructions Recorded Confirmed hgcsotqfclv-teykoedho-vfz C-Mn 500 1 ea PO DAILY 03/26/13 05/17/22 mg-400 mg capsule (Glucosamine 1) abjconnbegwc-Yp-htat-minerals 1 ea PO DAILY 04/13/14 05/17/22 (Multiple Vitamin, Womens tablet) loratadine 10 mg tablet 10 mg PO daily prn #90 tab-caps 07/11/21 05/17/22 ibuprofen 400 mg tablet 400 mg PO TID PRN pain #90 tabs 12/12/21 05/17/22 ammonium lactate 5 % lotion 1 applic topical DAILY #226 grams 03/06/22 05/17/22 (Lac-Hydrin Five) fluoxetine 20 mg capsule 20 mg PO DAILY #30 caps 03/18/22 05/17/22 Tegretol 200 mg tablet 200 mg PO TID Blister Pack #270 03/28/22 05/17/22 (carbamazepine) tab-caps calcium carbonate 500 mg-vitamin 1 tab PO BID Blister Pack #200 03/28/22 05/17/22 D3 15 mcg (600 unit) tablet tab-caps (Os-Miguel 500 + D3) duloxetine 20 mg capsule,delayed 20 mg PO DAILY Blister Pack #90 03/28/22 05/17/22 release (Cymbalta) caps gabapentin 300 mg capsule 300 mg PO TID Blister Pack #450 03/28/22 05/17/22 caps ferrous sulfate 325 mg (65 mg 325 mg PO BID #60 tabs 04/28/22 05/17/22 iron) tablet prednisone 20 mg tablet 20 mg PO DAILY #4 tabs 05/17/22 Previous Rx's Medication Instructions Recorded loratadine 10 mg tablet 10 mg PO daily prn #90 tab-caps 07/11/21 ibuprofen 400 mg tablet 400 mg PO TID PRN pain #90 tabs 12/12/21 ammonium lactate 5 % lotion 1 applic topical DAILY #226 grams 03/06/22 (Lac-Hydrin Five) fluoxetine 20 mg capsule 20 mg PO DAILY #30 caps 03/18/22 Tegretol 200 mg tablet 200 mg PO TID Blister Pack #270 03/28/22 (carbamazepine) tab-caps calcium carbonate 500 mg-vitamin 1 tab PO BID Blister Pack #200 03/28/22 D3 15 mcg (600 unit) tablet tab-caps (Os-Miguel 500 + D3) duloxetine 20 mg capsule,delayed 20 mg PO DAILY Blister Pack #90 03/28/22 release (Cymbalta) caps gabapentin 300 mg capsule 300 mg PO TID Blister Pack #450 03/28/22 caps ferrous sulfate 325 mg (65 mg 325 mg PO BID #60 tabs 04/28/22 iron) tablet prednisone 20 mg tablet 20 mg PO DAILY #4 tabs 05/17/22 Allergies Allergy/AdvReac Type Severity Reaction Status Date / Time ciprofloxacin [From Cipro] Allergy Verified 05/17/22 15:37 codeine Allergy Verified 05/17/22 15:37 levetiracetam [From Keppra] Allergy Verified 05/17/22 15:37 Sulfa (Sulfonamide Allergy Verified 05/17/22 15:37 Antibiotics) amoxicillin [From Augmentin] AdvReac Severe Nausea, Verified 05/17/22 15:37 vomiting and diarrhea clavulanic acid AdvReac Severe Nausea, Verified 05/17/22 15:37 [From Augmentin] vomiting and diarrhea simvastatin AdvReac Unknown FEEL ILL Verified 05/17/22 15:37 meperidine AdvReac DOESNT Verified 05/17/22 15:37 WANT TO EVER TAKE IT, FAMILY HISTORY General Stated Complaint: RashLesion HOSSEIN: 4 Review of Systems Constitutional Constitutional: Denies chills, Denies fever(s) and Denies headache(s) ENT Ears, Nose, Mouth, and Throat: Denies headache(s), Denies sore throat and Denies throat swelling Cardiovascular Cardiovascular: Denies chest pain and Denies dyspnea Respiratory Respiratory: Denies cough and Denies dyspnea Gastrointestinal Gastrointestinal: Denies abdominal pain and Denies vomiting Musculoskeletal Musculoskeletal: Denies joint swelling Integumentary/Breasts Skin/Breast: Reports as per HPI, Reports rash and Reports sores Neurologic Neurologic: Denies headache(s) Allergic/Immunologic Allergic/Immunologic: Denies throat swelling [facility] All Active Problems (Updated 05/17/22 @ 16:30 by Keron Shields NP) Chronic dermatitis (Acute) Acute vesicular dermatitis (Acute) Anemia (Chronic) Seizure (Acute) followed at [facility] 05/2022- transfer of care to [facility] neurology Medical History (Updated 05/17/22 @ 16:30 by Keron Shields NP) Carpal tunnel syndrome Chronic right shoulder pain (02/15/16) 06/29/2018 - [facility] total right shoulder revision/replacement Depressive disorder anxiety Dermatosis of perineum Dizziness Dry skin dermatitis Edema Enchondroma of left femur Epilepsy Essential hypertension (01/16/14) Fibromyalgia Herpes zoster History of reduction of closed fracture Hyponatremia Low back pain radiating to right leg (05/22/15) 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 Memory changes Orthostatic hypotension Osteoarthritis of knee (02/21/14) left- has received injections right knee replaced Overweight (05/22/15) Pes anserinus bursitis of right knee Recurrent UTI (11/24/17) Shoulder pain, left Thrombophlebitis of superficial veins of lower extremity varicose veins TIA (transient ischemic attack) 07/2021- MRI with no acute infarct Urinary incontinence, urge Varicose veins of left leg with edema Surgical History Fracture, Closed Treatment ANKLE,FOOT,THUMB History of cataract removal with insertion of prosthetic lens History of section History of revision of total replacement of right shoulder joint (~06/29/18) 06/29/18-[facility] [place];[facility] 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 MURRY Family History Mother , 89 Essential hypertension Depression Neoplasm FACE/SKIN Stroke Dementia Diabetes Father , 61 Essential hypertension Heart disease Hyperlipidemia Sister Essential hypertension Dementia Neoplasm FACE/SKIN Brother No problems noted. Brother Diabetes Essential hypertension TBI (traumatic brain injury) Depression Myocardial infarction Stroke Brother Essential hypertension Depression Hyperlipidemia Maternal Grandfather , 60 Lung cancer Maternal Grandmother , 94 Diabetes Neoplasm SKIN Paternal Grandmother Diabetes Depression Seizures Stroke Son Dementia Depression Daughter Dementia Depression Essential hypertension Brother TBI (traumatic brain injury) Depression Essential hypertension Alcohol abuse Previous Brother Depression Brother No problems noted. 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 Pets and animals: No Sexually active: No Do you think of yourself as: straight/heterosexual Current gender identity: female What is your relationship status?: How often do you talk on the phone with friends or family?: three or more times per week How often do you get together with friends or relatives?: three or more times per week How often do you attend islam or cheondoism services?: 1-3 times per year Do you belong to any clubs or organized social groups?: no Panel score (0-1 are the most socially isolated patients): 1 What type of physical activity do you participate in: walking Duration: 30-45 minutes/day Frequency: 3-4 times per week Jacquie/Hoahaoism: Hindu Special jacquie needs: No Seatbelt use: always Helmet use: No Drive intox or ride w/intox automation driver: No Do you feel safe at home: Yes Do you feel safe in your relationship?: Yes Exam Const General: cooperative, no acute distress and not ill appearing Orientation: alert, awake and oriented x3 Resp Effort & Inspection: normal respiratory effort, able to speak in complete sentences and no respiratory distress Cardio Rate: regular rate Rhythm: regular rhythm Skin Rashes: rashes noted papules diffuse multiple locations borders indistinct, color red, surface erythematous and other (With excoriation); with no discharge and tender; fluctuant not assessed Neuro General: patient alert, patient awake, patient oriented x3, moves all extremities and no focal motor deficits Sensory Exam: no sensory deficits noted Course Vital Signs Vital signs: Vital Signs Temperature 37.2 C 05/17/22 15:34 Pulse 87 05/17/22 15:34 Respiratory Rate 16 05/17/22 15:34 Blood Pressure 109/67 05/17/22 15:34 Pulse Oximetry 100 05/17/22 15:34 Temperature 37.2 C 05/17/22 15:34 Temperature Source Temporal Artery Scan 05/17/22 15:34 Pulse 87 05/17/22 15:34 Respiratory Rate 16 05/17/22 15:34 Respiratory Effort 05/17/22 15:48 Blood Pressure 109/67 05/17/22 15:34 Blood Pressure Position Sitting 05/17/22 15:34 Pulse Oximetry 100 05/17/22 15:34 Oxygen Delivery Method Room Air 05/17/22 15:34 Oxygen Flow Rate 0 05/17/22 15:34 Pain Level 0 05/17/22 15:34
[2022-05-17] MEDS: Dexamethasone 10 MG/ML VIAL PO (16:34)
[2022-05-17] MEDS: diphenhydrAMINE 25 MG CAP PO (16:34)
== END 2022-05-17 16:42 | disposition home or self-care (01) ==
PROVIDERS: Emergency Provider Nurse Practitioner Family; PCP Nurse Practitioner
DX: B00.1 Herpesviral vesicular dermatitis (principal); L30.8 Other specified dermatitis
CPT/HCPCS: 99283; J1100

== ENCOUNTER → 2022-05-20 11:01 | Outpatient (BNVA) | payer MEDICARE, SELFPAY | PROVIDERS: PCP Nurse Practitioner; Referring Provider Nurse Practitioner; Visit Provider Surgery | DX: D64.9 Anemia, unspecified (principal); Z12.11 Encounter for screening for malignant neoplasm of colon | CPT/HCPCS: 99214 ==

== ENCOUNTER 2022-05-29 03:29 | Outpatient (CLI) | payer MEDICARE, SELFPAY ==
--- NOTE | 2022-06-04 12:05 | PDOC.EEG_ITS ---
Neurology EEG EEG: [facility] Department of Neurology LONG-TERM AMBULATORY EEG REPORT Date of Recordin05/29/22 at 10:37:38 to 05/30/22 at 17:12:15 Interpreting Physician: Dr. Justyna Mascorro PCP/Referring Provider: Rachel Horne NP Reason for study: Ms. 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 Current Medications: Home Medications Medication Instructions Recorded Confirmed Type tshgwysscrm-kdwhbvoyi-oeh C-Mn 500 1 ea PO DAILY 03/26/13 05/27/22 History mg-400 mg capsule (Glucosamine 1) jeuhirjxyyhj-So-peqi-minerals 1 ea PO DAILY 04/13/14 05/27/22 History (Multiple Vitamin, Womens tablet) loratadine 10 mg tablet 10 mg PO daily prn #90 tab-caps 07/11/21 05/27/22 Rx ibuprofen 400 mg tablet 400 mg PO TID PRN pain #90 tabs 12/12/21 05/27/22 Rx ammonium lactate 5 % lotion 1 applic topical DAILY #226 grams 03/06/22 05/27/22 Rx (Lac-Hydrin Five) fluoxetine 20 mg capsule 20 mg PO DAILY #30 caps 03/18/22 05/27/22 Rx Tegretol 200 mg tablet 200 mg PO TID Blister Pack #270 03/28/22 05/27/22 Rx (carbamazepine) tab-caps calcium carbonate 500 mg-vitamin 1 tab PO BID Blister Pack #200 03/28/22 05/27/22 Rx D3 15 mcg (600 unit) tablet tab-caps (Os-Miguel 500 + D3) duloxetine 20 mg capsule,delayed 20 mg PO DAILY Blister Pack #90 03/28/22 05/27/22 Rx release (Cymbalta) caps gabapentin 300 mg capsule 300 mg PO TID Blister Pack #450 03/28/22 05/27/22 Rx caps ferrous sulfate 325 mg (65 mg 325 mg PO BID #60 tabs 04/28/22 05/27/22 Rx iron) tablet prednisone 20 mg tablet 20 mg PO DAILY #4 tabs 05/17/22 05/27/22 Rx hydroxyzine pamoate 25 mg capsule 25 mg PO Q8H #20 caps 05/27/22 05/27/22 Rx (Vistaril) mecobalamin (vitamin B12) 1,000 1,000 mcg sublingual DAILY 05/27/22 05/27/22 History mcg disintegrating tablet,sublingual METHODS: An 18-channel digitized electroencephalogram was recorded in the ambulatory setting with video. The 10/20 international system of electrode placement was used and bipolar and referential electrode montages were recorded. In addition to EEG the patient was monitored for EKG and by video. Activation procedures of photic stimulation and hyperventilation were performed if applicable. The duration of the recording was ~30 hours. DESCRIPTION OF EEG: Waking background activity: During maximal wakefulness an 8.5-Hz posterior background rhythm was present which was well-modulated, symmetrical, reactive to eye opening, and of moderate voltage. Faster frequencies were present in the bilateral anterior head regions. There was a normal anterior-posterior voltage gradient. Drowsy and sleeping background activity: During drowsiness, there was attenuation of the posterior dominant background rhythm and vertex waves. Normal stage II and III sleep was present with symmetrical sleep spindles, K- complexes, and vertex waves with slowing of the background rhythm to delta/theta frequencies. REM sleep manifested by rapid lateral eye movements and faster background rhythms was recorded. Arousal was unremarkable. Of note, she only sleeps in short segments of a few hours throughout the day and night. Interictal abnormalities: Intermittent, moderate-amplitude, polymorphic bursts and single triphasic waves. Ictal findings: No events captured. Activating Procedures: Photic stimulation was performed which produced no posterior driving response. Hyperventilation was not performed. EKG: EKG revealed normal sinus rhythm. INTERPRETATION: This long-term EEG is abnormal due to intermittent triphasic waves. Additionally, see description of sleep above. PRIOR EEG: -EEG (1987): polyspikes -EEG (08/02/14): IS generalized and IRS generalized -EEG (09/2017): IS generalized and IRS generalized -EEG (02/15/19): normal. CLINICAL CORRELATION: The triphasic waveforms seen above are consistent with a mild diffuse cerebral encephalopathy, most commonly due to a hepatic or renal metabolic etiology, but can be seen in any toxic-metabolic process. No focal regions of cerebral dysfunction or epileptiform activity was present. Clinical correlation is advised. Justyna Mascorro MD
== END 2022-05-29 03:30 | disposition home or self-care (01) ==
LOC: RT 03:29
PROVIDERS: PCP Nurse Practitioner; Visit Provider Psychiatry & Neurology Neurology
DX: R94.01 Abnormal electroencephalogram [EEG]; G40.309 Generalized idiopathic epilepsy and epileptic syndromes, not intractable, without status epilepticus
CPT/HCPCS: 95714

== ENCOUNTER 2022-06-04 12:05 | Outpatient (CLI) | payer MEDICARE, SELFPAY | END 2022-06-04 12:06 | LOC: NEO 06-13 08:58 | PROVIDERS: PCP Nurse Practitioner; Visit Provider Psychiatry & Neurology Neurology | DX: R29.818 Other symptoms and signs involving the nervous system (principal); R94.01 Abnormal electroencephalogram [EEG]; G93.49 Other encephalopathy | CPT/HCPCS: 95720 ==

== ENCOUNTER 2022-06-19 11:41 | Outpatient (CLI) | payer MEDICARE, SELFPAY ==
--- NOTE | 2022-06-19 10:42 | DI.RAD_ITS ---
Exam(s) XR KNEE LT 2V AP,LAT EXAM: XR KNEE LT 2V AP,LAT CLINICAL HISTORY: f/u left knee. TECHNIQUE: 2D digital imaging was performed. Three views. COMPARISON: CR XR KNEE LT 2V AP,LAT from 11/21/2021 CR XR KNEE RT 2V AP,LAT from 04/14/2022 FINDINGS: BONES: No acute fracture is present. No bony destructive lesion is seen. Stable appearance of encho ndroma distal femoral shaft. JOINTS: The knee is normally aligned. No joint effusion is seen. Mild medial femoral tibial joint spa ce narrowing. Periarticular spurring femoral condyles and tibial plateaus. SOFT TISSUE: Varicosities. IMPRESSION: Stable degenerative changes. DATA REPOSITORY: RADIATION DOSE DELIVERED:
== END 2022-06-19 11:42 | disposition home or self-care (01) ==
LOC: DIORS 11:41
PROVIDERS: PCP Nurse Practitioner; Referring Provider Nurse Practitioner; Visit Provider Student in an Organized Health Care Education/Training Program
DX: D16.22 Benign neoplasm of long bones of left lower limb (principal)
CPT/HCPCS: 99213; 99214; 73560

== ENCOUNTER 2022-07-03 12:00 | Outpatient (CLI) | payer MEDICARE, SELFPAY ==
--- NOTE | 2022-07-03 | DI.MAMMO_ITS ---
Exam(s) MG MAMMO SCREENING EXAM: MG MAMMO SCREENING CLINICAL HISTORY: SCREENING TECHNIQUE: Left cc view only including computer analysis with CAD system, tomosynthesis and C-view i maging. The patient never returned for completion of the exam. COMPARISON: MG MAMMO SCREENING from 05/21/2020 MG MG MAMMO SCREENING from 05/29/2021 FINDINGS: Left cc view with tomography only is interpreted. Patient was scheduled to return completion of the exam multiple times. The patient is scheduled to return in May 2023. The left breast is composed of scattered fibroglandular densities, Breast Density category B. No suspicious masses or suspicious microcalcifications are seen. No skin thickening is seen. There has been no significant change from prior exams. IMPRESSION: No abnormalities seen on the single view of the left breast. The patient is scheduled in May to com plete the examination. BI-RADS Category 0 - Assessment Incomplete: Need additional imaging evaluation Breast Density - Category B, scattered fibroglandular densities. A negative radiographic report should not delay biopsy if a dominant or clinically suspicious mass is present. Up to ten percent of cancers are not identified on mammography. A negative report may reinforce clinical impression. Adenosis and dense breasts may obscure an underlying neoplasm. False positive reports average 6 to 10%. Patient will receive a letter notifying them of these results.
== END 2022-07-03 12:20 ==
PROVIDERS: PCP Nurse Practitioner Family; Visit Provider Nurse Practitioner Family
DX: Z12.31 Encounter for screening mammogram for malignant neoplasm of breast (principal)
CPT/HCPCS: 77063; 77067

== ENCOUNTER → 2022-09-18 09:41 | Outpatient (BNVA) | payer MEDICARE, SELFPAY | PROVIDERS: PCP Nurse Practitioner Family; Referring Provider Nurse Practitioner Family; Visit Provider Psychiatry & Neurology Neurology | DX: G40.909 Epilepsy, unspecified, not intractable, without status epilepticus (principal); Z86.73 Personal history of transient ischemic attack (TIA), and cerebral infarction without residual deficits; R41.3 Other amnesia; F41.9 Anxiety disorder, unspecified; I10 Essential (primary) hypertension | CPT/HCPCS: 99214 ==

== ENCOUNTER 2022-09-30 15:07 | Emergency (ER) | payer MEDICARE, SELFPAY ==
[2022-09-30 15:34] VITALS: BP 121/66; PULSE 90; RESP 20; TEMP 37.1; O2SAT 92
--- NOTE | 2022-09-30 15:45 | RT.EKG_ITS ---
APPROVED REPORT Exam: Resting ECG Reason for Exam: dizziness Patient Location: E HR:88 bpm ECG Measurements Heart Rate 88 AXIS LA 159 P 48 QRSd 85 QRS 33 QT 360 T 26 QTc 435 Conclusion Sinus rhythm...normal P axis, V-rate 60- 99 Probable left atrial enlargement...P >50mS, <-0.10mV V1 Physician: no stemi
--- NOTE | 2022-09-30 15:45 | DI.CT_ITS ---
Exam(s) CT HEAD CERVICAL SPINE WO EXAM: CT HEAD CERVICAL SPINE WO CLINICAL HISTORY: fall, [place]. TECHNIQUE: Imaging Protocol: Axial computed tomography images with coronal and sagittal reformatted images were created and reviewed COMPARISON: No exams were available for comparison FINDINGS: BRAIN: There are no skull fractures. There is fluid in both maxillary sinuses as well as in the sphenoid an d left frontal sinus as well as opacification of ethmoidal air cells bilaterally. Consistent with si nusitis. Mastoid air cells are clear. There is no evidence of intracranial hemorrhage, mass effect, or shift of midline structures. There are no extra-axial fluid collections. The ventricles are not enlarged or shifted and there is no blo od within the ventricular system nor within the basal cisterns. There is some mild bilateral periventricular hypodensity consistent with chronic small vessel disease . CERVICAL SPINE: There is no evidence of fracture nor listhesis. No significant prevertebral soft tissue swelling. Chronic disc space narrowing at C5-6 level. Multilevel facet arthropathy. There is no significant facet joint malalignment. No significant osseous lesions evident. IMPRESSION: No acute intracranial findings on this noninfused CT scan of the brain. Acute sinusitis with fluid levels in both maxillary sinuses, the sphenoid sinus and the left frontal sinus. No facial fractures identified. No evidence of cervical spine fracture, malalignment, nor acute compromise of the cervical spinal can al. Degenerative changes in the cervical spine, as described above. RADIATION DOSE DELIVERED: 1,030mGy.cm Total DLP DATA REPOSITORY: All CT scans at this facility are submitted to the National Radiology Data Registry (NRDR) Dose Index Registry (DIR) with the [employer] (A[employer]). RADIATION OPTIMIZATION: All CT scans at this facility use at least one of these dose optimization te chniques: automated exposure control; mA and/or kV adjustment per patient size (includes targeted exa ms where dose is matched to clinical indication); or iterative reconstruction.
--- NOTE | 2022-09-30 15:59 | DI.RAD_ITS ---
Exam(s) XR CHEST 2V PA LATERAL EXAM: XR CHEST 2V PA LATERAL CLINICAL HISTORY: cough, shortness of breath. TECHNIQUE: 2D digital imaging was performed. COMPARISON: CR XR CHEST 2V PA LATERAL from 03/25/2022 FINDINGS: 2 views: Heart size is normal. The mediastinum is not widened. Lungs are clear. No infiltrates nor pleural effusions. Right shoulder reverse prosthesis again noted. IMPRESSION: No acute pulmonary findings. DATA REPOSITORY: RADIATION DOSE DELIVERED:
[2022-09-30 17:29] LABS: Abs Immature Grans 0.04 10^3/uL (0.0-0.06); Absolute Basophil Count 0.03 10^3/uL (0.0-0.2); Absolute Eosinophil Count 0.01 10^3/uL (0.0-0.7); Absolute Lymphocyte Count 0.46 10^3/uL (1.2-3.4); Absolute Monocyte Count 0.18 10^3/uL (0.1-0.8); Absolute Neutrophil Count 8.36 10^3/uL (1.2-6.7); Basophils % 0.3; Eosinophils % 0.1; HCT 33.9 % (36.0-46.0); HGB 10.7 g/dL (11.2-15.7); Immature Grans % 0.4; Lymphocytes % 5.1; MCH 29.9 pg (27.0-33.0); MCHC 31.6 % (32.0-36.0); MCV 95 fL (80-95); Neutrophils % 92.1; Platelet Count 300 10^3/uL (130-400); RBC 3.58 10^6/uL (3.93-5.22); RDW-SD 49.1 fL; WBC 9.08 10^3/uL (4.4-10.8)
[2022-09-30 17:30] LABS: Bilirubin Negative (Negative); Blood Trace-intact (Negative); Clarity Clear (Clear); Glucose Negative (Negative); Ketones Negative (Negative); Leukocyte Esterase Negative (Negative); Nitrite Negative (Negative); Urobilinogen 0.2 EU/dL (Up TO 0.2)
[2022-09-30 17:36] LABS: Bacteria Negative HPF (Negative); C & S Indicated? No; Casts Negative LPF (Negative); Crystals Negative HPF (Negative); Epithelial Cells Rare HPF (Negative); Mucus Negative (Negative); RBC 0-2 HPF (0-2); WBC Negative HPF (0-5)
[2022-09-30 17:44] LABS: ALT 18 U/L (14-59); AST 17 U/L (15-37); Albumin 3.8 g/dL (3.4-5.0); Alkaline Phosphatase 75 U/L (46-116); Anion Gap 7.8 mmol/L (3-11); BUN 24 mg/dL (7-18); Bilirubin, Total 0.2 mg/dL (0.2-1.0); CO2 27.2 mmol/L (21.0-32.0); CREATININE 0.8 mg/dL (0.55-1.02); Calcium 9.2 mg/dL (8.5-10.1); Chloride 98 mmol/L (98-107); Estimated GFR 77.75 (mL/min/1.73m2); Glucose 126 mg/dL (74-106); Magnesium 2.4 mg/dL (1.8-2.4); Potassium 4.3 mmol/L (3.5-5.1); Sodium 133 mmol/L (136-145); Total Protein 8.2 g/dL (6.4-8.2)
[2022-09-30 18:06] LABS: COVID-19 PCR Negative (Negative); Influenza A PCR Negative (Negative); Influenza B PCR Negative (Negative)
[2022-09-30 18:12] LABS: RSV PCR Positive (Negative); Source Nasopharynx
--- NOTE | 2022-09-30 19:22 | DI.VRAD_ITS ---
PROCEDURE INFORMATION: Exam: CT Head Without Contrast Exam date and time: 09/30/2022 6:54 PM Age: 72 years old Clinical indication: Other: Fall, hi TECHNIQUE: Imaging protocol: Computed tomography of the head without contrast. Radiation optimization: All CT scans at this facility use at least one of these dose optimization techniques: automated exposure control; mA and/or kV adjustment per patient size (includes targeted exams where dose is matched to clinical indication); or iterative reconstruction. Other contrast: fall, hi; COMPARISON: MR BRAIN WO 07/23/2021 10:15 AM FINDINGS: Brain: There is no acute intracranial hemorrhage, mass effect or midline shift. No large acute territorial infarct identified. There are patchy regions of hypodensity in the periventricular and subcortical white matter, likely on the basis of chronic microvascular ischemic disease. Cerebral ventricles: The ventricles and sulci are prominent in size, which is at least in part due to global cerebral volume loss. Paranasal sinuses: There is mucosal thickening in the ethmoid and maxillary sinuses. Mastoid air cells: Visualized mastoid air cells are well aerated. Bones/joints: No acute fracture. Soft tissues: Unremarkable. IMPRESSION: No acute intracranial hemorrhage, mass effect or midline shift. PROCEDURE INFORMATION: Exam: CT Cervical Spine Without Contrast Exam date and time: 09/30/2022 6:54 PM Age: 72 years old Clinical indication: Other: Fall, hi TECHNIQUE: Imaging protocol: Computed tomography of the cervical spine without contrast. Radiation optimization: All CT scans at this facility use at least one of these dose optimization techniques: automated exposure control; mA and/or kV adjustment per patient size (includes targeted exams where dose is matched to clinical indication); or iterative reconstruction. Other contrast: fall, hi; COMPARISON: MR BRAIN WO 07/23/2021 10:15 AM FINDINGS: Bones/joints: No acute fractureThere are multilevel degenerative changes most prominent at C5-C6 with left neural foraminal narrowing. No significant spinal canal stenosis. Lungs: Lung apices are normal. Soft tissues: Unremarkable. IMPRESSION: No acute fracture. Multilevel degenerative changes as described. Dictated and Authenticated by: Sarah Samayoa MD. Ordering:HERMAN Villa MD
--- NOTE | 2022-09-30 19:28 | ED.GENADUL_ITS ---
Discharge Plan Disposition Patient Disposition: Home Condition: Stable Discharge Details Clinical Impression: RSV infection Primary Care Provider: [facility] ED Provider: Daisy Knowles Home Meds and New Rx's Prescriptions: Continued ferrous sulfate 325 mg (65 mg iron) tablet 325 mg PO BID Qty: 180 3RF ibuprofen 400 mg tablet 400 mg PO TID PRN (Reason: pain) Qty: 90 4RF duloxetine [Cymbalta] 20 mg capsule,delayed release(DR/EC) 20 mg PO DAILY Qty: 90 4RF Rx Instructions: Take 1 tab at 0800 calcium carbonate-vitamin D3 [Os-Miguel 500 + D3] 500 mg-15 mcg (600 unit) tablet 1 tab PO BID Qty: 200 2RF Rx Instructions: 1 tab at 0800 and 1 tab at HS gabapentin 300 mg capsule 300 mg PO TID Qty: 450 3RF carbamazepine [Tegretol] 200 mg tablet 200 mg PO TID Qty: 270 4RF Rx Instructions: 1 TAB 0800, PM, and HS, NAME BRAND MEDICALLY NECESSARY Lac-Hydrin Five 5 % lotion 1 applic topical DAILY Qty: 226 4RF fluoxetine 20 mg capsule 20 mg PO DAILY Qty: 30 0RF mecobalamin (vitamin B12) 1,000 mcg tablet,disintegrating 1,000 mcg sublingual DAILY Rx Instructions: place tablet under tongue and allow to dissolve for at least30 secs before swallowing memantine 10 mg tablet 10 mg PO BID Qty: 180 3RF zxwklbodbto-hpgmchmbb-kvl C-Mn [Glucosamine 1500 Complex] 1 EACH capsule 1 ea PO DAILY Multiple Vitamin, Womens 1 EACH tablet 1 ea PO DAILY hydroxyzine pamoate [Vistaril] 25 mg capsule 25 mg PO Q8H PRN (Reason: itching) Qty: 30 0RF prednisone 20 mg tablet 20 mg PO DAILY Qty: 4 0RF Discharge Instructions Instructions: Viral Syndrome (ED) Additional Instructions: Albuterol 2 puffs every 4-6 hours as needed for cough You received a dose of Decadron the last several days as needed for wheezing Please follow-up with your primary care physician tomorrow for reassessment and return earlier should you have new or worsening complaints Referrals: [facility] NP [Primary Care Provider] - 1 day Discharge Data Discharge Date/Time-TO BE ENTERED AT DEPARTURE: 09/30/22 19:40 Medical Decision Making Patient appears well, her vitals are stable and in no evidence of respiratory distress Her chest x-ray does not show evidence of acute abnormality Order of CT head and cervical spine secondary to age and fall with head injury, this does not show evidence of acute abnormality per radiology interpretation my review Diagnostic labs are unchanged from prior, mild anemia, actually improved from prior Urinalysis without evidence of acute abnormality Given inhaler, Decadron Return precautions reviewed in detail RSV positive on labs, will follow-up with doctor regarding this finding Medical Records Medical records reviewed: Yes I reviewed the patient's medical records. Lab Data Lab results reviewed: Yes I reviewed the patient's lab results. Sign Out No HPI General Date/Time Provider Initiated Documentation: 09/30/22 15:46 . HPI Narrative: This 72-year-old female presents with cough and cold symptoms that started yesterday. She states that she had some lightheadedness earlier today when she turned quickly and fell, hitting her head. She denies loss of consciousness. She has mild headache. She denies anticoagulation. She denies any vision or strength or sensation change. She denies any known fever. She had some intermittent chills. She states her daughter sick with similar symptoms. She denies any chest pain. She said some intermittent shortness of breath. She reports runny nose. Denies calf pain or swelling. Related Data Home Medications Medication Instructions Recorded Confirmed lmvygaseapd-aslwqwzjb-nwb C-Mn 500 1 ea PO DAILY 03/26/13 09/30/22 mg-400 mg capsule (Glucosamine 1) vnhredyqxgjf-Bv-rwtu-minerals 1 ea PO DAILY 04/13/14 09/30/22 (Multiple Vitamin, Womens tablet) ammonium lactate 5 % lotion 1 applic topical DAILY #226 grams 03/06/22 09/30/22 (Lac-Hydrin Five) fluoxetine 20 mg capsule 20 mg PO DAILY #30 caps 03/18/22 09/30/22 Tegretol 200 mg tablet 200 mg PO TID Blister Pack #270 03/28/22 09/30/22 (carbamazepine) tab-caps calcium carbonate 500 mg-vitamin 1 tab PO BID Blister Pack #200 03/28/22 09/30/22 D3 15 mcg (600 unit) tablet tab-caps (Os-Miguel 500 + D3) duloxetine 20 mg capsule,delayed 20 mg PO DAILY Blister Pack #90 03/28/22 09/30/22 release (Cymbalta) caps gabapentin 300 mg capsule 300 mg PO TID Blister Pack #450 03/28/22 09/30/22 caps prednisone 20 mg tablet 20 mg PO DAILY #4 tabs 05/17/22 09/30/22 mecobalamin (vitamin B12) 1,000 1,000 mcg sublingual DAILY 05/27/22 09/30/22 mcg disintegrating tablet,sublingual ferrous sulfate 325 mg (65 mg 325 mg PO BID #180 tabs 08/21/22 09/30/22 iron) tablet ibuprofen 400 mg tablet 400 mg PO TID PRN pain #90 tabs 08/21/22 09/30/22 memantine 10 mg tablet 10 mg PO BID #180 tabs 09/18/22 09/30/22 hydroxyzine pamoate 25 mg capsule 25 mg PO Q8H PRN itching #30 caps 09/22/22 09/30/22 (Vistaril) Previous Rx's Medication Instructions Recorded ammonium lactate 5 % lotion 1 applic topical DAILY #226 grams 03/06/22 (Lac-Hydrin Five) fluoxetine 20 mg capsule 20 mg PO DAILY #30 caps 03/18/22 Tegretol 200 mg tablet 200 mg PO TID Blister Pack #270 03/28/22 (carbamazepine) tab-caps calcium carbonate 500 mg-vitamin 1 tab PO BID Blister Pack #200 03/28/22 D3 15 mcg (600 unit) tablet tab-caps (Os-Miguel 500 + D3) duloxetine 20 mg capsule,delayed 20 mg PO DAILY Blister Pack #90 03/28/22 release (Cymbalta) caps gabapentin 300 mg capsule 300 mg PO TID Blister Pack #450 03/28/22 caps prednisone 20 mg tablet 20 mg PO DAILY #4 tabs 05/17/22 ferrous sulfate 325 mg (65 mg 325 mg PO BID #180 tabs 08/21/22 iron) tablet ibuprofen 400 mg tablet 400 mg PO TID PRN pain #90 tabs 08/21/22 memantine 10 mg tablet 10 mg PO BID #180 tabs 09/18/22 hydroxyzine pamoate 25 mg capsule 25 mg PO Q8H PRN itching #30 caps 09/22/22 (Vistaril) Allergies Allergy/AdvReac Type Severity Reaction Status Date / Time ciprofloxacin [From Cipro] Allergy Verified 09/30/22 17:19 codeine Allergy Verified 09/30/22 17:19 levetiracetam [From Keppra] Allergy Verified 09/30/22 17:19 Sulfa (Sulfonamide Allergy Verified 09/30/22 17:19 Antibiotics) amoxicillin [From Augmentin] AdvReac Severe Nausea, Verified 09/30/22 17:19 vomiting and diarrhea clavulanic acid AdvReac Severe Nausea, Verified 09/30/22 17:19 [From Augmentin] vomiting and diarrhea simvastatin AdvReac Unknown FEEL ILL Verified 09/30/22 17:19 meperidine AdvReac DOESNT Verified 09/30/22 17:19 WANT TO EVER TAKE IT, FAMILY HISTORY General Stated Complaint: RespSymp HOSSEIN: 3 Review of Systems All systems reviewed & are unremarkable except as noted in HPI and below PFSH All Active Problems (Updated 09/30/22 @ 19:30 by QUIQUE Gonzalez) RSV infection (Acute) Alzheimer disease (Chronic) Bullous pemphigus (Acute) Anemia (Chronic) Seizure (Acute) followed at 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 Memory changes Orthostatic hypotension Osteoarthritis of knee (02/21/14) left- has received injections right knee replaced Overweight (05/22/15) Pes anserinus bursitis of right knee Recurrent UTI (11/24/17) Shoulder pain, left Thrombophlebitis of superficial veins of lower extremity varicose veins TIA (transient ischemic attack) 07/2021- MRI with no acute infarct Urinary incontinence, urge Varicose veins of left leg with edema Surgical History Fracture, Closed Treatment ANKLE,FOOT,THUMB History of cataract removal with insertion of prosthetic lens History of section History of revision of total replacement of right shoulder joint (~06/29/18) 06/29/18-[facility] [place] 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 MURRY Family History Mother , 89 Essential hypertension Depression Neoplasm FACE/SKIN Stroke Dementia Diabetes Father , 61 Essential hypertension Heart disease Hyperlipidemia Sister Essential hypertension Dementia Neoplasm FACE/SKIN Brother No problems noted. Brother Diabetes Essential hypertension TBI (traumatic brain injury) Depression Myocardial infarction Stroke Brother Essential hypertension Depression Hyperlipidemia Maternal Grandfather , 60 Lung cancer Maternal Grandmother , 94 Diabetes Neoplasm SKIN Paternal Grandmother Diabetes Depression Seizures Stroke Son Dementia Depression Daughter Dementia Depression Essential hypertension Brother TBI (traumatic brain injury) Depression Essential hypertension Alcohol abuse Previous Brother Depression Brother No problems noted. 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 Pets and animals: No Sexually active: No Do you think of yourself as: straight/heterosexual Current gender identity: female What is your relationship status?: How often do you talk on the phone with friends or family?: three or more times per week How often do you get together with friends or relatives?: three or more times per week How often do you attend congregation or adventism services?: 1-3 times per year Do you belong to any clubs or organized social groups?: no Panel score (0-1 are the most socially isolated patients): 1 What type of physical activity do you participate in: walking Duration: 30-45 minutes/day Frequency: 3-4 times per week Jacquie/Restoration: Gnosticism Special jaqcuie needs: No Seatbelt use: always Helmet use: No Drive intox or ride w/intox livery car driver: No Do you feel safe at home: Yes Do you feel safe in your relationship?: Yes Exam Const General: cooperative, comfortable and no acute distress HENMT Head: normal to inspection Mouth: oral mucosae normal Eyes Pupils: PERRL Resp Effort & Inspection: normal respiratory effort Other: Scant scattered wheezes, no respiratory distress Cardio Rate: regular rate Rhythm: regular rhythm Skin General skin exam: no rashes or lesions noted Neuro General: patient alert and patient oriented x3 Extrem Other: No calf swelling or tenderness, distal pulses intact Course Vital Signs Vital signs: Vital Signs Temperature 37.1 C 09/30/22 15:34 Pulse 90 09/30/22 15:34 Respiratory Rate 20 09/30/22 15:34 Blood Pressure 121/66 09/30/22 15:34 Pulse Oximetry 92 09/30/22 15:34 Temperature 37.1 C 09/30/22 15:34 Temperature Source Tympanic 09/30/22 15:34 Pulse 90 09/30/22 15:34 Respiratory Rate 20 09/30/22 15:34 Respiratory Effort Non-Labored 09/30/22 17:18 Respiratory Depth Normal 09/30/22 17:18 Blood Pressure 121/66 09/30/22 15:34 Pulse Oximetry 92 09/30/22 15:34 Oxygen Delivery Method Room Air 09/30/22 15:34 Oxygen Flow Rate 0 09/30/22 15:34 Pain Level 0 09/30/22 15:34 Lab/Test Results Lab/Test Results: Laboratory Tests Range/Units 09/30/22 09/30/22 09/30/22 17:10 17:20 17:20 WBC (4.4-10.8) 10^3/uL 9.08 RBC (3.93-5.22) 10^6/uL 3.58 L Hgb (11.2-15.7) g/dL 10.7 L Hct (36.0-46.0) % 33.9 L MCV (80-95) fL 95 MCH (27.0-33.0) pg 29.9 MCHC (32.0-36.0) % 31.6 L RDW (11.7-14.6) % 14.0 Plt Count (130-400) 10^3/uL 300 MPV (8.0-11.0) fL 9.0 Immature Gran % 0.4 Neutrophils % 92.1 Lymphocytes % 5.1 Monocytes % 2.0 Eosinophils % 0.1 Basophils % 0.3 Nucleated RBC % (0.0-0.3) % 0.0 Absolute Neutrophils (1.2-6.7) 10^3/uL 8.36 H Absolute Lymphocytes (1.2-3.4) 10^3/uL 0.46 L Absolute Monocytes (0.1-0.8) 10^3/uL 0.18 Absolute Eosinophils (0.0-0.7) 10^3/uL 0.01 Absolute Basophils (0.0-0.2) 10^3/uL 0.03 Sodium (136-145) mmol/L 133 L Potassium (3.5-5.1) mmol/L 4.3 Chloride (98-107) mmol/L 98 Carbon Dioxide (21.0-32.0) mmol/L 27.2 Anion Gap (3-11) mmol/L 7.8 BUN (7-18) mg/dL 24 H Creatinine (0.55-1.02) mg/dL 0.8 Est GFR (CKD-EPI 2020) (mL/min/1.73m2) 77.75 Glucose (74-106) mg/dL 126 H Calcium (8.5-10.1) mg/dL 9.2 Magnesium (1.8-2.4) mg/dL 2.4 Total Bilirubin (0.2-1.0) mg/dL 0.2 AST (15-37) U/L 17 ALT (14-59) U/L 18 Alkaline Phosphatase (46-116) U/L 75 Total Protein (6.4-8.2) g/dL 8.2 Albumin (3.4-5.0) g/dL 3.8 Urine Color (Yellow) Urine Clarity (Clear) Urine pH (5-8) Ur Specific Temple (1.005-1.025) Urine Protein (Negative) mg/dL Urine Ketones (Negative) mg/dL Urine Blood (Negative) Urine Nitrite (Negative) Urine Bilirubin (Negative) Urine Urobilinogen (Up TO 0.2) EU/dL Ur Leukocyte Esterase (Negative) Urine RBC (0-2) HPF Urine WBC (0-5) HPF Ur Epithelial Cells (Negative) HPF Urine Crystals (Negative) HPF Urine Bacteria (Negative) HPF Urine Casts (Negative) LPF Urine Mucus (Negative) Ur Culture Indicated? Urine Glucose (Negative) mg/dL COVID-19 Source Nasopharynx SARS-CoV-2 (PCR) (Negative) Negative Influenza Type A (PCR) (Negative) Negative Influenza Type B (PCR) (Negative) Negative RSV (PCR) (Negative) Positive A* Range/Units 09/30/22 17:20 WBC (4.4-10.8) 10^3/uL RBC (3.93-5.22) 10^6/uL Hgb (11.2-15.7) g/dL Hct (36.0-46.0) % MCV (80-95) fL MCH (27.0-33.0) pg MCHC (32.0-36.0) % RDW (11.7-14.6) % Plt Count (130-400) 10^3/uL MPV (8.0-11.0) fL Immature Gran % Neutrophils % Lymphocytes % Monocytes % Eosinophils % Basophils % Nucleated RBC % (0.0-0.3) % Absolute Neutrophils (1.2-6.7) 10^3/uL Absolute Lymphocytes (1.2-3.4) 10^3/uL Absolute Monocytes (0.1-0.8) 10^3/uL Absolute Eosinophils (0.0-0.7) 10^3/uL Absolute Basophils (0.0-0.2) 10^3/uL Sodium (136-145) mmol/L Potassium (3.5-5.1) mmol/L Chloride (98-107) mmol/L Carbon Dioxide (21.0-32.0) mmol/L Anion Gap (3-11) mmol/L BUN (7-18) mg/dL Creatinine (0.55-1.02) mg/dL Est GFR (CKD-EPI 2020) (mL/min/1.73m2) Glucose (74-106) mg/dL Calcium (8.5-10.1) mg/dL Magnesium (1.8-2.4) mg/dL Total Bilirubin (0.2-1.0) mg/dL AST (15-37) U/L ALT (14-59) U/L Alkaline Phosphatase (46-116) U/L Total Protein (6.4-8.2) g/dL Albumin (3.4-5.0) g/dL Urine Color (Yellow) Yellow Urine Clarity (Clear) Clear Urine pH (5-8) 6.0 Ur Specific Temple (1.005-1.025) 1.020 Urine Protein (Negative) mg/dL Negative Urine Ketones (Negative) mg/dL Negative Urine Blood (Negative) Trace-intact H Urine Nitrite (Negative) Negative Urine Bilirubin (Negative) Negative Urine Urobilinogen (Up TO 0.2) EU/dL 0.2 Ur Leukocyte Esterase (Negative) Negative Urine RBC (0-2) HPF 0-2 Urine WBC (0-5) HPF Negative Ur Epithelial Cells (Negative) HPF Rare Urine Crystals (Negative) HPF Negative Urine Bacteria (Negative) HPF Negative Urine Casts (Negative) LPF Negative Urine Mucus (Negative) Negative Ur Culture Indicated? No Urine Glucose (Negative) mg/dL Negative COVID-19 Source SARS-CoV-2 (PCR) (Negative) Influenza Type A (PCR) (Negative) Influenza Type B (PCR) (Negative) RSV (PCR) (Negative)
[2022-09-30] MEDS: Albuterol HFA 8 GM 60 PUFF INH IH (19:37)
[2022-09-30] MEDS: Dexamethasone 4 MG TAB PO (19:37)
--- NOTE | 2022-09-30 19:39 | DI.VRAD_ITS ---
PROCEDURE INFORMATION: Exam: XR Chest Exam date and time: 09/30/2022 19:15 Age: 72 years old Clinical indication: Other: Cough, shortness of breath TECHNIQUE: Imaging protocol: Radiologic exam of the chest. Views: 2 views. COMPARISON: CR XR CHEST 2V PA LATERAL 03/25/2022 13:49 FINDINGS: Lungs: Mild hyperinflation without airspace consolidation. No significant interstitial disease for the degree of inflation. Pleural spaces: No pleural effusion. No pneumothorax. Heart/Mediastinum: No cardiomegaly. Bones/joints: Right glenohumeral arthroplasty, intact as visualized. No displaced fracture. IMPRESSION: Mild hyperinflation without airspace consolidation. Dictated and Authenticated by: Rashida Hui MD. Ordering:HERMAN Villa MD
== END 2022-09-30 19:40 | disposition home or self-care (01) ==
PROVIDERS: Emergency Provider Physician Assistant; PCP Nurse Practitioner Family
DX: R05.1 Acute cough (principal); B97.4 Respiratory syncytial virus as the cause of diseases classified elsewhere; S09.90XA Unspecified injury of head, initial encounter; G40.909 Epilepsy, unspecified, not intractable, without status epilepticus; I10 Essential (primary) hypertension; Z86.73 Personal history of transient ischemic attack (TIA), and cerebral infarction without residual deficits; Z20.822 Contact with and (suspected) exposure to COVID-19; W19.XXXA Unspecified fall, initial encounter
CPT/HCPCS: 80053; 87637; 93005; 99284; 70450; 71046; 72125; 81003; 81015; 83735; 85025; 93010; 99285; J8540

== ENCOUNTER 2022-12-22 13:34 | Outpatient (CLI) | payer MEDICARE, SELFPAY ==
--- NOTE | 2022-12-22 13:30 | DI.RAD_ITS ---
Exam(s) XR KNEE LT 2V AP,LAT EXAM: XR KNEE LT 2V AP,LAT CLINICAL HISTORY: f/u l distal femur enchondroma. TECHNIQUE: 2D digital imaging was performed. Two views. COMPARISON: CR XR KNEE LT 3V AP,LAT,LEANDRO from 05/02/2021 CR XR KNEE LT 2V AP,LAT from 06/19/2022 FINDINGS: BONES: No acute fracture is present. No bony destructive lesion is seen. Stable appearance enchond barron distal femoral metaphysis JOINTS: The knee is normally aligned. No joint effusion is seen. Stable medial femoral tibial joint space narrowing and periarticular spurring. Chondrocalcinosis present. SOFT TISSUE: Prominent venous varicosities. IMPRESSION: Stable small enchondroma distal femoral metaphysis. Stable degenerative changes. DATA REPOSITORY: RADIATION DOSE DELIVERED:
== END 2022-12-22 13:35 | disposition home or self-care (01) ==
PROVIDERS: PCP Nurse Practitioner Family; Referring Provider Nurse Practitioner Family; Visit Provider Student in an Organized Health Care Education/Training Program
DX: D16.22 Benign neoplasm of long bones of left lower limb (principal)
CPT/HCPCS: 99213; 73560

== ENCOUNTER → 2023-02-12 13:19 | Outpatient (BNVA) | payer MEDICARE, SELFPAY | PROVIDERS: PCP Nurse Practitioner Family; Visit Provider Psychiatry & Neurology Neurology | DX: G40.309 Generalized idiopathic epilepsy and epileptic syndromes, not intractable, without status epilepticus (principal); R41.3 Other amnesia; F41.9 Anxiety disorder, unspecified; Z86.73 Personal history of transient ischemic attack (TIA), and cerebral infarction without residual deficits | CPT/HCPCS: 99214 ==

== ENCOUNTER 2023-03-17 02:48 | Outpatient (CLI) | payer MEDICARE, SELFPAY ==
[2023-03-17 12:41] LABS: Vitamin B12 315 pg/mL (193-986)
== END 2023-03-17 02:49 | disposition home or self-care (01) ==
PROVIDERS: PCP Nurse Practitioner Family; Visit Provider Psychiatry & Neurology Neurology
DX: E53.8 Deficiency of other specified B group vitamins (principal); F02.80 Dementia in other diseases classified elsewhere, unspecified severity, without behavioral disturbance, psychotic disturbance, mood disturbance, and anxiety; G30.9 Alzheimer's disease, unspecified
CPT/HCPCS: 36415; 82607

== ENCOUNTER 2023-03-31 10:47 | Emergency (ER) | payer MEDICARE, MEDICAID, SELFPAY ==
[2023-03-31 10:58] VITALS: BP 152/76; PULSE 85; RESP 18; TEMP 36.9; O2SAT 95
--- NOTE | 2023-03-31 12:40 | W.ED.GENAD ---
Discharge Plan Disposition Patient Disposition: Home Discharge Details Clinical Impression: Abrasion of knee, bilateral, Traumatic effusion of knee joint Primary Care Provider: [facility] Provider: Boris Holder Ona Meds and New Rx's Prescriptions: Continued ferrous sulfate 325 mg (65 mg iron) tablet 325 mg PO BID Qty: 180 3RF mycophenolate mofetil 500 mg tablet 500 mg PO BID carbamazepine [Tegretol] 200 mg tablet 200 mg PO TID Qty: 270 4RF Rx Instructions: 1 TAB 0800, PM, and HS, NAME BRAND MEDICALLY NECESSARY duloxetine [Cymbalta] 20 mg capsule,delayed release(DR/EC) 20 mg PO DAILY Qty: 90 4RF Rx Instructions: Take 1 tab at 0800 calcium carbonate-vitamin D3 [Os-Miguel 500 + D3] 500 mg-15 mcg (600 unit) tablet 1 tab PO BID Qty: 200 2RF Rx Instructions: 1 tab at 0800 and 1 tab at HS Lac-Hydrin Five 5 % lotion 1 applic topical DAILY Qty: 226 4RF mecobalamin (vitamin B12) 1,000 mcg tablet,disintegrating 1,000 mcg sublingual DAILY Rx Instructions: place tablet under tongue and allow to dissolve for at least30 secs before swallowing memantine 10 mg tablet 10 mg PO BID Qty: 180 3RF albuterol sulfate 90 mcg/actuation HFA aerosol inhaler 2 inh inhalation Q6H PRN (Reason: shortness of breath or wheezing) Qty: 18 0RF (DME) BreatheRite MDI Spacer Spacer See Rx Instructions .Route Qty: 1 0RF Rx Instructions: As directed ctzfaxwpeel-eywvhikdc-ktv C-Mn [Glucosamine 1500 Complex] 1 EACH capsule 1 ea PO DAILY Multiple Vitamin, Womens 1 EACH tablet 1 ea PO DAILY hydroxyzine pamoate [Vistaril] 25 mg capsule 25 mg PO Q8H PRN (Reason: itching) Qty: 30 0RF gabapentin 300 mg capsule 300 mg PO TID Qty: 450 3RF ibuprofen 400 mg tablet 400 mg PO TID PRN (Reason: pain) Qty: 90 4RF prednisone 20 mg tablet 20 mg PO DAILY Qty: 4 0RF Discharge Instructions Additional Instructions: You were seen in the emergency department for your knee pain. Your x-rays showed no sign of any fractures. You had a small amount of fluid around your left knee which is likely from your fall. If you develop fevers or worsening pain please return to the emergency department. If you develop any numbness or tingling in your feet please return to the emergency department. For your pain please take medications as follows: 1. Take acetaminophen (Tylenol), 1,000 mg (two 500 mg tabs) every 6 hours Discharge Data Discharge Date/Time-TO BE ENTERED AT DEPARTURE: 03/31/23 19:46 Medical Decision Making This is an overall very well-appearing normothermic and not tachycardic 72-year-old woman with bilateral knee tenderness status post fall which seems most likely mechanical. She had no preceding chest pain to suggest ACS nor PE. No preceding headache nausea nor vomiting to suggest intracranial hemorrhage. She reportedly has had slurred speech this morning which is not uncommon for her according to her son. This resolved prior to the patient's arrival in the ED. Patient reportedly has had a prior history of CVA and also has a history of seizures. No tonic-clonic activity so I do not feel that patient is having a seizure or requires an EEG. She is moving all of her extremities and my suspicion is exceedingly low for CVA so I do not feel that the patient requires a CT head nor would she be a candidate for tPA. No nuchal rigidity nor fevers to suggest meningitis. No nausea no vomiting to suggest increased risk for acute electrolyte abnormalities. Patient does have open ulcerated areas to her right lower extremity but these do not appear superinfected so we will continue to observe off of antibiotics and continue with the [place] [facility] [place] of her bullous pemphigoid. Concerning her left upper extremity ecchymosis this is nontender. There is no purpura nor petechiae. She denies any black or bloody stools so my suspicion is exceedingly low for acute blood loss anemia. No pain out of proportion to suggest necrotizing soft tissue infection. In the absence of trauma and tenderness will defer imagine. Will advise acetaminophen for knee pain if plain films are negative for acute osseous abnormalities. Given that patient is able to straight leg raise my suspicion for quadriceps tendon rupture is exceedingly low. No head strikes no indication for CT cervical spine. Given that the patient fell indoors and has superficial abrasions no indication for tetanus update. 2:12 PM Right knee with no periprosthetic fractures. Left knee with small traumatic effusion. No fractures. Will discharge with PCP follow-up as needed. HPI General Date/Time Provider Initiated Documentation: 03/31/23 12:21. HPI Narrative: This is a 72-year-old female with history of epilepsy and reported remote prior CVA and bullous pemphigoid now in the emergency department following a fall. She presents with her son. She was reportedly wearing sneakers and tripped walking out of the bathroom. She fell onto the rocks and landed on both knees. She reportedly was in her usual state of health this morning but had some slurring of her speech which is not uncommon for her in the morning. She also has a history of seizures but had no tonic-clonic activity. She denies routine tobacco, ethanol, and illicits. No dysuria nor frequency. No preceding chest pain nor shortness of breath. No headaches. She did not strike her head nor lose consciousness. Speak changes resolved now in the ED. Related Data Home Medications Medication Instructions Recorded Confirmed iqfjaztquss-tutjqerxr-avz C-Mn 500 1 ea PO DAILY 03/26/13 04/01/23 mg-400 mg capsule (Glucosamine 1) xzfgwdvrhvpf-Gt-lpek-minerals 1 ea PO DAILY 04/13/14 04/01/23 (Multiple Vitamin, Womens tablet) ammonium lactate 5 % lotion 1 applic topical DAILY #226 grams 03/06/22 04/01/23 (Lac-Hydrin Five) calcium carbonate 500 mg-vitamin 1 tab PO BID Blister Pack #200 03/28/22 04/01/23 D3 15 mcg (600 unit) tablet tab-caps (Os-Miguel 500 + D3) duloxetine 20 mg capsule,delayed 20 mg PO DAILY Blister Pack #90 03/28/22 04/01/23 release (Cymbalta) caps prednisone 20 mg tablet 20 mg PO DAILY #4 tabs 05/17/22 04/01/23 mecobalamin (vitamin B12) 1,000 1,000 mcg sublingual DAILY 05/27/22 04/01/23 mcg disintegrating tablet,sublingual ferrous sulfate 325 mg (65 mg 325 mg PO BID #180 tabs 08/21/22 04/01/23 iron) tablet memantine 10 mg tablet 10 mg PO BID #180 tabs 09/18/22 04/01/23 hydroxyzine pamoate 25 mg capsule 25 mg PO Q8H PRN itching #30 caps 09/22/22 04/01/23 (Vistaril) gabapentin 300 mg capsule 300 mg PO TID Blister Pack #450 01/19/23 04/01/23 caps albuterol sulfate 90 mcg/actuation 2 inh inhalation Q6H PRN shortness 02/03/23 04/01/23 aerosol inhaler of breath or wheezing #18 grams inhalational spacing device #1 ea 02/03/23 04/01/23 (BreatheRite MDI Spacer) Tegretol 200 mg tablet 200 mg PO TID Blister Pack #270 02/12/23 04/01/23 (carbamazepine) tab-caps mycophenolate mofetil 500 mg tablet 500 mg PO BID 02/12/23 04/01/23 ibuprofen 400 mg tablet 400 mg PO TID PRN pain #90 tabs 02/17/23 04/01/23 Previous Rx's Medication Instructions Recorded ammonium lactate 5 % lotion 1 applic topical DAILY #226 grams 03/06/22 (Lac-Hydrin Five) calcium carbonate 500 mg-vitamin 1 tab PO BID Blister Pack #200 03/28/22 D3 15 mcg (600 unit) tablet tab-caps (Os-Miguel 500 + D3) duloxetine 20 mg capsule,delayed 20 mg PO DAILY Blister Pack #90 03/28/22 release (Cymbalta) caps prednisone 20 mg tablet 20 mg PO DAILY #4 tabs 05/17/22 ferrous sulfate 325 mg (65 mg 325 mg PO BID #180 tabs 08/21/22 iron) tablet memantine 10 mg tablet 10 mg PO BID #180 tabs 09/18/22 hydroxyzine pamoate 25 mg capsule 25 mg PO Q8H PRN itching #30 caps 09/22/22 (Vistaril) gabapentin 300 mg capsule 300 mg PO TID Blister Pack #450 01/19/23 caps albuterol sulfate 90 mcg/actuation 2 inh inhalation Q6H PRN shortness 02/03/23 aerosol inhaler of breath or wheezing #18 grams inhalational spacing device #1 ea 02/03/23 (BreatheRite MDI Spacer) Tegretol 200 mg tablet 200 mg PO TID Blister Pack #270 02/12/23 (carbamazepine) tab-caps ibuprofen 400 mg tablet 400 mg PO TID PRN pain #90 tabs 02/17/23 Allergies Allergy/AdvReac Type Severity Reaction Status Date / Time ciprofloxacin [From Cipro] Allergy Verified 02/12/23 13:27 codeine Allergy Verified 02/12/23 13:27 levetiracetam [From Keppra] Allergy Verified 02/12/23 13:27 Sulfa (Sulfonamide Allergy Verified 02/12/23 13:27 Antibiotics) amoxicillin [From Augmentin] AdvReac Severe Nausea, Verified 02/12/23 13:27 vomiting and diarrhea clavulanic acid AdvReac Severe Nausea, Verified 02/12/23 13:27 [From Augmentin] vomiting and diarrhea simvastatin AdvReac Unknown FEEL ILL Verified 02/12/23 13:27 meperidine AdvReac DOESNT Verified 02/12/23 13:27 WANT TO EVER TAKE IT, FAMILY HISTORY General Stated Complaint: Fall/Non TraumaCriteria HOSSEIN: 3 PFS All Active Problems (Updated 03/31/23 @ 14:13 by Boris Holder MD) Abrasion of knee, bilateral (Acute) Traumatic effusion of knee joint (Acute) B12 deficiency (Acute) Alzheimer disease (Chronic) Bullous pemphigus (Acute) Anemia (Chronic) Seizure (Acute) followed at [facility] 05/2022- transfer of care to [facility] neurology Medical History Carpal tunnel syndrome Chronic right shoulder pain (02/15/16) [place] [facility] [place] right shoulder revision/replacement Depressive disorder anxiety Dermatosis of perineum Dizziness Dry skin dermatitis Edema Enchondroma of left femur Epilepsy Essential hypertension (01/16/14) Fibromyalgia Herpes zoster History of reduction of closed fracture Hyponatremia Low back pain radiating to right leg (05/22/15) 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 Memory changes Orthostatic hypotension Osteoarthritis of knee (02/21/14) left- has received injections right knee replaced Overweight (05/22/15) Pes anserinus bursitis of right knee Recurrent UTI (11/24/17) Shoulder pain, left Thrombophlebitis of superficial veins of lower extremity varicose veins TIA (transient ischemic attack) 07/2021- MRI with no acute infarct Urinary incontinence, urge Varicose veins of left leg with edema Surgical History Fracture, Closed Treatment ANKLE,FOOT,THUMB History of cataract removal with insertion of prosthetic lens History of section History of revision of total replacement of right shoulder joint (~06/29/18) [place] [place] 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 MURRY Family History Mother , 89 Essential hypertension Depression Neoplasm FACE/SKIN Stroke Dementia Diabetes Father , 61 Essential hypertension Heart disease Hyperlipidemia Sister Essential hypertension Dementia Neoplasm FACE/SKIN Brother No problems noted. Brother Diabetes Essential hypertension TBI (traumatic brain injury) Depression Myocardial infarction Stroke Brother Essential hypertension Depression Hyperlipidemia Maternal Grandfather , 60 Lung cancer Maternal Grandmother , 94 Diabetes Neoplasm SKIN Paternal Grandmother Diabetes Depression Seizures Stroke Son Dementia Depression Daughter Dementia Depression Essential hypertension Brother TBI (traumatic brain injury) Depression Essential hypertension Alcohol abuse Previous Brother Depression Brother No problems noted. 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 Pets and animals: No Sexually active: No Do you think of yourself as: straight/heterosexual Current gender identity: female What is your relationship status?: How often do you talk on the phone with friends or family?: three or more times per week How often do you get together with friends or relatives?: three or more times per week How often do you attend druze or evangelical services?: 1-3 times per year Do you belong to any clubs or organized social groups?: no Panel score (0-1 are the most socially isolated patients): 1 What type of physical activity do you participate in: walking Duration: 30-45 minutes/day Frequency: 3-4 times per week Jacquie/Christian: [employer]ar[employer] Special jacquie needs: No Seatbelt use: always Helmet use: No Drive intox or ride w/intox [employer] 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 Head: Normocephalic, atraumatic. Eye: Pupils equal, round reactive to light. Extraocular eye movements intact. No conjunctival injection. No scleral icterus. Ear, nose, mouth, throat: Grossly normal inspection. Normal voice, handling secretions normally. Neck: Trachea midline. Cardiovascular: Well-perfused distal extremities. Respiratory: Nonlabored respiration. Gastrointestinal: Nondistended abdomen. Musculoskeletal: Bilateral knees with tenderness and superficial abrasions. Right knee with well-healed surgical scar. Full range of motion in bilateral knees. 5 out of 5 dorsi and plantar flexion. Patient is able to straight leg raise bilaterally. Just superior to the patella on the left there is a small 2 x 2 centimeter ecchymotic area. Right lower extremity with well-healing ulcerated areas inferior to the right knee which patient reports are chronic secondary to bullous pemphigoid. Left upper extremity with ecchymosis primarily over the dorsal surface of the left forearm. Patient is able to fully pronate and supinate. She has full range of motion in her left elbow. Her left hand is warm and well-perfused with 2+ radial pulse. Cap refill less than 2 seconds in the left fingertips. Sensation and motor function intact across the radial, median, and ulnar nerve distributions of the left hand. Skin: Normal for age and race, grossly normal temperature and turgor. No acute rash. Neurologic: Alert and appropriate, no apparent acute deficits. Psychiatric: Mood and manner are appropriate. Grooming and personal hygiene are appropriate. Course Vital Signs Vital signs: Vital Signs Temperature 36.9 C 03/31/23 10:58 Pulse 85 03/31/23 10:58 Respiratory Rate 18 03/31/23 10:58 Blood Pressure 152/76 H 03/31/23 10:58 Pulse Oximetry 95 03/31/23 10:58 Temperature 36.9 C 03/31/23 10:58 Temperature Source Oral 03/31/23 10:58 Pulse 85 03/31/23 10:58 Respiratory Rate 18 03/31/23 10:58 Respiratory Effort Normal, Non-Labored 03/31/23 11:24 Blood Pressure 152/76 H 03/31/23 10:58 Pulse Oximetry 95 03/31/23 10:58 Oxygen Delivery Method Room Air 03/31/23 10:58 Oxygen Flow Rate 0 03/31/23 10:58
--- NOTE | 2023-03-31 13:00 | DI.RAD_ITS ---
Exam(s) XR KNEE LT 3V AP,LAT,LEANDRO EXAM: XR KNEE LT 3V AP,LAT,LEANDRO CLINICAL HISTORY: Left knee pain status post fall. TECHNIQUE: 2D digital imaging was performed. COMPARISON: CR XR KNEE LT 2V AP,LAT from 12/22/2022 FINDINGS: 3 views There is prominent prepatellar swelling. Patella appears intact. No evidence acute fracture. Small joint effusion noted. Some degenerative changes are again noted in the medial compartment. There is also stable appearing probable enchondroma in the distal diaphysis of the femur. IMPRESSION: Prominent prepatellar swelling. No fractures evident. However, there does appear to be a small join t effusion. DATA REPOSITORY: RADIATION DOSE DELIVERED:
--- NOTE | 2023-03-31 13:00 | DI.RAD_ITS ---
Exam(s) XR KNEE RT 3V AP,LAT,LEANDRO EXAM: XR KNEE RT 3V AP,LAT,LEANDRO CLINICAL HISTORY: Right knee pain status post fall. TECHNIQUE: 2D digital imaging was performed. COMPARISON: CR XR KNEE RT 4V+ from 03/25/2022 CR XR KNEE RT 2V AP,LAT from 04/14/2022 CR XR KNEE LT 2V AP,LAT from 06/19/2022 CR XR KNEE LT 3V AP,LAT,LEANDRO from 03/31/2023 FINDINGS: 3 views Components of the prosthesis appear intact. No acute fracture evident. Osteophytic density off the outer aspect of the medial femoral condyle is unchanged from previous. Possibly related to prior Pel legrini-Stieda injury. IMPRESSION: Intact prosthesis. No acute fracture evident. DATA REPOSITORY: RADIATION DOSE DELIVERED:
[2023-03-31 14:45] VITALS: BP 142/80; PULSE 78; RESP 18; TEMP 37; O2SAT 99
== END 2023-03-31 19:46 | disposition home or self-care (01) ==
PROVIDERS: Emergency Provider Emergency Medicine; PCP Nurse Practitioner Family
DX: S80.211A Abrasion, right knee, initial encounter; S80.212A Abrasion, left knee, initial encounter; M25.462 Effusion, left knee; M25.461 Effusion, right knee; W01.0XXA Fall on same level from slipping, tripping and stumbling without subsequent striking against object, initial encounter
CPT/HCPCS: 73562; 99283

== ENCOUNTER 2023-05-20 11:34 | Emergency (ER) | payer MEDICARE, SELFPAY ==
[2023-05-20 11:38] VITALS: BP 94/51; PULSE 85; RESP 16; TEMP 37.2; O2SAT 97
--- NOTE | 2023-05-20 11:45 | DI.RAD_ITS ---
Exam(s) XR KNEE RT 3V AP,LAT,LEANDRO EXAM: XR KNEE RT 3V AP,LAT,LEANDRO CLINICAL HISTORY: Fall,. TECHNIQUE: 2D digital imaging was performed. Three views. COMPARISON: CR XR KNEE RT 3V AP,LAT,LEANDRO from 03/31/2023 FINDINGS: There is a total knee prosthesis, unchanged in alignment. No joint effusion is visible. There is no evidence of fracture. IMPRESSION: No acute abnormality. DATA REPOSITORY: RADIATION DOSE DELIVERED:
--- NOTE | 2023-05-20 11:45 | DI.RAD_ITS ---
Exam(s) XR PELVIS AP EXAM: XR PELVIS AP CLINICAL HISTORY: Fall. TECHNIQUE: 2D digital imaging was performed. COMPARISON: No exams were available for comparison FINDINGS: BONES: No acute fracture is present. No bony destructive lesion is seen. JOINTS: No dislocation present. No joint space narrowing is present. Mild bilateral acetabular spur ring. Mild degenerative changes in the SI joints and pubic symphysis. Degenerative changes also pre sent in the lower lumbar spine. SOFT TISSUE: Normal. IMPRESSION: No acute abnormality. DATA REPOSITORY: RADIATION DOSE DELIVERED:
--- NOTE | 2023-05-20 11:45 | DI.RAD_ITS ---
Exam(s) XR ANKLE RT COMPLETE EXAM: XR ANKLE RT COMPLETE CLINICAL HISTORY: Fall, Hx surgery. TECHNIQUE: 2D digital imaging was performed. Three views. COMPARISON: CR XR ANKLE RT COMPLETE from 03/25/2022 FINDINGS: BONES: No acute fracture is present. No bony destructive lesion is seen. A screw is again noted in the medial malleolus. JOINTS: The ankle mortise is normally aligned. Joint spaces maintained. Spurring at the malleoli. SOFT TISSUE: Normal. IMPRESSION: Degenerative and postsurgical changes. No acute abnormality. DATA REPOSITORY: RADIATION DOSE DELIVERED:
--- NOTE | 2023-05-20 12:02 | W.ED.GENAD ---
Discharge Plan Disposition Patient Disposition: Home Condition: Stable Discharge Details Clinical Impression: Fall, Bullous pemphigus, Chronic pain of right lower extremity Primary Care Provider: [facility] ED Provider: Dottie Munson [place] Meds and New Rx's Prescriptions: No Action ferrous sulfate 325 mg (65 mg iron) tablet 325 mg PO BID Qty: 180 3RF mycophenolate mofetil 500 mg tablet 500 mg PO BID Patient Comments: not taking carbamazepine [Tegretol] 200 mg tablet 200 mg PO TID Qty: 270 4RF Rx Instructions: 1 TAB 0800, PM, and HS, NAME BRAND MEDICALLY NECESSARY duloxetine [Cymbalta] 20 mg capsule,delayed release(DR/EC) 20 mg PO DAILY Qty: 90 4RF Rx Instructions: Take 1 tab at 0800 calcium carbonate-vitamin D3 [Os-Miguel 500 + D3] 500 mg-15 mcg (600 unit) tablet 1 tab PO BID Qty: 200 2RF Patient Comments: not taking Rx Instructions: 1 tab at 0800 and 1 tab at HS Lac-Hydrin Five 5 % lotion 1 applic topical DAILY Qty: 226 4RF Patient Comments: not taking mecobalamin (vitamin B12) 1,000 mcg tablet,disintegrating 1,000 mcg sublingual DAILY Patient Comments: not taking Rx Instructions: place tablet under tongue and allow to dissolve for at least30 secs before swallowing memantine 10 mg tablet 10 mg PO BID Qty: 180 3RF albuterol sulfate 90 mcg/actuation HFA aerosol inhaler 2 inh inhalation Q6H PRN (Reason: shortness of breath or wheezing) Qty: 18 0RF (DME) BreatheRite MDI Spacer Spacer See Rx Instructions .Route Qty: 1 0RF Rx Instructions: As directed [id number] C-Mn [Glucosamine 1500 Complex] 1 EACH capsule 1 ea PO DAILY Patient Comments: not taking Multiple Vitamin, Womens 1 EACH tablet 1 ea PO DAILY hydroxyzine pamoate [Vistaril] 25 mg capsule 25 mg PO Q8H PRN (Reason: itching) Qty: 30 0RF gabapentin 300 mg capsule 300 mg PO TID Qty: 450 3RF ibuprofen 400 mg tablet 400 mg PO TID PRN (Reason: pain) Qty: 90 4RF Lice Treatment (permethrin) 1 % liquid 60 ml topical ONCE Qty: 59 1RF Patient Comments: not taking Rx Instructions: apply and leave on for at least 10 minutes may repeat treatment 7 days after first treatment if live lice remain hydroxyzine HCl 50 mg tablet 50 mg PO TID PRN Patient Comments: TAKE ONE TABLET BY MOUTH THREE TIMES A DAY NEEDED FOR ITCHING triamcinolone acetonide 0.1 % ointment See Rx Instructions .ROUTE .COMPLEX Patient Comments: APPLY TO AFFECTED AREAS ON THE TRUNK AND EXTREMITIES TWO TIMES A DAY FOR TWO WEEKS. TAKE A 5-7 DAY BREAK AND REPEAT NEEDED Rx Instructions: APPLY TO AFFECTED AREAS ON THE TRUNK AND EXTREMITIES TWO TIMES A DAY FOR TWO WEEKS. TAKE A 5-7 DAY BREAK AND REPEAT NEEDED acetylcysteine 600 mg capsule 600 mg PO TID Patient Comments: TAKE ONE CAPSULE BY MOUTH TWICE A DAY TOLERATED aspirin 81 mg Capsule 81 mg PO DAILY prednisone 20 mg tablet 40 mg PO BID oxybutynin chloride 5 mg tablet extended release 24hr 10 mg PO BID Discharge Instructions Instructions: Fall Prevention for Older Adults (ED), Leg Pain (ED) Additional Instructions: No evidence of acute broken bones on the x-rays. Please to follow-up with [facility] dermatology as previously scheduled. Follow up with primary care provider in 3-5 days. Return to ED sooner if any worsening pain, fever, vomiting, confusion or concerns. Increase oral fluids. Please take Tylenol or Ibuprofen with food every 4-6 hours as needed for pain and swelling. Referrals: [facility] SAUSAGE COOKER [Primary Care Provider] - 5 days Medical Decision Making 73-year-old female presents to the ER chief complaint of fall last night from a sitting position fell onto the floor. Witnessed by her daughter. She presents today with her son who is also part of her care team. No loss of consciousness did not hit her head is complaining of hip pain. She does also complain of her right lower extremity pain. She is able to bend her knee. She does have a history of a skin disorder called bullous pemphigoid which she is being followed by [facility] and receives injections for. The son does note that she was complaining of her lower extremity hurting and she did vomit after receiving a Zofran which was administered by her son. I did discuss with her PCP which they instructed her to present for further eval. Work-up ordered CBC CMP lactate blood cultures x-ray right lower extremity and pelvis. Differential diagnosis includes but not limited to occult fracture, fracture, cellulitis, sepsis. 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 She did take ibuprofen prior to arrival so she is afebrile here. No evidence of sepsis on the lab work no leukocytosis, potassium 3.4 was given 20 mill equivalents potassium p.o. liquid, BUN 25 creatinine 1.0 GFR within normal limits. Magnesium within normal limits lactate 0.9. Lymphocytes low patient was recently on prednisone. No left shift. Blood pressure has improved 104/69 nontachycardic pulse 85. X-rays are all within normal limits nothing acute. We will give patient some topical lidocaine placed on her leg. I will encourage them to continue to follow-up with [facility] dermatology as previously scheduled for the bolus pemphigoid. We will discuss strict return instructions and to return with any concerns or worsening. This text was generated using [employer] dictation system, please disregard any oddities of phrase or misspellings. Medical Records Medical records reviewed: Yes I reviewed the patient's medical records. Lab Data Lab results reviewed: Yes I reviewed the patient's lab results. Labs: 05/20/23 12:15 Blood Blood Culture - Pending 05/20/23 12:00 Blood Blood Culture - Pending Laboratory Tests Range/Units 05/20/23 05/20/23 05/20/23 12:00 12:00 12:15 WBC (4.4-10.8) 10^3/uL 6.72 RBC (3.93-5.22) 10^6/uL 3.59 L Hgb (11.2-15.7) g/dL 11.3 Hct (36.0-46.0) % 34.2 L MCV (80-95) fL 95 MCH (27.0-33.0) pg 31.5 MCHC (32.0-36.0) % 33.0 RDW (11.7-14.6) % 12.9 Plt Count (130-400) 10^3/uL 215 MPV (8.0-11.0) fL 8.9 Immature Gran % 0.6 Neutrophils % 68.8 Lymphocytes % 15.5 Monocytes % 11.5 Eosinophils % 3.0 Basophils % 0.6 Nucleated RBC % (0.0-0.3) % 0.0 Absolute Neutrophils (1.2-6.7) 10^3/uL 4.63 Absolute Lymphocytes (1.2-3.4) 10^3/uL 1.04 L Absolute Monocytes (0.1-0.8) 10^3/uL 0.77 Absolute Eosinophils (0.0-0.7) 10^3/uL 0.20 Absolute Basophils (0.0-0.2) 10^3/uL 0.04 VBG Lactate (0.6-1.4) mmol/L 0.9 Sodium (136-145) mmol/L 137 Potassium (3.5-5.1) mmol/L 3.4 L Chloride (98-107) mmol/L 100 Carbon Dioxide (21.0-32.0) mmol/L 29.4 Anion Gap (3-11) mmol/L 7.6 BUN (7-18) mg/dL 25 H Creatinine (0.55-1.02) mg/dL 1.0 Est GFR (CKD-EPI 2020) (mL/min/1.73m2) 59.12 Glucose (74-106) mg/dL 99 Calcium (8.5-10.1) mg/dL 8.6 Magnesium (1.8-2.4) mg/dL 2.2 Total Bilirubin (0.2-1.0) mg/dL 0.4 AST (15-37) U/L 11 L ALT (14-59) U/L 17 Alkaline Phosphatase (46-116) U/L 60 Total Protein (6.4-8.2) g/dL 6.8 Albumin (3.4-5.0) g/dL 3.5 HPI General Mode of arrival: wheelchair. Date/Time Provider Initiated Documentation: 05/20/23 11:45. Limitations to Documentation: no limitations. Information obtained by: patient, family (Son), RN notes reviewed and old records reviewed. HPI Narrative: 73-year-old female presents to the ER chief complaint of fall last night from a sitting position fell onto the floor. Witnessed by her daughter. She presents today with her son who is also part of her care team. No loss of consciousness did not hit her head is complaining of hip pain. She does also complain of her right lower extremity pain. She is able to bend her knee. She does have a history of a skin disorder called bullous pemphigoid which she is being followed by [facility] and receives injections for. The son does note that she was complaining of her lower extremity hurting and she did vomit after receiving a Zofran which was administered by her son. I did discuss with her PCP which they instructed her to present for further eval. Related Data Home Medications Medication Instructions Recorded Confirmed [id number] C-Mn 500 1 ea PO DAILY 03/26/13 04/27/23 mg-400 mg capsule (Glucosamine 1) [id number]-minerals 1 ea PO DAILY 04/13/14 05/20/23 (Multiple Vitamin, Womens tablet) ammonium lactate 5 % lotion 1 applic topical DAILY #226 grams 03/06/22 04/27/23 (Lac-Hydrin Five) calcium carbonate 500 mg-vitamin 1 tab PO BID Blister Pack #200 03/28/22 04/27/23 D3 15 mcg (600 unit) tablet tab-caps (Os-Miguel 500 + D3) duloxetine 20 mg capsule,delayed 20 mg PO DAILY Blister Pack #90 03/28/22 05/20/23 release (Cymbalta) caps mecobalamin (vitamin B12) 1,000 1,000 mcg sublingual DAILY 05/27/22 04/27/23 mcg disintegrating tablet,sublingual ferrous sulfate 325 mg (65 mg 325 mg PO BID #180 tabs 08/21/22 05/20/23 iron) tablet memantine 10 mg tablet 10 mg PO BID #180 tabs 09/18/22 05/20/23 hydroxyzine pamoate 25 mg capsule 25 mg PO Q8H PRN itching #30 caps 09/22/22 05/20/23 (Vistaril) gabapentin 300 mg capsule 300 mg PO TID Blister Pack #450 01/19/23 05/20/23 caps albuterol sulfate 90 mcg/actuation 2 inh inhalation Q6H PRN shortness 02/03/23 05/20/23 aerosol inhaler of breath or wheezing #18 grams inhalational spacing device #1 ea 02/03/23 04/27/23 (BreatheRite MDI Spacer) Tegretol 200 mg tablet 200 mg PO TID Blister Pack #270 02/12/23 05/20/23 (carbamazepine) tab-caps mycophenolate mofetil 500 mg tablet 500 mg PO BID 02/12/23 04/27/23 ibuprofen 400 mg tablet 400 mg PO TID PRN pain #90 tabs 02/17/23 05/20/23 permethrin 1 % topical liquid 60 ml topical ONCE #59 mL 05/19/23 (Lice Treatment (permethrin)) acetylcysteine 600 mg capsule 600 mg PO TID 05/20/23 05/20/23 aspirin 81 mg capsule 81 mg PO DAILY 05/20/23 05/20/23 hydroxyzine HCl 50 mg tablet 50 mg PO TID PRN 05/20/23 05/20/23 oxybutynin chloride 5 mg 10 mg PO BID 05/20/23 05/20/23 tablet,extended release 24 hr prednisone 20 mg tablet 40 mg PO BID 05/20/23 05/20/23 triamcinolone acetonide 0.1 % See Rx Instructions .Route .COMPLEX 05/20/23 05/20/23 topical ointment Previous Rx's Medication Instructions Recorded ammonium lactate 5 % lotion 1 applic topical DAILY #226 grams 03/06/22 (Lac-Hydrin Five) calcium carbonate 500 mg-vitamin 1 tab PO BID Blister Pack #200 03/28/22 D3 15 mcg (600 unit) tablet tab-caps (Os-Miguel 500 + D3) duloxetine 20 mg capsule,delayed 20 mg PO DAILY Blister Pack #90 03/28/22 release (Cymbalta) caps ferrous sulfate 325 mg (65 mg 325 mg PO BID #180 tabs 08/21/22 iron) tablet memantine 10 mg tablet 10 mg PO BID #180 tabs 09/18/22 hydroxyzine pamoate 25 mg capsule 25 mg PO Q8H PRN itching #30 caps 09/22/22 (Vistaril) gabapentin 300 mg capsule 300 mg PO TID Blister Pack #450 01/19/23 caps albuterol sulfate 90 mcg/actuation 2 inh inhalation Q6H PRN shortness 02/03/23 aerosol inhaler of breath or wheezing #18 grams inhalational spacing device #1 ea 02/03/23 (BreatheRite MDI Spacer) Tegretol 200 mg tablet 200 mg PO TID Blister Pack #270 02/12/23 (carbamazepine) tab-caps ibuprofen 400 mg tablet 400 mg PO TID PRN pain #90 tabs 02/17/23 permethrin 1 % topical liquid 60 ml topical ONCE #59 mL 05/19/23 (Lice Treatment (permethrin)) Allergies Allergy/AdvReac Type Severity Reaction Status Date / Time ciprofloxacin [From Cipro] Allergy Verified 05/20/23 11:48 codeine Allergy Verified 05/20/23 11:48 levetiracetam [From Keppra] Allergy Verified 05/20/23 11:48 Sulfa (Sulfonamide Allergy Verified 05/20/23 11:48 Antibiotics) amoxicillin [From Augmentin] AdvReac Severe Nausea, Verified 05/20/23 11:48 vomiting and diarrhea clavulanic acid AdvReac Severe Nausea, Verified 05/20/23 11:48 [From Augmentin] vomiting and diarrhea simvastatin AdvReac Unknown FEEL ILL Verified 05/20/23 11:48 meperidine AdvReac DOESNT Verified 05/20/23 11:48 WANT TO EVER TAKE IT, FAMILY HISTORY General Stated Complaint: Fall/Non TraumaCriteria HOSSEIN: 3 Review of Systems All systems reviewed & are unremarkable except as noted in HPI and below Constitutional Constitutional: Reports as per HPI and Reports frequent falls Gastrointestinal Gastrointestinal: Reports vomiting Integumentary/Breasts Skin/Breast: Reports as per HPI, Reports erythema, Reports skin pain, Reports sores and Reports other (Does have a bullous area which Son states she has had before, ) Comments: Overall skin condition has improved per Son Neurologic Neurologic: Reports frequent falls [facility] All Active Problems (Updated 05/20/23 @ 13:43 by Dottie Munson NP) Fall (Acute) Chronic pain of right lower extremity (Acute) B12 deficiency (Acute) Alzheimer disease (Chronic) Bullous pemphigus (Acute) Anemia (Chronic) Seizure (Acute) followed at [facility] 05/2022- transfer of care to [facility] neurology Medical History Carpal tunnel syndrome Chronic right shoulder pain (02/15/16) 06/29/2018 - [facility] [place] total right shoulder revision/replacement Depressive disorder anxiety Dermatosis of perineum Dizziness Dry skin dermatitis Edema Enchondroma of left femur Epilepsy Essential hypertension (01/16/14) Fibromyalgia Herpes zoster History of reduction of closed fracture Hyponatremia Low back pain radiating to right leg (05/22/15) 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 Memory changes Orthostatic hypotension Osteoarthritis of knee (02/21/14) left- has received injections right knee replaced Overweight (05/22/15) Pes anserinus bursitis of right knee Recurrent UTI (11/24/17) Shoulder pain, left Thrombophlebitis of superficial veins of lower extremity varicose veins TIA (transient ischemic attack) 07/2021- MRI with no acute infarct Urinary incontinence, urge Varicose veins of left leg with edema Surgical History Fracture, Closed Treatment ANKLE,FOOT,THUMB History of cataract removal with insertion of prosthetic lens History of section History of revision of total replacement of right shoulder joint (~06/29/18) 06/29/18-[facility] [place];[facility] 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 MURRY Family History Mother , 89 Essential hypertension Depression Neoplasm FACE/SKIN Stroke Dementia Diabetes Father , 61 Essential hypertension Heart disease Hyperlipidemia Sister Essential hypertension Dementia Neoplasm FACE/SKIN Brother No problems noted. Brother Diabetes Essential hypertension TBI (traumatic brain injury) Depression Myocardial infarction Stroke Brother Essential hypertension Depression Hyperlipidemia Maternal Grandfather , 60 Lung cancer Maternal Grandmother , 94 Diabetes Neoplasm SKIN Paternal Grandmother Diabetes Depression Seizures Stroke Son Dementia Depression Daughter Dementia Depression Essential hypertension Brother TBI (traumatic brain injury) Depression Essential hypertension Alcohol abuse Previous Brother Depression Brother No problems noted. 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 Pets and animals: Yes Pets and animals: dog(s) Sexually active: No Do you think of yourself as: straight/heterosexual Current gender identity: female What is your relationship status?: How often do you talk on the phone with friends or family?: once per week How often do you get together with friends or relatives?: twice per week How often do you attend adventist or judaism services?: 1-3 times per year Do you belong to any clubs or organized social groups?: no Panel score (0-1 are the most socially isolated patients): 1 What type of physical activity do you participate in: walking Duration: 30-45 minutes/day Frequency: daily Jacquie/Jainism: Latter Day Special jacquie needs: No Seatbelt use: always Helmet use: No Drive intox or ride w/intox driver manager: No Do you feel safe at home: Yes Do you feel safe in your relationship?: Yes Additional Social history: pt lives with son and daughter, 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 Exam Narrative Exam Narrative: General: Well Developed, Awake and Alert, conversant. Skin: Warm and Dry HEENT: Head: No palpable deformities, Normocephalic Eyes: Pupils PERRLA, EOM's intact. No periorbital eccymosis or step off Ears: Canal patent. Tympanic membranes are clear . No loza's sign, no hemptympanum. Nose/Face: Atraumatic. Facial bones nontender to palpation and stable with manipulation. Mouth/Throat: No intraoral trauma. Teeth and mandible are intact. Neck: No midline tenderness, no step off, no deformity to palpation of C-spine. Trachea midline. Chest: No surface trauma. Nontender without crepitus or deformity. Lungs clear to ausculatation bilaterally. Heart: RRR, no rubs, murmurs or gallop. Abdomen: No abrasions, ecchymosis, or surface trauma. Nondistended. Nontender to palpation no guarding, rebound, or rigidity. Pelvis: Nontender to palpation and stable to compression. Femoral pulses strong and equal Extremities: no surface trauma. Sensation intact. Peripheral pulses intact and equal. Neuro: ANO x4, GCS 15, cranial nerves II through XII intact. Motor and sensory exam nonfocal. Reflexes are symmetric. Course Vital Signs Vital signs: Vital Signs Temperature 37.2 C 05/20/23 11:38 Pulse 85 05/20/23 11:38 Respiratory Rate 16 05/20/23 11:38 Blood Pressure 94/51 L 05/20/23 11:38 Pulse Oximetry 97 05/20/23 11:38 Temperature 37.2 C 05/20/23 11:38 Temperature Source Oral 05/20/23 11:38 Pulse 85 05/20/23 11:38 Respiratory Rate 16 05/20/23 11:38 Respiratory Effort Normal, Non-Labored 05/20/23 11:48 Blood Pressure 94/51 L 05/20/23 11:38 Blood Pressure Position Sitting 05/20/23 11:38 Pulse Oximetry 97 05/20/23 11:38 Oxygen Delivery Method Room Air 05/20/23 11:38 Oxygen Flow Rate 0 05/20/23 11:38 Pain Level 3 05/20/23 11:38
[2023-05-20 12:21] LABS: Lactate 0.9 mmol/L (0.6-1.4)
[2023-05-20 12:27] LABS: Abs Immature Grans 0.04 10^3/uL (0.0-0.06); Absolute Basophil Count 0.04 10^3/uL (0.0-0.2); Absolute Lymphocyte Count 1.04 10^3/uL (1.2-3.4); Absolute Monocyte Count 0.77 10^3/uL (0.1-0.8); Absolute Neutrophil Count 4.63 10^3/uL (1.2-6.7); Basophils % 0.6; HCT 34.2 % (36.0-46.0); HGB 11.3 g/dL (11.2-15.7); Immature Grans % 0.6; Lymphocytes % 15.5; MCH 31.5 pg (27.0-33.0); MCV 95 fL (80-95); MPV 8.9 fL (8.0-11.0); Monocytes % 11.5; Neutrophils % 68.8; Platelet Count 215 10^3/uL (130-400); RBC 3.59 10^6/uL (3.93-5.22); RDW 12.9 % (11.7-14.6); RDW-SD 45.5 fL; WBC 6.72 10^3/uL (4.4-10.8)
[2023-05-20 12:44] LABS: ALT 17 U/L (14-59); AST 11 U/L (15-37); Albumin 3.5 g/dL (3.4-5.0); Alkaline Phosphatase 60 U/L (46-116); Anion Gap 7.6 mmol/L (3-11); BUN 25 mg/dL (7-18); Bilirubin, Total 0.4 mg/dL (0.2-1.0); CO2 29.4 mmol/L (21.0-32.0); Calcium 8.6 mg/dL (8.5-10.1); Chloride 100 mmol/L (98-107); Estimated GFR 59.12 (mL/min/1.73m2); Glucose 99 mg/dL (74-106); Magnesium 2.2 mg/dL (1.8-2.4); Potassium 3.4 mmol/L (3.5-5.1); Sodium 137 mmol/L (136-145); Total Protein 6.8 g/dL (6.4-8.2)
[2023-05-20] MEDS: Potassium Chloride Liquid 20 MEQ PKT PO (13:05)
[2023-05-20 13:11] VITALS: BP 104/69; PULSE 85
[2023-05-20] MEDS: Lidocaine 2% Jelly 6 ML SYR TP (13:45)
[2023-05-20 13:50] VITALS: BP 122/68; PULSE 68; RESP 16; O2SAT 98
== END 2023-05-20 13:54 | disposition home or self-care (01) ==
PROVIDERS: Emergency Provider Registered Nurse Emergency; PCP Nurse Practitioner Family
DX: M19.071 Primary osteoarthritis, right ankle and foot (principal); M17.11 Unilateral primary osteoarthritis, right knee; M47.816 Spondylosis without myelopathy or radiculopathy, lumbar region; L12.0 Bullous pemphigoid; Z96.651 Presence of right artificial knee joint; Z79.82 Long term (current) use of aspirin; Z86.73 Personal history of transient ischemic attack (TIA), and cerebral infarction without residual deficits; W18.39XA Other fall on same level, initial encounter; Y93.89 Activity, other specified; Y92.018 Other place in single-family (private) house as the place of occurrence of the external cause; Y99.9 Unspecified external cause status
CPT/HCPCS: 73562; 80053; 87040; 99283; 72170; 73610; 83605; 83735; 85025

== ENCOUNTER 2023-06-11 13:23 | Emergency (ER) | payer MEDICARE, SELFPAY ==
[2023-06-11 13:24] VITALS: BP 120/73; PULSE 87; RESP 18; TEMP 36.7; O2SAT 95
--- NOTE | 2023-06-11 13:30 | DI.CT_ITS ---
Exam(s) CT HEAD CERV SPINE FACIAL WO EXAM: CT HEAD CERV SPINE FACIAL WO CLINICAL HISTORY: fall, seizure, demented. TECHNIQUE: Imaging Protocol: Axial computed tomography images with coronal and sagittal reformatted images were created and reviewed COMPARISON: CT CT HEAD CERVICAL SPINE WO from 09/30/2022 FINDINGS: CT Head: Ventricles and Extra axial spaces: Normal in size and morphology for the patient's age. Hemorrhage: None. Cerebral parenchyma: There is no evidence of an acute territorial infarct. There is small vessel isc hemic disease. There are tiny foci of air in the region of the cavernous sinuses bilaterally. This may be iatrogenic. There is no evidence of a skull base fracture. Midline shift: None. Brainstem/Cerebellum: Normal. Calvarium: Normal. Visualized Paranasal sinuses/Mastoids: Clear. Soft Tissues: Unremarkable. CT Face: Facial Bones: No definite fracture is noted in facial bones. Sinuses and Mastoids: Unremarkable. Globes, extraocular muscles, optic nerves and retrobulbar fat: Normal. Upper aerodigestive tract: Normal. There is left middle turbinate ramón bullosa. The ostiomeatal co mplexes are unremarkable. The nasal septum deviates to the right. Mandible and bilateral temporomandibular joints: Normal. Soft tissues: Normal. CT Cervical Spine: Bones: No acute fracture or subluxation. Age-appropriate degenerative changes are seen in the cervica l spine. Soft Tissues: Unremarkable. Lung Apices: Clear. IMPRESSION: 1. No definite acute intracranial process. 2. No acute fracture or subluxation in the cervical spine. 3. No acute facial fracture. 4. Findings were discussed with Dr. Morales at 3:25 p.m. on 06/11/2023. RADIATION DOSE DELIVERED: 1,791.34mGy.cm Total DLP DATA REPOSITORY: All CT scans at this facility are submitted to the National Radiology Data Registry (NRDR) Dose Index Registry (DIR) with the [employer] (ACR). RADIATION OPTIMIZATION: All CT scans at this facility use at least one of these dose optimization te chniques: automated exposure control; mA and/or kV adjustment per patient size (includes targeted exa ms where dose is matched to clinical indication); or iterative reconstruction.
--- NOTE | 2023-06-11 13:40 | W.ED.GENAD ---
Discharge Plan Disposition Patient Disposition: Home Condition: Good Discharge Details Clinical Impression: Seizure, Acute UTI Primary Care Provider: [facility] Provider: Eulogio Morales Home Meds and New Rx's Prescriptions: New cephalexin 500 mg capsule 500 mg PO QID 7 Days Qty: 28 0RF No Action ferrous sulfate 325 mg (65 mg iron) tablet 325 mg PO BID Qty: 180 3RF mycophenolate mofetil 500 mg tablet 500 mg PO BID Patient Comments: not taking carbamazepine [Tegretol] 200 mg tablet 200 mg PO TID Qty: 270 4RF Rx Instructions: 1 TAB 0800, PM, and HS, NAME BRAND MEDICALLY NECESSARY calcium carbonate-vitamin D3 [Os-Miguel 500 + D3] 500 mg-15 mcg (600 unit) tablet 1 tab PO BID Qty: 200 2RF Patient Comments: not taking Rx Instructions: 1 tab at 0800 and 1 tab at HS Lac-Hydrin Five 5 % lotion 1 applic topical DAILY Qty: 226 4RF Patient Comments: not taking mecobalamin (vitamin B12) 1,000 mcg tablet,disintegrating 1,000 mcg sublingual DAILY Patient Comments: not taking Rx Instructions: place tablet under tongue and allow to dissolve for at least30 secs before swallowing memantine 10 mg tablet 10 mg PO BID Qty: 180 3RF albuterol sulfate 90 mcg/actuation HFA aerosol inhaler 2 inh inhalation Q6H PRN (Reason: shortness of breath or wheezing) Qty: 18 0RF (DME) BreatheRite MDI Spacer Spacer See Rx Instructions .Route Qty: 1 0RF Rx Instructions: As directed fapotsdltii-cdbmjciko-mzn C-Mn [Glucosamine 1500 Complex] 1 EACH capsule 1 ea PO DAILY Patient Comments: not taking Multiple Vitamin, Womens 1 EACH tablet 1 ea PO DAILY hydroxyzine pamoate [Vistaril] 25 mg capsule 25 mg PO Q8H PRN (Reason: itching) Qty: 30 0RF gabapentin 300 mg capsule 300 mg PO TID Qty: 450 3RF ibuprofen 400 mg tablet 400 mg PO TID PRN (Reason: pain) Qty: 90 4RF Lice Treatment (permethrin) 1 % liquid 60 ml topical ONCE Qty: 59 1RF Patient Comments: not taking Rx Instructions: apply and leave on for at least 10 minutes may repeat treatment 7 days after first treatment if live lice remain duloxetine [Cymbalta] 20 mg capsule,delayed release(DR/EC) 20 mg PO DAILY Qty: 90 4RF Rx Instructions: Take 1 tab at 0800 hydroxyzine HCl 50 mg tablet 50 mg PO TID PRN Patient Comments: TAKE ONE TABLET BY MOUTH THREE TIMES A DAY NEEDED FOR ITCHING triamcinolone acetonide 0.1 % ointment See Rx Instructions .ROUTE .COMPLEX Patient Comments: APPLY TO AFFECTED AREAS ON THE TRUNK AND EXTREMITIES TWO TIMES A DAY FOR TWO WEEKS. TAKE A 5-7 DAY BREAK AND REPEAT NEEDED Rx Instructions: APPLY TO AFFECTED AREAS ON THE TRUNK AND EXTREMITIES TWO TIMES A DAY FOR TWO WEEKS. TAKE A 5-7 DAY BREAK AND REPEAT NEEDED acetylcysteine 600 mg capsule 600 mg PO TID Patient Comments: TAKE ONE CAPSULE BY MOUTH TWICE A DAY TOLERATED aspirin 81 mg Capsule 81 mg PO DAILY prednisone 20 mg tablet 40 mg PO BID oxybutynin chloride 5 mg tablet extended release 24hr 10 mg PO BID Discharge Instructions Instructions: Urinary Tract Infection in Women (ED) Additional Instructions: At this time your workup shows evidence of urinary tract infection, this infection plus accidentally missing a dose of the antiseizure medication is likely what led to the seizure. Please continue to take your carbamazepine as directed. Please take the antibiotic Keflex as directed. Make sure to take it with food. It is been sent to your pharmacy on file. If you notice any worsening of your symptoms, or any new symptoms such as vomiting, diarrhea, fever, chills, shortness of breath, chest pain, numbness, weakness, or fainting , please return immediately to the emergency department for reevaluation. Please follow up with your primary care provider as soon as possible for reassessment and reevaluation. As always, it was a pleasure participating in your medical care today. Referrals: [facility] NP [Primary Care Provider] - Medical Decision Making 73-year-old female with a past medical history of seizures, bullous pemphigus, Alzheimer's dementia, who takes Tegretol for her seizures 3 times daily, presents today for evaluation of seizure. Family informs us that patient unfortunately was not able to get her Tegretol filled until yesterday. She was able to take her last medication of Tegretol last night, but did not take 1 this morning. She had a seizure earlier this afternoon and was unwilling to take her noontime dose either. Family states that they are brief tonic-clonic seizures. She did fall during one of the seizures and may have hit her head or face. Patient and family deny any vomiting or diarrhea. No other complaints at this time. No other modifying factors. Exam demonstrates a well-appearing female, pleasantly confused. Minimal abrasion at tongue and lip. Suspect seizure. Likely secondary to accidental medication noncompliance. Will get a CT scan of her head neck and face to evaluate for trauma, gently rehydrate, give her her Tegretol, monitor closely and reassess. 4:04 PM Laboratory workup shows evidence of a notable urinary tract infection. Carbamazepine level slightly low at 2.3 which corresponds clinically with the missed dose. White count mildly elevated. Electrolytes stable. Patient was given an oral dose of carbamazepine here. She was given 2 g of ceftriaxone. She will be given Keflex from use. She tolerated the ceftriaxone well here. Patient has had no more seizures. CT scan of the head and neck and face is negative for acute process. No other abnormalities. Patient stable for discharge. Discussed plan with family, they agree. I have extensively reviewed the treatment plan and discharge instructions with the patient. I have addressed all patient concerns at this time. The patient was made aware of what symptoms to monitor for that would warrant a return to the emergency department. Discussed the plan with the patient, they demonstrate verbal understanding and agreement with our assessment and plan at this time. The documentation in this chart was dictated using Simple Star dictation software. Please excuse any dictation errors. FINDINGS: CT Head: Ventricles and Extra axial spaces: Normal in size and morphology for the patient's age. Hemorrhage: None. Cerebral parenchyma: There is no evidence of an acute territorial infarct. There is small vessel ischemic disease. There are tiny foci of air in the region of the cavernous sinuses bilaterally. This may be iatrogenic. There is no evidence of a skull base fracture. Midline shift: None. Brainstem/Cerebellum: Normal. Calvarium: Normal. Visualized Paranasal sinuses/Mastoids: Clear. Soft Tissues: Unremarkable. CT Face: Facial Bones: No definite fracture is noted in facial bones. Sinuses and Mastoids: Unremarkable. Globes, extraocular muscles, optic nerves and retrobulbar fat: Normal. Upper aerodigestive tract: Normal. There is left middle turbinate ramón bullosa. The ostiomeatal complexes are unremarkable. The nasal septum deviates to the right. Mandible and bilateral temporomandibular joints: Normal. Soft tissues: Normal. CT Cervical Spine: Bones: No acute fracture or subluxation. Age-appropriate degenerative changes are seen in the cervical spine. Soft Tissues: Unremarkable. Lung Apices: Clear. IMPRESSION: 1. No definite acute intracranial process. 2. No acute fracture or subluxation in the cervical spine. 3. No acute facial fracture. 4. Findings were discussed with Dr. Morales at 3:25 p.m. on 06/11/2023. HPI General Date/Time Provider Initiated Documentation: 06/11/23 13:27. HPI Narrative: 73-year-old female with a past medical history of seizures, bullous pemphigus, Alzheimer's dementia, who takes Tegretol for her seizures 3 times daily, presents today for evaluation of seizure. Family informs us that patient unfortunately was not able to get her Tegretol filled until yesterday. She was able to take her last medication of Tegretol last night, but did not take 1 this morning. She had a seizure earlier this afternoon and was unwilling to take her noontime dose either. Family states that they are brief tonic-clonic seizures. She did fall during one of the seizures and may have hit her head or face. Patient and family deny any vomiting or diarrhea. No other complaints at this time. No other modifying factors. Related Data Home Medications Medication Instructions Recorded Confirmed uwjsmilmnbi-tmnkatzbo-drg C-Mn 500 1 ea PO DAILY 03/26/13 05/21/23 mg-400 mg capsule (Glucosamine 1) nzhqrhxchjob-Ss-dcwq-minerals 1 ea PO DAILY 04/13/14 05/21/23 (Multiple Vitamin, Womens tablet) ammonium lactate 5 % lotion 1 applic topical DAILY #226 grams 03/06/22 05/21/23 (Lac-Hydrin Five) calcium carbonate 500 mg-vitamin 1 tab PO BID Blister Pack #200 03/28/22 05/21/23 D3 15 mcg (600 unit) tablet tab-caps (Os-Miguel 500 + D3) mecobalamin (vitamin B12) 1,000 1,000 mcg sublingual DAILY 05/27/22 06/11/23 mcg disintegrating tablet,sublingual ferrous sulfate 325 mg (65 mg 325 mg PO BID #180 tabs 08/21/22 05/21/23 iron) tablet memantine 10 mg tablet 10 mg PO BID #180 tabs 09/18/22 05/21/23 hydroxyzine pamoate 25 mg capsule 25 mg PO Q8H PRN itching #30 caps 09/22/22 05/21/23 (Vistaril) gabapentin 300 mg capsule 300 mg PO TID Blister Pack #450 01/19/23 05/21/23 caps albuterol sulfate 90 mcg/actuation 2 inh inhalation Q6H PRN shortness 02/03/23 06/11/23 aerosol inhaler of breath or wheezing #18 grams inhalational spacing device #1 ea 02/03/23 05/21/23 (BreatheRite MDI Spacer) Tegretol 200 mg tablet 200 mg PO TID Blister Pack #270 02/12/23 05/21/23 (carbamazepine) tab-caps mycophenolate mofetil 500 mg tablet 500 mg PO BID 02/12/23 05/21/23 ibuprofen 400 mg tablet 400 mg PO TID PRN pain #90 tabs 02/17/23 05/21/23 permethrin 1 % topical liquid 60 ml topical ONCE #59 mL 05/19/23 06/11/23 (Lice Treatment (permethrin)) acetylcysteine 600 mg capsule 600 mg PO TID 05/20/23 05/21/23 aspirin 81 mg capsule 81 mg PO DAILY 05/20/23 06/11/23 hydroxyzine HCl 50 mg tablet 50 mg PO TID PRN 05/20/23 05/21/23 oxybutynin chloride 5 mg 10 mg PO BID 05/20/23 06/11/23 tablet,extended release 24 hr prednisone 20 mg tablet 40 mg PO BID 05/20/23 05/21/23 triamcinolone acetonide 0.1 % See Rx Instructions .Route .COMPLEX 05/20/23 06/11/23 topical ointment duloxetine 20 mg capsule,delayed 20 mg PO DAILY Blister Pack #90 06/09/23 release (Cymbalta) caps cephalexin 500 mg capsule 500 mg PO QID 7 days #28 caps 06/11/23 Previous Rx's Medication Instructions Recorded ammonium lactate 5 % lotion 1 applic topical DAILY #226 grams 03/06/22 (Lac-Hydrin Five) calcium carbonate 500 mg-vitamin 1 tab PO BID Blister Pack #200 03/28/22 D3 15 mcg (600 unit) tablet tab-caps (Os-Miguel 500 + D3) ferrous sulfate 325 mg (65 mg 325 mg PO BID #180 tabs 08/21/22 iron) tablet memantine 10 mg tablet 10 mg PO BID #180 tabs 09/18/22 hydroxyzine pamoate 25 mg capsule 25 mg PO Q8H PRN itching #30 caps 09/22/22 (Vistaril) gabapentin 300 mg capsule 300 mg PO TID Blister Pack #450 01/19/23 caps albuterol sulfate 90 mcg/actuation 2 inh inhalation Q6H PRN shortness 02/03/23 aerosol inhaler of breath or wheezing #18 grams inhalational spacing device #1 ea 02/03/23 (BreatheRite MDI Spacer) Tegretol 200 mg tablet 200 mg PO TID Blister Pack #270 02/12/23 (carbamazepine) tab-caps ibuprofen 400 mg tablet 400 mg PO TID PRN pain #90 tabs 02/17/23 permethrin 1 % topical liquid 60 ml topical ONCE #59 mL 05/19/23 (Lice Treatment (permethrin)) duloxetine 20 mg capsule,delayed 20 mg PO DAILY Blister Pack #90 06/09/23 release (Cymbalta) caps cephalexin 500 mg capsule 500 mg PO QID 7 days #28 caps 06/11/23 Allergies Allergy/AdvReac Type Severity Reaction Status Date / Time ciprofloxacin [From Cipro] Allergy Verified 06/11/23 14:01 codeine Allergy Verified 06/11/23 14:01 levetiracetam [From Keppra] Allergy Verified 06/11/23 14:01 Sulfa (Sulfonamide Allergy Verified 06/11/23 14:01 Antibiotics) amoxicillin [From Augmentin] AdvReac Severe Nausea, Verified 06/11/23 14:01 vomiting and diarrhea clavulanic acid AdvReac Severe Nausea, Verified 06/11/23 14:01 [From Augmentin] vomiting and diarrhea simvastatin AdvReac Unknown FEEL ILL Verified 06/11/23 14:01 meperidine AdvReac DOESNT Verified 06/11/23 14:01 WANT TO EVER TAKE IT, FAMILY HISTORY General Stated Complaint: Seizure HOSSEIN: 3 Review of Systems All systems reviewed & are unremarkable except as noted in HPI and below FORMERLY [facility], [facility] All Active Problems (Updated 06/11/23 @ 16:00 by Eulogio Morales DO) Fall (Acute) Chronic pain of right lower extremity (Acute) Acute UTI (Acute) B12 deficiency (Acute) Alzheimer disease (Chronic) Bullous pemphigus (Acute) Anemia (Chronic) Seizure (Acute) followed at [facility] 05/2022- transfer of care to [facility] neurology Medical History Carpal tunnel syndrome Chronic right shoulder pain (02/15/16) 06/29/2018 - [facility] total right shoulder revision/replacement Depressive disorder anxiety Dermatosis of perineum Dizziness Dry skin dermatitis Edema Enchondroma of left femur Epilepsy Essential hypertension (01/16/14) Fibromyalgia Herpes zoster History of reduction of closed fracture Hyponatremia Low back pain radiating to right leg (05/22/15) 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 Memory changes Orthostatic hypotension Osteoarthritis of knee (02/21/14) left- has received injections right knee replaced Overweight (05/22/15) Pes anserinus bursitis of right knee Recurrent UTI (11/24/17) Shoulder pain, left Thrombophlebitis of superficial veins of lower extremity varicose veins TIA (transient ischemic attack) 07/2021- MRI with no acute infarct Urinary incontinence, urge Varicose veins of left leg with edema Surgical History Fracture, Closed Treatment ANKLE,FOOT,THUMB History of cataract removal with insertion of prosthetic lens History of section History of revision of total replacement of right shoulder joint (~06/29/18) 06/29/18-[facility] 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 MURRY Family History Mother , 89 Essential hypertension Depression Neoplasm FACE/SKIN Stroke Dementia Diabetes Father , 61 Essential hypertension Heart disease Hyperlipidemia Sister Essential hypertension Dementia Neoplasm FACE/SKIN Brother No problems noted. Brother Diabetes Essential hypertension TBI (traumatic brain injury) Depression Myocardial infarction Stroke Brother Essential hypertension Depression Hyperlipidemia Maternal Grandfather , 60 Lung cancer Maternal Grandmother , 94 Diabetes Neoplasm SKIN Paternal Grandmother Diabetes Depression Seizures Stroke Son Dementia Depression Daughter Dementia Depression Essential hypertension Brother TBI (traumatic brain injury) Depression Essential hypertension Alcohol abuse Previous Brother Depression Brother No problems noted. 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 Pets and animals: Yes Pets and animals: dog(s) Sexually active: No Do you think of yourself as: straight/heterosexual Current gender identity: female What is your relationship status?: How often do you talk on the phone with friends or family?: once per week How often do you get together with friends or relatives?: twice per week How often do you attend yarsanism or muslim services?: 1-3 times per year Do you belong to any clubs or organized social groups?: no Panel score (0-1 are the most socially isolated patients): 1 What type of physical activity do you participate in: walking Duration: 30-45 minutes/day Frequency: daily Jacquie/Sabianist: [employer] Special jacquie needs: No Seatbelt use: always Helmet use: No Drive intox or ride w/intox milk 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 Exam Narrative Exam Narrative: 1.Const: Well-nourished, Well-developed, appearing stated age 2.Eyes: PERRL, no conjunctival injection, and symmetrical lids. 3.ENT: Atraumatic external nose and ears. Moist MM. Neck: Symmetric, trachea midline, No thyromegaly. Minimal abrasion noted to tongue and lip 4.CVS: +S1/S2, No murmurs or gallops. Peripheral pulses 2+ and equal in all extremities. Brisk capillary refill in all extremities. 5.RESP: Unlabored respiratory effort. Clear to auscultation bilaterally. No wheezes rales or rhonchi 6.GI: Soft, Nontender/Nondistended, No hepatosplenomegaly. No guarding or rebound. 7.MSK: Normocephalic/Atraumatic, Extremities w/o deformity or ttp No cyanosis or clubbing, Normal movement of all extremities 8.Skin: Warm, Dry. No rashes or lesions. 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 Sensation grossly intact, no focal neurologic deficits. 10.Psych: (AAO) x0. Pleasantly confused Course Vital Signs Vital signs: Vital Signs Temperature 36.7 C 06/11/23 13:24 Pulse 87 06/11/23 13:24 Respiratory Rate 18 06/11/23 13:24 Blood Pressure 120/73 06/11/23 13:24 Pulse Oximetry 95 06/11/23 13:24 Temperature 36.7 C 06/11/23 13:24 Temperature Source Temporal Artery Scan 06/11/23 13:24 Pulse 87 06/11/23 13:24 Respiratory Rate 18 06/11/23 13:24 Respiratory Effort Normal 06/11/23 13:30 Blood Pressure 120/73 06/11/23 13:24 Blood Pressure Position Supine 06/11/23 13:24 Pulse Oximetry 95 06/11/23 13:24 Oxygen Delivery Method Room Air 06/11/23 13:24 Oxygen Flow Rate 0 06/11/23 13:24 Pain Level 0 06/11/23 13:24
[2023-06-11 13:52] LABS: Clarity Sl Cloudy (Clear); Leukocyte Esterase Moderate (Negative); Nitrite Positive (Negative); Specific Gravity 1.015 (1.005-1.025); pH 7.5 (5-8)
[2023-06-11 13:54] LABS: Bilirubin Negative (Negative); Blood Moderate (Negative); Glucose Negative (Negative); Ketones Negative (Negative); Urobilinogen 0.2 mg/dL (Up to 0.2)
[2023-06-11] MEDS: carBAMazepine 200 MG TAB PO (13:56)
[2023-06-11 13:57] LABS: HCT 33.1 % (36.0-46.0); RBC 3.47 10^6/uL (3.93-5.22); WBC 10.98 10^3/uL (4.4-10.8)
[2023-06-11 13:57] LABS: Bacteria Many HPF (Negative); C & S Indicated? Yes; Casts 0-2 Hyaline LPF (Negative); Crystals Negative HPF (Negative); Epithelial Cells Rare HPF (Negative); Mucus Negative (Negative); WBC 20-50 HPF (0-5)
[2023-06-11 13:58] LABS: Absolute Basophil Count 0.07 10^3/uL (0.0-0.2); Absolute Eosinophil Count 0.07 10^3/uL (0.0-0.7); Absolute Lymphocyte Count 0.53 10^3/uL (1.2-3.4); Absolute Neutrophil Count 9.65 10^3/uL (1.2-6.7); Basophils % 0.6; Eosinophils % 0.6; Immature Grans % 0.6; Lymphocytes % 4.8; MCH 31.7 pg (27.0-33.0); MCHC 33.2 % (32.0-36.0); MCV 95 fL (80-95); Monocytes % 5.5; Neutrophils % 87.9; Platelet Count 243 10^3/uL (130-400); RDW 12.9 % (11.7-14.6); RDW-SD 45.3 fL
[2023-06-11 14:05] LABS: Albumin 3.3 g/dL (3.4-5.0); BUN 16 mg/dL (7-18); Bilirubin, Total 0.3 mg/dL (0.2-1.0); CREATININE 0.9 mg/dL (0.55-1.02); Calcium 8.6 mg/dL (8.5-10.1); Estimated GFR 67.08 (mL/min/1.73m2); Glucose 114 mg/dL (74-106); Total Protein 6.6 g/dL (6.4-8.2)
[2023-06-11 14:06] LABS: ALT 20 U/L (14-59); AST 44 U/L (15-37); Alkaline Phosphatase 80 U/L (46-116); Anion Gap 8.1 mmol/L (3-11); CO2 28.9 mmol/L (21.0-32.0); Chloride 102 mmol/L (98-107); Potassium 3.9 mmol/L (3.5-5.1); Sodium 139 mmol/L (136-145)
[2023-06-11] MEDS: Normal Saline 500 ML IV (14:26)
[2023-06-11] MEDS: cefTRIAXone 2 GM/50 ML BAG IVPB (14:40)
[2023-06-11 15:14] LABS: TROPONIN-I 2.3 ug/mL (4.0-12.0)
[2023-06-11 16:28] VITALS: BP 158/70; PULSE 80; RESP 16; TEMP 35.9; O2SAT 96
== END 2023-06-11 16:32 | disposition home or self-care (01) ==
PROVIDERS: Emergency Provider Student in an Organized Health Care Education/Training Program; PCP Nurse Practitioner Family
DX: G40.909 Epilepsy, unspecified, not intractable, without status epilepticus (principal); G30.9 Alzheimer's disease, unspecified; F02.80 Dementia in other diseases classified elsewhere, unspecified severity, without behavioral disturbance, psychotic disturbance, mood disturbance, and anxiety; N39.0 Urinary tract infection, site not specified; L10.9 Pemphigus, unspecified; I10 Essential (primary) hypertension; Z86.73 Personal history of transient ischemic attack (TIA), and cerebral infarction without residual deficits; Z79.82 Long term (current) use of aspirin; Z79.899 Other long term (current) drug therapy
CPT/HCPCS: 80053; 87077; 96361; 96374; 99284; 70450; 70486; 72125; 80156; 81003; 81015; 85025; 87086; 87186

== ENCOUNTER 2023-06-15 03:59 | Outpatient (CLI) | payer MEDICARE, SELFPAY ==
[2023-06-15 13:18] LABS: Hemoglobin A1C 5.7 % (<5.7)
[2023-06-15 13:52] LABS: Calculated LDL 151 mg/dL (<100); Cholesterol 233 mg/dL (<200); HDL Cholesterol 59 mg/dL (40-60); Triglyceride 115 mg/dL (<150)
== END 2023-06-15 04:00 | disposition home or self-care (01) ==
LOC: LOS 03:59
PROVIDERS: PCP Nurse Practitioner Family; Visit Provider Nurse Practitioner Family
DX: E53.8 Deficiency of other specified B group vitamins; G30.9 Alzheimer's disease, unspecified; R73.09 Other abnormal glucose; Z00.00 Encounter for general adult medical examination without abnormal findings; E78.5 Hyperlipidemia, unspecified
CPT/HCPCS: 36415; 80061; 83036

== ENCOUNTER 2023-06-22 13:14 | Outpatient (CLI) | payer MEDICARE, SELFPAY ==
--- NOTE | 2023-06-22 13:00 | DI.RAD_ITS ---
Exam(s) XR KNEE LT 2V AP,LAT EXAM: XR KNEE LT 2V AP,LAT CLINICAL HISTORY: enchondroma. TECHNIQUE: 2D digital imaging was performed of the left knee. Two images were obtained. AP and lat eral views were obtained. COMPARISON: CR XR KNEE LT 3V AP,LAT,LEANDRO from 03/31/2023 FINDINGS: BONES: No acute fracture is present. No bony destructive lesion is seen. There is a stable sclerotic focus in the distal femur which likely represents an enchondroma. JOINTS: There is moderate narrowing in the medial femoral tibial joint. There is chondrocalcinosis i n the femoral tibial joint. Osteophytes are seen in all 3 joint compartments. There is a small join t effusion. No loose body. SOFT TISSUE: Normal. IMPRESSION: Degenerative changes of the knee. DATA REPOSITORY: RADIATION DOSE DELIVERED:
== END 2023-06-22 13:15 | disposition home or self-care (01) ==
LOC: DIORS 13:15
PROVIDERS: PCP Nurse Practitioner Family; Referring Provider Nurse Practitioner Family; Visit Provider Student in an Organized Health Care Education/Training Program
DX: D16.22 Benign neoplasm of long bones of left lower limb (principal)
CPT/HCPCS: 99213; 73560

== ENCOUNTER → 2023-06-25 03:34 | Outpatient (CLI) | payer MEDICARE, SELFPAY ==
--- NOTE | 2023-06-25 08:45 | DI.DEXA_ITS ---
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 COMPARISON: Prior DEXA scan performed 2016 FINDINGS: Performed on a Orgdot unit. Lateral image: No compression fracture evident. Lumbar Spine total T-score: -0.4. Prior reading in 2016 was -0.1 Hip total T-score:-0.7. Prior reading in 2016 was -0.2. Independent reading at the level of the femoral neck yields T-score of -1.1 IMPRESSION: Bone mineral density measures in the osteopenia range. Fracture risk is moderate. Note: Any spine fracture indicates 5x risk for subsequent spine fracture and 2x risk for subsequent h ip fracture. World Health Organization criteria for BMD interpretation classify patients: Normal...... T- Score at or above -1.0 Osteopenic... T- Score between -1.0 and -2.5 Osteoporosis... T-Score at or below -2.5
== END ==
PROVIDERS: PCP Nurse Practitioner Family; Visit Provider Nurse Practitioner Family
DX: Z79.52 Long term (current) use of systemic steroids (principal); Z13.820 Encounter for screening for osteoporosis; M81.0 Age-related osteoporosis without current pathological fracture
CPT/HCPCS: 77080

== ENCOUNTER → 2023-06-25 03:35 | Outpatient (CLI) | payer MEDICARE, SELFPAY ==
--- NOTE | 2023-06-25 08:45 | DI.MAMMO_ITS ---
Exam(s) MAMMO SCREENING EXAM: MAMMO SCREENING CLINICAL HISTORY: screening.z12.39. TECHNIQUE: Bilateral full field digital CC and MLO mammographic images were obtained with 3D tomosyn thesis and utilizing computer aided detection (CAD). COMPARISON: Prior mammograms were reviewed. FINDINGS: There has been no significant change in the appearance and distribution of the fibroglandular tissue. There are no CAD designations. There are no new spiculated masses nor malignant appearing microcalcification groups. There is no significant architectural distortion nor skin thickening-retraction. IMPRESSION: No radiographic evidence of malignancy. BI-RADS Category 1 - Negative Breast Density - Category B - Scattered areas of fibroglandular density Breast density Category C or D implies that the patient has dense breast tissue. Dense breast tissue can make it harder to find cancer on a mammogram. Dense breast tissue is also associated with an incr eased risk of breast cancer. This information about the result of the mammogram report was provided to the patient to raise their awareness. Use this report when you speak with the patient about their risks for breast cancer, which includes their family history. At that time, you may recommend additional screening tests (Ultrasoun d or MRI) as these tests may add significant information. A negative radiographic report should not delay biopsy if a dominant or clinically suspicious mass is present. Up to ten percent of cancers are not identified on mammography. A negative report may reinforce clinical impression. Adenosis and dense breasts may obscure an underlying neoplasm. False positive reports average 6 to 10%. Patient will receive a letter notifying them of these results.
== END ==
PROVIDERS: PCP Nurse Practitioner Family; Visit Provider Nurse Practitioner Family
DX: Z12.31 Encounter for screening mammogram for malignant neoplasm of breast (principal)
CPT/HCPCS: 77063; 77067

== ENCOUNTER → 2023-06-29 12:16 | Outpatient (BNVA) | payer MEDICARE, SELFPAY | PROVIDERS: PCP Nurse Practitioner Family; Visit Provider Psychiatry & Neurology Neurology | DX: G40.309 Generalized idiopathic epilepsy and epileptic syndromes, not intractable, without status epilepticus (principal); R41.3 Other amnesia; F41.9 Anxiety disorder, unspecified; Z86.73 Personal history of transient ischemic attack (TIA), and cerebral infarction without residual deficits; Z79.82 Long term (current) use of aspirin; I10 Essential (primary) hypertension | CPT/HCPCS: 99214 ==

== ENCOUNTER → 2023-10-05 14:08 | Outpatient (BNVA) | payer MEDICARE, SELFPAY | PROVIDERS: PCP Nurse Practitioner Family; Referring Provider Nurse Practitioner Family; Visit Provider Psychiatry & Neurology Neurology | DX: G40.909 Epilepsy, unspecified, not intractable, without status epilepticus (principal); G30.9 Alzheimer's disease, unspecified; F02.80 Dementia in other diseases classified elsewhere, unspecified severity, without behavioral disturbance, psychotic disturbance, mood disturbance, and anxiety; Z86.73 Personal history of transient ischemic attack (TIA), and cerebral infarction without residual deficits; Z79.82 Long term (current) use of aspirin; E53.8 Deficiency of other specified B group vitamins; F41.9 Anxiety disorder, unspecified; I10 Essential (primary) hypertension | CPT/HCPCS: 99214 ==

== ENCOUNTER 2023-12-10 18:17 | Emergency (ER) | payer MEDICARE, SELFPAY ==
[2023-12-10 18:24] VITALS: BP 144/81; PULSE 88; RESP 15; TEMP 36.6; O2SAT 97
--- NOTE | 2023-12-10 18:59 | W.ED.GENAD ---
HPI General Mode of arrival: ambulatory. Date/Time Provider Initiated Documentation: 12/10/23 18:29. Limitations to Documentation: no limitations. Information obtained by: patient and family. HPI Narrative: This is a 73-year-old female with a past medical history of seizure disorder who states that she has been on Tegretol 200 mg 3 times daily for many years and has had her seizure disorder well-controlled. Unfortunately she recently found out that her insurance lapsed and when she went to refill her Tegretol she was told it would be $600. Unfortunately she cannot afford this but she is working diligently with her insurance company in hopes the problem will be resolved soon, may be even tomorrow. Her last dose of Tegretol was this morning, did miss her afternoon dose. She denies any seizure activity. She feels well, asymptomatic Related Data Home Medications Medication Instructions Recorded Confirmed mqrcsicujvct-Ye-pwci-minerals 1 ea PO DAILY 04/13/14 12/10/23 (Multiple Vitamin, Womens tablet) ammonium lactate 5 % lotion 1 applic topical DAILY #226 grams 03/06/22 12/10/23 (Lac-Hydrin Five) calcium carbonate 500 mg-vitamin 1 tab PO BID Blister Pack #200 03/28/22 12/10/23 D3 15 mcg (600 unit) tablet tab-caps (Os-Miguel 500 + D3) gabapentin 300 mg capsule 300 mg PO TID Blister Pack #450 01/19/23 12/10/23 caps albuterol sulfate 90 mcg/actuation 2 inh inhalation Q6H PRN shortness 02/03/23 12/10/23 aerosol inhaler of breath or wheezing #18 grams inhalational spacing device #1 ea 02/03/23 12/10/23 (BreatheRite MDI Spacer) aspirin 81 mg capsule 81 mg PO DAILY 05/20/23 12/10/23 oxybutynin chloride 5 mg 10 mg PO BID 05/20/23 12/10/23 tablet,extended release 24 hr triamcinolone acetonide 0.1 % See Rx Instructions .Route .COMPLEX 05/20/23 12/10/23 topical ointment permethrin 1 % topical liquid 60 ml topical ONCE #59 mL 07/16/23 12/10/23 (Lice Treatment (permethrin)) ferrous sulfate 325 mg (65 mg See Rx Instructions .Route 07/30/23 12/10/23 iron) tablet (FeroSul) .COMPLEX #180 tabs ibuprofen 400 mg tablet See Rx Instructions .Route 07/30/23 12/10/23 .COMPLEX #90 tabs memantine 10 mg tablet 10 mg PO BID #180 tabs 08/24/23 12/10/23 duloxetine 40 mg capsule,delayed 40 mg PO DAILY Blister Pack #90 09/22/23 12/10/23 release caps Tegretol 200 mg tablet 200 mg PO TID Blister Pack #270 10/05/23 12/10/23 (carbamazepine) tab-caps Previous Rx's Medication Instructions Recorded ammonium lactate 5 % lotion 1 applic topical DAILY #226 grams 03/06/22 (Lac-Hydrin Five) calcium carbonate 500 mg-vitamin 1 tab PO BID Blister Pack #200 03/28/22 D3 15 mcg (600 unit) tablet tab-caps (Os-Miguel 500 + D3) gabapentin 300 mg capsule 300 mg PO TID Blister Pack #450 01/19/23 caps albuterol sulfate 90 mcg/actuation 2 inh inhalation Q6H PRN shortness 02/03/23 aerosol inhaler of breath or wheezing #18 grams inhalational spacing device #1 ea 02/03/23 (BreatheRite MDI Spacer) permethrin 1 % topical liquid 60 ml topical ONCE #59 mL 07/16/23 (Lice Treatment (permethrin)) ferrous sulfate 325 mg (65 mg See Rx Instructions .Route 07/30/23 iron) tablet (FeroSul) .COMPLEX #180 tabs ibuprofen 400 mg tablet See Rx Instructions .Route 07/30/23 .COMPLEX #90 tabs memantine 10 mg tablet 10 mg PO BID #180 tabs 08/24/23 duloxetine 40 mg capsule,delayed 40 mg PO DAILY Blister Pack #90 09/22/23 release caps Tegretol 200 mg tablet 200 mg PO TID Blister Pack #270 10/05/23 (carbamazepine) tab-caps Allergies Allergy/AdvReac Type Severity Reaction Status Date / Time ciprofloxacin [From Cipro] Allergy Verified 10/05/23 14:16 codeine Allergy Verified 10/05/23 14:16 levetiracetam [From Keppra] Allergy Verified 10/05/23 14:16 Sulfa (Sulfonamide Allergy Verified 10/05/23 14:16 Antibiotics) amoxicillin [From Augmentin] AdvReac Severe Nausea, Verified 10/05/23 14:16 vomiting and diarrhea clavulanic acid AdvReac Severe Nausea, Verified 10/05/23 14:16 [From Augmentin] vomiting and diarrhea simvastatin AdvReac Unknown FEEL ILL Verified 10/05/23 14:16 meperidine AdvReac DOESNT Verified 10/05/23 14:16 WANT TO EVER TAKE IT, FAMILY HISTORY General Stated Complaint: RX Refill HOSSEIN: 5 Review of Systems Constitutional Constitutional: Denies fever(s) and Denies weakness Cardiovascular Cardiovascular: Denies chest pain and Denies dyspnea Respiratory Respiratory: Denies dyspnea Gastrointestinal Gastrointestinal: Denies nausea and Denies vomiting Musculoskeletal Musculoskeletal: Denies numbness and Denies tingling Neurologic Neurologic: Denies numbness, Denies convulsions, Denies tingling and Denies weakness Exam Const General: cooperative, healthy appearing, comfortable and no acute distress Orientation: alert, awake and oriented x3 HENMT Head: normal to inspection, normocephalic and atraumatic Mouth: moist mucous membranes Eyes Conjunctivae: conjunctivae normal Neck Neck: normal visual inspection, full ROM, no meningeal signs, trachea midline and supple Resp Effort & Inspection: normal respiratory effort and able to speak in complete sentences Skin General skin exam: no rashes or lesions noted Neuro General: patient alert, patient awake, patient oriented x3, moves all extremities and no focal motor deficits Cognition: normal cognition Speech: speech normal Gait: normal gait Motor: muscle tone normal throughout Sensory Exam: no sensory deficits noted Psych Appearance: grossly normal Mental Status: mental status grossly normal Course Vital Signs Vital signs: Vital Signs Temperature 36.6 C 12/10/23 18:24 Pulse 88 12/10/23 18:24 Respiratory Rate 15 12/10/23 18:24 Blood Pressure 144/81 H 12/10/23 18:24 Pulse Oximetry 97 12/10/23 18:24 Temperature 36.6 C 12/10/23 18:24 Temperature Source Temporal Artery Scan 12/10/23 18:24 Pulse 88 12/10/23 18:24 Respiratory Rate 15 12/10/23 18:24 Respiratory Effort Normal 12/10/23 18:40 Blood Pressure 144/81 H 12/10/23 18:24 Blood Pressure Position Sitting 12/10/23 18:24 Pulse Oximetry 97 12/10/23 18:24 Oxygen Delivery Method Room Air 12/10/23 18:24 Oxygen Flow Rate 0 12/10/23 18:24 Pain Level 0 12/10/23 18:24 Medical Decision Making This is a pleasant 73-year-old female who presents requesting a bridge of her Tegretol medication as her insurance has lapsed and she cannot afford the refill. She is otherwise asymptomatic. Plan to provide a single dose of 200 mg p.o. now and will provide her a total of number 12 tablets, 300 mg 3 times daily which will get her through the weekend and into Thursday so she can work out the labs with her insurance. She is very grateful and has no additional questions or concerns. Encouraged to return immediately to the ER for new or worsening symptoms. Medical Records Medical records reviewed: Yes I reviewed the patient's medical records. Quality:[facility] Health Related Social Needs: No Data to Display [facility] All Active Problems (Updated 12/10/23 @ 19:06 by QUIQUE Lopez) Medication refill (Acute) B12 deficiency (Acute) Alzheimer disease (Chronic) Bullous pemphigus (Acute) Anemia (Chronic) Seizure (Acute) followed at [facility] 05/2022- transfer of care to [facility] neurology Medical History Memory changes Epilepsy Orthostatic hypotension Hyponatremia Dizziness Edema Varicose veins of left leg with edema Enchondroma of left femur TIA (transient ischemic attack) 07/2021- MRI with no acute infarct Pes anserinus bursitis of right knee Dry skin dermatitis Shoulder pain, left Carpal tunnel syndrome History of reduction of closed fracture Dermatosis of perineum Herpes zoster Urinary incontinence, urge Thrombophlebitis of superficial veins of lower extremity varicose veins Recurrent UTI (11/24/17) Overweight (05/22/15) Osteoarthritis of knee (02/21/14) left- has received injections right knee replaced Low back pain radiating to right leg (05/22/15) 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 MURRY Fracture, Closed Treatment ANKLE,FOOT,THUMB Family History Mother , 89 Essential hypertension Depression Neoplasm FACE/SKIN Stroke Dementia Diabetes Father , 61 Essential hypertension Heart disease Hyperlipidemia Sister Essential hypertension Dementia Neoplasm FACE/SKIN Brother No problems noted. Brother Diabetes Essential hypertension TBI (traumatic brain injury) Depression Myocardial infarction Stroke Brother Essential hypertension Depression Hyperlipidemia Maternal Grandfather , 60 Lung cancer Maternal Grandmother , 94 Diabetes Neoplasm SKIN Paternal Grandmother Diabetes Depression Seizures Stroke Son Dementia Depression Daughter Dementia Depression Essential hypertension Brother TBI (traumatic brain injury) Depression Essential hypertension Alcohol abuse Previous Brother Depression Brother No problems noted. 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 Pets and animals: Yes Pets and animals: dog(s) Sexually active: No Do you think of yourself as: straight/heterosexual Current gender identity: female What is your relationship status?: How often do you talk on the phone with friends or family?: once per week How often do you get together with friends or relatives?: twice per week How often do you attend islam or alevism services?: 1-3 times per year Do you belong to any clubs or organized social groups?: no Panel score (0-1 are the most socially isolated patients): 1 What type of physical activity do you participate in: walking Duration: 30-45 minutes/day Frequency: daily Jacquie/Faith: Hoahaoism Special jacquie needs: No Seatbelt use: always Helmet use: No Drive intox or ride w/intox 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 Discharge Plan Disposition Patient Disposition: Home Condition: Stable Discharge Details Clinical Impression: Medication refill Primary Care Provider: [facility] ED Provider: Tr Walker Home Meds and New Rx's Prescriptions: Continued carbamazepine [Tegretol] 200 mg tablet 200 mg PO TID Qty: 270 4RF Rx Instructions: 1 TAB 0800, PM, and HS, NAME BRAND MEDICALLY NECESSARY calcium carbonate-vitamin D3 [Os-Miguel 500 + D3] 500 mg-15 mcg (600 unit) tablet 1 tab PO BID Qty: 200 2RF Patient Comments: not taking Rx Instructions: 1 tab at 0800 and 1 tab at HS Lac-Hydrin Five 5 % lotion 1 applic topical DAILY Qty: 226 4RF Patient Comments: not taking albuterol sulfate 90 mcg/actuation HFA aerosol inhaler 2 inh inhalation Q6H PRN (Reason: shortness of breath or wheezing) Qty: 18 0RF (DME) BreatheRite MDI Spacer Spacer See Rx Instructions .Route Qty: 1 0RF Rx Instructions: As directed Multiple Vitamin, Womens 1 EACH tablet 1 ea PO DAILY gabapentin 300 mg capsule 300 mg PO TID Qty: 450 3RF Lice Treatment (permethrin) 1 % liquid 60 ml topical ONCE Qty: 59 1RF Rx Instructions: apply and leave on for at least 10 minutes may repeat treatment 7 days after first treatment if live lice remain ibuprofen 400 mg tablet See Rx Instructions .ROUTE .COMPLEX Qty: 90 4RF Dose Instruction: TAKE ONE TABLET BY MOUTH THREE TIMES A DAY NEEDED FOR PAIN Rx Instructions: TAKE ONE TABLET BY MOUTH THREE TIMES A DAY NEEDED FOR PAIN ferrous sulfate [FeroSul] 325 mg (65 mg iron) tablet See Rx Instructions .ROUTE .COMPLEX Qty: 180 3RF Dose Instruction: TAKE ONE TABLET BY MOUTH TWICE A DAY Rx Instructions: TAKE ONE TABLET BY MOUTH TWICE A DAY memantine 10 mg tablet 10 mg PO BID Qty: 180 3RF duloxetine 40 mg capsule,delayed release(DR/EC) 40 mg PO DAILY Qty: 90 4RF Rx Instructions: Take 1 tab at 0800 triamcinolone acetonide 0.1 % ointment See Rx Instructions .ROUTE .COMPLEX Patient Comments: APPLY TO AFFECTED AREAS ON THE TRUNK AND EXTREMITIES TWO TIMES A DAY FOR TWO WEEKS. TAKE A 5-7 DAY BREAK AND REPEAT NEEDED Rx Instructions: APPLY TO AFFECTED AREAS ON THE TRUNK AND EXTREMITIES TWO TIMES A DAY FOR TWO WEEKS. TAKE A 5-7 DAY BREAK AND REPEAT NEEDED aspirin 81 mg Capsule 81 mg PO DAILY oxybutynin chloride 5 mg tablet extended release 24hr 10 mg PO BID Discharge Instructions Additional Instructions: You have been provided with a single dose of Tegretol now and a total of 12 tablets to go home with to get you through the weekend and into Thursday. In the meantime please watch for new or worsening symptoms and return immediately to the ER. Otherwise in the meantime please contact your insurance company tomorrow to sort out your insurance lab so that you can get your refill appropriately. I do recommend if you are unable to get this taken care of that you come back to the ER during the daytime on a weekday when pharmacy is open and we have care management to may help with additional resources.
[2023-12-10] MEDS: carBAMazepine 200 MG TAB PO ×2 (19:40)
== END 2023-12-10 19:41 | disposition home or self-care (01) ==
PROVIDERS: Emergency Provider Physician Assistant; PCP Nurse Practitioner Family
DX: Z82.0 Family history of epilepsy and other diseases of the nervous system (principal); Z76.0 Encounter for issue of repeat prescription; G40.909 Epilepsy, unspecified, not intractable, without status epilepticus
CPT/HCPCS: 99281; 99282

== ENCOUNTER 2023-12-15 14:04 | Emergency (ER) | payer MEDICARE, SELFPAY ==
[2023-12-15 14:13] VITALS: BP 159/94; PULSE 75; RESP 18; TEMP 36.7; O2SAT 98
--- NOTE | 2023-12-15 15:12 | ED.GENADUL_ITS ---
HPI General Date/Time Provider Initiated Documentation: 12/15/23 14:15 . HPI Narrative: 73-year-old female on Tegretol here for medication administration as she is currently working through insurance issues to obtain Tegretol as an outpatient. Took her morning dose is out of medication that she received from us last week. No medical complaints at this time Related Data Home Medications Medication Instructions Recorded Confirmed ouqychzmnohs-Qt-seyh-minerals 1 ea PO DAILY 04/13/14 12/15/23 (Multiple Vitamin, Womens tablet) ammonium lactate 5 % lotion 1 applic topical DAILY #226 grams 03/06/22 12/15/23 (Lac-Hydrin Five) calcium carbonate 500 mg-vitamin 1 tab PO BID Blister Pack #200 03/28/22 12/15/23 D3 15 mcg (600 unit) tablet tab-caps (Os-Miguel 500 + D3) gabapentin 300 mg capsule 300 mg PO TID Blister Pack #450 01/19/23 12/15/23 caps inhalational spacing device #1 ea 02/03/23 12/10/23 (BreatheRite MDI Spacer) oxybutynin chloride 5 mg 10 mg PO BID 05/20/23 12/15/23 tablet,extended release 24 hr triamcinolone acetonide 0.1 % See Rx Instructions .Route .COMPLEX 05/20/23 12/15/23 topical ointment ferrous sulfate 325 mg (65 mg See Rx Instructions .Route 07/30/23 12/15/23 iron) tablet (FeroSul) .COMPLEX #180 tabs ibuprofen 400 mg tablet See Rx Instructions .Route 07/30/23 12/15/23 .COMPLEX #90 tabs memantine 10 mg tablet 10 mg PO BID #180 tabs 08/24/23 12/15/23 duloxetine 40 mg capsule,delayed 40 mg PO DAILY Blister Pack #90 09/22/23 12/15/23 release caps Tegretol 200 mg tablet 200 mg PO TID Blister Pack #270 10/05/23 12/15/23 (carbamazepine) tab-caps Previous Rx's Medication Instructions Recorded ammonium lactate 5 % lotion 1 applic topical DAILY #226 grams 03/06/22 (Lac-Hydrin Five) calcium carbonate 500 mg-vitamin 1 tab PO BID Blister Pack #200 03/28/22 D3 15 mcg (600 unit) tablet tab-caps (Os-Miguel 500 + D3) gabapentin 300 mg capsule 300 mg PO TID Blister Pack #450 01/19/23 caps inhalational spacing device #1 ea 02/03/23 (BreatheRite MDI Spacer) ferrous sulfate 325 mg (65 mg See Rx Instructions .Route 07/30/23 iron) tablet (FeroSul) .COMPLEX #180 tabs ibuprofen 400 mg tablet See Rx Instructions .Route 07/30/23 .COMPLEX #90 tabs memantine 10 mg tablet 10 mg PO BID #180 tabs 08/24/23 duloxetine 40 mg capsule,delayed 40 mg PO DAILY Blister Pack #90 09/22/23 release caps Tegretol 200 mg tablet 200 mg PO TID Blister Pack #270 10/05/23 (carbamazepine) tab-caps Allergies Allergy/AdvReac Type Severity Reaction Status Date / Time ciprofloxacin [From Cipro] Allergy Diarrhea Verified 12/15/23 14:16 codeine Allergy Diarrhea Verified 12/15/23 14:16 levetiracetam [From Keppra] Allergy Headache Verified 12/15/23 14:16 Sulfa (Sulfonamide Allergy Headache Verified 12/15/23 14:16 Antibiotics) amoxicillin [From Augmentin] AdvReac Severe Nausea, Verified 12/15/23 14:16 vomiting and diarrhea clavulanic acid AdvReac Severe Nausea, Verified 12/15/23 14:16 [From Augmentin] vomiting and diarrhea simvastatin AdvReac Unknown FEEL ILL Verified 12/15/23 14:16 meperidine AdvReac DOESNT Verified 12/15/23 14:16 WANT TO EVER TAKE IT, FAMILY HISTORY General Stated Complaint: RX Refill HOSSEIN: 4 Course Vital Signs Vital signs: Vital Signs Temperature 36.7 C 12/15/23 14:13 Pulse 75 12/15/23 14:13 Respiratory Rate 18 12/15/23 14:13 Blood Pressure 159/94 H 12/15/23 14:13 Pulse Oximetry 98 12/15/23 14:13 Temperature 36.7 C 12/15/23 14:13 Temperature Source Skin 12/15/23 14:13 Pulse 75 12/15/23 14:13 Respiratory Rate 18 12/15/23 14:13 Respiratory Effort Normal 12/15/23 14:15 Blood Pressure 159/94 H 12/15/23 14:13 Blood Pressure Position Sitting 12/15/23 14:13 Pulse Oximetry 98 12/15/23 14:13 Oxygen Delivery Method Room Air 12/15/23 14:13 Oxygen Flow Rate 0 12/15/23 14:13 Medical Decision Making 73-year-old female here for Tegretol dose, is working on insurance issues to obtain medication as an outpatient. Pharmacy able to provide a couple day supply to bridge her until insurance kicks in and she is able to obtain this in outpatient pharmacy. Quality:[facility] Health Related Social Needs: No Data to Display [facility] All Active Problems (Updated 12/15/23 @ 15:17 by Denis Loving MD) Seizure disorder (Chronic) Medication refill (Acute) B12 deficiency (Acute) Alzheimer disease (Chronic) Bullous pemphigus (Acute) Anemia (Chronic) Seizure (Acute) followed at [facility] 05/2022- [facility] Medical History Memory changes Epilepsy Orthostatic hypotension Hyponatremia Dizziness Edema Varicose veins of left leg with edema Enchondroma of left femur TIA (transient ischemic attack) 07/2021- MRI with no acute infarct Pes anserinus bursitis of right knee Dry skin dermatitis Shoulder pain, left Carpal tunnel syndrome History of reduction of closed fracture Dermatosis of perineum Herpes zoster Urinary incontinence, urge Thrombophlebitis of superficial veins of lower extremity varicose veins Recurrent UTI (11/24/17) Overweight (05/22/15) Osteoarthritis of knee (02/21/14) left- has received injections right knee replaced Low back pain radiating to right leg (05/22/15) 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 MURRY Fracture, Closed Treatment ANKLE,FOOT,THUMB Family History Mother , 89 Essential hypertension Depression Neoplasm FACE/SKIN Stroke Dementia Diabetes Father , 61 Essential hypertension Heart disease Hyperlipidemia Sister Essential hypertension Dementia Neoplasm FACE/SKIN Brother No problems noted. Brother Diabetes Essential hypertension TBI (traumatic brain injury) Depression Myocardial infarction Stroke Brother Essential hypertension Depression Hyperlipidemia Maternal Grandfather , 60 Lung cancer Maternal Grandmother , 94 Diabetes Neoplasm SKIN Paternal Grandmother Diabetes Depression Seizures Stroke Son Dementia Depression Daughter Dementia Depression Essential hypertension Brother TBI (traumatic brain injury) Depression Essential hypertension Alcohol abuse Previous Brother Depression Brother No problems noted. 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 Pets and animals: Yes Pets and animals: dog(s) Sexually active: No Do you think of yourself as: straight/heterosexual Current gender identity: female What is your relationship status?: How often do you talk on the phone with friends or family?: once per week How often do you get together with friends or relatives?: twice per week How often do you attend spiritism or advent services?: 1-3 times per year Do you belong to any clubs or organized social groups?: no Panel score (0-1 are the most socially isolated patients): 1 What type of physical activity do you participate in: walking Duration: 30-45 minutes/day Frequency: daily Jacquie/Druze: Congregation Special jacquie needs: No Seatbelt use: always Helmet use: No Drive intox or ride w/intox 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 Discharge Plan Disposition Patient Disposition: Home Condition: Stable Discharge Details Chief Complaint: RX Refill Clinical Impression: Seizure disorder Primary Care Provider: [facility] Provider: Denis Loving Home Meds and New Rx's Prescriptions: No Action carbamazepine [Tegretol] 200 mg tablet 200 mg PO TID Qty: 270 4RF Rx Instructions: 1 TAB 0800, PM, and HS, NAME BRAND MEDICALLY NECESSARY calcium carbonate-vitamin D3 [Os-Miguel 500 + D3] 500 mg-15 mcg (600 unit) tablet 1 tab PO BID Qty: 200 2RF Patient Comments: not taking Rx Instructions: 1 tab at 0800 and 1 tab at HS Lac-Hydrin Five 5 % lotion 1 applic topical DAILY Qty: 226 4RF Patient Comments: not taking (DME) BreatheRite MDI Spacer Spacer See Rx Instructions .Route Qty: 1 0RF Rx Instructions: As directed Multiple Vitamin, Womens 1 EACH tablet 1 ea PO DAILY gabapentin 300 mg capsule 300 mg PO TID Qty: 450 3RF ibuprofen 400 mg tablet See Rx Instructions .ROUTE .COMPLEX Qty: 90 4RF Dose Instruction: TAKE ONE TABLET BY MOUTH THREE TIMES A DAY NEEDED FOR PAIN Rx Instructions: TAKE ONE TABLET BY MOUTH THREE TIMES A DAY NEEDED FOR PAIN ferrous sulfate [FeroSul] 325 mg (65 mg iron) tablet See Rx Instructions .ROUTE .COMPLEX Qty: 180 3RF Dose Instruction: TAKE ONE TABLET BY MOUTH TWICE A DAY Rx Instructions: TAKE ONE TABLET BY MOUTH TWICE A DAY memantine 10 mg tablet 10 mg PO BID Qty: 180 3RF duloxetine 40 mg capsule,delayed release(DR/EC) 40 mg PO DAILY Qty: 90 4RF Rx Instructions: Take 1 tab at 0800 triamcinolone acetonide 0.1 % ointment See Rx Instructions .ROUTE .COMPLEX Patient Comments: APPLY TO AFFECTED AREAS ON THE TRUNK AND EXTREMITIES TWO TIMES A DAY FOR TWO WEEKS. TAKE A 5-7 DAY BREAK AND REPEAT NEEDED Rx Instructions: APPLY TO AFFECTED AREAS ON THE TRUNK AND EXTREMITIES TWO TIMES A DAY FOR TWO WEEKS. TAKE A 5-7 DAY BREAK AND REPEAT NEEDED oxybutynin chloride 5 mg tablet extended release 24hr 10 mg PO BID Discharge Instructions Additional Instructions: Please contact pharmacy and see if you can get generic version for a lower leong. Medications to be dispersed to you at discharge. Please follow-up closely with primary care physician
== END 2023-12-15 15:25 | disposition home or self-care (01) ==
PROVIDERS: Emergency Provider Emergency Medicine; PCP Nurse Practitioner Family
DX: Z76.0 Encounter for issue of repeat prescription (principal); G40.909 Epilepsy, unspecified, not intractable, without status epilepticus
CPT/HCPCS: 99281

== ENCOUNTER 2023-12-20 13:58 | Emergency (ER) | payer MEDICARE, SELFPAY ==
[2023-12-20 13:59] VITALS: BP 139/79; PULSE 85; RESP 17; TEMP 36.3; O2SAT 98
--- NOTE | 2023-12-20 15:23 | W.ED.GENAD ---
Discharge Plan Disposition Patient Disposition: Home Discharge Details Clinical Impression: Medication refill, Seizure disorder Primary Care Provider: [facility] ED Provider: Keron Shields Home Meds and New Rx's Prescriptions: No Action carbamazepine [Tegretol] 200 mg tablet 200 mg PO TID Qty: 270 4RF Rx Instructions: 1 TAB 0800, PM, and HS, NAME BRAND MEDICALLY NECESSARY (DME) BreatheRite MDI Spacer Spacer See Rx Instructions .Route Qty: 1 0RF Rx Instructions: As directed Multiple Vitamin, Womens 1 EACH tablet 1 ea PO DAILY gabapentin 300 mg capsule 300 mg PO TID Qty: 450 3RF ibuprofen 400 mg tablet See Rx Instructions .ROUTE .COMPLEX Qty: 90 4RF Dose Instruction: TAKE ONE TABLET BY MOUTH THREE TIMES A DAY NEEDED FOR PAIN Rx Instructions: TAKE ONE TABLET BY MOUTH THREE TIMES A DAY NEEDED FOR PAIN ferrous sulfate [FeroSul] 325 mg (65 mg iron) tablet See Rx Instructions .ROUTE .COMPLEX Qty: 180 3RF Dose Instruction: TAKE ONE TABLET BY MOUTH TWICE A DAY Rx Instructions: TAKE ONE TABLET BY MOUTH TWICE A DAY memantine 10 mg tablet 10 mg PO BID Qty: 180 3RF duloxetine 40 mg capsule,delayed release(DR/EC) 40 mg PO DAILY Qty: 90 4RF Rx Instructions: Take 1 tab at 0800 Lice Treatment (permethrin) 1 % liquid 60 ml topical ONCE Qty: 59 1RF Rx Instructions: apply and leave on for at least 10 minutes may repeat treatment 7 days after first treatment if live lice remain triamcinolone acetonide 0.1 % ointment See Rx Instructions .ROUTE .COMPLEX Patient Comments: APPLY TO AFFECTED AREAS ON THE TRUNK AND EXTREMITIES TWO TIMES A DAY FOR TWO WEEKS. TAKE A 5-7 DAY BREAK AND REPEAT NEEDED Rx Instructions: APPLY TO AFFECTED AREAS ON THE TRUNK AND EXTREMITIES TWO TIMES A DAY FOR TWO WEEKS. TAKE A 5-7 DAY BREAK AND REPEAT NEEDED oxybutynin chloride 5 mg tablet extended release 24hr 10 mg PO BID Discharge Instructions Instructions: Recurrent Seizures in Adults (ED) Additional Instructions: Please continue to monitor for any new or significant worsening of your medical condition. Return immediately to the emergency department for reassessment if needed Continue to work with your insurance company to refill your medication Follow-up with your primary care provider as needed Referrals: [facility], TECHNICAL SUPPORT ANALYST [Primary Care Provider] - Discharge Data Discharge Date/Time-TO BE ENTERED AT DEPARTURE: 12/20/23 15:31 HPI General Mode of arrival: ambulatory. Date/Time Provider Initiated Documentation: 12/20/23 13:59. Limitations to Documentation: no limitations. Information obtained by: patient, RN notes reviewed and old records reviewed. History of Present Illness 73 year old F presents to the emergency department with the chief complaint of Medication refill, Patient notes no other symptoms.. Related Data Home Medications Medication Instructions Recorded Confirmed [id number]-Fy-zeaj-minerals 1 ea PO DAILY 04/13/14 12/20/23 (Multiple Vitamin, Womens tablet) gabapentin 300 mg capsule 300 mg PO TID Blister Pack #450 01/19/23 12/20/23 caps inhalational spacing device #1 ea 02/03/23 12/20/23 (BreatheRite MDI Spacer) oxybutynin chloride 5 mg 10 mg PO BID 05/20/23 12/20/23 tablet,extended release 24 hr triamcinolone acetonide 0.1 % See Rx Instructions .Route .COMPLEX 05/20/23 12/20/23 topical ointment ferrous sulfate 325 mg (65 mg See Rx Instructions .Route 07/30/23 12/20/23 iron) tablet (FeroSul) .COMPLEX #180 tabs ibuprofen 400 mg tablet See Rx Instructions .Route 07/30/23 12/20/23 .COMPLEX #90 tabs memantine 10 mg tablet 10 mg PO BID #180 tabs 08/24/23 12/20/23 duloxetine 40 mg capsule,delayed 40 mg PO DAILY Blister Pack #90 09/22/23 12/20/23 release caps Tegretol 200 mg tablet 200 mg PO TID Blister Pack #270 10/05/23 12/20/23 (carbamazepine) tab-caps permethrin 1 % topical liquid 60 ml topical ONCE #59 mL 12/21/23 (Lice Treatment (permethrin)) Previous Rx's Medication Instructions Recorded gabapentin 300 mg capsule 300 mg PO TID Blister Pack #450 01/19/23 caps inhalational spacing device #1 ea 02/03/23 (BreatheRite MDI Spacer) ferrous sulfate 325 mg (65 mg See Rx Instructions .Route 07/30/23 iron) tablet (FeroSul) .COMPLEX #180 tabs ibuprofen 400 mg tablet See Rx Instructions .Route 07/30/23 .COMPLEX #90 tabs memantine 10 mg tablet 10 mg PO BID #180 tabs 08/24/23 duloxetine 40 mg capsule,delayed 40 mg PO DAILY Blister Pack #90 09/22/23 release caps Tegretol 200 mg tablet 200 mg PO TID Blister Pack #270 10/05/23 (carbamazepine) tab-caps permethrin 1 % topical liquid 60 ml topical ONCE #59 mL 12/21/23 (Lice Treatment (permethrin)) Allergies Allergy/AdvReac Type Severity Reaction Status Date / Time ciprofloxacin [From Cipro] Allergy Diarrhea Verified 12/20/23 15:27 codeine Allergy Diarrhea Verified 12/20/23 15:27 levetiracetam [From Keppra] Allergy Headache Verified 12/20/23 15:27 Sulfa (Sulfonamide Allergy Headache Verified 12/20/23 15:27 Antibiotics) amoxicillin [From Augmentin] AdvReac Severe Nausea, Verified 12/20/23 15:27 vomiting and diarrhea clavulanic acid AdvReac Severe Nausea, Verified 12/20/23 15:27 [From Augmentin] vomiting and diarrhea simvastatin AdvReac Unknown FEEL ILL Verified 12/20/23 15:27 meperidine AdvReac DOESNT Verified 12/20/23 15:27 WANT TO EVER TAKE IT, FAMILY HISTORY General Stated Complaint: RX Refill HOSSIEN: 4 Review of Systems Constitutional Constitutional: Denies headache(s) ENT Ears, Nose, Mouth, and Throat: Denies headache(s) Cardiovascular Cardiovascular: Denies syncope Neurologic Neurologic: Reports as per HPI, Denies syncope, Denies headache(s) and Denies convulsions Exam Const General: cooperative, no acute distress and not ill appearing Orientation: alert, awake and oriented x3 HENMA Mouth: moist mucous membranes Resp Effort & Inspection: normal respiratory effort, able to speak in complete sentences and no respiratory distress Skin General skin exam: no rashes or lesions noted Neuro General: patient alert, patient awake, patient oriented x3, gait normal, tone normal, moves all extremities, no focal motor deficits, CN's II-XI intact bilaterally and not confused Sensory Exam: no sensory deficits noted Course Vital Signs Vital signs: Vital Signs Temperature 36.3 C L 12/20/23 13:59 Pulse 85 12/20/23 13:59 Respiratory Rate 17 12/20/23 13:59 Blood Pressure 139/79 12/20/23 13:59 Pulse Oximetry 98 12/20/23 13:59 Temperature 36.3 C L 12/20/23 13:59 Temperature Source Temporal Artery Scan 12/20/23 13:59 Pulse 85 12/20/23 13:59 Respiratory Rate 17 12/20/23 13:59 Respiratory Effort Normal 12/20/23 14:03 Blood Pressure 139/79 12/20/23 13:59 Blood Pressure Position Sitting 12/20/23 13:59 Pulse Oximetry 98 12/20/23 13:59 Oxygen Delivery Method Room Air 12/20/23 13:59 Oxygen Flow Rate 0 12/20/23 13:59 Pain Level 0 12/20/23 13:59 Medical Decision Making Patient here for seizure med refill. Due to insurance she has not been able to fill her prescription that is already been given, denies any symptoms. Normal cranial nerve exam and patient denies any seizure activity. Patient given 10 days of medication. Given no medical complaints and just need of seizure medication I do not feel that any further workup is needed. After discussion of diagnosis and plan of care patient has no further needs, questions, or concerns and states clear understanding to return to the emergency department for any worsening symptoms. This documentation was generated using [employer] dictation system, please disregard any oddities of phrase or misspellings. Quality:[facility] Health Related Social Needs: No Data to Display [facility] All Active Problems (Updated 12/20/23 @ 15:26 by Keron Shields NP) Seizure disorder (Chronic) Medication refill (Acute) B12 deficiency (Acute) Alzheimer disease (Chronic) Bullous pemphigus (Acute) Anemia (Chronic) Seizure (Acute) followed at [facility] 05/2022- transfer of care to [facility] neurology Medical History Memory changes Epilepsy Orthostatic hypotension Hyponatremia Dizziness Edema Varicose veins of left leg with edema Enchondroma of left femur TIA (transient ischemic attack) 07/2021- MRI with no acute infarct Pes anserinus bursitis of right knee Dry skin dermatitis Shoulder pain, left Carpal tunnel syndrome History of reduction of closed fracture Dermatosis of perineum Herpes zoster Urinary incontinence, urge Thrombophlebitis of superficial veins of lower extremity varicose veins Recurrent UTI (11/24/17) Overweight (05/22/15) Osteoarthritis of knee (02/21/14) left- has received injections right knee replaced Low back pain radiating to right leg (05/22/15) 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 [place] total right shoulder revision/replacement Surgical History History of cataract removal with insertion of prosthetic lens History of section History of revision of total replacement of right shoulder joint (~06/29/18) 06/29/18-[facility] [place];[facility] 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 MURRY Fracture, Closed Treatment ANKLE,FOOT,THUMB Family History Mother , 89 Essential hypertension Depression Neoplasm FACE/SKIN Stroke Dementia Diabetes Father , 61 Essential hypertension Heart disease Hyperlipidemia Sister Essential hypertension Dementia Neoplasm FACE/SKIN Brother No problems noted. Brother Diabetes Essential hypertension TBI (traumatic brain injury) Depression Myocardial infarction Stroke Brother Essential hypertension Depression Hyperlipidemia Maternal Grandfather , 60 Lung cancer Maternal Grandmother , 94 Diabetes Neoplasm SKIN Paternal Grandmother Diabetes Depression Seizures Stroke Son Dementia Depression Daughter Dementia Depression Essential hypertension Brother TBI (traumatic brain injury) Depression Essential hypertension Alcohol abuse Previous Brother Depression Brother No problems noted. 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 Pets and animals: Yes Pets and animals: dog(s) Sexually active: No Do you think of yourself as: straight/heterosexual Current gender identity: female What is your relationship status?: How often do you talk on the phone with friends or family?: once per week How often do you get together with friends or relatives?: twice per week How often do you attend bahai or orthodox services?: 1-3 times per year Do you belong to any clubs or organized social groups?: no Panel score (0-1 are the most socially isolated patients): 1 What type of physical activity do you participate in: walking Duration: 30-45 minutes/day Frequency: daily Jacquie/Moravian: Yazdanism Special jacquie needs: No Seatbelt use: always Helmet use: No Drive intox or ride w/intox petrol 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
== END 2023-12-20 15:31 | disposition home or self-care (01) ==
PROVIDERS: Emergency Provider Nurse Practitioner Family; PCP Nurse Practitioner Family
DX: G40.909 Epilepsy, unspecified, not intractable, without status epilepticus (principal); Z76.0 Encounter for issue of repeat prescription
CPT/HCPCS: 99281; 99283

== ENCOUNTER 2023-12-30 19:04 | Emergency (ER) | payer MEDICARE, SELFPAY ==
[2023-12-30 19:50] VITALS: BP 132/80; PULSE 84; RESP 18; TEMP 36.6; O2SAT 98
--- NOTE | 2023-12-30 22:10 | ED.GENADUL_ITS ---
Discharge Plan Disposition Patient Disposition: Home Condition: Good Discharge Details Clinical Impression: Medication refill, Seizure disorder Primary Care Provider: [facility] ED Provider: Gregory Lopez Meds and New Rx's Prescriptions: Continued carbamazepine [Tegretol] 200 mg tablet 200 mg PO TID Qty: 270 4RF Rx Instructions: 1 TAB 0800, PM, and HS, NAME BRAND MEDICALLY NECESSARY (DME) BreatheRite MDI Spacer Spacer See Rx Instructions .Route Qty: 1 0RF Rx Instructions: As directed Multiple Vitamin, Womens 1 EACH tablet 1 ea PO DAILY gabapentin 300 mg capsule 300 mg PO TID Qty: 450 3RF ibuprofen 400 mg tablet See Rx Instructions .ROUTE .COMPLEX Qty: 90 4RF Dose Instruction: TAKE ONE TABLET BY MOUTH THREE TIMES A DAY NEEDED FOR PAIN Rx Instructions: TAKE ONE TABLET BY MOUTH THREE TIMES A DAY NEEDED FOR PAIN ferrous sulfate [FeroSul] 325 mg (65 mg iron) tablet See Rx Instructions .ROUTE .COMPLEX Qty: 180 3RF Dose Instruction: TAKE ONE TABLET BY MOUTH TWICE A DAY Rx Instructions: TAKE ONE TABLET BY MOUTH TWICE A DAY memantine 10 mg tablet 10 mg PO BID Qty: 180 3RF duloxetine 40 mg capsule,delayed release(DR/EC) 40 mg PO DAILY Qty: 90 4RF Rx Instructions: Take 1 tab at 0800 triamcinolone acetonide 0.1 % ointment See Rx Instructions .ROUTE .COMPLEX Patient Comments: APPLY TO AFFECTED AREAS ON THE TRUNK AND EXTREMITIES TWO TIMES A DAY FOR TWO WEEKS. TAKE A 5-7 DAY BREAK AND REPEAT NEEDED Rx Instructions: APPLY TO AFFECTED AREAS ON THE TRUNK AND EXTREMITIES TWO TIMES A DAY FOR TWO WEEKS. TAKE A 5-7 DAY BREAK AND REPEAT NEEDED oxybutynin chloride 5 mg tablet extended release 24hr 10 mg PO BID Discharge Instructions Additional Instructions: We were able to give you a 4-day supply of Tegretol this evening. Please reach out to primary care and/or neurology as well as patient care provider to try to help resolve your issue with insurance. Return to ED with concerns. HPI General Mode of arrival: ambulatory . Date/Time Provider Initiated Documentation: 12/30/23 19:56 . Limitations to Documentation: no limitations . Information obtained by: patient and family . HPI Narrative: Patient presenting to ED once again with inability to get her Tegretol for her seizure disorder because of cost. Her and family are working with case maker and insurance company to get her insurance reestablished. She has been to the ED a few times now to get a supply of Tegretol to bridge her through a few days at a time until this insurance problem is corrected. She has no medical complaints of. She has not had any seizures. Related Data Home Medications Medication Instructions Recorded Confirmed [id number]-minerals 1 ea PO DAILY 04/13/14 12/30/23 (Multiple Vitamin, Womens tablet) gabapentin 300 mg capsule 300 mg PO TID Blister Pack #450 01/19/23 12/30/23 caps inhalational spacing device #1 ea 02/03/23 12/20/23 (BreatheRite MDI Spacer) oxybutynin chloride 5 mg 10 mg PO BID 05/20/23 12/30/23 tablet,extended release 24 hr triamcinolone acetonide 0.1 % See Rx Instructions .Route .COMPLEX 05/20/23 12/30/23 topical ointment ferrous sulfate 325 mg (65 mg See Rx Instructions .Route 07/30/23 12/30/23 iron) tablet (FeroSul) .COMPLEX #180 tabs ibuprofen 400 mg tablet See Rx Instructions .Route 07/30/23 12/30/23 .COMPLEX #90 tabs memantine 10 mg tablet 10 mg PO BID #180 tabs 08/24/23 12/30/23 duloxetine 40 mg capsule,delayed 40 mg PO DAILY Blister Pack #90 09/22/23 12/30/23 release caps Tegretol 200 mg tablet 200 mg PO TID Blister Pack #270 10/05/23 12/30/23 (carbamazepine) tab-caps Previous Rx's Medication Instructions Recorded gabapentin 300 mg capsule 300 mg PO TID Blister Pack #450 01/19/23 caps inhalational spacing device #1 ea 02/03/23 (BreatheRite MDI Spacer) ferrous sulfate 325 mg (65 mg See Rx Instructions .Route 07/30/23 iron) tablet (FeroSul) .COMPLEX #180 tabs ibuprofen 400 mg tablet See Rx Instructions .Route 07/30/23 .COMPLEX #90 tabs memantine 10 mg tablet 10 mg PO BID #180 tabs 08/24/23 duloxetine 40 mg capsule,delayed 40 mg PO DAILY Blister Pack #90 09/22/23 release caps Tegretol 200 mg tablet 200 mg PO TID Blister Pack #270 10/05/23 (carbamazepine) tab-caps Allergies Allergy/AdvReac Type Severity Reaction Status Date / Time ciprofloxacin [From Cipro] Allergy Diarrhea Verified 12/30/23 19:53 codeine Allergy Diarrhea Verified 12/30/23 19:53 levetiracetam [From Keppra] Allergy Headache Verified 12/30/23 19:53 Sulfa (Sulfonamide Allergy Headache Verified 12/30/23 19:53 Antibiotics) amoxicillin [From Augmentin] AdvReac Severe Nausea, Verified 12/30/23 19:53 vomiting and diarrhea clavulanic acid AdvReac Severe Nausea, Verified 12/30/23 19:53 [From Augmentin] vomiting and diarrhea simvastatin AdvReac Unknown FEEL ILL Verified 12/30/23 19:53 meperidine AdvReac DOESNT Verified 12/30/23 19:53 WANT TO EVER TAKE IT, FAMILY HISTORY General Stated Complaint: RX Refill HOSSEIN: 5 Review of Systems Narrative: Per HPI Exam Narrative Exam Narrative: Const: WDWN elderly female in NAD. HEENT: NC/AT. Normal facial exam. Eyes: Normal conjunctiva and sclera. Neck: Supple. Trachea midline. Lungs: Normal respiratory effort. Neuro: A+O x 3. Normal speech, mentation, gait. Cranial nerves II - XII grossly intact. No gross motor or sensory deficit. Course Vital Signs Vital signs: Vital Signs Temperature 98 F 12/30/23 19:50 Pulse 84 12/30/23 19:50 Respiratory Rate 18 12/30/23 19:50 Blood Pressure 132/80 12/30/23 19:50 Pulse Oximetry 98 12/30/23 19:50 Temperature 98 F 12/30/23 19:50 Pulse 84 12/30/23 19:50 Respiratory Rate 18 12/30/23 19:50 Blood Pressure 132/80 12/30/23 19:50 Pulse Oximetry 98 12/30/23 19:50 Oxygen Delivery Method Room Air 12/30/23 19:50 Oxygen Flow Rate 0 12/30/23 19:50 Pain Level 0 12/30/23 19:50 Medical Decision Making Spoke with nursing quality control microbiology supervisor this evening. Will give a dose of Tegretol for tonight and a 4-day supply for home use. Encouraged to reach out to primary care in case maker as well as insurance once again. Quality:[facility] Health Related Social Needs: No Data to Display [facility] All Active Problems Seizure disorder (Chronic) Medication refill (Acute) B12 deficiency (Acute) Alzheimer disease (Chronic) Bullous pemphigus (Acute) Anemia (Chronic) Seizure (Acute) followed at [facility] 05/2022- transfer of care to [facility] neurology Medical History Memory changes Epilepsy Orthostatic hypotension Hyponatremia Dizziness Edema Varicose veins of left leg with edema Enchondroma of left femur TIA (transient ischemic attack) 07/2021- MRI with no acute infarct Pes anserinus bursitis of right knee Dry skin dermatitis Shoulder pain, left Carpal tunnel syndrome History of reduction of closed fracture Dermatosis of perineum Herpes zoster Urinary incontinence, urge Thrombophlebitis of superficial veins of lower extremity varicose veins Recurrent UTI (11/24/17) Overweight (05/22/15) Osteoarthritis of knee (02/21/14) left- has received injections right knee replaced Low back pain radiating to right leg (05/22/15) 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 MURRY Fracture, Closed Treatment ANKLE,FOOT,THUMB Family History Mother , 89 Essential hypertension Depression Neoplasm FACE/SKIN Stroke Dementia Diabetes Father , 61 Essential hypertension Heart disease Hyperlipidemia Sister Essential hypertension Dementia Neoplasm FACE/SKIN Brother No problems noted. Brother Diabetes Essential hypertension TBI (traumatic brain injury) Depression Myocardial infarction Stroke Brother Essential hypertension Depression Hyperlipidemia Maternal Grandfather , 60 Lung cancer Maternal Grandmother , 94 Diabetes Neoplasm SKIN Paternal Grandmother Diabetes Depression Seizures Stroke Son Dementia Depression Daughter Dementia Depression Essential hypertension Brother TBI (traumatic brain injury) Depression Essential hypertension Alcohol abuse Previous Brother Depression Brother No problems noted. 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 Pets and animals: Yes Pets and animals: dog(s) Sexually active: No Do you think of yourself as: straight/heterosexual Current gender identity: female What is your relationship status?: How often do you talk on the phone with friends or family?: once per week How often do you get together with friends or relatives?: twice per week How often do you attend voodoo or jain services?: 1-3 times per year Do you belong to any clubs or organized social groups?: no Panel score (0-1 are the most socially isolated patients): 1 What type of physical activity do you participate in: walking Duration: 30-45 minutes/day Frequency: daily Jacquie/Mormonism: Oriental Orthodox Special jacquie needs: No Seatbelt use: always Helmet use: No Drive intox or ride w/intox regional dedicated 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
[2023-12-30] MEDS: carBAMazepine 200 MG TAB PO ×2 (23:27→23:28)
== END 2023-12-30 23:32 | disposition home or self-care (01) ==
PROVIDERS: Emergency Provider Emergency Medicine; PCP Nurse Practitioner Family
DX: Z76.0 Encounter for issue of repeat prescription (principal); G40.909 Epilepsy, unspecified, not intractable, without status epilepticus; I10 Essential (primary) hypertension; Z86.73 Personal history of transient ischemic attack (TIA), and cerebral infarction without residual deficits
CPT/HCPCS: 99282

== ENCOUNTER → 2024-04-04 12:33 | Outpatient (BNVA) | payer MEDICARE, SELFPAY | PROVIDERS: PCP Nurse Practitioner Family; Visit Provider Psychiatry & Neurology Neurology | DX: G30.9 Alzheimer's disease, unspecified (principal); F02.80 Dementia in other diseases classified elsewhere, unspecified severity, without behavioral disturbance, psychotic disturbance, mood disturbance, and anxiety; E53.8 Deficiency of other specified B group vitamins; G40.909 Epilepsy, unspecified, not intractable, without status epilepticus; G45.9 Transient cerebral ischemic attack, unspecified | CPT/HCPCS: 99214 ==

== ENCOUNTER 2024-05-26 02:55 | Outpatient (CLI) | payer MEDICARE, SELFPAY ==
[2024-05-26 16:39] LABS: HCT 34.7 % (36.0-46.0); HGB 11.5 g/dL (11.2-15.7); MCH 31.6 pg (27.0-33.0); MCHC 33.1 % (32.0-36.0); MCV 95 fL (80-95); MPV 9.8 fL (8.0-11.0); Platelet Count 200 10^3/uL (130-400); RBC 3.64 10^6/uL (3.93-5.22); RDW 12.7 % (11.7-14.6); WBC 4.61 10^3/uL (4.4-10.8)
[2024-05-26 17:06] LABS: Hemoglobin A1C 5.6 % (<5.7)
[2024-05-26 18:23] LABS: Anion Gap 7.5 mmol/L (3-11); BUN 19 mg/dL (7-18); CO2 28.5 mmol/L (21.0-32.0); CREATININE 0.7 mg/dL (0.55-1.02); Calcium 9.1 mg/dL (8.5-10.1); Calculated LDL 151 mg/dL (<100); Chloride 105 mmol/L (98-107); Cholesterol 244 mg/dL (<200); Estimated GFR 90.14 (mL/min/1.73m2); Glucose 107 mg/dL (74-106); HDL Cholesterol 69 mg/dL (40-60); Potassium 4.1 mmol/L (3.5-5.1); Sodium 141 mmol/L (136-145); Triglyceride 120 mg/dL (<150)
== END 2024-05-26 02:56 | disposition home or self-care (01) ==
LOC: LBO 02:55
PROVIDERS: PCP Nurse Practitioner Family; Visit Provider Nurse Practitioner Family
DX: Z00.00 Encounter for general adult medical examination without abnormal findings (principal); R56.9 Unspecified convulsions; G30.9 Alzheimer's disease, unspecified; F02.80 Dementia in other diseases classified elsewhere, unspecified severity, without behavioral disturbance, psychotic disturbance, mood disturbance, and anxiety; D64.9 Anemia, unspecified; E53.8 Deficiency of other specified B group vitamins; I10 Essential (primary) hypertension; R73.09 Other abnormal glucose
CPT/HCPCS: 36415; 80048; 80061; 85027; 83036

== ENCOUNTER → 2024-05-29 18:46 | Emergency (ER) | payer MEDICARE, SELFPAY ==
--- NOTE | 2024-05-29 18:45 | RT.EKG_ITS ---
APPROVED REPORT Exam: Resting ECG Reason for Exam: ams Patient Location: E HR:73 bpm ECG Measurements Heart Rate 73 AXIS [place] 178 P 41 QRSd 87 QRS 31 QT 381 T 21 QTc 422 Conclusion Sinus rhythm 73 no stemi
[2024-05-29 18:58] VITALS: BP 159/87; PULSE 73; RESP 16; TEMP 36.2; O2SAT 95
[2024-05-29 18:59] VITALS: PULSE 76; RESP 21
[2024-05-29 19:00] VITALS: PULSE 74; RESP 18
[2024-05-29 19:02] VITALS: BP 159/68; PULSE 72; RESP 15
[2024-05-29 19:10] VITALS: PULSE 70; RESP 14; O2SAT 94
--- NOTE | 2024-05-29 19:15 | DI.CT_ITS ---
Exam(s) CT BRAIN NECK CTA EXAM: CT BRAIN NECK CTA CLINICAL HISTORY: slurred speech, weakness. TECHNIQUE: Imaging Protocol: Axial CT angiography was performed with multi-slice acquisition and mu lti-planar and MIP reconstructions. CONTRAST MATERIAL: Intravenous: Omnipaque 350 Contrast volume:100 ml COMPARISON: CT CT HEAD CERV SPINE FACIAL WO from 06/11/2023 FINDINGS: CT Head W/O and W contrast: Ventricles and Extra axial spaces: Normal in size and morphology for the patient's age. Hemorrhage: None. Cerebral parenchyma: No evidence of acute infarct or mass. Mild atrophy. Mild white matter change s of small vessel disease. Midline shift: None. Brainstem/Cerebellum: No acute findings.. Calvarium: Normal. Visualized Paranasal sinuses/Mastoids: Clear. Soft Tissues: Unremarkable. Enhancement: Normal. CTA Brain W: Internal Carotid Arteries: Petrous: Normal. Cavernous: Normal. Cerebral: Normal. Middle Cerebral Arteries: Right: No aneurysm, occlusion or significant stenosis. Left: No aneurysm, occlusion or significant stenosis. Anterior Cerebral Arteries: Right: No aneurysm, occlusion or significant stenosis. Left: No aneurysm, occlusion or significant stenosis. Posterior cerebral Arteries: Right: No aneurysm, occlusion or significant stenosis. Left: No aneurysm, occlusion or significant stenosis. Vertebral Arteries: Right: No aneurysm, occlusion or significant stenosis. Left: No aneurysm, occlusion or significant stenosis. Basilar Artery: No aneurysm, occlusion or significant stenosis. CTA Neck W: Exam somewhat limited by streak artifact from shoulder prosthesis. Common Carotid: Minimal plaque at the bulbs. Right: No dissection, occlusion or significant stenosis. Left: No dissection, occlusion or significant stenosis. External Carotid: Right: No dissection, occlusion or significant stenosis. Left: No dissection, occlusion or significant stenosis. Internal Carotid: Right: No dissection, occlusion or significant stenosis. Left: No dissection, occlusion or significant stenosis. Vertebral Artery: Right: No dissection, occlusion or significant stenosis. Left: No dissection, occlusion or significant stenosis. Lung Apices: No acute findings. Bones: No acute abnormality. Degenerative changes in spine. Soft Tissues: Normal. IMPRESSION: 1. CTA brain: Normal CTA examination of the [place]. 2. Head CT: Unremarkable CT Head. 3. CTA neck: No significant stenosis. Minimal plaque at the common carotid bulbs. RADIATION DOSE DELIVERED: Total DLP DATA REPOSITORY: All CT scans at this facility are submitted to the National Radiology Data Registry (NRDR) Dose Index Registry (DIR) with the [employer] (ACR). RADIATION OPTIMIZATION: All CT scans at this facility use at least one of these dose optimization te chniques: automated exposure control; mA and/or kV adjustment per patient size (includes targeted exa ms where dose is matched to clinical indication); or iterative reconstruction.
[2024-05-29 19:39] LABS: Abs Immature Grans 0.01 10^3/uL (0.0-0.06); Absolute Basophil Count 0.05 10^3/uL (0.0-0.2); Absolute Eosinophil Count 0.19 10^3/uL (0.0-0.7); Absolute Lymphocyte Count 1.61 10^3/uL (1.2-3.4); Absolute Monocyte Count 0.47 10^3/uL (0.1-0.8); Absolute Neutrophil Count 2.42 10^3/uL (1.2-6.7); Basophils % 1.1 %; HCT 32.9 % (36.0-46.0); HGB 10.7 g/dL (11.2-15.7); Immature Grans % 0.2 %; Lymphocytes % 33.9 %; MCH 31.2 pg (27.0-33.0); MCHC 32.5 % (32.0-36.0); MCV 96 fL (80-95); MPV 9.6 fL (8.0-11.0); Monocytes % 9.9 %; Neutrophils % 50.9 %; Platelet Count 192 10^3/uL (130-400); RBC 3.43 10^6/uL (3.93-5.22); RDW 12.6 % (11.7-14.6); RDW-SD 44.3 fL; WBC 4.75 10^3/uL (4.4-10.8)
[2024-05-29] MEDS: Normal Saline - Diluent 50 ML VIAL IJ (19:46)
[2024-05-29 19:47] LABS: Bilirubin Negative (Negative); Blood Negative (Negative); Clarity Clear (Clear); Glucose Negative (Negative); Ketones Negative (Negative); Leukocyte Esterase Negative (Negative); Nitrite Negative (Negative); Specific Gravity 1.015 (1.005-1.025); Urobilinogen 0.2 mg/dL (Up to 0.2); pH 6.5 (5-8)
[2024-05-29] MEDS: Omnipaque 350 MG/ML 100 ML BTL IJ (19:47)
[2024-05-29 19:57] LABS: Troponin I < 50 ng/L (< or =60)
[2024-05-29 20:04] LABS: ALT 21 U/L (14-59); AST 15 U/L (15-37); Albumin 3.5 g/dL (3.4-5.0); Alkaline Phosphatase 91 U/L (46-116); Anion Gap 4.3 mmol/L (3-11); BUN 17 mg/dL (7-18); Bilirubin, Total 0.24 mg/dL (0.2-1.0); CO2 31.7 mmol/L (21.0-32.0); CREATININE 0.9 mg/dL (0.55-1.02); Calcium 8.6 mg/dL (8.5-10.1); Chloride 104 mmol/L (98-107); Estimated GFR 66.67 (mL/min/1.73m2); Glucose 94 mg/dL (74-106); Magnesium 2.2 mg/dL (1.8-2.4); Potassium 4.5 mmol/L (3.5-5.1); Sodium 140 mmol/L (136-145); TSH 4.49 uIU/Ml (0.36-3.74); Total Protein 7.1 g/dL (6.4-8.2)
--- NOTE | 2024-05-29 20:08 | DI.RAD_ITS ---
Exam(s) XR PORTABLE CHEST AP EXAM: XR PORTABLE CHEST AP CLINICAL HISTORY: weakness TECHNIQUE: 2D digital imaging was performed. COMPARISON: CR,XR XR CHEST 2V PA LATERAL from 09/30/2022 FINDINGS: LUNGS: Clear. No pleural abnormality seen. HEART: Normal size. AORTA: Tortuous.. BONES: Right shoulder prosthesis. Old left humeral fracture. Soft tissues: Unremarkable. IMPRESSION: No acute findings. DATA REPOSITORY: RADIATION DOSE DELIVERED:
--- NOTE | 2024-05-29 20:22 | DI.VRAD_ITS ---
PROCEDURE INFORMATION: Exam: CTA Head Without And With Contrast, Arteriography Exam date and time: 05/29/2024 7:32 PM Age: 74 years old Clinical indication: Other: Weakness, slurred speech TECHNIQUE: Imaging protocol: Computed tomographic angiography of the head without and with contrast. Exam focused on the arteries. 3D rendering (Not supervised by radiologist): MIP and/or 3D reconstructed images were created by the technologist. Radiation optimization: All CT scans at this facility use at least one of these dose optimization techniques: automated exposure control; mA and/or kV adjustment per patient size (includes targeted exams where dose is matched to clinical indication); or iterative reconstruction. Contrast material: OMNIPAQUE 350; Contrast volume: 100 ml; Contrast route: IV; COMPARISON: CT HEAD CERV SPINE FACIAL WO 06/11/2023 2:44 PM FINDINGS: ANTERIOR CIRCULATION: Right internal carotid artery: Intracranial segment is patent with no significant stenosis or occlusion. No aneurysm. Right middle cerebral artery: No occlusion or significant stenosis. No aneurysm. Right anterior cerebral artery: No occlusion or significant stenosis. No aneurysm. Left internal carotid artery: Intracranial segment is patent with no significant stenosis. No aneurysm. Left middle cerebral artery: No occlusion or significant stenosis. No aneurysm. Left anterior cerebral artery: No occlusion or significant stenosis. No aneurysm. POSTERIOR CIRCULATION: Right vertebral artery: No occlusion or significant stenosis. No aneurysm. Left vertebral artery: No occlusion or significant stenosis. No aneurysm. Basilar artery: No occlusion or significant stenosis. No aneurysm. Right posterior cerebral artery: No occlusion or significant stenosis. No aneurysm. Left posterior cerebral artery: No occlusion or significant stenosis. No aneurysm. HEAD: Brain: Cerebral atrophy and probable mild underlying microvascular ischemic changes with no intracranial mass, acute transcortical infarction or recent intracranial hemorrhage detected. Cerebral ventricles: No midline shift or hydrocephalus. Bones: No acute fracture. Paranasal sinuses: Grossly clear throughout. Mastoid air cells: Grossly clear bilaterally. Soft tissues: Unremarkable. IMPRESSION: 1. No large vessel stenosis or occlusion detected involving the major branches of the anterior or posterior intracranial circulation. 2. Cerebral atrophy and probable mild underlying microvascular ischemic changes with no intracranial mass, acute transcortical infarction or recent intracranial hemorrhage detected. PROCEDURE INFORMATION: Exam: CTA Neck Without And With Contrast Exam date and time: 05/29/2024 7:32 PM Age: 74 years old Clinical indication: Other: Weakness, slurred speech TECHNIQUE: Imaging protocol: Computed tomographic angiography of the neck without and with contrast. Exam focused on the cervical segments of the vasculature. 3D rendering (Not supervised by radiologist): MIP and/or 3D reconstructed images were created by the technologist. Radiation optimization: All CT scans at this facility use at least one of these dose optimization techniques: automated exposure control; mA and/or kV adjustment per patient size (includes targeted exams where dose is matched to clinical indication); or iterative reconstruction. Contrast material: OMNIPAQUE 350; Contrast volume: 100 ml; Contrast route: IV; COMPARISON: CT HEAD CERV SPINE FACIAL WO 06/11/2023 2:44 PM FINDINGS: Right common carotid artery: No stenosis. No dissection or occlusion. Right internal carotid artery: No stenosis of the extracranial segment. No dissection or occlusion. Right external carotid artery: No occlusion or stenosis of the origin. Left common carotid artery: No stenosis. No dissection or occlusion. Left internal carotid artery: No stenosis of the extracranial segment. No dissection or occlusion. Left external carotid artery: No occlusion or stenosis of the origin. Right vertebral artery: No stenosis. No dissection or occlusion. Left vertebral artery: No stenosis. No dissection or occlusion. Soft tissues: Normal. No significant soft tissue swelling. Bones/joints: No acute fracture. IMPRESSION: No evidence of 50% or greater stenosis involving the cervical segments of the right or left internal carotid arteries by NASCET criteria. REFERENCES: NASCET CRITERIA. The degree of stenosis in the cervical segment of the internal carotid artery is based on NASCET criteria. Normal is no stenosis. Mild is less than 50% stenosis. Moderate is 50-69% stenosis. Severe is 70% to 99% stenosis. Total occlusion is no detectable patent lumen. Dictated and Authenticated by: Itz Jamison MD. Ordering:HERMAN Villa MD
--- NOTE | 2024-05-29 20:24 | DI.VRAD_ITS ---
PROCEDURE INFORMATION: Exam: XR Chest Exam date and time: 05/29/2024 8:04 PM Age: 74 years old Clinical indication: Other: Weakness TECHNIQUE: Imaging protocol: Radiologic exam of the chest. Views: 1 view. COMPARISON: CR XR CHEST 2V PA LATERAL 09/30/2022 7:15 PM FINDINGS: Lungs: No new mass or consolidation detected. Pleural spaces: No pneumothorax or pleural effusion detected. Heart/Mediastinum: Heart size is normal and vessel margins are sharply defined. Bones/joints: Right glenohumeral arthroplasty is grossly stable in appearance and no acute fractures are detected. IMPRESSION: No acute cardiopulmonary process. Dictated and Authenticated by: Itz Jamison MD. Ordering:HERMAN Villa MD
[2024-05-29 21:53] VITALS: BP 157/86; PULSE 73; RESP 11; O2SAT 99
--- NOTE | 2024-05-31 17:12 | ED.GENADUL_ITS ---
Discharge Plan Disposition Patient Disposition: Against Medical Advice Condition: Serious Discharge Details Clinical Impression: AMS (altered mental status) Primary Care Provider: [facility] ED Provider: Daisy Knowles Home Meds and New Rx's Prescriptions: Continued oxybutynin chloride 5 mg tablet 5 mg PO BID Qty: 180 3RF cholecalciferol (vitamin D3) 50 mcg (2,000 unit) capsule 50 mcg PO DAILY (DME) BreatheRite MDI Spacer Spacer See Rx Instructions .Route Qty: 1 0RF Rx Instructions: As directed Multiple Vitamin, Womens 1 EACH tablet 1 ea PO DAILY memantine 10 mg tablet 10 mg PO BID Qty: 180 3RF duloxetine 40 mg capsule,delayed release(DR/EC) 40 mg PO DAILY Qty: 90 4RF Rx Instructions: Take 1 tab at 0800 carbamazepine 200 mg tablet 200 mg PO TID Qty: 42 0RF Rx Instructions: Short Rx until mail order comes in. Thanks gabapentin 300 mg capsule 300 mg PO TID Qty: 450 3RF triamcinolone acetonide 0.1 % ointment See Rx Instructions .ROUTE .COMPLEX Patient Comments: APPLY TO AFFECTED AREAS ON THE TRUNK AND EXTREMITIES TWO TIMES A DAY FOR TWO WEEKS. TAKE A 5-7 DAY BREAK AND REPEAT NEEDED Rx Instructions: APPLY TO AFFECTED AREAS ON THE TRUNK AND EXTREMITIES TWO TIMES A DAY FOR TWO WEEKS. TAKE A 5-7 DAY BREAK AND REPEAT NEEDED No Action atorvastatin 10 mg tablet 10 mg PO QHS Qty: 90 3RF ferrous sulfate [FeroSul] 325 mg (65 mg iron) tablet 325 mg PO QDAY Qty: 90 3RF Rx Instructions: 325 mg orally daily; Discharge Instructions Additional Instructions: Please follow-up with your primary care physician tomorrow and neurology, I have recommended admission for observation, however your symptoms have resolved and you have requested discharge home, please continue on your aspirin and talk to your doctor about starting cholesterol medication Please return immediately should you have recurrence of symptoms or should any new concerns arise I recommend reassessment tomorrow Referrals: [facility] NP [Primary Care Provider] - HPI General Date/Time Provider Initiated Documentation: 05/29/24 19:04 . HPI Narrative: This 74-year-old female with history of anemia, dementia, seizures presents with report of multiple falls today and having difficulty with some speech after a nap this afternoon around 2. Patient denies any specific complaints but son states that she has had a prior CVA and is unsure as to whether or not she may be experiencing a similar episode. States her symptoms have resolved completely she is no longer meets. She did have a head injury with a fall earlier today. Denies any urinary complaints or any pain complaints. History of falls intermittently in the past denies history of coagulopathy. No visualized seizure activity per family. Related Data Home Medications ?Medication ?Instructions ?Recorded ?Confirmed [id number] 1 ea PO DAILY 04/13/14 05/30/24 (Multiple Vitamin, Womens tablet) inhalational spacing device #1 ea 02/03/23 05/30/24 (BreatheRite MDI Spacer) triamcinolone acetonide 0.1 % See Rx Instructions .Route .COMPLEX 05/20/23 05/30/24 topical ointment memantine 10 mg tablet 10 mg PO BID #180 tabs 08/24/23 05/30/24 duloxetine 40 mg capsule,delayed 40 mg PO DAILY Blister Pack #90 09/22/23 05/30/24 release caps cholecalciferol (vitamin D3) 50 50 mcg PO DAILY 04/04/24 05/30/24 mcg (2,000 unit) capsule carbamazepine 200 mg tablet 200 mg PO TID #42 tabs 04/07/24 05/30/24 gabapentin 300 mg capsule 300 mg PO TID Blister Pack #450 04/25/24 05/30/24 caps oxybutynin chloride 5 mg tablet 5 mg PO BID #180 tabs 05/03/24 05/30/24 atorvastatin 10 mg tablet 10 mg PO QHS #90 tabs 05/30/24 05/30/24 ferrous sulfate 325 mg (65 mg 325 mg PO QDAY #90 tabs 05/30/24 05/30/24 iron) tablet (FeroSul) Previous Rx's ?Medication ?Instructions ?Recorded inhalational spacing device #1 ea 02/03/23 (BreatheRite MDI Spacer) memantine 10 mg tablet 10 mg PO BID #180 tabs 08/24/23 duloxetine 40 mg capsule,delayed 40 mg PO DAILY Blister Pack #90 09/22/23 release caps carbamazepine 200 mg tablet 200 mg PO TID #42 tabs 04/07/24 gabapentin 300 mg capsule 300 mg PO TID Blister Pack #450 04/25/24 caps oxybutynin chloride 5 mg tablet 5 mg PO BID #180 tabs 05/03/24 atorvastatin 10 mg tablet 10 mg PO QHS #90 tabs 05/30/24 ferrous sulfate 325 mg (65 mg 325 mg PO QDAY #90 tabs 05/30/24 iron) tablet (FeroSul) Allergies Allergy/AdvReac Type Severity Reaction Status Date / Time ciprofloxacin (From Cipro) Allergy Diarrhea Verified 05/30/24 11:10 codeine Allergy Diarrhea Verified 05/30/24 11:10 levetiracetam (From Keppra) Allergy Headache Verified 05/30/24 11:10 Sulfa (Sulfonamide Allergy Headache Verified 05/30/24 11:10 Antibiotics) amoxicillin (From Augmentin) AdvReac Severe Nausea, Verified 05/30/24 11:10 vomiting and diarrhea clavulanic acid (From AdvReac Severe Nausea, Verified 05/30/24 11:10 Augmentin) vomiting and diarrhea simvastatin AdvReac Unknown FEEL ILL Verified 05/30/24 11:10 meperidine AdvReac DOESNT Verified 05/30/24 11:10 WANT TO EVER TAKE IT, FAMILY HISTORY General Stated Complaint: Fall/Non TraumaCriteria HOSSEIN: 3 Exam Narrative Exam Narrative: Alert and oriented 74-year-old female in no acute distress with stable vitals. No visible signs of head trauma, no cervical spine tenderness, pupils equal round reactive to light and accommodation, extraocular muscles intact, lungs clear to auscultation, cardiac rate rhythm within normal limits, neurovascularly intact all 4 extremities, no abdominal tenderness, alert and oriented x 3, cranial nerves II through XII intact, negative [id number], negative heel myrick, negative pronator drift, ambulatory with steady gait. Course Vital Signs Vital signs: Vital Signs Temperature 36.2 C L 05/29/24 18:58 Pulse 73 05/29/24 18:58 Respiratory Rate 16 05/29/24 18:58 Blood Pressure 159/87 H 05/29/24 18:58 Pulse Oximetry 95 05/29/24 18:58 Temperature 36.2 C L 05/29/24 18:58 Temperature Source Tympanic 05/29/24 18:58 Pulse 73 05/29/24 21:53 Pulse 70 05/29/24 19:10 Respiratory Rate 11 L 05/29/24 21:53 Respiratory Effort Normal, Non-Labored 05/29/24 19:13 Blood Pressure 157/86 H 05/29/24 21:53 Blood Pressure Mean 101 05/29/24 19:02 Blood Pressure Position Supine 05/29/24 18:58 Pulse Oximetry 99 05/29/24 21:53 Oxygen Delivery Method Room Air 05/29/24 18:58 Oxygen Flow Rate 0 05/29/24 18:58 Pain Level 0 05/29/24 21:53 Lab/Test Results Lab/Test Results: Laboratory Tests Range/Units 05/29/24 05/29/24 05/29/24 19:25 19:40 22:34 WBC (4.4-10.8) 10^3/uL 4.75 RBC (3.93-5.22) 10^6/uL 3.43 L Hgb (11.2-15.7) g/dL 10.7 L Hct (36.0-46.0) % 32.9 L MCV (80-95) fL 96 H MCH (27.0-33.0) pg 31.2 MCHC (32.0-36.0) % 32.5 RDW (11.7-14.6) % 12.6 Plt Count (130-400) 10^3/uL 192 MPV (8.0-11.0) fL 9.6 Immature Gran % % 0.2 Neutrophils % % 50.9 Lymphocytes % % 33.9 Monocytes % % 9.9 Eosinophils % % 4.0 Basophils % % 1.1 Nucleated RBC % (0.0-0.3) % 0.0 Absolute Neutrophils (1.2-6.7) 10^3/uL 2.42 Absolute Lymphocytes (1.2-3.4) 10^3/uL 1.61 Absolute Monocytes (0.1-0.8) 10^3/uL 0.47 Absolute Eosinophils (0.0-0.7) 10^3/uL 0.19 Absolute Basophils (0.0-0.2) 10^3/uL 0.05 Sodium (136-145) mmol/L 140 Potassium (3.5-5.1) mmol/L 4.5 Chloride (98-107) mmol/L 104 Carbon Dioxide (21.0-32.0) mmol/L 31.7 Anion Gap (3-11) mmol/L 4.3 BUN (7-18) mg/dL 17 Creatinine (0.55-1.02) mg/dL 0.9 Est GFR (CKD-EPI 2020) (mL/min/1.73m2) 66.67 Glucose (74-106) mg/dL 94 Calcium (8.5-10.1) mg/dL 8.6 Magnesium (1.8-2.4) mg/dL 2.2 Total Bilirubin (0.2-1.0) mg/dL 0.24 AST (15-37) U/L 15 ALT (14-59) U/L 21 Alkaline Phosphatase (46-116) U/L 91 Troponin I (< or =60) ng/L < 50 Cancelled Total Protein (6.4-8.2) g/dL 7.1 Albumin (3.4-5.0) g/dL 3.5 TSH (0.36-3.74) uIU/Ml 4.49 H Urine Color (Yellow) Yellow Urine Clarity (Clear) Clear Urine pH (5-8) 6.5 Ur Specific [place] (1.005-1.025) 1.015 Urine Protein (Neg-Trace) mg/dL Negative Urine Ketones (Negative) mg/dL Negative Urine Blood (Negative) Negative Urine Nitrite (Negative) Negative Urine Bilirubin (Negative) Negative Urine Urobilinogen (Up to 0.2) mg/dL 0.2 Ur Leukocyte Esterase (Negative) Negative Urine Glucose (Negative) mg/dL Negative Medical Decision Making Patient presenting to this emergency department with report of alteration in mental status. History of dementia and some intermittent confusion and frequent falls so difficult assessment. Patient is at baseline a poor historian, the majority of history obtained from son states patient is now at her baseline at did feel she was confused and had some difficulties with speech earlier today. Hemoglobin and hematocrit at patient's baseline when compared to prior chemistry within normal limits when compared to prior urinalysis without evidence of acute abnormality CTA of head and neck does not show evidence of acute abnormality per radiology interpretation my review. At this time recommendation to admit for observation secondary to possible TIA. Patient does not wish to stay in the hospital. They do understand that the risk of having a stroke in 24 hours after a TIA is quite high. Son is patient's guardian and DPOA, and he states that he will wishes to respect his mother's wishes and be discharged home. He lives with his mother and will stay with her tonight and they will return urgently should any change in neurological status occur. They will call patient's PCP tomorrow. Patient's son is alert, oriented, of decisional capacity and patient is in no acute distress and reportedly at her neurologic baseline. Discharged home in the care of her son. Leaving AGAINST MEDICAL ADVICE.. Quality:SDOH Health Related Social Needs: Health related social needs inadequate housing Health related social needs details NA [facility] All Active Problems (Updated 05/30/24 @ 11:29 by [facility] NP) Hyperlipidemia (Acute) AMS (altered mental status) (Acute) B12 deficiency (Acute) Alzheimer disease (Chronic) Bullous pemphigus (Acute) Anemia (Chronic) Seizure (Acute) followed at 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 TIA (transient ischemic attack) 07/2021- MRI with no acute infarct Pes anserinus bursitis of right knee Dry skin dermatitis Shoulder pain, left Carpal tunnel syndrome History of reduction of closed fracture Dermatosis of perineum Herpes zoster Urinary incontinence, urge Thrombophlebitis of superficial veins of lower extremity varicose veins Recurrent UTI (11/24/17) Overweight (05/22/15) Osteoarthritis of knee (02/21/14) left- has received injections right knee replaced Low back pain radiating to right leg (05/22/15) 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 MURRY Fracture, Closed Treatment ANKLE,FOOT,THUMB Family History Mother , 89 Essential hypertension Depression Neoplasm FACE/SKIN Stroke Dementia Diabetes Father , 61 Essential hypertension Heart disease Hyperlipidemia Sister Essential hypertension Dementia Neoplasm FACE/SKIN Brother No problems noted. Brother Diabetes Essential hypertension TBI (traumatic brain injury) Depression Myocardial infarction Stroke Brother Essential hypertension Depression Hyperlipidemia Maternal Grandfather , 60 Lung cancer Maternal Grandmother , 94 Diabetes Neoplasm SKIN Paternal Grandmother Diabetes Depression Seizures Stroke Son Dementia Depression Daughter Dementia Depression Essential hypertension Brother TBI (traumatic brain injury) Depression Essential hypertension Alcohol abuse Previous Brother Depression Brother No problems noted. 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 Pets and animals: No Sexually active: No Do you think of yourself as: straight/heterosexual Current gender identity: female What is your relationship status?: How often do you talk on the phone with friends or family?: three or more times per week How often do you get together with friends or relatives?: three or more times per week How often do you attend congregation or anabaptism services?: 1-3 times per year Do you belong to any clubs or organized social groups?: no Panel score (0-1 are the most socially isolated patients): 1 What type of physical activity do you participate in: walking Duration: 30-45 minutes/day Frequency: 3-4 times per week Jacquie/Mandaen: Mu-Ism Special jacquie needs: No Seatbelt use: always Helmet use: No Drive intox or ride w/intox cross country truck driver: No Do you feel safe at home: Yes Do you feel safe in your relationship?: Yes Additional Social history: 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
== END | disposition left against medical advice (07) ==
LOC: ER 21:36 → RED 21:56
PROVIDERS: Emergency Provider Physician Assistant; PCP Nurse Practitioner Family
DX: R41.82 Altered mental status, unspecified (principal); I10 Essential (primary) hypertension; Z91.81 History of falling; Z53.29 Procedure and treatment not carried out because of patient's decision for other reasons; W19.XXXA Unspecified fall, initial encounter; F02.80 Dementia in other diseases classified elsewhere, unspecified severity, without behavioral disturbance, psychotic disturbance, mood disturbance, and anxiety
CPT/HCPCS: 36416; 70496; 70498; 80053; 82962; 93005; 99285; 71045; 81003; 83735; 84443; 84484; 85025; 93010; 99283; J3490

== ENCOUNTER 2024-06-29 01:59 | Outpatient (CLI) | payer MEDICARE, SELFPAY ==
--- NOTE | 2024-06-29 07:48 | DI.MAMMO_ITS ---
Exam(s) MAMMO SCREENING EXAM: MAMMO SCREENING CLINICAL HISTORY: screening,z12.39. TECHNIQUE: Bilateral full field digital CC and MLO mammographic images were obtained with 3D tomosyn thesis and utilizing computer aided detection (CAD). COMPARISON: Prior mammograms were reviewed. FINDINGS: There has been no significant change in the appearance and distribution of the fibroglandular tissue. Area of asymmetric tissue in the left breast on the MLO view is unchanged from prior mammogram 2020. There are no new spiculated masses nor new malignant appearing microcalcification groups. There is no significant architectural distortion nor skin thickening-retraction. IMPRESSION: Stable benign-appearing findings. No radiographic evidence of malignancy. BI-RADS Category 2 - Benign Findings Breast Density - Category B - Scattered areas of fibroglandular density Breast density Category C or D implies that the patient has dense breast tissue. Dense breast tissue can make it harder to find cancer on a mammogram. Dense breast tissue is also associated with an incr eased risk of breast cancer. This information about the result of the mammogram report was provided to the patient to raise their awareness. Use this report when you speak with the patient about their risks for breast cancer, which includes their family history. At that time, you may recommend additional screening tests (Ultrasoun d or MRI) as these tests may add significant information. A negative radiographic report should not delay biopsy if a dominant or clinically suspicious mass is present. Up to ten percent of cancers are not identified on mammography. A negative report may reinforce clinical impression. Adenosis and dense breasts may obscure an underlying neoplasm. False positive reports average 6 to 10%. Patient will receive a letter notifying them of these results.
== END 2024-06-29 02:19 ==
LOC: DI 01:59
PROVIDERS: PCP Nurse Practitioner Family; Visit Provider Nurse Practitioner Family
DX: Z12.31 Encounter for screening mammogram for malignant neoplasm of breast (principal)
CPT/HCPCS: 77063; 77067

== ENCOUNTER → 2024-08-31 09:22 | Outpatient (BNVA) | payer MEDICARE, SELFPAY | PROVIDERS: PCP Nurse Practitioner Family; Referring Provider Nurse Practitioner Family; Visit Provider Psychiatry & Neurology Neurology | DX: G30.9 Alzheimer's disease, unspecified (principal); F02.80 Dementia in other diseases classified elsewhere, unspecified severity, without behavioral disturbance, psychotic disturbance, mood disturbance, and anxiety; E53.8 Deficiency of other specified B group vitamins; G40.909 Epilepsy, unspecified, not intractable, without status epilepticus; G45.9 Transient cerebral ischemic attack, unspecified | CPT/HCPCS: 99214 ==

== ENCOUNTER 2025-05-02 15:45 | Emergency (ER) | payer MEDICARE, MEDICAID, SELFPAY ==
[2025-05-02] VITALS (33 sets, daily range): BP systolic 55–143; BP diastolic 21–113; PULSE 89–99; RESP 11–19; TEMP 37.1; O2SAT 92–98
--- NOTE | 2025-05-02 15:45 | DI.CT_ITS ---
Exam(s) CT HEAD WO EXAM: CT HEAD WO CLINICAL HISTORY: confusion, onset one week ago. TECHNIQUE: Imaging Protocol: Axial computed tomography images with coronal and sagittal reformatted images were created and reviewed COMPARISON: CT CT BRAIN NECK CTA from 05/29/2024 FINDINGS: Exam is limited by motion. Ventricles and Extra axial spaces: Normal in size and morphology for the patient's age. Hemorrhage: None. Cerebral parenchyma: No evidence of acute infarct or mass. Mild atrophy. Midline shift: None. Brainstem/Cerebellum: Normal. Bones: No skull or facial fractures. Visualized Paranasal sinuses:Clear. Mastoids: Clear. Soft Tissues: Unremarkable. ORBITS: Unremarkable. PITUITARY: Not enlarged. IMPRESSION: No acute intracranial process. The preliminary [facility] report was reviewed. RADIATION DOSE DELIVERED: 1,624.31mGy.cm Total DLP DATA REPOSITORY: All CT scans at this facility are submitted to the National Radiology Data Registry (NRDR) Dose Index Registry (DIR) with the [employer] (A[employer]). RADIATION OPTIMIZATION: All CT scans at this facility use at least one of these dose optimization techniques: automated exposure control; mA and/or kV adjustment per patient size (includes targeted exams where dose is matched to clinical indication); or iterative reconstruction.
[2025-05-02] MEDS: Normal Saline 1,000 ML 150 ML IV (16:28)
[2025-05-02 16:35] LABS: Abs Immature Grans 0.05 10^3/uL (0.0-0.06); HCT 33.0 % (36.0-46.0); HGB 10.7 g/dL (11.2-15.7); Immature Grans % 0.4 %; MCH 30.1 pg (27.0-33.0); MCHC 32.4 % (32.0-36.0); MCV 93 fL (80-95); MPV 8.5 fL (8.0-11.0); Platelet Count 428 10^3/uL (130-400); RBC 3.56 10^6/uL (3.93-5.22); RDW 13.0 % (11.7-14.6); RDW-SD 43.9 fL; WBC 11.47 10^3/uL (4.4-10.8)
[2025-05-02 16:36] LABS: ESR 50 mm/hr (0-30)
--- NOTE | 2025-05-02 16:49 | W.ED.GENAD ---
Discharge Plan Disposition Patient Disposition: Transfer-Acute Inpatient Care Specific Acute Inpt Facility: [facility] Condition: Stable Discharge Details Clinical Impression: Bullous pemphigoid, Debility Primary Care Provider: [facility] Provider: Eulogio Garcia Home Meds and New Rx's Prescriptions: No Action cholecalciferol (vitamin D3) 50 mcg (2,000 unit) capsule 50 mcg PO DAILY aspirin 81 mg capsule 81 mg PO DAILY mecobalamin (vitamin B12) [B12 Active] 1,000 mcg tablet,chewable 1,000 mcg PO DAILY memantine 10 mg tablet 10 mg PO BID Qty: 180 3RF carbamazepine 200 mg tablet 200 mg PO TID Qty: 270 3RF atorvastatin 10 mg tablet 10 mg PO QHS Qty: 90 3RF ferrous sulfate [FeroSul] 325 mg (65 mg iron) tablet 325 mg PO QDAY Qty: 90 3RF Rx Instructions: 325 mg orally daily; mirabegron [Myrbetriq] 25 mg tablet extended release 24 hr 25 mg PO DAILY Qty: 90 3RF donepezil 10 mg tablet 10 mg PO DAILY Qty: 90 3RF (DME) BreatheRite MDI Spacer Spacer See Rx Instructions .Route Qty: 1 0RF Rx Instructions: As directed methotrexate sodium 2.5 mg tablet 10 mg PO QWEEK folic acid 1 mg tablet 1 mg PO DAILY Multiple Vitamin, Womens 1 EACH tablet 1 ea PO DAILY gabapentin 300 mg capsule 300 mg PO TID Qty: 450 3RF duloxetine 20 mg capsule,delayed release(DR/EC) 20 mg PO DAILY Qty: 90 3RF Rx Instructions: Take 1 tab at 0800 lorazepam 0.5 mg tablet 0.5 mg PO ONCE Qty: 1 0RF Rx Instructions: 15-30 minutes prior to leaving for doctors apt. methotrexate sodium 2.5 mg tablet 10 mg PO QWEEK Rx Instructions: 04/24/2025: Per [facility] Take 4 tablets PO daily, Order of 10 tabs on 04/21/2025. -hb Dupixent Pen 300 mg/2 mL pen injector 300 mg subcut QWEEK Rx Instructions: 04/24/2025: Per [facility] on 04/11/2025. -hb oxycodone-acetaminophen 2.5-325 mg tablet 1 tab PO Q8H PRN Rx Instructions: 04/24/2025 Ordered by [facility] on 04/21/2025, dispensed 15 tabs. -hb triamcinolone acetonide 0.1 % ointment See Rx Instructions .ROUTE .COMPLEX Patient Comments: APPLY TO AFFECTED AREAS ON THE TRUNK AND EXTREMITIES TWO TIMES A DAY FOR TWO WEEKS. TAKE A 5-7 DAY BREAK AND REPEAT NEEDED Rx Instructions: APPLY TO AFFECTED AREAS ON THE TRUNK AND EXTREMITIES TWO TIMES A DAY FOR TWO WEEKS. TAKE A 5-7 DAY BREAK AND REPEAT NEEDED HPI General Date/Time Provider Initiated Documentation: 05/02/25 15:52. HPI Narrative: 74 year-old female presents to ED today by EMS with a chief complaint of severe flare of refractory bullous pemphigoid with onset over the past week since getting out of [facility] for similar problem. Patient has been having problems with insurance and her Dupixent- unable to get it. Quality described as not acting herself for the past week- not eating well, spitting out her pills, half-responsive to questions, and spread of her bullous pemphigoid to nearly all of her body except her face, including her chin, no radiation to fever, vomiting, syncope- patient is unable to give accurate history. Severity is described as severe per son. Palliating factors include has been getting Home Health but feels not enough help, son does have one arm. Getting some topical treatments. Provoking factors include nothing specific. Patient not anticoagulated. Related Data Home Medications ?Medication ?Instructions ?Recorded ?Confirmed [id number]-bjde-minerals 1 ea PO DAILY 04/13/14 05/02/25 (Multiple Vitamin, Womens tablet) inhalational spacing device #1 ea 02/03/23 05/02/25 (BreatheRite MDI Spacer) triamcinolone acetonide 0.1 % See Rx Instructions .Route .COMPLEX 05/20/23 05/02/25 topical ointment cholecalciferol (vitamin D3) 50 50 mcg PO DAILY 04/04/24 05/02/25 mcg (2,000 unit) capsule gabapentin 300 mg capsule 300 mg PO TID Blister Pack #450 04/25/24 05/02/25 caps atorvastatin 10 mg tablet 10 mg PO QHS #90 tabs 05/30/24 05/02/25 ferrous sulfate 325 mg (65 mg 325 mg PO QDAY #90 tabs 05/30/24 05/02/25 iron) tablet (FeroSul) aspirin 81 mg capsule 81 mg PO DAILY 06/29/24 05/02/25 carbamazepine 200 mg tablet 200 mg PO TID #270 tabs 06/29/24 05/02/25 mecobalamin (vitamin B12) 1,000 1,000 mcg PO DAILY 06/29/24 05/02/25 mcg chewable tablet (B12 Active) memantine 10 mg tablet 10 mg PO BID #180 tabs 06/29/24 05/02/25 duloxetine 20 mg capsule,delayed 20 mg PO DAILY Blister Pack #90 08/02/24 05/02/25 release caps mirabegron 25 mg tablet,extended 25 mg PO DAILY #90 tabs 08/31/24 05/02/25 release 24 hr (Myrbetriq) donepezil 10 mg tablet 10 mg PO DAILY #90 tabs 11/02/24 05/02/25 lorazepam 0.5 mg tablet 0.5 mg PO ONCE anxiety for apt #1 04/11/25 05/02/25 tab folic acid 1 mg tablet 1 mg PO DAILY 04/14/25 05/02/25 methotrexate sodium 2.5 mg tablet 10 mg PO QWEEK 04/14/25 05/02/25 dupilumab 300 mg/2 mL subcutaneous 300 mg subcut QWEEK 04/24/25 05/02/25 pen injector (Dupixent) methotrexate sodium 2.5 mg tablet 10 mg PO QWEEK 04/24/25 05/02/25 oxycodone-acetaminophen 2.5 mg-325 1 tab PO Q8H PRN 04/24/25 05/02/25 mg tablet Previous Rx's ?Medication ?Instructions ?Recorded inhalational spacing device #1 ea 02/03/23 (BreatheRite MDI Spacer) gabapentin 300 mg capsule 300 mg PO TID Blister Pack #450 04/25/24 caps atorvastatin 10 mg tablet 10 mg PO QHS #90 tabs 05/30/24 ferrous sulfate 325 mg (65 mg 325 mg PO QDAY #90 tabs 05/30/24 iron) tablet (FeroSul) carbamazepine 200 mg tablet 200 mg PO TID #270 tabs 06/29/24 memantine 10 mg tablet 10 mg PO BID #180 tabs 06/29/24 duloxetine 20 mg capsule,delayed 20 mg PO DAILY Blister Pack #90 08/02/24 release caps mirabegron 25 mg tablet,extended 25 mg PO DAILY #90 tabs 08/31/24 release 24 hr (Myrbetriq) donepezil 10 mg tablet 10 mg PO DAILY #90 tabs 11/02/24 lorazepam 0.5 mg tablet 0.5 mg PO ONCE anxiety for apt #1 04/11/25 tab Allergies Allergy/AdvReac Type Severity Reaction Status Date / Time ciprofloxacin (From Cipro) Allergy Diarrhea Verified 05/02/25 16:02 codeine Allergy Diarrhea Verified 05/02/25 16:02 levetiracetam (From Keppra) Allergy Headache Verified 05/02/25 16:02 Sulfa (Sulfonamide Allergy Headache Verified 05/02/25 16:02 Antibiotics) amoxicillin (From Augmentin) AdvReac Severe Nausea, Verified 05/02/25 16:02 vomiting and diarrhea clavulanic acid (From AdvReac Severe Nausea, Verified 05/02/25 16:02 Augmentin) vomiting and diarrhea simvastatin AdvReac Unknown FEEL ILL Verified 05/02/25 16:02 meperidine AdvReac DOESNT Verified 05/02/25 16:02 WANT TO EVER TAKE IT, FAMILY HISTORY General Stated Complaint: AMS/LOC HOSSEIN: 2 Review of Systems All systems reviewed & are unremarkable except as noted in HPI and below Exam Narrative Exam Narrative: GENERAL APPEARANCE: Malnourished, toxic, atraumatic, moderate acute distress. SKIN: Numerous ulcerations of bullous pemphigoid of varying stages and excoriation diffusely to entire body up to the chin. HEAD: Normocephalic, atraumatic, normal hair distribution for gender/age. EYES: Pale conjunctiva, no exudates on lids/lashes. ENT: Nares patent, no circumoral cyanosis, no facial swelling, no obvious oral lesions of BP NECK: Supple, trachea midline, painless cervical ROM. LUNGS/CHEST: Lungs- no rhonchi at bases, no crackles, non-labored respirations, normal A/P diameter, symmetrical expansion, no chest wall deformity HEART (CV/PV): Regular rate and rhythm without murmur, no peripheral edema, no JVD. ABDOMEN: Soft, non-distended, no guarding, diffuse tenderness to any palpation MSK: Normal ROM, no swelling/deformity to bilateral UEs or LEs, moving all extremities with weakness 3+/5, no cyanosis, spine midline with tenderness- no crepitus/stepoffs, normal curvature. NEURO: Mental Status AAOx2- inappropriate responses, answers name correctly, unintelligble- unsure of baseline with Alzheimer's No facial droop, no forehead involvement. Motor: No focal weakness - diffuse global weakness Sensory: sensation intact to light touch globally. Gait NT. Course Vital Signs Vital signs: Vital Signs Temperature 37.1 C 05/02/25 15:39 Pulse 91 H 05/02/25 15:39 Blood Pressure 93/51 L 05/02/25 15:39 Pulse Oximetry 94 05/02/25 15:39 Temperature 37.1 C 05/02/25 15:39 Pulse 91 H 05/02/25 15:39 Blood Pressure 93/51 L 05/02/25 15:39 Pulse Oximetry 94 05/02/25 15:39 Lab/Test Results Lab/Test Results: Laboratory Tests Range/Units 05/02/25 16:20 WBC (4.4-10.8) 10^3/uL 11.47 H RBC (3.93-5.22) 10^6/uL 3.56 L Hgb (11.2-15.7) g/dL 10.7 L Hct (36.0-46.0) % 33.0 L MCV (80-95) fL 93 MCH (27.0-33.0) pg 30.1 MCHC (32.0-36.0) % 32.4 RDW (11.7-14.6) % 13.0 Plt Count (130-400) 10^3/uL 428 H MPV (8.0-11.0) fL 8.5 Immature Gran % % 0.4 Neutrophils % % 60.4 Lymphocytes % % 10.0 Monocytes % % 2.7 Eosinophils % % 26.2 Basophils % % 0.3 Nucleated RBC % (0.0-0.3) % 0.0 Absolute Neutrophils (1.2-6.7) 10^3/uL 6.93 H Absolute Lymphocytes (1.2-3.4) 10^3/uL 1.15 L Absolute Monocytes (0.1-0.8) 10^3/uL 0.31 Absolute Eosinophils (0.0-0.7) 10^3/uL 3.01 H Absolute Basophils (0.0-0.2) 10^3/uL 0.03 VBG Lactate (<or=2.0) mmol/L 1.7 Medical Decision Making This dictation utilizes [id number] dictation software and may contain unedited grammatical errors. 74 year-old female presents to ED today by EMS with a chief complaint of severe flare of refractory bullous pemphigoid with onset over the past week since getting out of [facility] for similar problem. Patient has been having problems with insurance and her Dupixent- unable to get it. Quality described as not acting herself for the past week- not eating well, spitting out her pills, half-responsive to questions, and spread of her bullous pemphigoid to nearly all of her body except her face, including her chin, no radiation to fever, vomiting, syncope- patient is unable to give accurate history. Severity is described as severe per son. Palliating factors include has been getting Home Health but feels not enough help, son does have one arm. Getting some topical treatments. Provoking factors include nothing specific. Patients' medical history: Memory changes, TIA, bullous pemphigoid, fibromyalgia, hypertension, seizure, Alzheimer's. Family and social history: Lives at home with son who takes care of her, poor diet lately, no exercise. Pertinent exam findings / vital signs include diffuse rash with bullous pemphigoid to entire body in varying stages of ulceration, appears dry and dehydrated, toxic, diffuse tenderness to any palpation, lungs no rhonchi. Differential / pathologies of concern include bullous pemphigoid, encephalopathy, stroke, alzheimer's, secondary cellulitis, oral involvement of BP. Diagnostic studies of: -CT Head wo Contrast, CBC, CMP, CRP/ESR, ammonia, troponin, lipase, procalcitonin, lactate. - CT head without contrast shows no acute stroke with 1 week onset of symptoms - CBC shows mild leukocytosis at 11.4 with elevated absolute neutrophil count at 6.9 but no left shift - Lactate and procalcitonin not suggestive of sepsis - CMP shows no actionable abnormality - Ammonia mildly elevated at 43 - CRP 23.69, ESR 50 - AST elevated at 130, ALT elevated at 77 Interventions of: -1L IVF NS with improvement of BP, given home-dose Tegretol 200mg PO. ED Course/Assessment/Plan: 74-year-old female with Alzheimer's presents with subacute confusion over the last week or so, has mildly elevated ammonia and elevated AST greater than ALT. CT head negative for any stroke. Expect findings after a week. She has a severe acute flare of her refractory bullous pemphigoidand debility. Patient's condition is complex and likely needs multi-disciplinary approach, unclear if she is having ENT involvement, no obvious oral lesiosn at this time, but is spitting out pills and not eating well. [facility] transfer would be beneficial with dermatology to consult. I have concerns about the level of care the patient is getting at home at this time. I spoke with Dr. Gold of Dermatology at 1840 who agrees, and Dr. Linder of [facility] hospitalist service who accepted for admission at 1950. Disposition of Bullous Pemphigoid, Debility. Patient verbalized understanding of the plan and return to ED criteria and engaged in shared decision making. Medical Records Medical records reviewed: Yes I reviewed the patient's medical records. Imaging Data Radiologic Study: Attestation: I personally reviewed and interpreted this imaging study as follows: Imaging: CT Scan Radiologist's impression: Exam: CT Head Without Contrast Exam date and time: 05/02/2025 5:24 PM Age: 74 years old Clinical indication: Confusion, onset one week ago TECHNIQUE: Imaging protocol: Computed tomography of the head without contrast. COMPARISON: CT BRAIN NECK CTA 05/29/2024 7:32 PM FINDINGS: Brain: There is no acute intracranial hemorrhage, mass effect or midline shift. There is no large acute territorial cerebral infarct. Cerebral ventricles: No ventriculomegaly. Paranasal sinuses: Visualized sinuses are unremarkable. No fluid levels. Mastoid air cells: Visualized mastoid air cells are well aerated. Bones: No acute fracture. Soft tissues: Unremarkable. IMPRESSION: No acute intracranial hemorrhage, mass effect or midline shift. Dictated and Authenticated by: Sarah Samayoa MD. Lab Data Lab results reviewed: Yes I reviewed the patient's lab results. Labs: Laboratory Tests Range/Units 05/02/25 05/02/25 16:20 16:43 WBC (4.4-10.8) 10^3/uL 11.47 H RBC (3.93-5.22) 10^6/uL 3.56 L Hgb (11.2-15.7) g/dL 10.7 L Hct (36.0-46.0) % 33.0 L MCV (80-95) fL 93 MCH (27.0-33.0) pg 30.1 MCHC (32.0-36.0) % 32.4 RDW (11.7-14.6) % 13.0 Plt Count (130-400) 10^3/uL 428 H MPV (8.0-11.0) fL 8.5 Immature Gran % % 0.4 Neutrophils % % 60.4 Lymphocytes % % 10.0 Monocytes % % 2.7 Eosinophils % % 26.2 Basophils % % 0.3 Nucleated RBC % (0.0-0.3) % 0.0 Absolute Neutrophils (1.2-6.7) 10^3/uL 6.93 H Absolute Lymphocytes (1.2-3.4) 10^3/uL 1.15 L Absolute Monocytes (0.1-0.8) 10^3/uL 0.31 Absolute Eosinophils (0.0-0.7) 10^3/uL 3.01 H Absolute Basophils (0.0-0.2) 10^3/uL 0.03 ESR (0-30) mm/hr 50 H VBG Lactate (<or=2.0) mmol/L 1.7 Sodium (136-145) mmol/L 135 L Potassium (3.5-5.1) mmol/L 4.2 Chloride (98-107) mmol/L 99 Carbon Dioxide (21.0-32.0) mmol/L 25.3 Anion Gap (3-11) mmol/L 10.7 BUN (7-18) mg/dL 24 H Creatinine (0.55-1.02) mg/dL 0.6 Est GFR (CKD-EPI 2020) (mL/min/1.73m2) 93.55 Glucose (74-106) mg/dL 119 H Calcium (8.5-10.1) mg/dL 8.3 L Total Bilirubin (0.2-1.0) mg/dL 0.4 AST (15-37) U/L 130 H ALT (14-59) U/L 77 H Alkaline Phosphatase (46-116) U/L 96 Ammonia (11-32) umol/L 43 H Troponin I (<or=51) ng/L 4 C-Reactive Protein (<or=0.5) mg/dL 23.69 H Total Protein (6.4-8.2) g/dL 6.4 Albumin (3.4-5.0) g/dL 1.5 L Lipase (<78) U/L 19 Procalcitonin ng/mL 0.12 Quality:[facility] Health Related Social Needs: Health related social needs details NA [facility] All Active Problems (Updated 05/02/25 @ 20:20 by QUIQUE Horn) Debility (Acute) Bullous pemphigoid (Acute) Hyperlipidemia (Acute) B12 deficiency (Acute) Alzheimer disease (Chronic) Bullous pemphigus (Acute) Anemia (Chronic) Seizure (Acute) followed at 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 TIA (transient ischemic attack) 07/2021- MRI with no acute infarct Pes anserinus bursitis of right knee Dry skin dermatitis Shoulder pain, left Carpal tunnel syndrome History of reduction of closed fracture Dermatosis of perineum Herpes zoster Urinary incontinence, urge Thrombophlebitis of superficial veins of lower extremity varicose veins Recurrent UTI (11/24/17) Overweight (05/22/15) Osteoarthritis of knee (02/21/14) left- has received injections right knee replaced Low back pain radiating to right leg (05/22/15) 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 MURRY Fracture, Closed Treatment ANKLE,FOOT,THUMB Family History Mother , 89 Essential hypertension Depression Neoplasm FACE/SKIN Stroke Dementia Diabetes Father , 61 Essential hypertension Heart disease Hyperlipidemia Sister Essential hypertension Dementia Neoplasm FACE/SKIN Brother No problems noted. Brother Diabetes Essential hypertension TBI (traumatic brain injury) Depression Myocardial infarction Stroke Brother Essential hypertension Depression Hyperlipidemia Maternal Grandfather , 60 Lung cancer Maternal Grandmother , 94 Diabetes Neoplasm SKIN Paternal Grandmother Diabetes Depression Seizures Stroke Son Dementia Depression Daughter Dementia Depression Essential hypertension Brother TBI (traumatic brain injury) Depression Essential hypertension Alcohol abuse Previous Brother Depression Brother No problems noted. 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 Pets and animals: No Sexually active: No Do you think of yourself as: straight/heterosexual Current gender identity: female What is your relationship status?: How often do you talk on the phone with friends or family?: three or more times per week How often do you get together with friends or relatives?: three or more times per week How often do you attend sabianist or cheondoism services?: 1-3 times per year Do you belong to any clubs or organized social groups?: no Panel score (0-1 are the most socially isolated patients): 1 What type of physical activity do you participate in: walking Duration: 30-45 minutes/day Frequency: 3-4 times per week Jacquie/Muslim: Confucianist Special jacquie needs: No Seatbelt use: always Helmet use: No Drive intox or ride w/intox 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
[2025-05-02 16:50] LABS: C-Reactive Protein 23.69 mg/dL (<or=0.5)
[2025-05-02 17:03] LABS: ALT 77 U/L (14-59); AST 130 U/L (15-37); Albumin 1.5 g/dL (3.4-5.0); Alkaline Phosphatase 96 U/L (46-116); Anion Gap 10.7 mmol/L (3-11); BUN 24 mg/dL (7-18); Bilirubin, Total 0.4 mg/dL (0.2-1.0); CO2 25.3 mmol/L (21.0-32.0); Calcium 8.3 mg/dL (8.5-10.1); Chloride 99 mmol/L (98-107); Estimated GFR 93.55 (mL/min/1.73m2); Glucose 119 mg/dL (74-106); Lipase 19 U/L (<78); Potassium 4.2 mmol/L (3.5-5.1); Sodium 135 mmol/L (136-145); Total Protein 6.4 g/dL (6.4-8.2); Troponin I 4 ng/L (<or=51)
[2025-05-02 17:04] LABS: Ammonia 43 umol/L (11-32)
[2025-05-02 17:07] LABS: Procalcitonin 0.12 ng/mL
--- NOTE | 2025-05-02 18:24 | DI.VRAD_ITS ---
PROCEDURE INFORMATION: Exam: CT Head Without Contrast Exam date and time: 05/02/2025 5:24 PM Age: 74 years old Clinical indication: Confusion, onset one week ago TECHNIQUE: Imaging protocol: Computed tomography of the head without contrast. COMPARISON: CT BRAIN NECK CTA 05/29/2024 7:32 PM FINDINGS: Brain: There is no acute intracranial hemorrhage, mass effect or midline shift. There is no large acute territorial cerebral infarct. Cerebral ventricles: No ventriculomegaly. Paranasal sinuses: Visualized sinuses are unremarkable. No fluid levels. Mastoid air cells: Visualized mastoid air cells are well aerated. Bones: No acute fracture. Soft tissues: Unremarkable. IMPRESSION: No acute intracranial hemorrhage, mass effect or midline shift. Dictated and Authenticated by: Sarah Samayoa MD. Orderin Radha Krishnan MD
[2025-05-02] MEDS: carBAMazepine 200 MG TAB PO (20:39)
== END 2025-05-02 23:24 | disposition short-term general hospital (02) ==
PROVIDERS: Emergency Provider Physician Assistant; PCP Nurse Practitioner Family
DX: L12.0 Bullous pemphigoid (principal); R53.81 Other malaise; G30.9 Alzheimer's disease, unspecified; F02.80 Dementia in other diseases classified elsewhere, unspecified severity, without behavioral disturbance, psychotic disturbance, mood disturbance, and anxiety
CPT/HCPCS: 99285 ×2; 36415; 80053; 83690; 84145; 85652; 96360; 96361; 70450; 82140; 83605; 84484; 85025; 86140